=== PATIENT | female | born 1940 | race Caucasian/White ===

== ENCOUNTER 2019-10-18 12:41 | Emergency (ER) | payer MEDICARE, OTHER ==
[~2019-10-18] VITALS: Ht 177.8 cm; Wt 111.1 kg
--- OUTSIDE RECORDS SUMMARY | ~2019-10-18 | XMS | Encounter Summary ---
Demographics + + + | Address | [address] [place] [address] | | | [place] [address] | + + + | Home Phone | | + + + | Preferred Language | Unknown | + + + | Marital Status | | + + + | Adventism Affiliation | 1076 | + + + | Race | Unknown | + + + | Ethnic Group | Unknown | + + + Author + + + | Author | [facility] | | | and [place] | + + + | Organization | [facility] | | | and [place] | + + + | Address | Unknown | + + + | Phone | Unavailable | + + + Support + + + + + | Name | Relationship | Address | Phone | + + + + + | Juan Carlos Ko | ECON | [address] | | | | | [place], [place] | | | | | [address] | | + + + + + | Arie Ko | ECON | Unknown | | + + + + + Care Team Providers + +------+ + | Care Emergency Management System Director Name | Role | Phone | + +------+ + | Bobo Garcia DO | PCP | | + +------+ + Encounter Details +--------+---------+ + + + | Date | Type | Department | Care Team | Description | +--------+---------+ + + + | 03/16/ | Surgery | [facility] | Spencer Chase MD | EGD / COLONOSCOPY | | 2016 | | MED [facility] | [address], [place] | | | | | [address] | [address] [place], [place] | | | | | [place], [place] | [address] | | | | | [address] | | | | | | [phone] | | | +--------+---------+ + + + Social History + +-------+ +--------+------+ | Tobacco Use | Types | Packs/Day | Years | Date | | | | | Used | | + +-------+ +--------+------+ | Never Smoker | | | | | + +-------+ +--------+------+ + +---+---+---+ | Smokeless Tobacco: | | | | | Never Used | | | | + +---+---+---+ + + +---------+ + | Alcohol Use | Drinks/Week | oz/Week | Comments | + + +---------+ + | Yes | 2 Glasses of wine | 2.0 | 0-2 week | + + +---------+ + + + + | Sex Assigned at | Date Recorded | | | | + + + | Not on file | | + + + + + + + | Job Start Date | Occupation | Industry | + + + + | Not on file | Not on file | Not on file | + + + + + + + + | Travel History | Travel Start | Travel End | + + + + + + | No recent travel history available. | + + documented as of this encounter Last Filed Vital Signs + + + + + | Vital Sign | Reading | Time Taken | Comments | + + + + + | Blood Pressure | 97/68 | 03/16/2016 11:45 AM | | | | | PDT | | + + + + + | Pulse | 57 | 03/16/2016 11:45 AM | | | | | PDT | | + + + + + | Temperature | 36.5 C (97.7 F) | 03/16/2016 8:00 AM | | | | | PDT | | + + + + + | Respiratory Rate | 16 | 03/16/2016 11:45 AM | | | | | PDT | | + + + + + | Oxygen Saturation | 99% | 03/16/2016 11:45 AM | | | | | PDT | | + + + + + | Inhaled Oxygen | - | - | | | Concentration | | | | + + + + + | Weight | 109.8 kg (242 lb) | 03/16/2016 8:00 AM | | | | | PDT | | + + + + + | Height | 177.8 cm (5' 10") | 03/16/2016 8:00 AM | | | | | PDT | | + + + + + | Body Mass Index | 34.72 | 03/16/2016 8:00 AM | | | | | PDT | | + + + + + documented in this encounter Medications at Time of Discharge + + + +---------+--------+ + | Medication | Sig | Dispensed | Refills | Start | End Date | | | | | | Date | | + + + +---------+--------+ + | Levothyroxine | Take 100 mcg by | | 0 | | | | Sodium 100 MCG CAPS | mouth every morning | | | | | | | (before breakfast). | | | | | + + + +---------+--------+ + | lisinopril | Take 20 mg by mouth | | 0 | | | | (PRINIVIL, ZESTRIL) | Daily. | | | | | | 20 mg tablet | | | | | | + + + +---------+--------+ + | Acetaminophen | Take 500 mg by mouth | | 0 | | | | (TYLENOL EX ST | every 6 hours as | | | | 6 | | ARTHRITIS PAIN PO) | needed. | | | | | + + + +---------+--------+ + | | Take by mouth. | | 0 | | | | Boswellia-Glucosamin | | | | | 6 | | e-Vit D (GLUCOSAMINE | | | | | | | COMPLEX PO) | | | | | | + + + +---------+--------+ + | Multiple | Take 1 tablet by | | 0 | | | | Vitamins-Minerals | mouth Daily. | | | | 7 | | (MULTIVITAMIN PO) | | | | | | + + + +---------+--------+ + | Psyllium 500 MG | Take 2 capsules by | | 0 | | | | CAPS | mouth 2 times daily. | | | | 7 | + + + +---------+--------+ + documented as of this encounter Plan of Treatment Not on filedocumented as of this encounter Procedures + +--------+ + + + | Procedure Name | Priori | Date/Time | Associated Diagnosis | Comments | | | ty | | | | + +--------+ + + + | RAGHAV, STOOL | Routin | 03/19/2016 | | Results for this | | RESULT | e | 11:38 AM | | procedure are in the | | | | PDT | | results section. | + +--------+ + + + | CAMPYLOBACTER | Routin | 03/16/2016 | | Results for this | | AG,QUAL | e | 11:22 AM | | procedure are in the | | | | PDT | | results section. | + +--------+ + + + | SHIGATOXIN 1 AND 2 | Routin | 03/16/2016 | | Results for this | | | e | 11:21 AM | | procedure are in the | | | | PDT | | results section. | + +--------+ + + + | OCCULT BLOOD, STOOL, | Routin | 03/16/2016 | | Results for this | | SPECIMEN 1 | e | 10:19 AM | | procedure are in the | | | | PDT | | results section. | + +--------+ + + + | LACTOFERRIN, FECAL, | Routin | 03/16/2016 | | Results for this | | QUAL | e | 10:19 AM | | procedure are in the | | | | PDT | | results section. | + +--------+ + + + | OVA AND PARASITE | Routin | 03/16/2016 | | Results for this | | EXAMINATION | e | 10:19 AM | | procedure are in the | | | | PDT | | results section. | + +--------+ + + + | CRYPTOSPORIDIUM AG | Routin | 03/16/2016 | | Results for this | | | e | 10:19 AM | | procedure are in the | | | | PDT | | results section. | + +--------+ + + + | GIARDIA AG, EIA, | Routin | 03/16/2016 | | Results for this | | STOOL | e | 10:19 AM | | procedure are in the | | | | PDT | | results section. | + +--------+ + + + | CLOSTRIDIUM | Routin | 03/16/2016 | | Results for this | | DIFFICILE A AND B | e | 10:19 AM | | procedure are in the | | EIA | | PDT | | results section. | + +--------+ + + + | CULTURE, STOOL | Routin | 03/16/2016 | | Results for this | | | e | 10:19 AM | | procedure are in the | | | | PDT | | results section. | + +--------+ + + + | HELICOBACTER PYLORI | Routin | 03/16/2016 | | Results for this | | BIOPSY | e | 10:05 AM | | procedure are in the | | | | PDT | | results section. | + +--------+ + + + | EGD / COLONOSCOPY | | 03/16/2016 | Diarrhea Weight | | | | | 9:54 AM | loss Fecal | | | | | PDT | incontinence | | + +--------+ + + + | EGD | Routin | 03/16/2016 | | Results for this | | | e | 9:49 AM | | procedure are in the | | | | PDT | | results section. | + +--------+ + + + | COLONOSCOPY | Routin | 03/16/2016 | | Results for this | | | e | 9:48 AM | | procedure are in the | | | | PDT | | results section. | + +--------+ + + + | POC GLUCOSE | Routin | 03/16/2016 | | Results for this | | | e | 9:34 AM | | procedure are in the | | | | PDT | | results section. | + +--------+ + + + | SURGICAL PATHOLOGY | Routin | 03/16/2016 | | Results for this | | EXAM | e | 12:00 AM | | procedure are in the | | | | PDT | | results section. | + +--------+ + + + documented in this encounter Results Culture, Stool Result (03/19/2016 11:38 AM PDT) + + + + + + | Component | Value | Ref Range | Performed | Pathologist | | | | | At | Signature | + + + + + + | Culture | No Salmonella, Shigella, | | [facility] | | | | Aeromonas, Plesiomonas, | | [facility] | | | | E. coli O157 or | | MEDICAL | | | | Yersinia isolated. | | CENTER - | | | | | | LABORATORY | | + + + + + + | Culture | 2+ Gram Positive | | [facility] | | | | FloraComment: Consistent | | [facility] | | | | with usual enteric | | MEDICAL | | | | jordon.No gram negative | | CENTER - | | | | enteric jordon isolated | | LABORATORY | | + + + + + + + + | Specimen | + + | Stool - Stool | | specimen (specimen) | + + + + + + + | Performing | Address | City/State/Zipcode | Phone Number | | Organization | | | | + + + + + | [facility] | [address] | [place] | [phone] | | [facility] | | [address] | | | - LABORATORY | | | | + + + + + Campylobacter Lucita Thomas (03/16/2016 11:22 AM PDT) + + + + + + | Component | Value | Ref Range | Performed | Pathologist | | | | | At | Signature | + + + + + + | Campylobact | Negative | Negative | [facility] | | | er Lucita THOMAS | | | [facility] | | | | | | MEDICAL | | | | | | CENTER - | | | | | | LABORATORY | | + + + + + + + + | Specimen | + + | Stool - Stool | | specimen (specimen) | + + + + + + + | Performing | Address | City/State/Zipcode | Phone Number | | Organization | | | | + + + + + | [facility] | [address] | [place], [place] | [phone] | | [facility] | | [address] | | | - LABORATORY | | | | + + + + + Shigatoxin 1 and 2 (03/16/2016 11:21 AM PDT) + + + + + + | Component | Value | Ref Range | Performed | Pathologist | | | | | At | Signature | + + + + + + | Shigatoxin | Negative | Negative | [facility] | | | 1 | | | [facility] | | | | | | MEDICAL | | | | | | CENTER - | | | | | | LABORATORY | | + + + + + + | Shigatoxin | Negative | Negative | [facility] | | | 2 | | | [facility] | | | | | | MEDICAL | | | | | | CENTER - | | | | | | LABORATORY | | + + + + + + + + | Specimen | + + | Stool - Stool | | specimen (specimen) | + + + + + + + | Performing | Address | City/State/Zipcode | Phone Number | | Organization | | | | + + + + + | [facility] | [address] | [place] | [phone] | | [facility] | | [address] | | | - LABORATORY | | | | + + + + + Ova and Parasite Examination (03/16/2016 10:19 AM PDT) + + + + + + | Component | Value | Ref Range | Performed | Pathologist | | | | | At | Signature | + + + + + + | O/P IDENT | See CommentsComment: | | [facility] | | | | Accession No. | | [facility] | | | | | | | | | | [id number] | | | | | | Source | | | | | | StoolResult | | | | | | | | | | | | No Ova or | | | | | | Parasites seen | | | | | | | | | | | | This test | | | | | | will not detect | | | | | | Cyclospora, | | | | | | | | | | | | | | | | | | Cryptosporidium or | | | | | | Cystoisospora | | | | | | | | | | | | | | | | | | (Isospora). For these | | | | | | organisms | | | | | | | | | | | | refer to | | | | | | Coccidia Stain (test | | | | | | code | | | | | | | | | | | | CRYSM). | | | | + + + + + + | O/P REPORT | Report Status | | [facility]FER[facility] | | | STAT | Final | | [facility] | | | | 03/17/2016Comment: | | | | | | Testing Performed: | | | | | | [facility] | | | | | | [facility], [address] | | | | | [address] [place] [address] | | | | + + + + + + + + | Specimen | + + | Stool specimen | | (specimen) - Stool | + + + + + + + | Performing | Address | City/State/Zipcode | Phone Number | | Organization | | | | + + + + + | [facility] | [address] | [place] [address] | [phone] | + + + + + Occult Blood, Stool, Specimen 1 (03/16/2016 10:19 AM PDT) + + + + + + | Component | Value | Ref Range | Performed | Pathologist | | | | | At | Signature | + + + + + + | STOOL | Negative | | [facility] | | | OCCULT | | | [facility] | | | BLOOD X1 | | | MEDICAL | | | | | | CENTER - | | | | | | LABORATORY | | + + + + + + + + | Specimen | + + | Stool - Stool | | specimen (specimen) | + + + + + + + | Performing | Address | City/State/Zipcode | Phone Number | | Organization | | | | + + + + + | [facility] | [address] | [place] | [phone] | | [facility] | | [address] | | | - LABORATORY | | | | + + + + + Lactoferrin, Fecal, Qual (03/16/2016 10:19 AM PDT) + + + + + + | Component | Value | Ref Range | Performed | Pathologist | | | | | At | Signature | + + + + + + | Lactoferrin | Negative | Negative | [facility] | | | , Qual | | | [facility] | | | | | | MEDICAL | | | | | | CENTER - | | | | | | LABORATORY | | + + + + + + + + | Specimen | + + | Stool - Stool | | specimen (specimen) | + + + + + + + | Performing | Address | City/State/Zipcode | Phone Number | | Organization | | | | + + + + + | [facility] | [address] | [place] | [phone] | | [facility] | | [address] | | | - LABORATORY | | | | + + + + + Clostridium difficile A and B EIA (03/16/2016 10:19 AM PDT) + + + + + + | Component | Value | Ref Range | Performed | Pathologist | | | | | At | Signature | + + + + + + | Clostridium | Negative | Negative | [facility] | | | Diff | | | [facility] | | | | | | MEDICAL | | | | | | CENTER - | | | | | | LABORATORY | | + + + + + + | Clostridium | NegativeComment: | | [facility] | | | Difficile | Negative for toxigenic | | [facility] | | | [facility] Antigen | Clostridium difficileNo | | MEDICAL | | | | data exists on the | | CENTER - | | | | effects of colonic | | LABORATORY | | | | washes, barium enemas, | | | | | | laxatives, or bowel | | | | | | preparations on the | | | | | | performance of this | | | | | | test. All of these | | | | | | procedures can result in | | | | | | extensive dilution or | | | | | | the presence of | | | | | | additives that may | | | | | | affect test performance. | | | | + + + + + + + + | Specimen | + + | Stool - Stool | | specimen (specimen) | + + + + + + + | Performing | Address | City/State/Zipcode | Phone Number | | Organization | | | | + + + + + | [facility] | [address] | [place] | [phone] | | [facility] | | [address] | | | - LABORATORY | | | | + + + + + Cryptosporidium Ag (03/16/2016 10:19 AM PDT) + + + + + + | Component | Value | Ref Range | Performed | Pathologist | | | | | At | Signature | + + + + + + | Cryptospori | Negative | Negative | [facility] | | | dium | | | [facility] | | | Antigen | | | MEDICAL | | | | | | CENTER - | | | | | | LABORATORY | | + + + + + + + + | Specimen | + + | Stool - Stool | | specimen (specimen) | + + + + + + + | Performing | Address | City/State/Zipcode | Phone Number | | Organization | | | | + + + + + | [facility] | [address] | [place] | [phone] | | [facility] | | [address] | | | - LABORATORY | | | | + + + + + Giardia Ag, EIA, Stool (03/16/2016 10:19 AM PDT) + + + + + + | Component | Value | Ref Range | Performed | Pathologist | | | | | At | Signature | + + + + + + | Giardia | Negative | Negative | [facility] | | | Antigen, | | | [facility] | | | Stool | | | MEDICAL | | | | | | CENTER - | | | | | | LABORATORY | | + + + + + + + + | Specimen | + + | Stool - Stool | | specimen (specimen) | + + + + + + + | Performing | Address | City/State/Zipcode | Phone Number | | Organization | | | | + + + + + | [facility] | [address] | [place] | [phone] | | [facility] | | [address] | | | - LABORATORY | | | | + + + + + Helicobactor pylori Biopsy (03/16/2016 10:05 AM PDT) + + + + + + | Component | Value | Ref Range | Performed | Pathologist | | | | | At | Signature | + + + + + + | Helicobacte | Negative | Negative | [facility] | | | r pylori Ag | | | [facility] | | | | | | MEDICAL | | | | | | CENTER - | | | | | | LABORATORY | | + + + + + + + + | Specimen | + + | Tissue - Entire | | pyloric antrum (body | | structure) | + + + + + + + | Performing | Address | City/State/Zipcode | Phone Number | | Organization | | | | + + + + + | [facility] | [address] | [place] | [phone] | | [facility] | | [address] | | | - LABORATORY | | | | + + + + + EGD (03/16/2016 9:49 AM PDT) + + | Specimen | + + | | + + + + -+ | Narrative | Performed At | + + -+ | | [facility] | | GastroenterologyPatient Name: Carlota KoProcedure Date: 03/16/2016 | [place] | | 9:49 AMMRN: [id number] #: [id number] of : | | | 1Admit Type: AmbulatoryAge: 75Room: [facility] 01Gender: FemaleNote | | | Status: FinalizedAttending MD: Spencer Chase, MDProcedure: | | | Upper GI endoscopyIndications: Suspected esophageal | | | reflux, For therapy of esophageal reflux, | | | DiarrheaProviders: Spencer Chase MD, Elham Prather | | | [place], [place] Perez, | | | TechnicianReferring MD: Bobo Zendejas DO (Referring | | | MD)Medicines: Midazolam 5 mg IV, Meperidine 100 mg IV, | | | Cetacaine spray, Oxygen 4 liters/min | | | nasocannulaComplications: No immediate complications. Estimated | | | blood loss: Minimal.Procedure: Pre-Anesthesia Assessment: | | | - Prior to the procedure, a History and Physical was performed, and | | | patient medications, allergies and sensitivities were reviewed. | | | The patient's tolerance of previous anesthesia was reviewed. | | | - Prior to the procedure, a History and Physical was performed, | | | and patient medications and allergies were reviewed. The | | | patient is competent. The risks and benefits of the procedure | | | and the sedation options and risks were discussed with the | | | patient. All questions were answered and informed consent was | | | obtained. Patient identification and proposed procedure were | | | verified by the physician, the nurse and the electronic calibration technician in the | | | endoscopy suite. Mental Status Examination: alert and oriented. | | | Airway Examination: normal oropharyngeal airway and neck | | | mobility and Mallampati Class III (part of the uvula and soft palate | | | visualized). Prophylactic Antibiotics: The patient does not | | | require prophylactic antibiotics. Prior Anticoagulants: The | | | patient has taken no previous anticoagulant or antiplatelet | | | agents. ASA Grade Assessment: II - A patient with mild systemic | | | disease. After reviewing the risks and benefits, the patient | | | was deemed in satisfactory condition to undergo the procedure. | | | The anesthesia plan was to use moderate sedation / analgesia | | | (conscious sedation). Immediately prior to administration of | | | medications, the patient was re-assessed for adequacy to receive | | | sedatives. The heart rate, respiratory rate, oxygen saturations, | | | blood pressure, adequacy of pulmonary ventilation, and response | | | to care were monitored throughout the procedure. The physical | | | status of the patient was re-assessed after the procedure. | | | - After reviewing the risks and benefits, the patient was deemed in | | | satisfactory condition to undergo the procedure. - | | | Immediately prior to administration of medications, the patient was | | | re-assessed for adequacy to receive sedatives. - The heart | | | rate, respiratory rate, oxygen saturations, blood pressure, | | | adequacy of pulmonary ventilation, and response to care were monitored | | | throughout the procedure. - The physical status of the | | | patient was re-assessed after the procedure. After obtaining | | | informed consent, the endoscope was passed under direct vision. | | | Throughout the procedure, the patient's blood pressure, pulse, | | | and oxygen saturations were monitored continuously. The endoscope was | | | introduced through the mouth, and advanced to the third part | | | of duodenum. The upper GI endoscopy was accomplished without | | | difficulty. The patient tolerated the procedure well.Findings: | | | The cricopharyngeus, upper third of the esophagus, middle third | | | of the esophagus, lower third of the esophagus, lower | | | esophageal sphincter and gastroesophageal junction were normal. | | | The Z-line was regular and was found 40 cm from the incisors. | | | Two localized, small non-bleeding erosions were found in the | | | gastric antrum. There were no stigmata of recent bleeding. | | | Biopsies were taken with a cold forceps for Helicobacter pylori | | | testing using CLOtest. Verification of patient identification | | | for the specimen was done. Estimated blood loss was minimal. | | | The duodenal bulb, first part of the duodenum, 2nd part of the | | | duodenum, area of the papilla and 3rd part of the duodenum were | | | normal. Biopsies were taken with a cold forceps for evaluation | | | of celiac disease. Verification of patient identification for | | | the specimen was done. Estimated blood loss was minimal. | | | The retroflexed view confirmed previous findings,Impression: - | | | Normal cricopharyngeus, upper third of esophagus, middle third of | | | esophagus, lower third of esophagus, lower esophageal sphincter and | | | gastroesophageal junction. - Z-line regular, 40 cm from | | | the incisors. - Non-bleeding erosive gastropathy. Biopsied. | | | - Normal duodenal bulb, first part of the duodenum, 2nd part of the | | | duodenum, area of the papilla and 3rd part of the duodenum. | | | Biopsied. - The retroflexed view confirmed previous | | | findings,Recommendation: - Written discharge instructions were | | | provided to the patient. - Discharge patient to home | | | (ambulatory). - Return to previous diet today. - Perform a | | | colonoscopy today. - Follow an antireflux regimen indefinitely. | | | - Continue present medications. - Use Zantac (ranitidine) | | | 150 mg PO BID for 4 weeks. - Await pathology results. - | | | Return to primary care physician as previously scheduled. - | | | Telephone GI clinic for pathology results in 1 week. - Telephone | | | GI clinic if symptomatic.Spencer Chase MD03/16/2016 10:32 AMThis | | | report has been signed electronically.Number of Addenda: 0Note | | | Initiated On: 03/16/2016 9:49 AMScope Withdrawal Time: 0 hours 0 | | | minutes 0 seconds Total Procedure Duration: 0 hours 4 minutes 44 | | | seconds Scope In: 10:04:43 AMScope Out: 10:09:27 AM [place] | | | [facility], [facility] [place] [address] | | | [phone] | | | - Follow an antireflux regimen indefinitely. | | | - Continue present medications. | | | - Use Zantac (ranitidine) 150 mg PO BID for 4 weeks. | | | - Await pathology results. | | | - Return to primary care physician as previously scheduled. | | | - Telephone GI clinic for pathology results in 1 week. | | | - Telephone GI clinic if symptomatic. | | |Spencer Chase MD | | |03/16/2016 10:32 AM | | |This report has been signed electronically. | | |Number of Addenda: 0 | | |Note Initiated On: 03/16/2016 9:49 AM | | |Scope Withdrawal Time: 0 hours 0 minutes 0 seconds | | |Total Procedure Duration: 0 hours 4 minutes 44 seconds | | |Scope In: 10:04:43 AM | | |Scope Out: 10:09:27 AM | | | [facility], [address] , [place], [place] | | | [address] | | + + -+ + +---------+ + + | Performing | Address | City/State/Zipcode | Phone Number | | Organization | | | | + +---------+ + + | [facility] [place] | | | | + +---------+ + + COLONOSCOPY (03/16/2016 9:48 AM PDT) + + | Specimen | + + | | + + + + -+ | Narrative | Performed At | + + -+ | | [facility] | | GastroenterologyPatient Name: Carlota Hughescedure Date: 03/16/2016 | [place] | | 9:48 AMMRN: [id number] #: [id number] of : | | | 1Admit Type: AmbulatoryAge: 75Room: [facility] 01Gender: FemaleNote | | | Status: FinalizedAttending MD: Spencer Chase, [facility]rocedure: | | | ColonoscopyIndications: Clinically significant diarrhea of | | | unexplained origin, Fecal | | | incontinenceProviders: Spencer Chase MD, Elham L. | | | [place], Joya Perez, | | | TechnicianReferring MD: Bobo Zendejas DO (Referring | | | MD)Medicines: Midazolam 5 mg IV, Meperidine 100 mg IV, | | | Oxygen 4 liters/min | | | nasocannulaComplications: No immediate complications. Estimated | | | blood loss: Minimal.Procedure: Pre-Anesthesia Assessment: | | | - Prior to the procedure, a History and Physical was performed, and | | | patient medications, allergies and sensitivities were reviewed. | | | The patient's tolerance of previous anesthesia was reviewed. | | | - Prior to the procedure, a History and Physical was performed, | | | and patient medications and allergies were reviewed. The | | | patient is competent. The risks and benefits of the procedure | | | and the sedation options and risks were discussed with the | | | patient. All questions were answered and informed consent was | | | obtained. Patient identification and proposed procedure were | | | verified by the physician, the nurse and the electronic calibration technician in the | | | endoscopy suite. Mental Status Examination: alert and oriented. | | | Airway Examination: normal oropharyngeal airway and neck | | | mobility and Mallampati Class III (part of the uvula and soft palate | | | visualized). Prophylactic Antibiotics: The patient does not | | | require prophylactic antibiotics. Prior Anticoagulants: The | | | patient has taken no previous anticoagulant or antiplatelet | | | agents. ASA Grade Assessment: II - A patient with mild systemic | | | disease. After reviewing the risks and benefits, the patient | | | was deemed in satisfactory condition to undergo the procedure. | | | The anesthesia plan was to use moderate sedation / analgesia | | | (conscious sedation). Immediately prior to administration of | | | medications, the patient was re-assessed for adequacy to receive | | | sedatives. The heart rate, respiratory rate, oxygen saturations, | | | blood pressure, adequacy of pulmonary ventilation, and response | | | to care were monitored throughout the procedure. The physical | | | status of the patient was re-assessed after the procedure. | | | - After reviewing the risks and benefits, the patient was deemed in | | | satisfactory condition to undergo the procedure. - | | | Immediately prior to administration of medications, the patient was | | | re-assessed for adequacy to receive sedatives. - The heart | | | rate, respiratory rate, oxygen saturations, blood pressure, | | | adequacy of pulmonary ventilation, and response to care were monitored | | | throughout the procedure. - The physical status of the | | | patient was re-assessed after the procedure. After I obtained | | | informed consent, the scope was passed under direct vision. | | | Throughout the procedure, the patient's blood pressure, pulse, | | | and oxygen saturations were monitored continuously. The endoscope was | | | introduced through the anus and advanced to the cecum, | | | identified by the appendiceal orifice, ileocecal valve and | | | palpation. The colonoscopy was performed without difficulty. | | | The patient tolerated the procedure well. The quality of the | | | bowel preparation was good.Findings: The descending colon and | | | transverse colon were moderately redundant. The sigmoid colon | | | was mildly tortuous. Biopsies were taken with a cold forceps | | | from the ascending colon, descending colon and sigmoid colon for | | | evaluation of microscopic colitis. Verification of patient | | | identification for the specimen was done. Estimated blood loss was | | | minimal. The exam was otherwise without abnormality. | | | The retroflexed view of the distal rectum and anal verge was normal | | | and showed no anal or rectal abnormalities. Perianal | | | examination was normal. The digital rectal exam was abnormal. | | | Findings include decreased sphincter tone. Pertinent negatives | | | include no palpable rectal lesions.Impression: - Redundant | | | colon. - Tortuous colon. Biopsied. - The examination was | | | otherwise normal. - The distal rectum and anal verge are normal | | | on retroflexion view. - Decreased sphincter tone found on | | | digital rectal exam.Recommendation: - Written discharge | | | instructions were provided to the patient. - Discharge patient | | | to home (ambulatory). - Return to previous diet today. - | | | Continue present medications. - Await pathology results. - | | | Return to primary care physician as previously scheduled. - | | | Telephone GI clinic for pathology results in 1 week. - Telephone | | | GI clinic if symptomatic.Spencer Chase MD03/16/2016 10:36 AMThis | | | report has been signed electronically.Number of Addenda: 0Note | | | Initiated On: 03/16/2016 9:48 AMScope Withdrawal Time: 0 hours 8 | | | minutes 32 seconds Total Procedure Duration: 0 hours 14 minutes 33 | | | seconds Scope In: 10:10:33 AMScope Out: 10:25:06 AM [place] | | | [facility], [facility] [place] [address] | | | [phone] | | | - Discharge patient to home (ambulatory). | | | - Return to previous diet today. | | | - Continue present medications. | | | - Await pathology results. | | | - Return to primary care physician as previously scheduled. | | | - Telephone GI clinic for pathology results in 1 week. | | | - Telephone GI clinic if symptomatic. | | |Spencer Chase MD | | |03/16/2016 10:36 AM | | |This report has been signed electronically. | | |Number of Addenda: 0 | | |Note Initiated On: 03/16/2016 9:48 AM | | |Scope Withdrawal Time: 0 hours 8 minutes 32 seconds | | |Total Procedure Duration: 0 hours 14 minutes 33 seconds | | |Scope In: 10:10:33 AM | | |Scope Out: 10:25:06 AM | | | [facility], [address] [place], [place] | | | [address] | | + + -+ + +---------+ + + | Performing | Address | City/State/Zipcode | Phone Number | | Organization | | | | + +---------+ + + | [facility] | | | | + +---------+ + + POC Glucose (03/16/2016 9:34 AM PDT) + +-------+ + + + | Component | Value | Ref Range | Performed | Pathologist | | | | | At | Signature | + +-------+ + + + | Glucose, | 106 | 70 - 150 mg/dL | [facility] | | | POC | | | [facility] | | | | [facility] | | | | | | [facility] - | | | | | | LABORATORY | | + +-------+ + + + + + | Specimen | + + | Blood | + + + + + + + | Performing | Address | City/State/Zipcode | Phone Number | | Organization | | | | + + + + + | [facility] | [address] | [place] | [phone] | | [facility] | | [address] | | | - LABORATORY | | | | + + + + + Surgical Pathology Exam (03/16/2016 12:00 AM PDT) + + | Specimen | + + | | + + + + + | Narrative | Performed At | + + + | SPECIMEN(S): A DUODENAL BIOPSY SPECIMEN(S): B RIGHT COLON BIOPSY | [facility] | | SPECIMEN(S): C LEFT COLON BIOPSY SPECIMEN SOURCE: A. DUODENAL | [facility] | | BIOPSY B. RIGHT COLON BIOPSY C. LEFT COLON BIOPSY CLINICAL | | | HISTORY: R19.7 (diarrhea, unspecified), R63.4 (abnormal weight loss), | | | R15.9 (Focal incontinence) MICROSCOPIC DESCRIPTION: Histologic | | | sections of all submitted blocks are examined by light microscopy. | | | These findings, together with the gross examination, support the | | | pathologic diagnosis. FINAL PATHOLOGIC DIAGNOSIS: A. Duodenum, | | | biopsy: - Duodenal mucosa with prominent Mark's glands and | | | surface foveolar metaplasia suggestive of peptic duodenitis. B. | | | Colon, right, biopsy: - Increased intraepithelial lymphocytes | | | suggestive of lymphocytic colitis. C. Colon, left biopsy: - | | | Increased intraepithelial lymphocytes 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 CWG:[facility]:C2NR GROSS DESCRIPTION: The specimen is | | | received in three parts. A. The specimen is labeled "Stefani, | | | Carlota Huerta" and designated "duodenal bx" on the requisition. Received | | | in formalin are seven brian colored tissue fragments, 0.18-0.5 cm, all | | | into (A1). B. The specimen is labeled "Carlota Ko" and | | | designated "right colon bx" on the requisition. Received in formalin | | | are five cream brian colored tissue fragments, 0.25-0.5 cm all into | | | (B1). C. The specimen is labeled "Carlota Ko" and | | | designated "left colon bx" on the requisition. Received in formalin | | | are six cream brian colored tissue fragments, 0.1-0.3 cm all into (C1). | | | yt:Kasia:[facility] PERFORMING LABORATORY: Tissue processing and slide | | | preparation were performed by [facility] | | | [place] [address] (Assembly Line Upholsterer: Joesph Syed M.D. | | | CLIA#: [id number]). Professional interpretation was performed by | | | [facility], [address] | | | [place] [address] (Assembly Line Upholsterer: Von Joshi | | | Ángel Rodriguez; CLIA#: [id number]). Diagnostician: Mikala | | | Grady BEAR Pathologist Electronically Signed 03/17/2016 | | + + + + +---------+ + + | Performing | Address | City/State/Zipcode | Phone Number | | Organization | | | | + +---------+ + + | [facility] | | | | | [place] | | | | + +---------+ + + documented in this encounter Visit Diagnoses + + | Diagnosis | + + | Diarrhea | + + | Weight loss Loss of weight | + + | Fecal incontinence Full incontinence of feces | + + documented in this encounter Admitting Diagnoses + + | Diagnosis | + + | Diarrhea | + + | Weight loss Loss of weight | + + | Fecal incontinence Full incontinence of feces | + + documented in this encounter Administered Medications + +---------+ +------+-------+------+ | Medication Order | MAR | Action | Dose | Rate | Site | | | Action | Date | | | | + +---------+ +------+-------+------+ | ampicillin 2 g in sodium | New Bag | 03/16/20 | 2 g | 200 | | | chloride 0.9% 100 mL IVPB 2 g, | | 16 9:05 | | mL/hr | | | Intravenous, Administer over 30 | | AM PDT | | | | | Minutes, Prior to Incision, | | | | | | | Starting 03/16/16 at 0839, For | | | | | | | 1 dose, TO BE GIVEN PRIOR TO | | | | | | | PROCEDURE Activate system and mix | | | | | | | before use., Pre-op, | | | | | | | Indications: Prosthetic | | | | | | | Arthroplasty of the Hip, | | | | | | | bilateral | | | | | | + +---------+ +------+-------+------+ +---+---+ | | | +---+---+ + +-------+ +---------+---+---+ | pdqnqjha-inovxvvlpz-usyrbkihbi | Given | 03/16/20 | 1 spray | | | | (CETACAINE) spray PRN, Starting | | 16 10:00 | | | | | 03/16/16 at 1000 | | AM PDT | | | | + +-------+ +---------+---+---+ +---+---+ | | | +---+---+ + +---------+ +-------+-------+---+ | gentamicin 80 mg in sodium | New Bag | 03/16/20 | 80 mg | 104 | | | chloride 0.9% 50 mL IVPB 80 mg, | | 16 9:36 | | mL/hr | | | Intravenous, Administer over 30 | | AM PDT | | | | | Minutes, Prior to Incision, | | | | | | | Starting Mon03/16/16 at 0839, For | | | | | | | 1 dose, TO BE GIVEN PRIOR TO | | | | | | | PROCEDURE, Pre-op, Indications: | | | | | | | Prosthetic Arthroplasty of the | | | | | | | Hip, bilateral | | | | | | + +---------+ +-------+-------+---+ +---+---+ | | | +---+---+ + +---------+ +---+-------+---+ | lactated ringers (LR) infusion | New Bag | 03/16/20 | | 100 | | | at 100 mL/hr, Intravenous, | | 16 9:00 | | mL/hr | | | CONTINUOUS, Starting Mon03/16/16 | | AM PDT | | | | | at 0900, Pre-op | | | | | | + +---------+ +---+-------+---+ +---+---+ | | | +---+---+ + +-------+ +-------+---+---+ | meperidine (DEMEROL) 100 mg/mL | Given | 03/16/20 | 50 mg | | | | injection PRN, Starting Wed | | 16 10:02 | | | | | 03/16/16 at 1000 | | AM PDT | | | | + +-------+ +-------+---+---+ +-------+ +-------+---+---+ | Given | 03/16/20 | 50 mg | | | | | 16 10:00 | | | | | | AM PDT | | | | +-------+ +-------+---+---+ +---+---+ | | | +---+---+ + +-------+ +------+---+---+ | midazolam (VERSED) 5 mg/mL | Given | 03/16/20 | 1 mg | | | | injection PRN, Starting Wed | | 16 10:13 | | | | | 03/16/16 at 1003 | | AM PDT | | | | + +-------+ +------+---+---+ +-------+ +------+---+---+ | Given | 03/16/20 | 1 mg | | | | | 16 10:11 | | | | | | AM PDT | | | | +-------+ +------+---+---+ | Given | 03/16/20 | 2 mg | | | | | 16 10:09 | | | | | | AM PDT | | | | +-------+ +------+---+---+ +---+---+ | | | +---+---+ documented in this encounter
--- OUTSIDE RECORDS SUMMARY | ~2019-10-18 | XMS | Encounter Summary ---
Demographics + + + | Address | [address] | | | [place] [address] | + + + | Home Phone | | + + + | Preferred Language | Unknown | + + + | Marital Status | | + + + | Christian Affiliation | PRE | + + + | Race | White | + + + | Ethnic Group | Not or | + + + Author + + + | Organization | Unknown | + + + | Address | Unknown | + + + | Phone | Unavailable | + + + Support + + + + + | Name | Relationship | Address | Phone | + + + + + | Juan Carlos Ko | ECON | [address] | | | | | [place] | | | | | [address] | | + + + + + Care Team Providers + +------+ + | Care Hotel Operation Manager Name | Role | Phone | + +------+ + | Bobo Garcia DO | PCP | | + +------+ + Encounter Details +--------+ + + + + | Date | Type | Department | Care Team | Description | +--------+ + + + + | 10/08/ | Discharge | | Summary, Discharge | D/C Summary ODDS | | 2005 | Summary-Tra | | | | | | nscribed | | | | +--------+ + + + + Social History + +-------+ +--------+------+ | Tobacco Use | Types | Packs/Day | Years | Date | | | | | Used | | + +-------+ +--------+------+ | Never Smoker | | | | | + +-------+ +--------+------+ + + +---------+ + | Alcohol Use | Drinks/Week | oz/Week | Comments | + + +---------+ + | Yes | | 30.0 | glass of wine or | | | | | beer a day | + + +---------+ + + + [...] + + documented as of this encounter Discharge Summaries Interface, Refrigerating Technician In - 10/17/2006 2:34 AM [facility] [id number] VITO [place]ERV[place]ES [id number] Admission Date: 10/05/2006 Discharge Date: 10/08/2006 Staff Physician: Amirah Bae M.D. Principal Final Diagnosis: 1. Uterine prolapse. 2. Mixed urinary incontinence. Additional Diagnoses: 1. Diabetes mellitus. 2. Hypothyroidism. 3. Hypertension. Principal Procedure: 1. Abdominal supracervical hysterectomy. 2. Bilateral salpingo-oophorectomy. 3. Sacral colpopexy. 4. Tension-free vaginal tape. 5. Cystoscopy. 6. General anesthesia. 7. Epidural for postoperative pain control. 8. Prophylactic intravenous antibiotics. Reason for Admission: Ms. Ko is a 66-year-old woman with a history of uterine prolapse as well as mixed urinary incontinence. She has been seen and evaluated in the Urogynecology Clinic by Dr. Amirah Bae and after discussion, decided to pursue a definitive surgical management. She was admitted on October 05, 2006, for the above procedure. Please see the dictated operative note for full details. Postoperatively, the patient did very well. She had good pain control with her epidural PCEA and was transitioned on postoperative day #2, to oxycodone with good results. She had good return of bowel function, was tolerating a regular diet with passing of flatus at the time of discharge. She was afebrile throughout her hospitalization and had stable vital signs. She began ambulating on postoperative day #1 and this improved throughout her course. After discontinuation of her epidural, she had her Anand catheter discontinued on postoperative day #2, and voiding trials were undertaken. These were not passed initially and Anand catheter was replaced overnight and removed first thing on postoperative day #3. She had good return of bladder function and passed her voiding trials with a void of greater than 500 and post void residual of 75. The patient felt that she was adequately emptying her bladder as well. Her postoperative CBC showed white blood cell count of 10.3, hematocrit stable at 24.9 down from 36.9 preoperatively. Platelets 168, hemoglobin 8.5. Several hematocrits were checked postoperatively and again this stabilized at 25 with no evidence of active bleeding and the patient had no symptoms of anemia particularly with ambulation. CBGs were checked and were generally well controlled in the 120s to 140s. She was restarted on her metformin on postoperative day #2. By postoperative day #3, the patient was doing well with the incision. No evidence of infection or wound breakdown. She was meeting discharge criteria and was discharged home. Condition on Discharge: Good. Discharge Disposition: Discharged to home. Discharge Medication(s): 1. Iron sulfate 325 mg p.o. b.i.d. 2. Oxycodone 5 mg take 1 to 2 tablets p.o. q.4-6h. p.r.n. pain, dispensed number 40, no refills. 3. Colace 100 mg p.o. b.i.d. p.r.n. constipation. 4. Metformin 500 mg p.o. nightly. 5. Synthroid 100 mcg p.o. nightly. 6. Enalapril 5 mg p.o. nightly. Diet: Diabetic diet. Activity: The patient was instructed on pelvic and abdominal rest for at least 6 to 8 weeks. She was advised not to drive while taking narcotic medications. Warning signs and symptoms were discussed in great detail and she will call if she has any active concerns. Followup : The patient will follow up with Dr. Amirah Bae on Monday, October 11, 2006, at 9 a.m. for a postoperative check. Leatha Max M.D. Amirah Bae M.D. Patient Resource Coordinator, Urogynecology Reconstructive Pelvic Surgery / [id number] / [id number] / [id number] / Electronically signed by Amirah Bae 10-16-2006 07:43:47 AM documented i n this encounter Plan of Treatment Not on filedocumented as of this encounter Visit Diagnoses Not on filedocumented in this encounter"
--- OUTSIDE RECORDS SUMMARY | ~2019-10-18 | XMS | Encounter Summary ---
Demographics + + + | Address | [address] [place] [address] | | | [place] [address] | + + + | Home Phone | | + + + | Preferred Language | Unknown | + + + | Marital Status | | + + + | Yazidism Affiliation | 1076 | + + + | Race | Unknown | + + + | Ethnic Group | Unknown | + + + Author + + + | Author | [facility] | | | and [place] | + + + | Organization | [facility] | | | and [place] | + + + | Address | Unknown | + + + | Phone | Unavailable | + + + Support + + + + + | Name | Relationship | Address | Phone | + + + + + | Juan Carlos Ko | ECON | [address] | | | | | [place], [place] | | | | | [address] | | + + + + + | Arie Ko | ECON | Unknown | | + + + + + Care Team Providers + +------+ + | Care Public Records Researcher Name | Role | Phone | + +------+ + | Bobo Garcia DO | PCP | | + +------+ + Reason for Visit + + + | Reason | Comments | + + + | Follow-up | | + + + Encounter Details +--------+ + + + + | Date | Type | Department | Care Team | Description | +--------+ + + + + | 06/22/ | Telephone | [facility] | Janina Haney, | Follow-up | | 2014 | | [facility] | PharmD [address] | | | | | [address] | [address] | | | | | [place] [address] | [place] [address] | | | | | [phone] | [phone] | | | | | | | | +--------+ + + [...] + + documented as of this encounter Plan of Treatment Not on filedocumented as of this encounter Visit Diagnoses Not on filedocumented in this encounter"
--- OUTSIDE RECORDS SUMMARY | ~2019-10-18 | XMS | Encounter Summary ---
Demographics + + + | Address | [address] [place] [address] | | | [place] [address] | + + + | Home Phone | | + + + | Preferred Language | Unknown | + + + | Marital Status | | + + + | Hinduism Affiliation | 1076 | + + + | Race | Unknown | + + + | Ethnic Group | Unknown | + + + Author + + + | Author | [facility] | | | and [place] | + + + | Organization | [facility] | | | and [place] | + + + | Address | Unknown | + + + | Phone | Unavailable | + + + Support + + + + + | Name | Relationship | Address | Phone | + + + + + | Juan Carlos Ko | ECON | [address] | | | | | [place], [place] | | | | | [address] | | + + + + + | Arie Ko | ECON | Unknown | | + + + + + Care Team Providers + +------+ + | Care Tufter Operator Name | Role | Phone | + +------+ + | Live Sims MD | PCP | | + +------+ + Encounter Details +--------+ + + + + | Date | Type | Department | Care Team | Description | +--------+ + + + + | 01/12/ | Hospital | [facility] | Lencho Hays, | Hip joint | | 2015 | Encounter | [facility] | MD [address] | replacement by other | | | | [address] | [place] | means | | | | [place] | [address] | | | | | [address] | | | | | | [phone] | | | +--------+ + + + [...] + + documented as of this encounter Medications at Time of Discharge [...] | + + + +---------+--------+ + | bisacodyl | Take 5 mg by mouth | | 0 | | | | (DULCOLAX) 5 mg EC | Daily as needed. | | | | 5 | | tablet | | | | | | + + + +---------+--------+ + | carvedilol (COREG) | Take 3.125 mg by | | 0 | | | | 3.125 mg tablet | mouth nightly. | | | | 6 | + + + +---------+--------+ + | enalapril | Take 10 mg by mouth | | 0 | | | | (VASOTEC) 10 mg | Daily. | | | | 6 | | tablet | | | | | | + + + +---------+--------+ + | | Take by mouth. | | 0 | | | | Glucosamine-Chondroi | | | | | 5 | | t-Vit C-Mn | | | | | | | (GLUCOSAMINE 1500 | | | | | | | COMPLEX PO) | | | | | | + + + +---------+--------+ + | | Take 1 tablet by | | 0 | | | | HYDROcodone-acetamin | mouth every 4 hours | | | | 5 | | ophen (NORCO) 10-325 | as needed. | | | | | | mg per tablet | | | | | | + + + +---------+--------+ + | loperamide | Take by mouth 4 | | 0 | | | | (IMODIUM) 2 mg/10 mL | times daily as | | | | 5 | | solution | needed for Diarrhea. | | | | | + + + +---------+--------+ + | metFORMIN | Take 500 mg by mouth | | 0 | | | | (GLUCOPHAGE) 500 mg | Daily. | | | | 5 | | tablet | | | | | | + + + +---------+--------+ + | Multiple | Take 1 tablet by | | 0 | | | | Vitamins-Minerals | mouth Daily. | | | | 7 | | (MULTIVITAMIN PO) | | | | | | + + + +---------+--------+ + | niacin | Take 500 mg by mouth | | 0 | | | | (SLO-NIACIN) 500 mg | nightly. | | | | 5 | | CR tablet | | | | | | + + + +---------+--------+ + documented as of this encounter Plan of Treatment Not on filedocumented as of this encounter Procedures + +--------+ + + + | Procedure Name | Priori | Date/Time | Associated Diagnosis | Comments | | | ty | | | | + +--------+ + + + | XR PELVIS 1 OR 2 VW | Routin | 01/12/2015 | Hip joint | Results for this | | | e | 11:10 AM | replacement by other | procedure are in the | | | | PST | means | results section. | + +--------+ + + + documented in this encounter Results XR Pelvis 1 or 2 Vw (01/12/2015 11:10 AM PST) + + | Specimen | + + | | + + + + + | Narrative | Performed At | + + + | XR PELVIS 1 OR 2 VW 01/12/2015 11:10 AM HISTORY: left total hip | [facility] | | arthroplasty dos 12/05/14. COMPARISON: 12/05/2014. FINDINGS: | [facility] | | There is stable hardware for left hip arthroplasty that is intact. 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 Bone | - IMAGING | | mineralization is normal. Surgical clips are in the pelvis. | | | IMPRESSION - Stable left hip arthroplasty. Stable advanced | | | degenerative changes of right hip. Dictated and Signed by: Mk | | | MD Maxwell Electronically signed: 01/12/2015 2:39 PM | | + + + + + | Procedure Note | + + | Darion Palomo Results In - 01/12/2015 2:42 PM PST XR PELVIS 1 OR 2 VW 01/12/2015 11:10 AM | | | | HISTORY: left total hip arthroplasty dos 12/05/14. | | | | COMPARISON: 12/05/2014. | | | | FINDINGS: | | There is stable hardware for left hip arthroplasty that is intact. Stable | | advanced degenerative disease are noted of the right hip. Bone mineralization is | | normal. Surgical clips are in the pelvis. | | | | IMPRESSION - | | Stable left hip arthroplasty. 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 | | | | Dictated and Signed by: Mk Arreola MD | | Electronically signed: 01/12/2015 2:39 PM | + + + + + + + | Performing | Address | City/State/Zipcode | Phone Number | | Organization | | | | + + + + + | [facility] | [address] | [place] | [phone] | | [facility] | | [address] | | | - IMAGING | | | | + + + + + documented in this encounter Visit Diagnoses + + | Diagnosis | + + | Hip joint replacement by other means | + + documented in this encounter"
--- OUTSIDE RECORDS SUMMARY | ~2019-10-18 | XMS | Encounter Summary ---
Demographics + + + | Address | [address] [place] [address] | | | [place] [address] | + + + | Home Phone | | + + + | Preferred Language | Unknown | + + + | Marital Status | | + + + | Zoroastrianism Affiliation | 1076 | + + + | Race | Unknown | + + + | Ethnic Group | Unknown | + + + Author + + + | Author | [facility] | | | and [place] | + + + | Organization | [facility] | | | and [place] | + + + | Address | Unknown | + + + | Phone | Unavailable | + + + Support + + + + + | Name | Relationship | Address | Phone | + + + + + | Juan Carlos Ko | ECON | [address] | | | | | [place], [place] | | | | | [address] | | + + + + + | Arie Ko | ECON | Unknown | | + + + + + Care Team Providers + +------+ + | Care Pharmacist Helper Name | Role | Phone | + +------+ + | Live Sims MD | PCP | | + +------+ + Reason for Visit + + + | Reason | Comments | + + + | Pre-op Exam | left hip total arthroplasty dos 12/05/14 | + + + Encounter Details +--------+---------+ + + + | Date | Type | Department | Care Team | Description | +--------+---------+ + + + | 11/24/ | Office | [facility] | Lencho Hays, | Primary | | 2014 | Visit | ORTHOPEDIC SURGERY | [address] [place] [address] | osteoarthritis of | | | | [address] [place] [address] | [place] DAILY | left hip (Primary | | | | [place] | [id number] | Dx) | | | | [address] | | | | | | [phone] | | | +--------+---------+ + + + [...] + + + | Blood Pressure | 136/70 | 11/24/2014 10:23 AM | | | | | PST | | + + + + + | Pulse | 64 | 11/24/2014 10:23 AM | | | | | PST | | + + + + + | Temperature | 36.4 C (97.5 F) | 11/24/2014 10:23 AM | | | | | PST | | + + + + + | Respiratory Rate | 14 | 11/24/2014 10:23 AM | | | | | PST | | + + + + + | Oxygen Saturation | - | - | | + + + + + | Inhaled Oxygen | - | - | | | Concentration | | | | + + + + + | Weight | 110.7 kg (244 lb) | 11/24/2014 10:23 AM | | | | | PST | | + + + + + | Height | 177.8 cm (5' 10") | 11/24/2014 10:23 AM | | | | | PST | | + + + + + | Body Mass Index | 35.01 | 11/24/2014 10:23 AM | | | | | PST | | + + + + + documented in this encounter Progress Notes Lencho Hays MD - 11/24/2014 1:24 PM PSTPatient here with her for preop left T [place] direct anterior approach We again went over the specific risks of surgery, both medical and surgical Reasonable expectations for the recovery process both in the hospital and afterward All questions answered today She has been seen by Dr. Murray and Dr. Reeves and is pending preop clearance by her PCP Dr. Sims History and physical to follow 1: 26 PM PSTdocumented in this encounter Plan of Treatment Not on filedocumented as of this encounter Visit Diagnoses + + | Diagnosis | + + | Primary osteoarthritis of left hip - Primary Primary localized osteoarthrosis, pelvic | | region and thigh | + + documented in this encounter
--- OUTSIDE RECORDS SUMMARY | ~2019-10-18 | XMS | Encounter Summary ---
Demographics + + + | Address | [address] | | | [place] [address] | + + + | Home Phone | | + + + | Preferred Language | Unknown | + + + | Marital Status | | + + + | Shinto Affiliation | PRE | + + + | Race | White | + + + | Ethnic Group | Not or | + + + Author + + + | Author | [facility] | + + + | Organization | [facility] | + + + | Address | Unknown | + + + | Phone | Unavailable | + + + Support + + + + + | Name | Relationship | Address | Phone | + + + + + | Juan Carlos Ko | ECON | [id number] | | | | | [place] | | | | | [address] | | + + + + + Care Team Providers + +------+ + | Care Veterinary Microbiologist Name | Role | Phone | + +------+ + | Jose Bobo | PCP | | + +------+ + Reason for Visit +---------+ + | Reason | Comments | +---------+ + | Post Op | | +---------+ + Encounter Details +--------+---------+ + + + | Date | Type | Department | Care Team | Description | +--------+---------+ + + + | 10/11/ | [facility] | Malu Bae | Postop Check | | 2005 | Visit | [facility] | MD Amir[address] | (Primary Dx) | | | | [address] | [address] | | | | | [address] | [place], [place] | | | | | [facility] | [address] | | | | | [place], [place] | [phone] | | | | | [address] | | | | | | [phone] | | | +--------+---------+ + + + [...] + + + | Blood Pressure | 151/76 | 10/11/2006 9:04 AM | | | | | PST | | + + + + + | Pulse | 60 | 10/11/2006 9:04 AM | | | | | PST | | + + + + + | Temperature | - | - | | + + + + + | Respiratory Rate | - | - | | + + + + + | Oxygen Saturation | - | - | | + + + + + | Inhaled Oxygen | - | - | | | Concentration | | | | + + + + + | Weight | 114.8 kg (253 lb 1.6 | 10/11/2006 9:04 AM | | | | oz) | PST | | + + + + + | Height | - | - | | + + + + + | Body Mass Index | 35.3 | 10/04/2006 10:43 AM | | | | | PST | | + + + + + documented in this encounter Progress Notes Malu Bae - 10/11/2006 9:30 AM PSTpt is here today for one week follow-up from [facility] prior to returning to [place] she is doing very well - even went shopping yesterday using ibuprofen only for pain meds no bowel or bladder complaints other than some on-going gas discomfort; using DSS BID but a muro that she can wean PRN no vag d/c or blding no symptoms from blood loss at surgery BP 151/76 | Pulse 60 | Wt 253 lbs 1.6 oz (114.8kg) | LMP Postmenopausal-No HRT abd wound healing well with steristrips in place, minimal bruising vag wound healing well A/P: will drive home today and call with any questions or concerns but does plan to return for 6 week post op check stick with post-op restrictions documented in this encounter Plan of Treatment Not on filedocumented as of this encounter Visit Diagnoses + + | Diagnosis | + + | Postop check - Primary Follow-up examination, following unspecified surgery | + + documented in this encounter"
--- OUTSIDE RECORDS SUMMARY | ~2019-10-18 | XMS | Encounter Summary ---
Demographics + + + | Address | [address] [place] [address] | | | [place] [address] | + + + | Home Phone | | + + + | Preferred Language | Unknown | + + + | Marital Status | | + + + | Caodaism Affiliation | 1076 | + + + | Race | Unknown | + + + | Ethnic Group | Unknown | + + + Author + + + | Author | [facility] | | | and [place] | + + + | Organization | [facility] | | | and [place] | + + + | Address | Unknown | + + + | Phone | Unavailable | + + + Support + + + + + | Name | Relationship | Address | Phone | + + + + + | Juan Carlos Ko | ECON | [address] [place] [address] [address] | | | | | [place], [place] | | | | | [address] | | + + + + + | Arie Ko | ECON | Unknown | | + + + + + Care Team Providers + +------+ + | Care Ditching Machine Engineer Name | Role | Phone | + +------+ + | Bobo Garcia DO | PCP | | + +------+ + Reason for Visit + + + | Reason | Comments | + + + | Medication Follow-up | budesonide | + + + Encounter Details +--------+ + + + + | Date | Type | Department | Care Team | Description | +--------+ + + + + | 09/20/ | Telephone | [facility] | Spencer Chase MD | Medication Follow-up | | 2017 | | GASTROENTEROLOGY | [address] | (budesonide) | | | | [address] [place] | [address] [place] | | | | | [address] [place] | [address] | | | | | [address] | | | | | | [phone] | | | +--------+ + + + [...] + + documented as of this encounter Functional Status + + + + | Functional Status | Response | Date of Assessment | + + + + | Are you deaf or do you have serious | No | 04/24/2016 | | difficulty hearing? | | | + + + + | Are you blind or do you have serious | No | 04/24/2016 | | difficulty seeing, even when wearing | | | | glasses? | | | + + + + | Do you have serious difficulty walking or | No | 04/24/2016 | | climbing stairs? (5 years old or older) | | | + + + + | Do you have difficulty dressing or bathing? | No | 04/24/2016 | | (5 years old or older) | | | + + + + | Because of a physical, mental, or emotional | No | 04/24/2016 | | condition, do you have difficulty doing | | | | errands alone such as visiting a doctor's | | | | office or shopping? [15 years old or | | | | older)] | | | + + + + + + + + | Cognitive Status | Response | Date of Assessment | + + + + | Because of a physical, mental, or emotional | No | 04/24/2016 | | condition, do you have serious difficulty | | | | concentrating, remembering, or making | | | | decisions? (5 years old or older) | | | + + + + documented as of this encounter Plan of Treatment Not on filedocumented as of this encounter Visit Diagnoses Not on filedocumented in this encounter"
--- OUTSIDE RECORDS SUMMARY | ~2019-10-18 | XMS | Encounter Summary ---
Demographics + + + | Address | [address] [place] [address] | | | [place] [address] | + + + | Home Phone | | + + + | Preferred Language | Unknown | + + + | Marital Status | | + + + | Jewish Affiliation | 1076 | + + + | Race | Unknown | + + + | Ethnic Group | Unknown | + + + Author + + + | Author | [facility] | | | and [place] | + + + | Organization | [facility] | | | and [place] | + + + | Address | Unknown | + + + | Phone | Unavailable | + + + Support + + + + + | Name | Relationship | Address | Phone | + + + + + | Juan Carlos Ko | ECON | [address] | | | | | [place], [place] | | | | | [address] | | + + + + + | Arie Ko | ECON | Unknown | | + + + + + Care Team Providers + +------+ + | Care Prevention Rn Name | Role | Phone | + +------+ + | Live Sims MD | PCP | | + +------+ + Encounter Details +--------+ + + + + | Date | Type | Department | Care Team | Description | +--------+ + + + + | 09/25/ | Hospital | [facility] | Lencho Hays, | Osteoarthritis of | | 2014 | Encounter | [facility] | MD [address] | hip | | | | [address] | [place] | | | | | [place] | [address] | | | | | [address] | | | | | | [phone] | | | +--------+ + + + [...] + + +---------+ + | Yes | 1 Glasses of wine | 1.0 | | + + +---------+ + + + [...] at Time of Discharge + + + +---------+ + + | Medication | Sig | Dispensed | Refills | Start | End Date | | | | | | Date | | + + + +---------+ + + | Levothyroxine | Take 100 mcg by | | 0 | | | | Sodium 100 MCG CAPS | mouth every morning | | | | | | | (before breakfast). | | | | | + + + +---------+ + + | carvedilol (COREG) | Take 3.125 mg by | | 0 | | | | 3.125 mg tablet | mouth nightly. | | | | 6 | + + + +---------+ + + | enalapril | Take 10 mg by mouth | | 0 | | | | (VASOTEC) 10 mg | Daily. | | | | 6 | | tablet | | | | | | + + + +---------+ + + | | Take by mouth. | | 0 | | | | Glucosamine-Chondroi | | | | | 5 | | t-Vit C-Mn | | | | | | | (GLUCOSAMINE 1500 | | | | | | | COMPLEX PO) | | | | | | + + + +---------+ + + | ibuprofen (ADVIL, | Take 400 mg by mouth | | 0 | | | | MOTRIN) 200 mg | every 6 hours as | | | | 4 | | tablet | needed. | | | | | + + + +---------+ + + | metFORMIN | Take 500 mg by mouth | | 0 | | | | (GLUCOPHAGE) 500 mg | Daily. | | | | 5 | | tablet | | | | | | + + + +---------+ + + | mupirocin | | | 0 | 09/22/20 | | | (BACTROBAN) 2% | | | | 14 | 5 | | ointment | | | | | | + + + +---------+ + + | mupirocin | Apply topically 3 | | 0 | | | | (BACTROBAN) 2% | times daily. | | | | 5 | | ointment | | | | | | + + + +---------+ + + | niacin | Take 500 mg by mouth | | 0 | | | | (SLO-NIACIN) 500 mg | nightly. | | | | 5 | | CR tablet | | | | | | + + + +---------+ + + | omeprazole | Take 20 mg by mouth | | 0 | | | | (PRILOSEC) 20 mg | every morning | | | | 4 | | capsule | (before breakfast). | | | | | + + + +---------+ + + | | | | 0 | 09/22/20 | | | sulfamethoxazole-tri | | | | 14 | 5 | | methoprim (BACTRIM | | | | | | | DS) 800-160 mg per | | | | | | | tablet | | | | | | + + + +---------+ + + | | Take 1 tablet by | | 0 | | | | sulfamethoxazole-tri | mouth 2 times daily. | | | | 4 | | methoprim (BACTRIM | | | | | | | DS) 800-160 mg per | | | | | | | tablet | | | | | | + + + +---------+ + + documented as of this encounter Plan of Treatment Not on filedocumented as of this encounter Procedures + +--------+ + + + | Procedure Name | Priori | Date/Time | Associated Diagnosis | Comments | | | ty | | | | + +--------+ + + + | XR HIP LEFT 1 VW | Routin | 09/25/2014 | Osteoarthritis of | Results for this | | | e | 8:43 AM | hip | procedure are in the | | | | PST | | results section. | + +--------+ + + + documented in this encounter Results XR Hip Left 1 Vw (09/25/2014 8:43 AM PST) + + | Specimen | + + | | + + + + + | Narrative | Performed At | + + + | EXAM: XR HIP LEFT 1 VW dated 09/25/2014 8:35 AM HISTORY:left hip | MISCELANIOUS | | osteoarthritis COMPARISON: May 22, 2014. FINDINGS/IMPRESSION - | LAB | | Frontal view of the left hip with a spherical hand marker. Severe | | | degenerative changes in the left hip. No interval acute osseous | | | abnormality. The soft tissues are unremarkable. Dictated and | | | Signed by: Spencer Drake MD Electronically signed: 09/25/2014 | | | 10:00 AM | | + + + + + | Procedure Note | + + | Dewey, Rad Results In - 09/25/2014 10:03 AM PST EXAM: XR HIP LEFT 1 VW dated 09/25/2014 | | 8:35 AMHISTORY:left hip osteoarthritisCOMPARISON: May 22, 2014.FINDINGS/IMPRESSION - | | Frontal view of the left hip with a spherical hand marker. Severe degenerative changes | | in the left hip. No interval acute osseousabnormality. The soft tissues are | | unremarkable.Dictated and Signed by: Spencer Drake MD Electronically signed: | | 09/25/2014 10:00 AM | |FINDINGS/IMPRESSION - Frontal view of the left hip with a spherical hand marker. | |Severe degenerative changes in the left hip. No interval acute osseous | |abnormality. The soft tissues are unremarkable. | | | | | |Dictated and Signed by: Spencer Drake MD | | Electronically signed: 09/25/2014 10:00 AM | + + + +---------+ + + | Performing | Address | City/State/Zipcode | Phone Number | | Organization | | | | + +---------+ + + | [facility] | | | [phone] | + +---------+ + + | [facility] LAB | | | [phone] | + +---------+ + + documented in this encounter Visit Diagnoses + + | Diagnosis | + + | Osteoarthritis of hip Osteoarthrosis, unspecified whether generalized or localized, | | pelvic region and thigh | + + documented in this encounter"
--- OUTSIDE RECORDS SUMMARY | ~2019-10-18 | XMS | Encounter Summary ---
Demographics + + + | Address | [address] [place] [address] | | | [place] [address] | + + + | Home Phone | | + + + | Preferred Language | Unknown | + + + | Marital Status | | + + + | Jew Affiliation | 1076 | + + + | Race | Unknown | + + + | Ethnic Group | Unknown | + + + Author + + + | Author | [facility] | | | and [place] | + + + | Organization | [facility] | | | and [place] | + + + | Address | Unknown | + + + | Phone | Unavailable | + + + Support + + + + + | Name | Relationship | Address | Phone | + + + + + | Juan Carlos Ko | ECON | [address] | | | | | [place], [place] | | | | | [address] | | + + + + + | Arie Ko | ECON | Unknown | | + + + + + Care Team Providers + +------+ + | Care Care Professionals Name | Role | Phone | + +------+ + | Bobo Garcia DO | PCP | | + +------+ + Encounter Details +--------+ + + + + | Date | Type | Department | Care Team | Description | +--------+ + + + + | 10/14/ | Orders Only | [facility] | Mandeep Rose MD | | | 2013 | | NEPRHOLOGY [facility] | [address] | | | | | [address] | [address] [place], [place] | | | | | [address] [place], [place] | [address] | | | | | [address] | | | | | | [phone] | | | +--------+ + + + [...] | + +--------+ + + + | EXTERNAL LAB: CBC | Routin | 10/14/2014 | | Results for this | | | e | 12:00 AM | | procedure are in the | | | | PST | | results section. | + +--------+ + + + | URINALYSIS WITH | Routin | 10/14/2014 | | Results for this | | MICROSCOPIC WITH | e | 12:00 AM | | procedure are in the | | CULTURE IF INDICATED | | PST | | results section. | + +--------+ + + + | PROTEIN/CREATININE | Routin | 10/14/2014 | | Results for this | | RATIO, URINE | e | 12:00 AM | | procedure are in the | | | | PST | | results section. | + +--------+ + + + | PROTEIN, URINE, | Routin | 10/14/2014 | | Results for this | | RANDOM | e | 12:00 AM | | procedure are in the | | | | PST | | results section. | + +--------+ + + + | CREATININE, URINE, | Routin | 10/14/2014 | | Results for this | | RANDOM | e | 12:00 AM | | procedure are in the | | | | PST | | results section. | + +--------+ + + + | CULTURE, URINE | Routin | 10/14/2014 | | Results for this | | | e | 12:00 AM | | procedure are in the | | | | PST | | results section. | + +--------+ + + + | URIC ACID | Routin | 10/14/2014 | | Results for this | | | e | 12:00 AM | | procedure are in the | | | | PST | | results section. | + +--------+ + + + | MAGNESIUM | Routin | 10/14/2014 | | Results for this | | | e | 12:00 AM | | procedure are in the | | | | PST | | results section. | + +--------+ + + + | BASIC METABOLIC | Routin | 10/14/2014 | | Results for this | | PANEL | e | 12:00 AM | | procedure are in the | | | | PST | | results section. | + +--------+ + + + documented in this encounter Results Urinalysis with Microscopic with Culture if Indicated (10/14/2014 12:00 AM PST) + + + + + + | Component | Value | Ref Range | Performed | Pathologist | | | | | At | Signature | + + + + + + | Color | Yellow | | EXTERNAL | | | | | | LAB | | + + + + + + | Clarity | Clear | | EXTERNAL | | | | | | LAB | | + + + + + + | Spec Grav, | 1.025 | 1.005 - 1.030 | EXTERNAL | | | Fluid | | | LAB | | + + + + + + | Leukocyte | 1+Comment: 25 | | EXTERNAL | | | Esterase, | | | LAB | | | Urine | | | | | + + + + + + | Nitrite, | Negative | | EXTERNAL | | | Urine | | | LAB | | + + + + + + | Urobilinoge | Normal | | EXTERNAL | | | n, Urine | | | LAB | | + + + + + + | Total | Negative | | EXTERNAL | | | Protein | | | LAB | | + + + + + + | pH, Urine | 5 | 5 - 9 | EXTERNAL | | | | | | LAB | | + + + + + + | Blood, | Negative | | EXTERNAL | | | Urine | | | LAB | | + + + + + + | Ketones | Negative | | EXTERNAL | | | | | | LAB | | + + + + + + | Bilirubin, | Negative | | EXTERNAL | | | Urine | | | LAB | | + + + + + + | Glucose, | Negative | | EXTERNAL | | | Urine | | | LAB | | + + + + + + | WBC, UA | | | EXTERNAL | | | | | | LAB | | + + + + + + | RBC, UA | | | EXTERNAL | | | | | | LAB | | + + + + + + | Epithelial | | | EXTERNAL | | | Cells | | | LAB | | + + + + + + | Bacteria, | | | EXTERNAL | | | UA | | | LAB | | + + + + + + | HYALINE | | | EXTERNAL | | | CASTS UA | | | LAB | | + + + + + + + + | Specimen | + + | | + + + +---------+ + + | Performing | Address | City/State/Zipcode | Phone Number | | Organization | | | | + +---------+ + + | EXTERNAL LAB | | | | + +---------+ + + Protein/Creatinine Ratio, Urine (10/14/2014 12:00 AM PST) + +-------+ + + + | Component | Value | Ref Range | Performed | Pathologist | | | | | At | Signature | + +-------+ + + + | Protein/Cre | 81.3 | 0 - 150 | EXTERNAL | | | at Ratio | | | LAB | | + +-------+ + + + + + | Specimen | + + | Urine specimen | | (specimen) | + + + +---------+ + + | Performing | Address | City/State/Zipcode | Phone Number | | Organization | | | | + +---------+ + + | EXTERNAL LAB | | | | + +---------+ + + Protein, Urine, Random (10/14/2014 12:00 AM PST) + +-------+ + + + | Component | Value | Ref Range | Performed | Pathologist | | | | | At | Signature | + +-------+ + + + | Protein, | 17 | 0.0 - 50.0 | EXTERNAL | | | Urine | | | LAB | | + +-------+ + + + + + | Specimen | + + | Urine specimen | | (specimen) | + + + +---------+ + + | Performing | Address | City/State/Zipcode | Phone Number | | Organization | | | | + +---------+ + + | EXTERNAL LAB | | | | + +---------+ + + Creatinine, Urine, Random (10/14/2014 12:00 AM PST) + +-------+ + + + | Component | Value | Ref Range | Performed | Pathologist | | | | | At | Signature | + +-------+ + + + | Creatinine, | 209 | | EXTERNAL | | | 24H Ur | | | LAB | | + +-------+ + + + + + | Specimen | + + | Urine specimen | | (specimen) | + + + +---------+ + + | Performing | Address | City/State/Zipcode | Phone Number | | Organization | | | | + +---------+ + + | EXTERNAL LAB | | | | + +---------+ + + External Lab: CBC (10/14/2014 12:00 AM PST) + + + + + + | Component | Value | Ref Range | Performed | Pathologist | | | | | At | Signature | + + + + + + | WBC | 7.1 | 4.5 - 11.0 10 | EXTERNAL | | | | | | LAB | | + + + + + + | RED CELL | 3.97 | 3.8 - 5.1 10 | EXTERNAL | | | COUNT | | | LAB | | + + + + + + | Hgb | 11.9 (A) | 12.0 - 16.0 | EXTERNAL | | | | | g/dL | LAB | | + + + + + + | Hematocrit, | 35.7 | 35 - 45 % | EXTERNAL | | | POC | | | LAB | | + + + + + + | MCV | 89.8 | 81 - 99 fL | EXTERNAL | | | | | | LAB | | + + + + + + | MCH | 33 | 30 - 36 pg | EXTERNAL | | | | | | LAB | | + + + + + + | MCHC | 30 | 27 - 33 g/dL | EXTERNAL | | | | | | LAB | | + + + + + + | Platelet | 269 | 140 - 440 K/ L | EXTERNAL | | | Count | | | LAB | | | Plasma | | | | | + + + + + + | RDW-CV | 14.0 | 10.5 - 15.0 % | EXTERNAL | | | | | | LAB | | + + + + + + | MPV | | fL | EXTERNAL | | | | | | LAB | | + + + + + + | Differentia | Auto | | EXTERNAL | | | l Type | | | LAB | | + + + + + + | % Segmented | 65.4 | 39 - 80 % | EXTERNAL | | | | | | LAB | | | Neutrophils | | | | | + + + + + + | % | 24.0 | 24 - 44 % | EXTERNAL | | | Lymphocytes | | | LAB | | + + + + + + | % Monocytes | 7.9 | 0 - 12 % | EXTERNAL | | | | | | LAB | | + + + + + + | % | 2.1 | 0 - 6 % | EXTERNAL | | | Eosinophils | | | LAB | | + + + + + + | % Basophils | 0.6 | 0 - 2 % | EXTERNAL | | | | | | LAB | | + + + + + + | Absolute | | / L | EXTERNAL | | | Segmented | | | LAB | | | Neutrophils | | | | | + + + + + + | Absolute | | / L | EXTERNAL | | | Lymphocytes | | | LAB | | + + + + + + | Absolute | | / L | EXTERNAL | | | Monocytes | | | LAB | | + + + + + + | Absolute | | / L | EXTERNAL | | | Eosinophils | | | LAB | | + + + + + + | Absolute | | / L | EXTERNAL | | | Basophils | | | LAB | | + + + + + + + + | Specimen | + + | Blood specimen | | (specimen) | + + + +---------+ + + | Performing | Address | City/State/Zipcode | Phone Number | | Organization | | | | + +---------+ + + | EXTERNAL LAB | | | | + +---------+ + + Uric Acid (10/14/2014 12:00 AM PST) + +-------+ + + + | Component | Value | Ref Range | Performed | Pathologist | | | | | At | Signature | + +-------+ + + + | Uric Acid | 5.1 | 2.3 - 6.6 | EXTERNAL | | | | | | LAB | | + +-------+ + + + + + | Specimen | + + | Blood specimen | | (specimen) | + + + +---------+ + + | Performing | Address | City/State/Zipcode | Phone Number | | Organization | | | | + +---------+ + + | EXTERNAL LAB | | | | + +---------+ + + Magnesium (10/14/2014 12:00 AM PST) + +-------+ + + + | Component | Value | Ref Range | Performed | Pathologist | | | | | At | Signature | + +-------+ + + + | Magnesium | 2.0 | 1.7 - 2.5 mg/dL | EXTERNAL | | | | | | LAB | | + +-------+ + + + + + | Specimen | + + | Blood specimen | | (specimen) | + + + +---------+ + + | Performing | Address | City/State/Zipcode | Phone Number | | Organization | | | | + +---------+ + + | EXTERNAL LAB | | | | + +---------+ + + Basic Metabolic Panel (10/14/2014 12:00 AM PST) + +-------+ + + + | Component | Value | Ref Range | Performed | Pathologist | | | | | At | Signature | + +-------+ + + + | Glucose, | 87 | 70 - 100 mg/dL | EXTERNAL | | | Fasting | | | LAB | | + +-------+ + + + | BUN | 20 | 6 - 23 mg/dL | EXTERNAL | | | | | | LAB | | + +-------+ + + + | Creatinine | 1.09 | 0.70 - 1.18 | EXTERNAL | | | | | mg/dL | LAB | | + +-------+ + + + | BUN/Creatin | 18.3 | 6.0 - 28.6 | EXTERNAL | | | ine Ratio | | | LAB | | + +-------+ + + + | Calcium | 9.5 | 8.4 - 10.2 | EXTERNAL | | | | | mg/dL | LAB | | + +-------+ + + + | Na | 136 | 132 - 143 | EXTERNAL | | | | | mmol/L | LAB | | + +-------+ + + + | K | 4.1 | 3.6 - 5.1 | EXTERNAL | | | | | mmol/L | LAB | | + +-------+ + + + | Cl | 101 | 95 - 112 mmol/L | EXTERNAL | | | | | | LAB | | + +-------+ + + + | CO2 | 24 | 19 - 31 mmol/L | EXTERNAL | | | | | | LAB | | + +-------+ + + + | Anion Gap | 15.1 | 7 - 21 mmol/L | EXTERNAL | | | | | | LAB | | + +-------+ + + + | Estimated | 49 | mg/dL | EXTERNAL | | | GFR | | | LAB | | + +-------+ + + + + + | Specimen | + + | Blood specimen | | (specimen) | + + + +---------+ + + | Performing | Address | City/State/Zipcode | Phone Number | | Organization | | | | + +---------+ + + | EXTERNAL LAB | | | | + +---------+ + + Culture, Urine (10/14/2014 12:00 AM PST) + + | Specimen | + + | Urine specimen | | (specimen) | + + + + + | Narrative | Performed At | + + + | Specimen Description Urine CULTURE | EXTERNAL LAB | | Probable Contaminants, suggest | | | recollection. REPORT STATUS Final | | | | | + + + + +---------+ + + | Performing | Address | City/State/Zipcode | Phone Number | | Organization | | | | + +---------+ + + | EXTERNAL LAB | | | | + +---------+ + + documented in this encounter Visit Diagnoses Not on filedocumented in this encounter"
--- OUTSIDE RECORDS SUMMARY | ~2019-10-18 | XMS | Encounter Summary ---
Demographics + + + | Address | [address] [place] [address] | | | [place] [address] | + + + | Home Phone | | + + + | Preferred Language | Unknown | + + + | Marital Status | | + + + | Anabaptist Affiliation | 1076 | + + + | Race | Unknown | + + + | Ethnic Group | Unknown | + + + Author + + + | Author | [facility] | | | and [place] | + + + | Organization | [facility] | | | and [place] | + + + | Address | Unknown | + + + | Phone | Unavailable | + + + Support + + + + + | Name | Relationship | Address | Phone | + + + + + | Juan Carlos Ko | ECON | [address] [place] [address] [address] | | | | | [place], [place] | | | | | [address] | | + + + + + | Arie Ko | ECON | Unknown | | + + + + + Care Team Providers + +------+ + | Care Mathematician Name | Role | Phone | + +------+ + | Bobo Garcia DO | PCP | | + +------+ + Reason for Visit Auth/Cert +--------+--------+ + + + + | Status | Reason | Specialty | Diagnoses / | Referred By | Referred To | | | | | Procedures | Contact | Contact | +--------+--------+ + + + + | | | | Diagnoses | | | | | | | | | | | | | | Osteoarthros | | | | | | | is, | | | | | | | unspecified | | | | | | | whether | | | | | | | generalized | | | | | | | or | | | | | | | localized, | | | | | | | pelvic | | | | | | | region and | | | | | | | thigh | | | | | | | Osteoarthros | | | | | | | is, | | | | | | | unspecified | | | | | | | whether | | | | | | | generalized | | | | | | | or | | | | | | | localized, | | | | | | | pelvic | | | | | | | region and | | | | | | | thigh | | | | | | | Procedures | | | | | | | SC TOTAL HIP | | | | | | | | | | | | | | ARTHROPLASTY | | | | | | | | | | | | | | ARTHROPLASTY | | | | | | | TOTAL HIP | | | | | | | ANTERIOR | | | | | | | APPROACH | | | +--------+--------+ + + + + Encounter Details +--------+ + + + + | Date | Type | Department | Care Team | Description | +--------+ + + + + | 06/19/ | Hospital | [facility] | Lencho Hays, | | | 2015 - | Encounter | MED CTR SUR[facility] | [address] [facility] | | | | | [address] | [place] | | | 06/21/ | | [place] [address] | [id number] | | | 2014 | | [phone] | | | +--------+ + + + [...] + + + | Blood Pressure | 106/50 | 06/21/2015 8:06 AM | | | | | PDT | | + + + + + | Pulse | 68 | 06/21/2015 8:06 AM | | | | | PDT | | + + + + + | Temperature | 37.1 C (98.8 F) | 06/21/2015 8:06 AM | | | | | PDT | | + + + + + | Respiratory Rate | 18 | 06/21/2015 8:06 AM | | | | | PDT | | + + + + + | Oxygen Saturation | 95% | 06/21/2015 8:06 AM | | | | | PDT | | + + + + + | Inhaled Oxygen | - | - | | | Concentration | | | | + + + + + | Weight | 114.3 kg (252 lb) | 06/19/2015 6:14 AM | | | | | PDT | | + + + + + | Height | 177.8 cm (5' 10") | 06/19/2015 6:14 AM | | | | | PDT | | + + + + + | Body Mass Index | 36.16 | 06/19/2015 6:14 AM | | | | | PDT | | + + + + + documented in this encounter Discharge Summaries Lencho Hays MD - 06/21/2015 10:26 AM PDTFormatting of this note might be different fro m the original. DISCHARGE SUMMARY Pt. Name/Age/: Carlota Ko 75 y.o. 1940 Date of Admission: 06/19/2015 Date of Discharge: 06/21/2015 Admitting Physician: Lencho Hays MD PCP: Bobo Garcia (General) Discharging Physician: Lencho Hays MD Primary Discharge Dx: S/p right total hip arthroplasty Secondary Discharge Dx: Patient Active Problem List Diagnosis Hypothyroid Hypertension Type II diabetes mellitus Neuropathy Osteoarthritis - Left Hip Alcohol consumption one day per week S/P hysterectomy Hospital Course, including Complications: patient was mobilized on the first postop day and did very well On postop day 2 her dressings are changed to aquacel and she is clean and dry. She is ambul ating well with PT and is safe for discharge to home She is on Xarelto for dvt prophylaxis Pertinent Diagnostic Info/Data: Medications Reconciled upon Discharge are: Discharge Medications New Medications Details oxyCODONE 5 mg tablet Take 1 tablet by mouth every 4 hours as needed for Pain. aka: ROXICODONE rivaroxaban 10 mg tablet Take 1 tablet by mouth Daily. aka: XARELTO Changed Medications Details HYDROcodone-acetaminophen 10-325 mg per tablet Take 0.5-1 tablets by mouth nightly as needed. What changed: Another medication with the same name was added. Make sure you understand ho w and when to take each. aka: NORCO HYDROcodone-acetaminophen 10-325 mg per tablet Take 1-2 tablets by mouth every 4 hours as needed for Pain. What changed: You were already taking a medication with the same name, and this prescripti on was added. Make sure you understand how and when to take each. aka: NORCO Unchanged Medications Details bisacodyl 5 mg EC tablet Take 5 mg by mouth Daily as needed. aka: DULCOLAX carvedilol 3.125 mg tablet Take 3.125 mg by mouth 2 times daily (with breakfast & dinner). aka: COREG enalapril 10 mg tablet Take 10 mg by mouth Daily. aka: VASOTEC Levothyroxine Sodium 100 MCG Caps Take by mouth. loperamide 2 mg/10 mL solution Take by mouth 4 times daily as needed for Diarrhea. aka: IMODIUM MULTIVITAMIN PO Take 1 tablet by mouth Daily. Discontinued Medications TYLENOL EX ST ARTHRITIS PAIN 500 mg tablet Generic drug: acetaminophen Condition on Discharge: Stable Disposition: Patient was discharged to home Follow-Up Plans: 10-14 days with co Code Status/Advance Directive (Pertinent discussions/declarations): Full Code Electronically signed by: Lencho Hays, 06/21/2015 10:27 [facility] documented in this en counter Discharge Instructions Instructions Lencho Hays MD - 06/21/2015Ok to shower with waterproof dressing in place If a corner lifts up then put pressure on it for 5 minutes and it should stick down again Call if it leaks in the shower documented in this encounter Medications at Time [...] + + + +---------+ + + | bisacodyl | Take 5 mg [...] + +---------+ + + | | Take 1-2 tablets by | 100 | 0 | 06/21/20 | | | HYDROcodone-acetamin | mouth every 4 hours | tablet | | 15 | 5 | | ophen (NORCO) 10-325 | as needed for Pain. | | | | | | mg per tablet | | | | | | + + + +---------+ + + | | Take 0.5-1 tablets | 50 | 0 | 04/22/20 | | | HYDROcodone-acetamin | by mouth nightly as | tablet | | 15 | 5 | | ophen (NORCO) 10-325 | needed. | | | | | | mg per tablet | | | | | | + + + +---------+ + + | loperamide | Take by mouth 4 | | 0 | | | | (IMODIUM) 2 mg/10 mL | times daily as | | | | 5 | | solution | needed for Diarrhea. | | | | | + + + +---------+ + + | Multiple | Take 1 tablet by | | 0 | | | | Vitamins-Minerals | mouth Daily. | | | | 7 | | (MULTIVITAMIN PO) | | | | | | + + + +---------+ + + | oxyCODONE | Take 1 tablet by | 60 | 0 | 06/21/20 | | | (ROXICODONE) 5 mg | mouth every 4 hours | tablet | | 15 | 5 | | tablet | as needed for Pain. | | | | | + + + +---------+ + + | rivaroxaban | Take 1 tablet by | 20 | 0 | 06/21/20 | | | (XARELTO) 10 mg | mouth Daily. | tablet | | 15 | 5 | | tablet | | | | | | + + + +---------+ + + documented as of this encounter Progress Notes Lencho Hays MD - 06/21/2015 10:28 AM PDTPatient doing well and [facility] summary A Front wheel walker is prescribed for the next 6 weeks A face to face encounter with me was done and the need is certified - s/p right total hip a rthroplasty postop day 2 Lencho Hays MD Lencho Tripp MD - 06/20/2015 9:07 AM PDTFormatting of this note might be different from the o riginal. Patient with no pain She is concerned about her chronic diarrhea and wants metamucil instead of colace Filed Vitals: 06/20/15 0802 BP: 137/57 Pulse: 66 Temp: 37.5 C (99.5 F) Resp: 16 I/O last 3 completed shifts: In: 4514 [P.O.:1740; I.V.:2724; IV Piggyback:50] Out: 2950 [Urine:2450; Blood:500] I/O this shift: In: 240 [P.O.:240] Out: - On exam she is awake, alert, no distress Hip dressings intact and dry Calves nontender Flex/ext feet well Recent Results (from the past 24 hour(s)) Basic Metabolic Panel Result Value Ref Range NA 134 (L) 136-149 mmol/L K 4.2 3.5-5.1 mmol/L CL 101 98-109 mmol/L CO2 29 24-31 mmol/L ANION GAP 4 3-16 mmol/L GLUCOSE 135 (H) 70-109 mg/dL BUN 12 7-18 mg/dL Creatinine, Serum/Plasma 0.83 0.60-1.30 mg/dL eGFR if not >60 >=60 mL/min/1.73m2 CALCIUM 8.3 8.3-10.5 mg/dL BUN/CREA 14.5 Hemoglobin and Hematocrit Result Value Ref Range Hgb 10.4 (L) 11.5-16.0 g/dL Hct 31.2 (L) 34.0-47.0 % POD 1 s/p right Kenny Mobilize with PT Kat Pascual RN - 06/19/2015 6:43 AM PDTSmall area posterior lateral right thigh abrasion . documented in this encounter Plan of Treatment Not on filedocumented as of this encounter Procedures + +--------+ + + + | Procedure Name | Priori | Date/Time | Associated Diagnosis | Comments | | | ty | | | | + +--------+ + + + | HEMOGLOBIN AND | Routin | 06/21/2015 | | Results for this | | HEMATOCRIT | e | 6:48 AM | | procedure are in the | | | | PDT | | results section. | + +--------+ + + + | BASIC METABOLIC | Routin | 06/21/2015 | | Results for this | | PANEL | e | 6:48 AM | | procedure are in the | | | | PDT | | results section. | + +--------+ + + + | HEMOGLOBIN AND | Routin | 06/20/2015 | | Results for this | | HEMATOCRIT | e | 6:38 AM | | procedure are in the | | | | PDT | | results section. | + +--------+ + + + | BASIC METABOLIC | Routin | 06/20/2015 | | Results for this | | PANEL | e | 6:38 AM | | procedure are in the | | | | PDT | | results section. | + +--------+ + + + | FL MARIS STATS NO | Routin | 06/19/2015 | | Results for this | | CHARGE | e | 10:23 AM | | procedure are in the | | | | PDT | | results section. | + +--------+ + + + | XR PELVIS 1 OR 2 VW | STAT | 06/19/2015 | | Results for this | | | | 9:47 AM | | procedure are in the | | | | PDT | | results section. | + +--------+ + + + | ARTHROPLASTY HIP | | 06/19/2015 | Osteoarthrosis, | | | ANTERIOR APPROACH | | 7:30 AM | unspecified whether | | | | | PDT | generalized or | | | | | | localized, pelvic | | | | | | region and thigh | | + +--------+ + + + +---+--------+ | | | | | Specia | | | l | | | Needs | | | | | | Medact | | | a | +---+--------+ documented in this encounter Results Hemoglobin and Hematocrit (06/21/2015 6:48 AM PDT) + + + + + + | Component | Value | Ref Range | Performed | Pathologist | | | | | At | Signature | + + + + + + | Hemoglobin | 10.1 (L) | 11.5 - 16.0 | [facility] | | | | | g/dL | [facility] | | | | | | [facility] | | | | | | [facility] - | | | | | | LABORATORY | | + + + + + + | Hematocrit | 30.2 (L) | 34.0 - 47.0 % | [facility] | | | | | | [facility] | | [...] | [address] | [place] | [phone] | | [facility] | | [address] | | | - LABORATORY | | | | + + + + + Basic Metabolic Panel (06/21/2015 6:48 AM PDT) + + + + + + | Component | Value | Ref Range | Performed | Pathologist | | | | | At | Signature | + + + + + + | Na | 132 (L) | 136 - 149 | [facility] | | | | | mmol/L | [facility] | | | | | | [facility] | | | | | | CENTER - | | | | | | LABORATORY | | + + + + + + | K | 3.7 | 3.5 - 5.1 | [facility] | | | | | mmol/L | [facility] | | | | | | MED[facility] | | | | | | CENTER - | | | | | | LABORATORY | | + + + + + + | Cl | 97 (L) | 98 - 109 mmol/L | [facility] | | | | | | [facility] | | | | | | MEDICAL | | | | | | CENTER - | | | | | | LABORATORY | | + + + + + + | CO2 | 29 | 24 - 31 mmol/L | [facility] | | | | | | [facility] | | | | | | [facility] | | | | | | CENTER - | | | | | | LABORATORY | | + + + + + + | Anion Gap | 6 | 3 - 16 mmol/L | [facility] | | | | | | [facility] | | | | | | [facility] | | | | | | [facility] - | | | | | | LABORATORY | | + + + + + + | Glucose | 112 (H) | 70 - 109 mg/dL | [facility] | | | | | | [facility] | | | | | | [facility] | | | | | | [facility] - | | | | | | LABORATORY | | + + + + + + | BUN | 10 | 7 - 18 mg/dL | [facility] | | | | | | [facility] | | | | | | [facility] | | | | | | [facility] - | | | | | | LABORATORY | | + + + + + + | Creatinine | 0.88 | 0.60 - 1.30 | [facility] | | | | | mg/dL | [facility] | | | | | | [facility] | | | | | | [facility] - | | | | | | LABORATORY | | + + + + + + | eGFR if not | >60Comment: GLOMERULAR | >=60 | [facility] | | | | FILTRATION | mL/min/1.73m2 | [facility] | | | [place] | RATE,ESTIMATED | | MEDICAL | | | | mL/min/1.15o9Ryvj than | | CENTER - | | | | 60 Chronic kidney | | LABORATORY | | | | disease,if found over a | | | | | | 3-month period.Less than | | | | | | 15 Kidney failureFor | | | | | | | | | | | | Americans,multiply the | | | | | | calculated GFR by 1.21. | | | | | | | | | | + + + + + + | Calcium | 8.5 | 8.3 - 10.5 | [facility] | | | | | mg/dL | [facility] | | | | | | [facility] | | | | | | CENTER - | | | | | | LABORATORY | | + + + + + + | BUN/Creatin | 11.4 | | [facility] | | | ine Ratio | | | [facility] | | [...] + + | [facility] | [address] | [place] | [phone] | | [facility] | | [address] | | | - LABORATORY | | | | + + + + + Hemoglobin and Hematocrit (06/20/2015 6:38 AM PDT) + + + + + + | Component | Value | Ref Range | Performed | Pathologist | | | | | At | Signature | + + + + + + | Hemoglobin | 10.4 (L) | 11.5 - 16.0 | [facility] | | | | | g/dL | [facility] | | | | | | MEDICAL | | | | | | CENTER - | | | | | | LABORATORY | | + + + + + + | Hematocrit | 31.2 (L) | 34.0 - 47.0 % | [facility] | | | | | | [facility] | | [...] | [address] | [place] | [phone] | | [facility] | | [address] | | | - LABORATORY | | | | + + + + + Basic Metabolic Panel (06/20/2015 6:38 AM PDT) + + + + + + | Component | Value | Ref Range | Performed | Pathologist | | | | | At | Signature | + + + + + + | Na | 134 (L) | 136 - 149 | [facility] | | | | | mmol/L | [facility] | | | | | | MEDICAL | | | | | | CENTER - | | | | | | LABORATORY | | + + + + + + | K | 4.2 | 3.5 - 5.1 | [facility] | | | | | mmol/L | [facility] | | | | | | MEDICAL | | | | | | CENTER - | | | | | | LABORATORY | | + + + + + + | Cl | 101 | 98 - 109 mmol/L | [facility] | | | | | | [facility] | | | | | | MEDICAL | | | | | | CENTER - | | | | | | LABORATORY | | + + + + + + | CO2 | 29 | 24 - 31 mmol/L | [facility] | | | | | | [facility] | | | | | | MED[facility] | | | | | | CENTER - | | | | | | LABORATORY | | + + + + + + | Anion Gap | 4 | 3 - 16 mmol/L | [facility] | | | | | | [facility] | | | | | | [facility] | | | | | | CENTER - | | | | | | LABORATORY | | + + + + + + | Glucose | 135 (H) | 70 - 109 mg/dL | [facility] | | | | | | [facility] | | | | | | [facility] | | | | | | CENTER - | | | | | | LABORATORY | | + + + + + + | BUN | 12 | 7 - 18 mg/dL | [facility] | | | | | | [facility] | | | | | | [facility] | | | | | | CENTER - | | | | | | LABORATORY | | + + + + + + | Creatinine | 0.83 | 0.60 - 1.30 | [facility] | | | | | mg/dL | [facility] | | | | | | MEDICAL | | | | | | CENTER - | | | | | | LABORATORY | | + + + + + + | eGFR if not | >60Comment: GLOMERULAR | >=60 | [facility] | | | | FILTRATION | mL/min/1.73m2 | [facility] | | | [place] | RATE,ESTIMATED | | MEDICAL | | | | mL/min/1.66j4Kfja than | | CENTER - | | | | 60 Chronic kidney | | LABORATORY | | | | disease,if found over a | | | | | | 3-month period.Less than | | | | | | 15 Kidney failureFor | | | | | | | | | | | | Americans,multiply the | | | | | | calculated GFR by 1.21. | | | | | | | | | | + + + + + + | Calcium | 8.3 | 8.3 - 10.5 | [facility] | | | | | mg/dL | [facility] | | | | | | MEDICAL | | | | | | CENTER - | | | | | | LABORATORY | | + + + + + + | BUN/Creatin | 14.5 | | [facility] | | | ine Ratio | | | [facility] | | | | | | [...] + + | [facility] | [address] | [place] | [phone] | | [facility] | | [address] | | | - LABORATORY | | | | + + + + + ABRIL Siegel Neida No Charge (06/19/2015 10:23 AM PDT) + + | Specimen | + + | | + + + + + | Narrative | Performed At | + + + | No Radiologist interpretation, please see Chart Review. | [facility] | + + + + +---------+ + + | Performing | Address | City/State/Zipcode | Phone Number | | Organization | | | | + +---------+ + + | [facility] | | | | + +---------+ + + XR Pelvis 1 or 2 Vw (06/19/2015 9:47 AM PDT) + + | Specimen | + + | | + + + + + | Narrative | Performed At | + + + | XR PELVIS 1 OR 2 VW 06/19/2015 9:46 AM HISTORY: right total hip. | [facility] | | COMPARISON: Multiple priors. FINDINGS: There has been | | | interval placement of hardware for right hip arthroplasty that is | | | intact. Postoperative changes are observed in the proximal soft | | | tissues, including subcutaneous gas and himanshu. There is stable | | | hardware for left hip arthroplasty. Mild sclerosis is observed of the | | | symphysis pubis. Bone mineralization is mildly decreased. Clips are | | | in the left pelvis. IMPRESSION - Interval right hip arthroplasty. | | | Dictated and Signed by: Mk Arreola MD Electronically | | | signed: 06/19/2015 11:39 AM | | + + + + + | Procedure Note | + + | Dewey, Rad Results In - 06/19/2015 11:42 AM PDT XR PELVIS 1 OR 2 VW 06/19/2015 9:46 AM | | | | HISTORY: right total hip. | | | | COMPARISON: Multiple priors. | | | | FINDINGS: | | There has been interval placement of hardware for right hip arthroplasty that is | | intact. Postoperative changes are observed in the proximal soft tissues, | | including subcutaneous gas and himanshu. There is stable hardware for left hip | | arthroplasty. Mild sclerosis is observed of the symphysis pubis. Bone | | mineralization is mildly decreased. Clips are in the left pelvis. | | | | IMPRESSION - | | Interval right hip arthroplasty. | | | | Dictated and Signed by: Mk Arreola MD | | Electronically signed: 06/19/2015 11:39 AM | + + + +---------+ + + | Performing | Address | City/State/Zipcode | Phone Number | | Organization | | | | + +---------+ + + | [facility] | | | | + +---------+ + + documented in this encounter Visit Diagnoses Not on filedocumented in this encounter Administered Medications + +--------+ + +------+------+ | Medication Order | MAR | Action | Dose | Rate | Site | | | Action | Date | | | | + +--------+ + +------+------+ | carvedilol (COREG) tablet 3.125 | Given | 06/21/20 | 3.125 mg | | | | mg 3.125 mg, Oral, 2 TIMES | | 15 8:25 | | | | | DAILY WITH BREAKFAST & DINNER, | | AM PDT | | | | | First dose on Mon06/19/15 at | | | | | | | 1800, Whenever criss is will be | | | | | | | her first dose postop, | | | | | | + +--------+ + +------+------+ +-------+ + +---+---+ | Given | 06/20/20 | 3.125 mg | | | | | 15 4:29 | | | | | | PM PDT | | | | +-------+ + +---+---+ | Given | 06/20/20 | 3.125 mg | | | | | 15 9:02 | | | | | | AM PDT | | | | +-------+ + +---+---+ +---+---+ | | | +---+---+ + +---------+ +-----+-------+---+ | ceFAZolin (ANCEF, KEFZOL) 1 g | New Bag | 06/20/20 | 1 g | 100 | | | in sodium chloride 0.9% 50 mL | | 15 12:17 | | mL/hr | | | IVPB 1 g, Intravenous, | | AM PDT | | | | | Administer over 30 Minutes, EVERY | | | | | | | 6 HOURS (4 times per day), First | | | | | | | dose on Mon06/19/15 at 1200, For | | | | | | | 3 doses, Start 6 hours after | | | | | | | previous dose. Last dose to be | | | | | | | given within 24 hours of surgery | | | | | | | end time. Activate system and mix | | | | | | | before use., Post-op/Phase II | | | | | | + +---------+ +-----+-------+---+ +---------+ +-----+-------+---+ | New Bag | 06/19/20 | 1 g | 100 | | | | 15 6:51 | | mL/hr | | | | PM PDT | | | | +---------+ +-----+-------+---+ | New Bag | 06/19/20 | 1 g | 100 | | | | 15 12:47 | | mL/hr | | | | PM PDT | | | | +---------+ +-----+-------+---+ +---+---+ | | | +---+---+ + +-------+ + +---+---+ | HYDROcodone-acetaminophen | Given | 06/21/20 | 1 tablet | | | | (NORCO) 10-325 mg per tablet 1-2 | | 15 10:54 | | | | | tablet 1-2 tablet, Oral, EVERY 4 | | AM PDT | | | | | HOURS PRN, Pain, Starting Fri | | | | | | | 06/19/15 at 1034, If ineffective | | | | | | | or not tolerated use Oxycodone if | | | | | | | ordered., Post-op/Phase II | | | | | | + +-------+ + +---+---+ +-------+ + +---+---+ | Given | 06/21/20 | 1 tablet | | | | | 15 8:28 | | | | | | AM PDT | | | | +-------+ + +---+---+ | Given | 06/21/20 | 1 tablet | | | | | 15 6:19 | | | | | | AM PDT | | | | +-------+ + +---+---+ +---+---+ | | | +---+---+ + +---------+ +---+---+---+ | lactated ringers (LR) infusion | New Bag | 06/19/20 | | | | | at 10-100 mL/hr, Intravenous, | | 15 8:53 | | | | | CONTINUOUS, Starting 06/19/15 | | AM PDT | | | | | at 0630, TKO., Pre-op | | | | | | + +---------+ +---+---+---+ +---------+ +--------+-------+---+ | New Bag | 06/19/20 | 1,000 | 100 | | | | 15 7:02 | mLs | mL/hr | | | | AM PDT | | | | +---------+ +--------+-------+---+ +---+---+ | | | +---+---+ + +---------+ +---+-------+---+ | lactated ringers (LR) infusion | New Bag | 06/19/20 | | 100 | | | at 100 mL/hr, Intravenous, FIXED | | 15 9:49 | | mL/hr | | | VOLUME (see admin instruction), | | PM PDT | | | | | Starting Mon06/19/15 at 1100, | | | | | | | Saline lock IV when taking PO | | | | | | | well after 2 liters, | | | | | | | Post-op/Phase II | | | | | | + +---------+ +---+-------+---+ +---------+ +---+-------+---+ | New Bag | 06/19/20 | | 100 | | | | 15 10:43 | | mL/hr | | | | AM PDT | | | | +---------+ +---+-------+---+ +---+---+ | | | +---+---+ + +-------+ +---------+---+---+ | levothyroxine (SYNTHROID, | Given | 06/21/20 | 100 mcg | | | | LEVOTHROID) tablet 100 mcg 100 | | 15 6:19 | | | | | mcg, Oral, DAILY BEFORE | | AM PDT | | | | | BREAKFAST, First dose on Sat | | | | | | | 06/20/15 at 0730 | | | | | | + +-------+ +---------+---+---+ +-------+ +---------+---+---+ | Given | 06/20/20 | 100 mcg | | | | | 15 7:16 | | | | | | AM PDT | | | | +-------+ +---------+---+---+ +---+---+ | | | +---+---+ + +-------+ +-------+---+---+ | lisinopril (PRINIVIL, ZESTRIL) | Given | 06/20/20 | 10 mg | | | | tablet 10 mg 10 mg, Oral, DAILY, | | 15 5:13 | | | | | First dose (after last | | PM PDT | | | | | modification) on 06/20/15 at | | | | | | | 1800 | | | | | | + +-------+ +-------+---+---+ +---+---+ | | | +---+---+ + +-------+ +-------+---+---+ | metoclopramide (REGLAN) 5 mg/mL | Given | 06/19/20 | 10 mg | | | | injection 10 mg 10 mg, | | 15 9:47 | | | | | Intravenous, EVERY 4 HOURS PRN, | | AM PDT | | | | | Nausea, Vomiting, Starting Fri | | | | | | | 06/19/15 at 0818, For 24 hours, | | | | | | | Use if ondansetron and | | | | | | | prochlorperazine ineffective | | | | | | | after 30 minutes or not ordered, | | | | | | + +-------+ +-------+---+---+ +---+---+ | | | +---+---+ + +-------+ + +---+---+ | multivitamin (POLY VITAMIN) | Given | 06/21/20 | 1 tablet | | | | chewable tablet 1 tablet 1 | | 15 8:25 | | | | | tablet, Oral, DAILY, First dose | | AM PDT | | | | | on 06/20/15 at 0900 | | | | | | + +-------+ + +---+---+ +-------+ + +---+---+ | Given | 06/20/20 | 1 tablet | | | | | 15 9:01 | | | | | | AM PDT | | | | +-------+ + +---+---+ +---+---+ | | | +---+---+ + +-------+ +------+---+---+ | ondansetron (ZOFRAN) injection | Given | 06/19/20 | 4 mg | | | | 4 mg 4 mg, Intravenous, EVERY 6 | | 15 8:11 | | | | | HOURS PRN, Nausea, Vomiting, | | PM PDT | | | | | Starting Mon06/19/15 at 1034, | | | | | | | First line agent Use PO option | | | | | | | unless NPO status or unable to | | | | | | | tolerate, Post-op/Phase II | | | | | | + +-------+ +------+---+---+ +---+---+ | | | +---+---+ + +-------+ +------+---+---+ | ondansetron (ZOFRAN) injection | Given | 06/19/20 | 4 mg | | | | 4 mg 4 mg, Intravenous, ONCE | | 15 9:47 | | | | | PRN, Nausea, Starting Mon06/19/15 | | AM PDT | | | | | at 0915, For 1 dose, | | | | | | | Recovery/Phase I | | | | | | + +-------+ +------+---+---+ +---+---+ | | | +---+---+ + +-------+ + +---+---+ | psyllium (METAMUCIL) 58.6 % 1 | Given | 06/21/20 | 1 packet | | | | packet 1 packet, Oral, 3 TIMES | | 15 8:24 | | | | | DAILY, First dose on 06/20/15 | | AM PDT | | | | | at 0930, Must be diluted, | | | | | | + +-------+ + +---+---+ +-------+ + +---+---+ | Given | 06/20/20 | 1 packet | | | | | 15 8:01 | | | | | | PM PDT | | | | +-------+ + +---+---+ | Given | 06/20/20 | 1 packet | | | | | 15 4:08 | | | | | | PM PDT | | | | +-------+ + +---+---+ +---+---+ | | | +---+---+ + +-------+ +-------+---+---+ | rivaroxaban (XARELTO) tablet 10 | Given | 06/21/20 | 10 mg | | | | mg 10 mg, Oral, DAILY, First | | 15 8:25 | | | | | dose on 06/20/15 at 0700, | | AM PDT | | | | | Post-op/Phase II | | | | | | + +-------+ +-------+---+---+ +-------+ +-------+---+---+ | Given | 06/20/20 | 10 mg | | | | | 15 7:16 | | | | | | AM PDT | | | | +-------+ +-------+---+---+ +---+---+ | | | +---+---+ documented in this encounter
--- OUTSIDE RECORDS SUMMARY | ~2019-10-18 | XMS | Encounter Summary ---
Demographics + + + | Address | [address] [place] [address] | | | [place] [address] | + + + | Home Phone | | + + + | Preferred Language | Unknown | + + + | Marital Status | | + + + | Moravian Affiliation | 1076 | + + + | Race | Unknown | + + + | Ethnic Group | Unknown | + + + Author + + + | Author | [facility] | | | and [place] | + + + | Organization | [facility] | | | and [place] | + + + | Address | Unknown | + + + | Phone | Unavailable | + + + Support + + + + + | Name | Relationship | Address | Phone | + + + + + | Juan Carlos Ko | ECON | [address] [place] [address] [address] | | | | | [place], [place] | | | | | [address] | | + + + + + | Arie Ko | ECON | Unknown | | + + + + + Care Team Providers + +------+ + | Care Cold Roll Catcher Name | Role | Phone | + +------+ + | Bobo Garcia DO | PCP | | + +------+ + Reason for Visit + + + | Reason | Comments | + + + | Medication Follow-up | [facility] | + + + Encounter Details +--------+ + + + + | Date | Type | Department | Care Team | Description | +--------+ + + + + | 10/05/ | Telephone | [facility] | Spencer Chase MD | Medication Follow-up | | 2017 | | GASTROENTEROLOGY | [address] | ([facility]) | | | | [address] | [address] [place] | | | | | [address] [place] | [address] | | | | | [address] | | | | | | [phone] | | | +--------+ + + + [...]
--- OUTSIDE RECORDS SUMMARY | ~2019-10-18 | XMS | Encounter Summary ---
Demographics + + + | Address | [address] [place] [address] | | | [place] [address] | + + + | Home Phone | | + + + | Preferred Language | Unknown | + + + | Marital Status | | + + + | Spiritism Affiliation | 1076 | + + + | Race | Unknown | + + + | Ethnic Group | Unknown | + + + Author + + + | Author | [facility] | | | and [place] | + + + | Organization | [facility] | | | and [place] | + + + | Address | Unknown | + + + | Phone | Unavailable | + + + Support + + + + + | Name | Relationship | Address | Phone | + + + + + | Juan Carlos Ko | ECON | [address] | | | | | [place], [place] | | | | | [address] | | + + + + + | Arie Ko | ECON | Unknown | | + + + + + Care Team Providers + +------+ + | Care Warehouse Assistant Name | Role | Phone | + +------+ + | Live Sims MD | PCP | | + +------+ + Encounter Details +--------+ + + + + | Date | Type | Department | Care Team | Description | +--------+ + + + + | 07/09/ | Hospital | [facility] | SaúlPriyankk Linden, | Hip pain, left; | | 2013 | Encounter | MED CTR XRAY [address] | [address] | Osteoarthritis of | | | | [place] | [place], [place] | left hip | | | | [place] [address] | [address] | | | | | [phone] | | | +--------+ + + + [...] Comments | + + +---------+ + | Not Asked | | | | + + +---------+ + + [...] this encounter Last Filed Vital Signs + +---------+ + + | Vital Sign | Reading | Time Taken | Comments | + +---------+ + + | Blood Pressure | 142/79 | 07/09/2014 8:00 AM | | | | | PDT | | + +---------+ + + | Pulse | 52 | 07/09/2014 8:00 AM | | | | | PDT | | + +---------+ + + | Temperature | - | - | | + +---------+ + + | Respiratory Rate | - | - | | + +---------+ + + | Oxygen Saturation | - | - | | + +---------+ + + | Inhaled Oxygen | - | - | | | Concentration | | | | + +---------+ + + | Weight | - | - | | + +---------+ + + | Height | - | - | | + +---------+ + + | Body Mass Index | - | - | | + +---------+ + + documented in this encounter Medications [...] | + + + +---------+--------+ + | ibuprofen (ADVIL, | Take 400 [...] | + + + +---------+--------+ + | omeprazole | Take 20 mg [...] + +--------+ + + + | FL ASPIRATION | Routin | 07/09/2014 | Hip pain, left | Results for this | | INJECTION MAJOR | e | 8:32 AM | Osteoarthritis of | procedure are in the | | JOINT LEFT | | PDT | left hip | results section. | + +--------+ + + + documented in this encounter Results FL Major Joint Injection Left (07/09/2014 8:32 AM PDT) + + | Specimen | + + | | + + + + + | Narrative | Performed At | + + + | No Radiologist interpretation, please see Chart Review. | [facility] | | | [facility] | | | [facility] | | | - IMAGING | + + + + + | Procedure Note | + + | 07/09/2014 8:36 AM PDT No Radiologist interpretation, please see Chart Review. | + + + + + + + | Performing | Address | City/State/Zipcode | Phone Number | | Organization | | | | + + + + + | [facility] | [address] | [place] | [phone] | | [facility] | | [address] | | | - IMAGING | | | | + + + + + documented in this encounter Visit Diagnoses + + | Diagnosis | + + | Hip pain, left Pain in joint, pelvic region and thigh | + + | Osteoarthritis of left hip Osteoarthrosis, unspecified whether generalized or | | localized, pelvic region and thigh | + + documented in this encounter Administered Medications + +--------+ +-------+------+------+ | Medication Order | MAR | Action | Dose | Rate | Site | | | Action | Date | | | | + +--------+ +-------+------+------+ | iohexol (OMNIPAQUE 300) 300 | Given | 07/09/20 | 3 mLs | | | | mg/mL injection 3 mL 3 mL, | | 14 8:35 | | | | | Intra-articular, ONCE PRN, Other, | | AM PDT | | | | | Starting 07/09/14 at 0825, | | | | | | | For 1 dose, Radiology | | | | | | + +--------+ +-------+------+------+ +---+---+ | | | +---+---+ + +-------+ +-------+---+---+ | triamcinolone acetonide | Given | 07/09/20 | 40 mg | | | | (KENALOG-40) 40 mg/mL injection | | 14 8:45 | | | | | 40 mg 40 mg, Intra-articular, | | AM PDT | | | | | ONCE, 07/09/14 at 0845, For 1 | | | | | | | dose, Shake well. Not for IV | | | | | | | use., | | | | | | + +-------+ +-------+---+---+ +---+---+ | | | +---+---+ documented in this encounter"
--- OUTSIDE RECORDS SUMMARY | ~2019-10-18 | XMS | Encounter Summary ---
Demographics + + + | Address | [address] [place] [address] | | | [place] [address] | + + + | Home Phone | | + + + | Preferred Language | Unknown | + + + | Marital Status | | + + + | Synagogue Affiliation | 1076 | + + + | Race | Unknown | + + + | Ethnic Group | Unknown | + + + Author + + + | Author | [facility] | | | and [place] | + + + | Organization | [facility] | | | and [place] | + + + | Address | Unknown | + + + | Phone | Unavailable | + + + Support + + + + + | Name | Relationship | Address | Phone | + + + + + | Juan Carlos Ko | ECON | [address] | | | | | [place], [place] | | | | | [address] | | + + + + + | Arie Ko | ECON | Unknown | | + + + + + Care Team Providers + +------+ + | Care Careers Adviser Name | Role | Phone | + +------+ + | Bobo Garcia DO | PCP | | + +------+ + Encounter Details +--------+ + + + + | Date | Type | Department | Care Team | Description | +--------+ + + + + | 08/11/ | Orders Only | [facility] | Lencho Hays, | S/P total hip | | 2015 | | ORTHOPEDIC SURGERY | [address] [facility] | arthroplasty | | | | [address] [facility] | [place], [place] | (Primary Dx) | | | | [place], [place] | [address] | | | | | [address] | | | | | | [phone] | | | +--------+ + + + [...] Not on filedocumented as of this encounter Results XR Pelvis 1 or 2 Vw (08/13/2015 10:50 AM PDT) + + | Specimen | + + | | + + + + + | Narrative | Performed At | + + + | SINGLE AP PELVIS 08/13/2015 10:50 AM CLINICAL HISTORY: S/P RIGHT | ANITAE | | TOTAL HIP ARTHROPLASTY DOS 06/19/15 COMPARISON: PELVIC RADIOGRAPH | [facility] | | JUNE 19 AND MULTIPLE PREVIOUS RADIOGRAPHS FINDINGS: Bilateral hip | [facility] | | arthroplasty hardware remains in similar, satisfactory position. No | - IMAGING | | fracture, subluxation or prosthetic loosening is evident. The | | | imaged sacroiliac joints are maintained, along with the pubic | | | symphysis. Surgical clips again project over the left pelvic cavity. | | | Soft tissue structures are otherwise unremarkable. IMPRESSION | | | - 1. STABLE, SATISFACTORY APPEARANCE OF BILATERAL HIP ARTHROPLASTY | | | HARDWARE. Dictated and Signed by: Chente Fonseca MD | | | Electronically signed: 08/13/2015 11:06 AM | | + + + + + | Procedure Note | + + | Dewey, Rad Results In - 08/13/2015 11:09 AM PDT SINGLE AP PELVIS 08/13/2015 10:50 AM | | | | CLINICAL HISTORY: S/P RIGHT TOTAL HIP ARTHROPLASTY DOS 06/19/15 | | | | COMPARISON: PELVIC RADIOGRAPH JUNE 19 AND MULTIPLE PREVIOUS RADIOGRAPHS | | | | FINDINGS: Bilateral hip arthroplasty hardware remains in similar, satisfactory | | position. No fracture, subluxation or prosthetic loosening is evident. The | | imaged sacroiliac joints are maintained, along with the pubic symphysis. | | Surgical clips again project over the left pelvic cavity. Soft tissue | | structures are otherwise unremarkable. | | | | IMPRESSION - | | 1. STABLE, SATISFACTORY APPEARANCE OF BILATERAL HIP ARTHROPLASTY HARDWARE. | | | | Dictated and Signed by: Chente Fonseca MD | | Electronically signed: 08/13/2015 11:06 AM | + + + + + + + | Performing | Address | City/State/Zipcode | Phone Number | | Organization | | | | + + + + + | [facility] | [address] | [place] | [phone] | | [facility] | | [address] | | | - IMAGING | | | | + + + + + documented in this encounter Visit Diagnoses + + | Diagnosis | + + | S/P total hip arthroplasty - Primary Hip joint replacement by other means | + + documented in this encounter"
--- OUTSIDE RECORDS SUMMARY | ~2019-10-18 | XMS | Encounter Summary ---
Demographics + + + | Address | [address] [place] [address] | | | [place] [address] | + + + | Home Phone | | + + + | Preferred Language | Unknown | + + + | Marital Status | | + + + | Rastafari Affiliation | 1076 | + + + | Race | Unknown | + + + | Ethnic Group | Unknown | + + + Author + + + | Author | [facility] | | | and [place] | + + + | Organization | [facility] | | | and [place] | + + + | Address | Unknown | + + + | Phone | Unavailable | + + + Support + + + + + | Name | Relationship | Address | Phone | + + + + + | Juan Carlos Ko | ECON | [address] [place] [address] [address] | | | | | [place], [place] | | | | | [address] | | + + + + + | Arie Ko | ECON | Unknown | | + + + + + Care Team Providers + +------+ + | Care Pecan Mallow Dipper Name | Role | Phone | + +------+ + | Bobo Garcia DO | PCP | | + +------+ + Reason for Visit + + + | Reason | Comments | + + + | Results, Pathology | egd,colon | + + + Encounter Details +--------+ + + + + | Date | Type | Department | Care Team | Description | +--------+ + + + + | 03/22/ | Telephone | [facility] | Spencer Chase MD | Results, Pathology | | 2016 | | GASTROENTEROLOGY | [address] | (egd,colon) | | | | [address] | [address] [place], [place] | | | | | [address] [place], [place] | [id number] | | | | | [address] | | | | | | [phone] | | | +--------+ + + + [...]
--- OUTSIDE RECORDS SUMMARY | ~2019-10-18 | XMS | Encounter Summary ---
Demographics + + + | Address | [address] [place] [address] | | | [place] [address] | + + + | Home Phone | | + + + | Preferred Language | Unknown | + + + | Marital Status | | + + + | Mormon Affiliation | 1076 | + + + | Race | Unknown | + + + | Ethnic Group | Unknown | + + + Author + + + | Author | [facility] | | | and [place] | + + + | Organization | [facility] | | | and [place] | + + + | Address | Unknown | + + + | Phone | Unavailable | + + + Support + + + + + | Name | Relationship | Address | Phone | + + + + + | Juan Carlos Ko | ECON | [address] | | | | | [place], [place] | | | | | [address] | | + + + + + | Arie Ko | ECON | Unknown | | + + + + + Care Team Providers + +------+ + | Care Window Covering Sales Consultant Name | Role | Phone | + +------+ + | Bobo Garcia DO | PCP | | + +------+ + Encounter Details +--------+ + + + + | Date | Type | Department | Care Team | Description | +--------+ + + + + | 06/21/ | Hospital | [facility] | Cristiana Villarreal, | | | 2015 | Encounter | MED CTR THERAPY OT | OT [address] | | | | | ACUTE [address] | [place], [place] | | | | | [place], [place] | [address] | | | | | [address] | | | | | | [phone] | | | +--------+ + + + [...] tablet by | | 0 | | 12/06/201 | | Vitamins-Minerals | mouth Daily. | [...]
--- OUTSIDE RECORDS SUMMARY | ~2019-10-18 | XMS | Encounter Summary ---
Demographics + + + | Address | [address] | | | [place] [address] | + + + | Home Phone | | + + + | Preferred Language | Unknown | + + + | Marital Status | | + + + | Baptist Affiliation | PRE | + + + | Race | White | + + + | Ethnic Group | Not or | + + + Author + + + | Author | [facility] | + + + | Organization | [facility] | + + + | Address | Unknown | + + + | Phone | Unavailable | + + + Support + + + + + | Name | Relationship | Address | Phone | + + + + + | Juan Carlos Ko | ECON | [address] | | | | | [place] | | | | | [address] | | + + + + + Care Team Providers + +------+ + | Care Egg Processor Name | Role | Phone | + +------+ + | Bobo Garcia DO | PCP | | + +------+ + Reason for Visit +---------+ + | Reason | Comments | +---------+ + | Therapy | | +---------+ + Encounter Details +--------+ + + + + | Date | Type | Department | Care Team | Description | +--------+ + + + + | 10/30/ | [facility]phone [facility] | Therapy | | 2005 | | [facility] | MD Amirah [address] | | | | | [address] | [address] | | | | | [address] | [place], [place] | | | | | [facility] | [address] | | | | | [place], [place] | [phone] | | | | | [address] | | | | | | [phone] | | | +--------+ + + + [...]
--- OUTSIDE RECORDS SUMMARY | ~2019-10-18 | XMS | Encounter Summary ---
Demographics + + + | Address | [address] | | | [place] [address] | + + + | Home Phone | | + + + | Preferred Language | Unknown | + + + | Marital Status | | + + + | Faith Affiliation | PRE | + + + | Race | White | + + + | Ethnic Group | Not or | + + + Author + + + | Author | [facility] | + + + | Organization | [facility] | + + + | Address | Unknown | + + + | Phone | Unavailable | + + + Support + + + + + | Name | Relationship | Address | Phone | + + + + + | Juan Carlos Ko | ECON | [address] | | | | | [place] | | | | | [address] | | + + + + + Care Team Providers + +------+ + | Care Security Developer Name | Role | Phone | + +------+ + | Bobo Garcia DO | PCP | | + +------+ + Encounter Details +--------+ + + + + | Date | Type | Department | Care Team | Description | +--------+ + + + + | 10/04/ | Ancillary | Registration [address] | [address] | | | 2005 | Registratio | [address] | MD Amirah [address] | | | | n | Reggie Mailcode: [id number] | [address] | | | | | [place], [place] | [place], [place] | | | | | [address] | [address] | | | | | [phone] | [phone] | | | | | | | [...] | + +--------+ + + + | COMPLETE METABOLIC | Routin | 10/04/2006 | | Results for this | | SET | e | 1:10 PM | | procedure are in the | | (NA,K,CL,CO2,BUN,CRE | | PST | | results section. | | AT,GLUC,CA,AST,ALT,B | | | | | | KARY TOTAL,ALK | | | | | | PHOS,ALB,PROT TOTAL) | | | | | + +--------+ + + + | CBC ONLY | Routin | 10/04/2006 | | Results for this | | | e | 1:10 PM | | procedure are in the | | | | PST | | results section. | + +--------+ + + + | TYPE AND SCREEN | Routin | 10/04/2006 | | Results for this | | | e | 1:10 PM | | procedure are in the | | | | PST | | results section. | + +--------+ + + + | TSH | Routin | 10/04/2006 | | Results for this | | | e | 1:10 PM | | procedure are in the | | | | PST | | results section. | + +--------+ + + + documented in this encounter Results TSH-THYROID STIM HORMONE (10/04/2006 1:10 PM PST) + + + + + + | Component | Value | Ref Range | Performed | Pathologist | | | | | At | Signature | + + + + + + | TSH | 2.90Comment: Test | 0.28 - 5.00 | | | | | performed by [facility] | [facility] | | | | | [facility] | | | | | | Laboratories. | | | | + + + + + + + + | Specimen | + + | | + + + + + + + | Performing | Address | City/State/Zipcode | Phone Number | | Organization | | | | + + + + + | [facility] | [address] | [place] [address] | | | LABORATORY | | | | + + + + + TYPE AND SCREEN (10/04/2006 1:10 PM PST) + +-------+ + + + | Component | Value | Ref Range | Performed | Pathologist | | | | | At | Signature | + +-------+ + + + | ABO GROUP | A | | [facility] | | | | | | DEPARTMENT | | | | | | OF | | | | | | PATHOLOGY | | + +-------+ + + + | RH TYPE | POS | | [facility] | | | | | | DEPARTMENT | | | | | | OF | | | | | | PATHOLOGY | | + +-------+ + + + | ANTIBODY | NEG | | [facility] | | | SCREEN | | | DEPARTMENT | | | | | | OF | | | | | | PATHOLOGY | | + +-------+ + + + + + | Specimen | + + | | + + + + + | Narrative | Performed At | + + + | Instrument Testing Instrument Testing | [facility] | | | DEPARTMENT OF | | | PATHOLOGY | + + + + + + + + | Performing | Address | City/State/Zipcode | Phone Number | | Organization | | | | + + + + + | [facility] DEPARTMENT OF | [facility] [address] | [place] [address] | | | PATHOLOGY | [address] | | | + + + + + | [facility] DE[facility]MENT [facility] | [address] | [place] [address] | | | PATHOLOGY | [address] | | | + + + + + COMP METABOLIC SET (10/04/2006 1:10 PM PST) + +---------+ + + + | Component | Value | Ref Range | Performed | Pathologist | | | | | At | Signature | + +---------+ + + + | GLUCOSE, | 111 (H) | 65 - 110 mg/dL | [facility] | | | PLASMA | | | DEPARTMENT | | | (LAB) | | | OF | | | | | | PATHOLOGY | | + +---------+ + + + | BUN, PLASMA | 17 | 6 - 20 mg/dL | [facility] | | | (LAB) | | | DEPARTMENT | | | | | | OF | | | | | | PATHOLOGY | | + +---------+ + + + | CREATININE | 1.1 | 0.6 - 1.1 mg/dL | [facility] | | | PLASMA | | | DEPARTMENT | | | (LAB) | | | OF | | | | | | PATHOLOGY | | + +---------+ + + + | TOTAL | 6.5 | 6.1 - 7.9 g/dL | [facility] | | | PROTEIN, | | | DEPARTMENT | | | PLASMA | | | OF | | | (LAB) | | | PATHOLOGY | | + +---------+ + + + | ALBUMIN, | 3.9 | 3.5 - 4.7 g/dL | [facility] | | | PLASMA | | | DEPARTMENT | | | (LAB) | | | OF | | | | | | PATHOLOGY | | + +---------+ + + + | CALCIUM, | 9.2 | 8.5 - 10.5 | [facility] | | | PLASMA | | mg/dL | DEPARTMENT | | | (LAB) | | | OF | | | | | | PATHOLOGY | | + +---------+ + + + | BILIRUBIN | 1.0 | 0.3 - 1.2 mg/dL | [facility] | | | TOTAL | | | DEPARTMENT | | | | | | OF | | | | | | PATHOLOGY | | + +---------+ + + + | ALK PHOS | 58 | 53 - 141 U/L | [facility] | | | | | | DEPARTMENT | | | | | | OF | | | | | | PATHOLOGY | | + +---------+ + + + | AST(SGOT) | 18 | 15 - 41 U/L | [facility] | | | | | | DEPARTMENT | | | | | | OF | | | | | | PATHOLOGY | | + +---------+ + + + | SODIUM, | 135 (L) | 136 - 145 | [facility] | | | PLASMA | | mmol/L | DEPARTMENT | | | (LAB) | | | OF | | | | | | PATHOLOGY | | + +---------+ + + + | POTASSIUM, | 3.6 | 3.5 - 5.1 | [facility] | | | PLASMA | | mmol/L | DEPARTMENT | | | (LAB) | | | OF | | | | | | PATHOLOGY | | + +---------+ + + + | CHLORIDE, | 101 | 98 - 107 mmol/L | [facility] | | | PLASMA | | | DEPARTMENT | | | (LAB) | | | OF | | | | | | PATHOLOGY | | + +---------+ + + + | TOTAL CO2, | 25 | 23 - 29 mmol/L | [facility] | | | PLASMA | | | DEPARTMENT | | | (LAB) | | | OF | | | | | | PATHOLOGY | | + +---------+ + + + | ALT (SGPT) | 18 | 13 - 48 U/L | [facility] | | | | | | DEPARTMENT | | | | | | OF | | | | | | PATHOLOGY | | + +---------+ + + + + + | Specimen | + + | | + + + + + | Narrative | Performed At | + + + | [id number] Estimated GFR = 53 mL/min/1.73 sq m if non- | [facility] | | [id number] Estimated GFR > 60 mL/min/1.73 sq m if GFR | DEPARTMENT OF | | is estimated using the MDRD equation recommended by the National | PATHOLOGY | | Kidney Disease Education Program. Estimated GFR Interpretive | | | Information: <60 mL/min/1.73 sq m Chronic Kidney Disease <15 | | | mL/mon/1.73 sq m Kidney Failure Estimated GFR greater than | | | 60mL/min/1.73 is of limited clinical Value. The MDRD equation is | | | not valid in the following situations: - Patients under 18 years of | | | age - Severe malnutrition or obesity - Vegetarian diet - Rapidly | | | changing kidney function | | + + + + + + + + | Performing | Address | City/State/Zipcode | Phone Number | | Organization | | | | + + + + + | [facility] DEPARTMENT OF | [address] [facility] | [place] [address] | | | PATHOLOGY | [address] | | | + + + + + | [facility] DEPARTMENT OF | [address] [facility] | [place] [address] | | | PATHOLOGY | [address] | | | + + + + + CBC ONLY WITH PLATELET (10/04/2006 1:10 PM PST) + +-------+ + + + | Component | Value | Ref Range | Performed | Pathologist | | | | | At | Signature | + +-------+ + + + | WHITE CELL | 6.2 | 4.4 - 11.0 K/cu | [facility] | | | COUNT | | mm | DEPARTMENT | | | | | | OF | | | | | | PATHOLOGY | | + +-------+ + + + | RED CELL | 4.27 | 4.00 - 5.20 | [facility] | | | COUNT | | M/cu mm | DEPARTMENT | | | | | | OF | | | | | | PATHOLOGY | | + +-------+ + + + | HEMOGLOBIN | 12.7 | 12.0 - 16.0 | [facility] | | | | | g/dL | DEPARTMENT | | | | | | OF | | | | | | PATHOLOGY | | + +-------+ + + + | HEMATOCRIT | 36.9 | 36.0 - 46.0 % | [facility] | | | | | | DEPARTMENT | | | | | | OF | | | | | | PATHOLOGY | | + +-------+ + + + | MCV | 86.4 | 80.0 - 96.0 fL | [facility] | | | | | | DEPARTMENT | | | | | | OF | | | | | | PATHOLOGY | | + +-------+ + + + | MCHC | 34.3 | 33.4 - 35.5 | [facility] | | | | | g/dL | DEPARTMENT | | | | | | OF | | | | | | PATHOLOGY | | + +-------+ + + + | RDW | 13.9 | 11.5 - 15.0 % | [facility] | | | | | | DEPARTMENT | | | | | | OF | | | | | | PATHOLOGY | | + +-------+ + + + | PLATELET | 185 | 150 - 400 K/cu | [facility] | | | COUNT | | mm | DEPARTMENT | | | | | | OF | | | | | | PATHOLOGY | | + +-------+ + + + + + | Specimen | + + | | + + + + + + + | Performing | Address | City/State/Zipcode | Phone Number | | Organization | | | | + + + + + | [facility] | [address] [facility] | [place] [address] | | | PATHOLOGY | [address] | | | + + + + + | [facility] | [address] [facility] [address] [facility] | [place] [address] | | | PATHOLOGY | [address] | | | + + + + + documented in this encounter Visit Diagnoses Not on filedocumented in this encounter"
--- OUTSIDE RECORDS SUMMARY | ~2019-10-18 | XMS | Encounter Summary ---
Demographics + + + | Address | [address] [place] [address] | | | [place] [address] | + + + | Home Phone | | + + + | Preferred Language | Unknown | + + + | Marital Status | | + + + | Jainism Affiliation | 1076 | + + + | Race | Unknown | + + + | Ethnic Group | Unknown | + + + Author + + + | Author | [facility] | | | and [place] | + + + | Organization | [facility] | | | and [place] | + + + | Address | Unknown | + + + | Phone | Unavailable | + + + Support + + + + + | Name | Relationship | Address | Phone | + + + + + | Juan Carlos Ko | ECON | [address] | | | | | [place], [place] | | | | | [address] | | + + + + + | Arie Ko | ECON | Unknown | | + + + + + Care Team Providers + +------+ + | Care Gymnastic Teacher Name | Role | Phone | + +------+ + | Live Sims MD | PCP | | + +------+ + Encounter Details +--------+ + + + + | Date | Type | Department | Care Team | Description | +--------+ + + + + | 09/25/ | Hospital | [facility] | Lencho Hays, | Osteoarthritis of | | 2014 | Encounter | MED CTR | [address] | hip; Diabetes (HCC); | | | | [facility]STICS | [place] | Pre-op exam | | | | [address] [place] | [id number] | | | | | [place] [address] | | | | | | [phone] | | | +--------+ + + + [...] as of this encounter Plan of Treatment + +------+--------+ + + | Name | Type | Priori | Associated Diagnoses | Order Schedule | | | | ty | | | + +------+--------+ + + | ECG 12 lead | ECG | Routin | | One Time for 1 | | | | e | | Occurrences starting | | | | | | 09/25/2014 until | | | | | | 09/25/2014 | + +------+--------+ + + documented as of this encounter Procedures + +--------+ + + + | Procedure Name | Priori | Date/Time | Associated Diagnosis | Comments | | | ty | | | | + +--------+ + + + | ECG 12 LEAD | Routin | 12/12/2014 | Osteoarthritis of | Results for this | | | e | 8:13 AM | hip Diabetes (HCC) | procedure are in the | | | | PST | Pre-op exam | results section. | + +--------+ + + + documented in this encounter Results ECG 12 lead (12/12/2014 8:13 AM PST) + + + | Narrative | Performed At | + + + | Joesph Cardona MD 12/12/2014 8:13 Adult ECG Report | | | Name: Carlota Ko Age: 74 y.o. Gender: female 09/25/14 | | | at 11:09 Narrative Interpretation: Sinus bradycardia. PACs. | | | Normal axis. Normal intervals. Prominent/peaked T waves: | | | Consider hyperkalemia. | | + + + + + | Procedure Note | + + | Joesph Cardona MD - 12/12/2014 8:12 AM PST Adult ECG Report Name: Carlota Huerta | | Stefani Age: 74 y.o. Gender: wmpanm18/6/14 at 11:09 Narrative Interpretation: Sinus | | bradycardia. PACs. Normal axis. Normal intervals. Prominent/peaked T waves: Consider | | hyperkalemia. | | Gender: female | | | |09/25/14 at 11:09 | | Narrative Interpretation: Sinus bradycardia. PACs. Normal axis. Normal intervals. Prom inent/peaked T waves: Consider hyperkalemia. | + + documented in this encounter Visit Diagnoses + + | Diagnosis | + + | Osteoarthritis of hip Osteoarthrosis, unspecified whether generalized or localized, | | pelvic region and thigh | + + | Diabetes (HCC) | + + | Pre-op exam Preoperative examination, unspecified | + + documented in this encounter"
--- OUTSIDE RECORDS SUMMARY | ~2019-10-18 | XMS | Encounter Summary ---
Demographics + + + | Address | [address] [place] [address] | | | [place] [address] | + + + | Home Phone | | + + + | Preferred Language | Unknown | + + + | Marital Status | | + + + | Lutheran Affiliation | 1076 | + + + | Race | Unknown | + + + | Ethnic Group | Unknown | + + + Author + + + | Author | [facility] | | | and [place] | + + + | Organization | [facility] | | | and [place] | + + + | Address | Unknown | + + + | Phone | Unavailable | + + + Support + + + + + | Name | Relationship | Address | Phone | + + + + + | Juan Carlos Ko | ECON | [address] [place] [address] [address] | | | | | [place], [place] | | | | | [address] | | + + + + + | Arie Ko | ECON | Unknown | | + + + + + Care Team Providers + +------+ + | Care Bench Assembly Inspector Name | Role | Phone | + +------+ + | Bobo Garcia DO | PCP | | + +------+ + Reason for Referral Evaluate & Treat (Routine) +--------+ + + + + + | Status | Reason | Specialty | Diagnoses / | Referred By | Referred To | | | | | Procedures | Contact | Contact | +--------+ + + + + + | Closed | Specialty | Physical | Diagnoses | Sa[facility], | | | | Services | Therapy | Primary | Lencho Cheatham MD | | | | Required | | osteoarthrit | [address] | | | | | | is of right | [place] | | | | | | knee Status | [place] | | | | | | post total | [id number] | | | | | | right knee | Phone: | | | | | | replacement | [phone] | | | | | | | Fax: | | | | | | | [phone] | | +--------+ + + + + + Reason for Visit +---------+ + | Reason | Comments | +---------+ + | Post Op | right total knee arthroplasty dos 04/22/16 | +---------+ + Encounter Details +--------+---------+ + + + | Date | Type | Department | Care Team | Description | +--------+---------+ + + + | 05/05/ | Office | [facility] | Lencho Hays, | Primary | | 2016 | Visit | ORTHOPEDIC SURGERY | [address] [place] [address] | osteoarthritis of | | | | [address] [place] [address] | [place] | right knee (Primary | | | | [place], [place] | [address] | Dx); Status post | | | | [address] | | total right knee | | | | [phone] | | replacement | +--------+---------+ + + + Social History [...] + + + | Blood Pressure | - | - | | + + + + + | Pulse | - | - | | + + + + + | Temperature | 36.7 C (98 F) | 05/05/2016 10:53 AM | | | | | PDT [...] + + + + | Weight | 113.4 kg (250 lb) | 05/05/2016 10:53 AM | | | | | PDT | | + + + + + | Height | 177.8 cm (5' 10") | 05/05/2016 10:53 AM | | | | | PDT | | + + + + + | Body Mass Index | 35.87 | 05/05/2016 10:53 AM | | | | | PDT | | + + + + + documented in this encounter Functional Status + + + [...] encounter Progress Notes Lencho Hays MD - 05/05/2016 11:34 AM PDTPatient returns follow-up right total knee art hroplasty She is doing incredibly well On exam her wound is healed She comes into full extension She is flexing beyond 90 I removed her hmianshu and applied Steri-Strips She is taking very little pain medicine and is getting around very easily She will convalesce at her place in [place] I'm not make her come back early for that trip We can see her in June they will call us if they have any problems I gave her a prescription for therapy close to [place] documented in this encounter Plan of Treatment + + +--------+ + + | Name | Type | Priori | Associated Diagnoses | Order Schedule | | | | ty | | | + + +--------+ + + | * [facility] | Outpatient | Routin | Primary | Ordered: 05/05/2016 | | Therapy - [facility]B | Referral | e | osteoarthritis of | | | Referral | | | right knee Status | | | | | | post total right | | | | | | knee replacement | | + + +--------+ + + documented as of this encounter Visit Diagnoses + + | Diagnosis | + + | Primary osteoarthritis of right knee - Primary Primary localized osteoarthrosis, | | lower leg | + + | Status post total right knee replacement | + + documented in this encounter
--- OUTSIDE RECORDS SUMMARY | ~2019-10-18 | XMS | Encounter Summary ---
Demographics + + + | Address | [address] [place] [address] | | | [place] [address] | + + + | Home Phone | | + + + | Preferred Language | Unknown | + + + | Marital Status | | + + + | Adventist Affiliation | 1076 | + + + | Race | Unknown | + + + | Ethnic Group | Unknown | + + + Author + + + | Author | [facility] | | | and [place] | + + + | Organization | [facility] | | | and [place] | + + + | Address | Unknown | + + + | Phone | Unavailable | + + + Support + + + + + | Name | Relationship | Address | Phone | + + + + + | Juan Carlos Ko | ECON | [address] | | | | | [place], [place] | | | | | [address] | | + + + + + | Arie Ko | ECON | Unknown | | + + + + + Care Team Providers + +------+ + | Care Project Reservoir Engineer Name | Role | Phone | + +------+ + | Live Sims MD | PCP | | + +------+ + Reason for Visit Auth/Cert +--------+--------+ + + + + | Status | Reason | Specialty | Diagnoses / | Referred By | Referred To | | | | | Procedures | Contact | Contact | +--------+--------+ + + + + | Closed | | | Diagnoses | | [facility] | | | | | | | [facility] [address] | | | | | Osteoarthros | | [address] | | | | | is, | | [place], | | | | | unspecified | | [place] [address] | | | | | whether | | Phone: | | | | | generalized | | [phone] | | | | | or | | Fax: | | | | | localized, | | [phone] | | | | | pelvic | [...] | | | | | | | [place] TOTAL HIP | | | | | [...] | +--------+ + + + + | 12/05/ | Hospital | [facility] | Jordan Lucio | Osteoarthrosis, | | 2015 | Encounter | MED CTR XRAY [address] | [address] [place] [address] | unspecified whether | | | | [address] [place] | [place] | generalized or | | | | [place] [address] | [address] | localized, pelvic | | | | [phone] | | region and thigh | +--------+ + + + + Social [...] + + + +---------+ + + | enoxaparin | Inject 0.4 mLs under | 20 | 0 | 12/07/19 | | | (LOVENOX) 40 mg/0.4 | the skin every 24 | Syringe | | 15 | 5 | | mL injection | hours for 20 days. | | | | | + + [...] [place] MARIS STATS NO | Routin | 12/05/2014 | Osteoarthrosis, | Results for this | | CHARGE | e | 12:44 PM | unspecified whether | procedure are in the | | | | PST | generalized or | results section. | | | | | localized, pelvic | | | | | | region and thigh | | + +--------+ + + + documented in this encounter Results MD C-Arm Stats No Charge (12/05/2014 12:44 PM PST) + + | Specimen | + + | | + + + + + | Narrative | Performed At | + + + | No Radiologist interpretation, please see Chart Review. | [facility] | | | [facility] | | | [facility] | | | - IMAGING | + + + + + | Procedure Note | + + | 12/05/2014 12:44 PM PST No Radiologist interpretation, please see Chart Review. | + + + + + + + | Performing | Address | City/State/Zipcode | Phone Number | | Organization | | | | + + + + + | [facility] | [address] | [place] | [phone] | | [facility] | | [address] | | | - IMAGING | | | | + + + + + documented in this encounter Visit Diagnoses + + | Diagnosis | + + | Osteoarthrosis, unspecified whether generalized or localized, pelvic region and thigh | + + documented in this encounter"
--- OUTSIDE RECORDS SUMMARY | ~2019-10-18 | XMS | Encounter Summary ---
Demographics + + + | Address | [address] [place] [address] | | | [place] [address] | + + + | Home Phone | | + + + | Preferred Language | Unknown | + + + | Marital Status | | + + + | Caodaism Affiliation | 1076 | + + + | Race | Unknown | + + + | Ethnic Group | Unknown | + + + Author + + + | Author | [facility] | | | and [place] | + + + | Organization | [facility] | | | and [place] | + + + | Address | Unknown | + + + | Phone | Unavailable | + + + Support + + + + + | Name | Relationship | Address | Phone | + + + + + | Juan Carlos Ko | ECON | [address] | | | | | [place], [place] | | | | | [address] | | + + + + + | Arie Ko | ECON | Unknown | | + + + + + Care Team Providers + +------+ + | Care Doctorate Of Chiropractic Name | Role | Phone | + +------+ + | Bobo Garcia DO | PCP | | + +------+ + Reason for Visit + + + | Reason | Comments | + + + | Diarrhea | | + + + Encounter Details +--------+ + + + + | Date | Type | Department | Care Team | Description | +--------+ + + + + | 11/03/ | Telephone | [facility] | Spencer Chase MD | Diarrhea | | 2017 | | GASTROENTEROLOGY | [address], [place] | | | | | [address] [place] | [address] [place], [place] | | | | | [address] [place] | [address] | | | | | [address] | | | | | | [phone] | | | +--------+ + + + [...] + + +---------+ + | Yes | 3 Glasses of wine | 2.0 | 0-2 week | | | 4 Standard drinks | | | | | or equivalent | | | + + +---------+ + [...]
--- OUTSIDE RECORDS SUMMARY | ~2019-10-18 | XMS | Encounter Summary ---
Demographics + + + | Address | [address] [place] [address] | | | [place] [address] | + + + | Home Phone | | + + + | Preferred Language | Unknown | + + + | Marital Status | | + + + | Orthodoxy Affiliation | 1076 | + + + | Race | Unknown | + + + | Ethnic Group | Unknown | + + + Author + + + | Author | [facility] | | | and [place] | + + + | Organization | [facility] | | | and [place] | + + + | Address | Unknown | + + + | Phone | Unavailable | + + + Support + + + + + | Name | Relationship | Address | Phone | + + + + + | Juan Carlos Ko | ECON | [address] | | | | | [place], [place] | | | | | [address] | | + + + + + | Arie oK | ECON | Unknown | | + + + + + Care Team Providers + +------+ + | Care Electrician Underground Name | Role | Phone | + +------+ + | Bobo Garcia DO | PCP | | + +------+ + Encounter Details +--------+ + + + + | Date | Type | Department | Care Team | Description | +--------+ + + + + | 01/20/ | Orders Only | [facility] | Conversion | | | 2014 | | NEPRHOLOGY [place] | Transaction, | | | | | [address] | Provider Unknown | | | | | [address] [place], [place] | [phone] | | | | | [address] | | | | | | [phone] | | | +--------+ + + + [...] + | URINALYSIS WITH | Routin | 01/20/2015 | | Results for this | | MICROSCOPIC WITH | e | 12:00 AM | | procedure are in the | | CULTURE IF INDICATED | | PST | | results section. | + +--------+ + + + | BASIC METABOLIC | Routin | 01/20/2015 | | Results for this | | PANEL | e | 12:00 AM | | procedure are in the | | | | PST | | results section. | + +--------+ + + + documented in this encounter Results Urinalysis with Microscopic with Culture if Indicated (01/20/2015 12:00 AM PST) + + + + + + | Component | Value | Ref Range | Performed | Pathologist | | | | | At | Signature | + + + + + + | Color | Yellow | | EXTERNAL | | | | | | LAB | | + + + + + + | Clarity | Cloudy | | EXTERNAL | | | | | | LAB | | + + + + + + | Spec Grav, | 1.014 | | EXTERNAL | | | Fluid | | | LAB | | + + + + + + | Leukocyte | Trace | | EXTERNAL | | | Esterase, | | | LAB | | | Urine | | | | | + + + + + + | Nitrite, | Trace | | EXTERNAL | | | Urine | | | LAB | | + + + + + + | Urobilinoge | Normal | | EXTERNAL | | | n, Urine | | | LAB | | + + + + + + | Total | negaitve | | EXTERNAL | | | Protein | | | LAB | | + + + + + + | pH, Urine | 7 | | EXTERNAL | | | | | | LAB | | + + + + + + | Blood, | Negative | | EXTERNAL | | | Urine | | | LAB | | + + + + + + | Ketones | negative | | EXTERNAL | | | | [...] + + + | WBC, UA | 50 | | EXTERNAL | | | | | | LAB | | + + + + + + | RBC, UA | 10 | | EXTERNAL | | | | | | LAB | | + + + + + + | Epithelial | Negaitve | | EXTERNAL | | | Cells | | | LAB | | + + + + + + | Bacteria, | 1-5 | | EXTERNAL | | | UA [...] + +---------+ + + Basic Metabolic Panel (01/20/2015 12:00 AM PST) + +---------+ + + + | Component | Value | Ref Range | Performed | Pathologist | | | | | At | Signature | + +---------+ + + + | Glucose, | 102 (A) | 70 - 100 mg/dL | EXTERNAL | | | Fasting | | | LAB | | + +---------+ + + + | BUN | 15 | 6 - 23 mg/dL | EXTERNAL | | | | | | LAB | | + +---------+ + + + | Creatinine | 0.97 | 0.70 - 1.18 | EXTERNAL | | | | | mg/dL | LAB | | + +---------+ + + + | BUN/Creatin | 15.5 | 6.0 - 28.6 | EXTERNAL | | | ine Ratio | | | LAB | | + +---------+ + + + | Calcium | 9.5 | 8.4 - 10.2 | EXTERNAL | | | | | mg/dL | LAB | | + +---------+ + + + | Na | 132 | 132 - 143 | EXTERNAL | | | | | mmol/L | LAB | | + +---------+ + + + | K | 4.3 | 3.6 - 5.1 | EXTERNAL | | | | | mmol/L | LAB | | + +---------+ + + + | Cl | 102 | 95 - 112 mmol/L | EXTERNAL | | | | | | LAB | | + +---------+ + + + | CO2 | 26 | 19 - 31 mmol/L | EXTERNAL | | | | | | LAB | | + +---------+ + + + | Anion Gap | 14.3 | 7 - 21 mmol/L | EXTERNAL | | | | | | LAB | | + +---------+ + + + | Estimated | 56 | mg/dL | EXTERNAL | | | GFR | | | LAB | | + +---------+ + + + [...]
--- OUTSIDE RECORDS SUMMARY | ~2019-10-18 | XMS | Encounter Summary ---
Demographics + + + | Address | [address] [place] [address] | | | [place] [address] | + + + | Home Phone | | + + + | Preferred Language | Unknown | + + + | Marital Status | | + + + | Jehovah'S Witness Affiliation | 1076 | + + + [...] Juan Carlos Ko | ECON | [address] | | | | | [place], [place] | | | | | [address] | | + + + + + | Arie Ko | ECON | Unknown | | + + + + + Care Team Providers + +------+ + | Care Diamond Sizer Name | Role | Phone | + +------+ + | Live Sims MD | PCP | | + +------+ + Encounter Details +--------+ + + + + | Date | Type | Department | Care Team | Description | +--------+ + + + + | 11/03/ | Abstract | [facility] | Lexa Reeves, | | | 2013 | | PULMONARY [address] | MD [address] | | | | | [place], | [place], [place] | | | | | [place] [address] | [address] | | | | | [phone] | | | +--------+ + + + [...]
--- OUTSIDE RECORDS SUMMARY | ~2019-10-18 | XMS | Encounter Summary ---
Demographics + + + | Address | [address] [place] [address] | | | [place] [address] | + + + | Home Phone | | + + + | Preferred Language | Unknown | + + + | Marital Status | | + + + | Synagogue Affiliation | 1076 | + + + | Race | Unknown | + + + | Ethnic Group | Unknown | + + + Author + + + | Author | [facility] | | | and [place] | + + + | Organization | [facility] | | | and [place] | + + + | Address | Unknown | + + + | Phone | Unavailable | + + + Support + + + + + | Name | Relationship | Address | Phone | + + + + + | Juan Carlos Ko | ECON | [address] [place] [address] [address] | | | | | [place], [place] | | | | | [address] | | + + + + + | Arie Ko | ECON | Unknown | | + + + + + Care Team Providers + +------+ + | Care Transmission Assembler Name | Role | Phone | + [...] + + | Closed | Specialty | Gastroenterol | Diagnoses | Harri, | Harri, | | | Services | ogy | Diarrhea | Spencer Cheatham MD | Spencer Cheatham MD | | | Required | | Loss of | [address], | | | | | weight | [place], [place] | [address] | | | | | Incontinence | [address] [place] | [place], | | | | | , feces | [place], [place] | [place] [address] | | | | | Procedures | [id number] | Phone: | | | | | ID | Phone: | | | | | | COLONOSCOPY | | Fax: | | | | | FLX DX | Fax: | | | | | | W/COLLJ SPEC | | | | | | | WHEN PFRMD | | | | | | | ID | | | | | | | COLONOSCOPY | | | | | | | W/BIOPSY | | | | | | | SINGLE/MULTI | | | | | | | PLE ID | | | | | | | COLSC FLX | | | | | | | W/RMVL OF | | | | | | | TUMOR POLYP | | | | | | | LESION SNARE | | | | | | | TQ ID | | | | | | | ESOPHAGOGAST | | | | | | | RODUODENOSCO | | | | | | | PY TRANSORAL | | | | | | | DIAGNOSTIC | | | | | | | ID | | | | | | | ESOPHAGOGAST | | | | | | | RODUODENOSCO | | | | | | | PY US SCOPE | | | | | | | W/ADJ STRXRS | | | +--------+ + + + + + Reason for Visit + + + | Reason | Comments | + + + | Diarrhea | | + + + Evaluate & Treat (Routine) +--------+--------+ + + + + | Status | Reason | Specialty | Diagnoses / | Referred By | Referred To | | | | | Procedures | Contact | Contact | +--------+--------+ + + + + | Closed | | Gastroenterol | Diagnoses | Jose, | [facility] | | | | ogy | Diarrhea, | DO Bobo | Gastroenterol | | | | | unspecified | [address] | ogy [address] | | | | | Procedures | Shahid Bourgeois | [address] [place] | | | | | Office | [address] | [address] | | | | | visit | [place], | [place] | | | | | | [place] | [address] | | | | | | [address] | Phone: | | | | | | Phone: | [phone] | | | | | | [phone] | Fax: | | | | | | Fax: | [phone] | | | | | | [phone] | | +--------+--------+ + + + + Encounter Details +--------+---------+ + + + | Date | Type | Department | Care Team | Description | +--------+---------+ + + + | 02/24/ | Office | [facility] | Spencer Chase MD | Diarrhea (Primary | | 2016 | Visit | GASTROENTEROLOGY | [address], [place] | Dx); Loss of weight; | | | | [address] [place] | [address] [place], [place] | Incontinence, feces | | | | [address] [place], [place] | [address] | | | | | [address] | | | | | | [phone] | | | +--------+---------+ + + + [...] + + + | Blood Pressure | 132/74 | 02/25/2016 2:54 PM | | | | | PDT | | + + + + + | Pulse | 68 | 02/25/2016 2:54 PM | | | | | PDT | | + + + + + | Temperature | - | - | | + + + + + | Respiratory Rate | 16 | 02/25/2016 2:54 PM | | | | | PDT | | + + + + + | Oxygen Saturation | 95% | 02/25/2016 2:54 PM | | | | | PDT | | + + + + + | Inhaled Oxygen | - | - | | | Concentration | | | | + + + + + | Weight | 111.1 kg (245 lb) | 02/25/2016 2:54 PM | | | | | PDT | | + + + + + | Height | 177.8 cm (5' 10") | 02/25/2016 2:54 PM | | | | | PDT | | + + + + + | Body Mass Index | 35.15 | 02/25/2016 2:54 PM | | | | | PDT | | + + + + + documented in this encounter Progress Notes Spencer Chase MD - 02/28/2016 8:03 AM PDT Subjective: Patient ID: Carlota Ko is a 75 y.o. female. HPI Comments: Patient is seen for evaluation of diarrhea, constipation change in bowel nasreen steve. Outside records are reviewed The patient has had a change in bowel pattern and she states it's variable. It may be cons tipated which she defines as tight hard stools which are hard to evacuate she will not miss a day with respect to evacuation timing. She'll then have diarrhea which she describes as l oose stools with incontinence. Diarrhea is not associated with any nocturnal evacuation. T he patient has had hip surgery done twice in the past year. She was given antibiotics I ass ume pre-and perioperatively. She has noticed no change in her bowel pattern associated with the same. Patient once she starts having repetitive stools in the morning will have progre ssively looser stools with "a clean out". It occurs 3-4 times in the morning. She denies a ny nocturnal symptoms but has had incontinence. She's been told 6 years ago that she had a weak anal sphincter muscle and indeed also has urinary incontinence. Dietary indiscretions that make her symptoms worse include dairy products particularly ice cream and soda. Rapid transit with particularly corn been present after the evening meal and the next morning. Sh kennedy denies pelvic trauma but did have a large birthweight infant at 9 lbs. 12 oz. The patient is status post hysterectomy Patient denies abdominal pain occasionally has borborygmi and c ramping preceding her repetitive evacuations. Patient denies chills or fever. Mother had d iarrhea suspected IBS prior colonoscopy 8 years ago was remarkable for colonic polyps. The patient travels to [place] but drinks only bottled water. She has city water in [place] de nies any fellow acquaintances being ill. The cholecystectomy. She is found Metamucil 8 cap sules twice a day with a small amount of water affective treatment and making the stool some what firmer and easier to control. The patient also complains of gastroesophageal reflux type symptoms. She describes some re trosternal burning and some throat burning. She'll take Rolaids 2-4 day may be once or twic e a week. Her weight is increased up to 20 pounds and she attributes her increased symptoms associated with the same. She denies dysphasia or [place]ont aphasia super esophageal manifesta tions of reflux takes no acid reductive medications Diarrhea Associated symptoms include arthralgias. 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 without mention of complication, not stat ed as uncontrolled Essential hypertension, benign Generalized osteoarthrosis, involving multiple sites Undiagnosed cardiac murmurs Pure hypercholesterolemia Impacted cerumen Osteoarthritis of both hips Skin cancer SCC left leg Hypothyroid Impaired fasting glucose Diarrhea Gilbert's syndrome Peripheral neuropathy Varicose veins Chronic kidney disease Anemia Lymphocytic colitis HX OF Past Surgical History Procedure Laterality Date Knee arthroscopy 2000 Right, [place] Hysterectomy 2007 [place], non-cancerous Bladder lift 2007 [facility] Tonsillectomy and adenoidectomy 1946 Colonoscopy 2009 Breast biopsy left - benign Total hip arthroplasty 12/05/2014 Left Total Hip Arthroplasty, Anterior Approach; Laterality: Left; Surgeon: Lencho Hernandez rd, MD; Location: [facility] MAIN OR Total hip arthroplasty Right 06/19/2015 Procedure: Right Total Hip Arthroplasty, Anterior Approach; Surgeon: Lencho Hays MD; Location: [facility] MAIN OR Family History Problem Relation Age of Onset Hypertension Diabetes Prostate cancer Eczema Mother Heart disease Mother Cancer Mother pancreatic Tuberculosis Maternal Grandmother Hypertension Father Diabetes Father * Sister healthy * Sister healthy History Social History Marital Status: Spouse Name: N/A Number of Children: N/A Years of Education: N/A Social History Main Topics Smoking status: Never Smoker Smokeless tobacco: Never Used Alcohol Use: 1.2 oz/week 2 Glasses of wine per week Comment: 0-2 week Drug Use: No Sexual Activity: Not on file Other Topics Concern None Social History Narrative Review of Systems Constitutional: Positive for unexpected weight change. HENT: Positive for tinnitus. Eyes: Positive for pain. Cardiovascular: Positive for leg swelling. Gastrointestinal: Positive for diarrhea. Genitourinary: Positive for enuresis. Musculoskeletal: Positive for back pain and arthralgias. Neurological: Positive for numbness. All other systems reviewed and are negative. Objective: Physical Exam Constitutional: She is oriented to person, place, and time. She appears well-developed and well-nourished. No distress. HENT: Head: Normocephalic and atraumatic. Right Ear: External ear normal. Left Ear: External ear normal. Nose: Nose normal. Mouth/Throat: Oropharynx is clear and moist. Eyes: Conjunctivae and EOM are normal. Pupils are equal, round, and reactive to light. Righ t eye exhibits no discharge. Left eye exhibits no discharge. No scleral icterus. Neck: Normal range of motion. Neck supple. No JVD present. No tracheal deviation present. Cardiovascular: Normal rate, regular rhythm, normal heart sounds and intact distal pulses. Exam reveals no gallop and no friction rub. No murmur heard. Pulmonary/Chest: Effort normal and breath sounds normal. No stridor. No respiratory distres s. She has no wheezes. She has no rales. She exhibits no tenderness. Abdominal: Soft. Bowel sounds are normal. She exhibits no distension and no mass. There is no tenderness. There is no rebound and no guarding. Musculoskeletal: Normal range of motion. She exhibits no edema or tenderness. Lymphadenopathy: She has no cervical adenopathy. Neurological: She is alert and oriented to person, place, and time. No cranial nerve defici t. She exhibits normal muscle tone. Coordination normal. Skin: Skin is warm and dry. No rash noted. She is not diaphoretic. No erythema. No pallor. Psychiatric: She has a normal mood and affect. Her behavior is normal. Judgment and thought content normal. Nursing note and vitals reviewed. Assessment: Alternating constipation diarrhea suspect IBS or dietary indiscretions precipitating the sa me Fecal incontinence secondary to decreased perineal muscle tone anal sphincter tone given as sociation with urinary incontinence, fecal incontinence being partially treated with fiber s upplementation History of colonic polyps removed 8 years ago no follow-up since that time Bilateral hip replacement within the last year appropriate candidate for antibiotic prophyl axis Minor symptoms of gastroesophageal reflux Other medical problems being addressed by primary care physician Plan: Colonoscopy with biopsy and possible stool culture. I suspect that the above will be negat dilia but the patient should also have a colonoscopy for colonic polyp surveillance Colonoscopy studies are negative patient is a candidate for evaluation for pelvic floor lax ity at a tertiary Center and possible elective surgery with respect to the same Portions of this report were transcribed using voice recognition software. Every effort wa s made to ensure accuracy; however, inadvertent computerized telecom manager errors may be pre sent. documented in this enc ounter Plan of Treatment + + +--------+ + + | Name | Type | Priori | Associated Diagnoses | Order Schedule | | | | ty | | | + + +--------+ + + | Procedure | Outpatient | Routin | Diarrhea Loss of | Expected: 03/16/2016 | | [id number] | Referral | e | weight | (Approximate), | | | | | Incontinence, feces | Expires: 02/24/2017 | + + +--------+ + + documented as of this encounter Visit Diagnoses + + | Diagnosis | + + | Diarrhea - Primary | + + | Loss of weight | + + | Incontinence, feces Full incontinence of feces | + + documented in this encounter
--- OUTSIDE RECORDS SUMMARY | ~2019-10-18 | XMS | Encounter Summary ---
Demographics + + + | Address | [address] [place] [address] | | | [place] [address] | + + + | Home Phone | | + + + | Preferred Language | Unknown | + + + | Marital Status | | + + + | Sikhism Affiliation | 1076 | + + + | Race | Unknown | + + + | Ethnic Group | Unknown | + + + Author + + + | Author | [facility] | | | and [place] | + + + | Organization | [facility] | | | and [place] | + + + | Address | Unknown | + + + | Phone | Unavailable | + + + Support + + + + + | Name | Relationship | Address | Phone | + + + + + | Juan Carlos Ko | ECON | [address] | | | | | [place], [place] | | | | | [address] | | + + + + + | Arie Ko | ECON | Unknown | | + + + + + Care Team Providers + +------+ + | Care Aboriginal Home School Liaison Officer Name | Role | Phone | + +------+ + | Bobo Garcia DO | PCP | | + +------+ + Reason for Visit + + + | Reason | Comments | + + + | Knee Pain | epnp: right knee pain onset x years | + + + Encounter Details +--------+---------+ + + + | Date | Type | Department | Care Team | Description | +--------+---------+ + + + | 04/22/ | Office | [facility] | Lencho Hays, | Right knee pain | | 2015 | Visit | ORTHOPEDIC SURGERY | MD Méndez [facility] | (Primary Dx); | | | | [address] [place] [address] | [place] | Primary | | | | [place] | [address] | osteoarthritis of | | | | [address] | | both knees | | | | [phone] | | | +--------+---------+ + + + [...] + + + + | Weight | 109.3 kg (241 lb) | 04/22/2015 4:05 PM | | | | | PDT | | + + + + + | Height | 177.8 cm (5' 10") | 04/22/2015 4:05 PM | | | | | PDT | | + + + + + | Body Mass Index | 34.58 | 04/22/2015 4:05 PM | | | | | PDT | | + + + + + documented in this encounter Progress Notes Lencho Hays MD - 04/22/2015 4:25 PM PDTPatient well known to me with DJD of her hips She has done well since left HORACE and the right one is scheduled to be replaced at the end may She is here today for evaluation of bilateral knee pain right much worse than the left She doesn't have any history of trauma to the knees but they both have been taking turns fl aring up The pain is fairly diffusely located and aggravated by prolonged walking and improved with rest She notices her right knee is getting more valgus On exam today her right knee has valgus alignment the left less so Crepitus to ROM No effusion Tender laterally the most No varus or valgus stress instability Skin without rashes or skin lesions xrays reviewed by me today and show bone on bone right knee with valgus The left knee is almost bone on bone lateral compartment Impression - advanced DJD both knees The natural history and treatment options discussed at length today The role of TKA discussed at length The recovery period and reasonable expectations and goals outlined today Over 15 min face time spent the majority counseling I then injected her right knee with kenalog 40mg and 3cc marcaine She will let us know how she is doing over time documented in this encounter Plan of Treatment Not on filedocumented as of this encounter Results XR Knee Right 3 Vw (04/22/2015 4:02 PM PDT) + + | Specimen | + + | | + + + + + | Narrative | Performed At | + + + | RIGHT KNEE: 04/22/2015 4:02 PM CLINICAL HISTORY: RIGHT KNEE PAIN | [facility] | | COMPARISON: None FINDINGS: Bilateral PA standing views with | [facility] | | lateral and sunrise views of the right knee. No fracture or | [facility] | | focally destructive change. Severe lateral compartment joint space | - IMAGING | | narrowing on the right. Some chondral bone is sclerotic and | | | irregular. Joint marginal osteophytes. Mild valgus deformity widens | | | the medial joint space. Moderate narrowing of the patellofemoral | | | joint, again with joint marginal osteophytes. Only mild joint space | | | narrowing on the left. Amorphous soft tissue calcification in the | | | lateral distal thigh, just proximal to the lateral femoral condyle. | | | No effusion or other soft tissue abnormalities. IMPRESSION - | | | Moderately severe osteoarthritic changes of the right knee, | | | predominating in the lateral compartment. Dictated and Signed by: | | | Oleg Hill MD Electronically signed: 04/22/2015 5:41 PM | | + + + + + | Procedure Note | + + | Dewey, Rad Results In - 04/22/2015 5:44 PM PDT RIGHT KNEE: 04/22/2015 4:02 PM | | | | CLINICAL HISTORY: RIGHT KNEE PAIN | | | | COMPARISON: None | | | | FINDINGS: Bilateral PA standing views with lateral and sunrise views of the | | right knee. | | | | No fracture or focally destructive change. | | Severe lateral compartment joint space narrowing on the right. Some chondral | | bone is sclerotic and irregular. Joint marginal osteophytes. | | Mild valgus deformity widens the medial joint space. Moderate narrowing of the | | patellofemoral joint, again with joint marginal osteophytes. | | Only mild joint space narrowing on the left. | | | | Amorphous soft tissue calcification in the lateral distal thigh, just proximal | | to the lateral femoral condyle. No effusion or other soft tissue abnormalities. | | | | IMPRESSION - Moderately severe osteoarthritic changes of the right knee, | | predominating in the lateral compartment. | | | | Dictated and Signed by: Oleg Hill MD | | Electronically signed: 04/22/2015 5:41 PM | + + + + + + + | Performing | Address | City[facility]State[facility] | Phone Number | | Organization | | | | + + + + + | [address] | [address] | [place] | [phone] | | [facility] | | [address] | | | - IMAGING | | | | + + + + + documented in this encounter Visit Diagnoses + + | Diagnosis | + + | Right knee pain - Primary Pain in joint, lower leg | + + | Primary osteoarthritis of both knees Primary localized osteoarthrosis, lower leg | + + documented in this encounter
--- OUTSIDE RECORDS SUMMARY | ~2019-10-18 | XMS | Encounter Summary ---
Demographics + + + | Address | [address] [place] [address] | | | [place] [address] | + + + | Home Phone | | + + + | Preferred Language | Unknown | + + + | Marital Status | | + + + | Sabianism Affiliation | 1076 | + + + | Race | Unknown | + + + | Ethnic Group | Unknown | + + + Author + + + | Author | [facility] | | | and [place] | + + + | Organization | [facility] | | | and [place] | + + + | Address | Unknown | + + + | Phone | Unavailable | + + + Support + + + + + | Name | Relationship | Address | Phone | + + + + + | Juan Carlos Ko | ECON | [address] [place] [address] [address] | | | | | [place], [place] | | | | | [address] | | + + + + + | Arie Ko | ECON | Unknown | | + + + + + Care Team Providers + +------+ + | Care Engine Assembler Name | Role | Phone | + +------+ + | Bobo Garcia DO | PCP | | + +------+ + Reason for Visit + + + | Reason | Comments | + + + | Hospital Follow-up | | + + + Encounter Details +--------+ + + + + | Date | Type | Department | Care Team | Description | +--------+ + + + + | 04/25/ | Telephone | [facility] | SandraFrancisco Rodriguez | [facility] Follow-up | | 2016 | | [facility] | E, PharmD | | | | | [address] | | | | | | [place] [phone] | | | | | | [phone] | | | +--------+ + + + [...]
--- OUTSIDE RECORDS SUMMARY | ~2019-10-18 | XMS | Encounter Summary ---
Demographics + + + | Address | [address] [place] [address] | | | [place] [address] | + + + | Home Phone | | + + + | Preferred Language | Unknown | + + + | Marital Status | | + + + | [employer] Affiliation | 1076 | + + + [...] Juan Carlos Ko | ECON | [address] | | | | | [place], [place] | | | | | [address] | | + + + + + | Arie Ko | ECON | Unknown | | + + + + + Care Team Providers + +------+ + | Care Box Stapler Name | Role | Phone | + +------+ + | Live Sims MD | PCP | | + +------+ + Reason for Visit +---------+ + | Reason | Comments | +---------+ + | Post Op | left total hip arthroplasty dos 12/05/14 | +---------+ + Encounter Details +--------+---------+ + + + | Date | Type | Department | Care Team | Description | +--------+---------+ + + + | 01/12/ | Office | [facility] | Lencho Hays, | Hip joint | | 2014 | Visit | ORTHOPEDIC SURGERY | MD [address] [place] [address] | replacement by other | | | | [address] [place] [address] | [place] | means (Primary Dx); | | | | [place] | [address] | Postop check | | | | [address] | | | | | | [phone] | | | +--------+---------+ + + + [...] Temperature | 37.1 C (98.8 F) | 01/12/2015 11:22 AM | | | | | PST [...] + + + + | Weight | 107 kg (236 lb) | 01/12/2015 11:22 AM | | | | | PST | | + + + + + | Height | 177.8 cm (5' 10") | 01/12/2015 11:22 AM | | | | | PST | | + + + + + | Body Mass Index | 33.86 | 01/12/2015 11:22 AM | | | | | PST | | + + + + + documented in this encounter Progress Notes Lencho Hays MD - 01/12/2015 11:42 AM PSTPatient returns follow up left HORACE She is doing well with her left hip The right hip is giving her more troubles She has a trip [place] and she wishes to schedule a right hip injection under flu heath just prior to that trip On exam her leg lengths are good painfree arc of motion left hip xrays show good alignment and position of left hip components No subsidence xrays of right hip show bone on bone DJD Impression - s/p left HORACE Doing well - we discussed timing of right total hip arthroplasty My advice is not to miller into it but I would offer her right HORACE when she feels that she i s recovered enough from the left side and miserable enough with the right side to warrant go ing through it all again Will schedule injection documented in this encounter Plan of Treatment [...] dos 12/05/14. COMPARISON: 12/05/2014. FINDINGS: | [facility] | | There is stable hardware for [...] + | Dewey, Rad Results In - 01/12/2015 2:42 PM PST [...] | + + + + + | [address] | [address] | [place] | [phone] | | [facility] | | [address] | | | - IMAGING | | | | + + + + + documented in this encounter Visit Diagnoses + + | Diagnosis | + + | Hip joint replacement by other means - Primary | + + | Postop check Follow-up examination, following unspecified surgery | + + documented in this encounter
--- OUTSIDE RECORDS SUMMARY | ~2019-10-18 | XMS | Encounter Summary ---
Demographics + + + | Address | [address] [place] [address] | | | [place] [address] | + + + | Home Phone | | + + + | Preferred Language | Unknown | + + + | Marital Status | | + + + | Gnosticism Affiliation | 1076 | + + + | Race | Unknown | + + + | Ethnic Group | Unknown | + + + Author + + + | Author | [facility] | | | and [place] | + + + | Organization | [facility] | | | and [place] | + + + | Address | Unknown | + + + | Phone | Unavailable | + + + Support + + + + + | Name | Relationship | Address | Phone | + + + + + | Juan Carlos Ko | ECON | [address] [place] [address] [address]T | | | | | [place], [place] | | | | | [address] | | + + + + + | Arie Ko | ECON | Unknown | | + + + + + Care Team Providers + +------+ + | Care Safety Administrator Name | Role | Phone | + [...] + + | Closed | Specialty | Home Health | Diagnoses | [place], | | | | Services | Services | Primary | Lencho Cheatham MD | | | | Required | | osteoarthrit | [address] | | | | | | is of right | [place] | | | | | | knee | [place] | | | | | | | [address] | | | | | | | Phone: | | | | | | | [phone] | | | | | | | Fax: | | | | | | | [phone] | | +--------+ + + + + + (Routine) +--------+--------+ + + + + | Status | Reason | Specialty | Diagnoses / | Referred By | Referred To | | | | | Procedures | Contact | Contact | +--------+--------+ + + + + | Closed | | | Diagnoses | [place], | | | | | | Primary | Lencho Cheatham MD | | | | | | osteoarthrit | [address] | | | | | | is of right | [place] | | | | | | knee | [place] | | | | | | Procedures | [address] | | | | | | DME: Walker | Phone: | | | | | | | [phone] | | | | | | | Fax: | | | | | | | [phone] | | +--------+--------+ + + + + Reason for Visit Auth/Cert +--------+--------+ + + + + | Status | Reason | Specialty | Diagnoses / | Referred By | Referred To | | | | | Procedures | Contact | Contact | +--------+--------+ + + + + | | | | Diagnoses | | | | | | | Primary | | | | | | | osteoarthrit | | | | | | | is of right | | | | | | | knee | | | | | | | Primary | | | | | | | osteoarthrit | | | | | | | is of right | | | | | | | knee | | | | | | | [M17.11] | | | | | | | Procedures | | | | | | | [place] TOTAL | | | | | | | KNEE | | | | | | | ARTHROPLASTY | | | | | | | | | | | | | | ARTHROPLASTY | | | | | | | KNEE | | | +--------+--------+ + + + + Encounter Details +--------+ + + + + | Date | Type | Department | Care Team | Description | +--------+ + + + + | 04/22/ | Hospital | [facility] | Lencho Hays, | Primary | | 2016 - | Encounter | [facility] | [address] | osteoarthritis of | | | | [address] | [place] | right knee (Primary | | 04/24/ | | [place] [address] | [address] | Dx) | | 2016 | | [phone] | | | +--------+ + + + [...] + + + | Blood Pressure | 114/58 | 04/24/2016 7:03 AM | | | | | PDT | | + + + + + | Pulse | 63 | 04/24/2016 7:03 AM | | | | | PDT | | + + + + + | Temperature | 36.6 C (97.9 F) | 04/24/2016 7:03 AM | | | | | PDT | | + + + + + | Respiratory Rate | 16 | 04/24/2016 7:03 AM | | | | | PDT | | + + + + + | Oxygen Saturation | 97% | 04/24/2016 7:03 AM | | | | | PDT | | + + + + + | Inhaled Oxygen | - | - | | | Concentration | | | | + + + + + | Weight | 110.2 kg (243 lb) | 04/22/2016 8:00 AM | | | | | PDT | | + + + + + | Height | 177.8 cm (5' 10") | 04/22/2016 8:00 AM | | | | | PDT | | + + + + + | Body Mass Index | 34.87 | 04/22/2016 8:00 AM | | | | | [...] documented as of this encounter Discharge Summaries Lencho Hays MD - 04/24/2016 9:00 AM PDTFormatting of this note might be different fro m the original. DISCHARGE SUMMARY Pt. Name/Age/: Carlota Ko 75 y.o. 1940 Date of Admission: 04/22/2016 Date of Discharge: 04/24/2016 Admitting Physician: Lencho Hays MD PCP: Bobo Garcia Discharging Physician: Lencho Hays MD Primary Discharge Dx: Primary osteoarthritis of right knee S/p right total knee arthroplasty Secondary Discharge Dx: Patient Active Problem List Diagnosis Hypothyroid Hypertension Diabetes mellitus, type II - ORAL Control Neuropathy Osteoarthritis - Left Hip Alcohol consumption one day per week S/P hysterectomy Diarrhea Weight loss Fecal incontinence Primary osteoarthritis of right knee Class II, BMI 35-39.9 Adverse effect of anesthesia PONV (postoperative nausea and vomiting) Gilbert's syndrome Hospital Course, including Complications: patient was mobilized on the first postop day She did very well and on the 2nd day is tolerating pain with po meds alone She slept well through the nite She is achieving her goals for ambulation She is felt to be safe for discharge to home Her wound is clean and dry and dressings changed to aquacel She is on xarelto for dvt prophylaxis Pertinent Diagnostic Info/Data: Medications Reconciled upon Discharge are: Discharge Medications New Medications Details docusate sodium 100 MG capsule Take 200 mg by mouth 2 times daily. aka: COLACE HYDROcodone-acetaminophen 10-325 mg per tablet Take 1-2 tablets by mouth every 4 hours as needed for Pain. aka: NORCO oxyCODONE 5 mg tablet Take 1 tablet by mouth every 3 hours as needed for Pain. aka: ROXICODONE rivaroxaban 10 mg tablet Take 1 tablet by mouth Daily. aka: XARELTO Unchanged Medications Details EX-Osuwxwcuhgzfb-Zjgsgvsfwhisr 10-5-325 MG Caps Take by mouth every 6 hours as needed. DULoxetine [address] capsule aka: CYMBALTA Levothyroxine Sodium 100 MCG Caps Take 100 mcg by mouth every morning (before breakfast). lisinopril 20 mg tablet Take 20 mg by mouth Daily. aka: PRINIVIL, ZESTRIL MULTIVITAMIN PO Take 1 tablet by mouth Daily. Psyllium 500 MG Caps Take 2 capsules by mouth 2 times daily. ranitidine 150 mg tablet Take 150 mg by mouth 2 times daily. aka: ZANTAC Discontinued Medications GLUCOSAMINE HCL-MSM PO TYLENOL EX ST ARTHRITIS PAIN PO Condition on Discharge: Stable Disposition: Patient was discharged to home Follow-Up Plans: 7-10 days Code Status/Advance Directive (Pertinent discussions/declarations): Full Code Electronically signed by: Lencho Hays, 04/24/2016 9:00 [facility] documented in this en counter Discharge Instructions Instructions Lencho Hays MD - 04/24/2016Ok to shower with waterproof bandage in place Can remove the bandage in 7 days and shower uncovered then as well without any bandage Keep working on range of motion stretches and call with any questions documented in this encounter Medications at Time of Discharge + + + +---------+ + + | Medication | Sig | Dispensed | Refills | Start | End Date | | | | | | Date | | + + + +---------+ + + | DULoxetine | | | 0 | 04/19/20 | | | (CYMBALTA) [address] | | | | 16 | | | capsule | | | | | | + + + +---------+ + + | Levothyroxine | Take 100 mcg by | | 0 | | | | Sodium 100 MCG CAPS | mouth every morning | | | | | | | (before breakfast). | | | | | + + + +---------+ + + | lisinopril | Take 20 mg by mouth | | 0 | | | | (PRINIVIL, ZESTRIL) | Daily. | | | | | | 20 mg tablet | | | | | | + + + +---------+ + + | | Take by mouth every | | 0 | | | | VZ-Wssluszftoqce-Vxb | 6 hours as needed. | | | | 7 | | taminophen 10-5-325 | | | | | | | MG CAPS | | | | | | + + + +---------+ + + | docusate sodium | Take 200 mg by mouth | 60 | 0 | 04/24/20 | | | (COLACE) 100 MG | 2 times daily. | capsule | | 16 | 7 | | capsule | | | | | | + + + +---------+ + + | | Take 1-2 tablets by | 100 | 0 | 04/24/20 | | | HYDROcodone-acetamin | mouth every 4 hours | tablet | | 16 | 7 | | ophen (NORCO) 10-325 | as [...] tablet by | 60 | 0 | 04/24/20 | | | (ROXICODONE) 5 mg | mouth every 3 hours | tablet | | 16 | 6 | | tablet | as needed for Pain. | | | | | + + + +---------+ + + | Psyllium 500 MG | Take 2 capsules by | | 0 | | | | CAPS | mouth 2 times daily. | | | | 7 | + + + +---------+ + + | ranitidine | Take 150 mg by mouth | | 0 | | | | (ZANTAC) 150 mg | 2 times daily. | | | | 6 | | tablet | | | | | | + + + +---------+ + + | rivaroxaban | Take 1 tablet by | 14 | 0 | 04/24/20 | | | (XARELTO) 10 mg | mouth Daily. | tablet | | 16 | 7 | | tablet | | | | | | + + + +---------+ + + documented as of this encounter Progress Notes Lencho Hays MD - 04/23/2016 8:11 AM PDTFormatting of this note might be different fro m the original. Patient with block worn off Teary eyed this am - didn't sleep much Filed Vitals: 04/23/16 0800 BP: 109/55 Pulse: 56 Temp: 36.8 C (98.2 F) Resp: 20 I/O last 3 completed shifts: In: 3023 [P.O.:320; I.V.:2603; IV Piggyback:100] Out: 1480 [Urine:1450; Blood:30] I/O this shift: In: - Out: 150 [Urine:150] On exam the dressings intact and dry Flex/ext feet well Recent Results (from the past 24 hour(s)) Potassium Result Value Ref Range K 4.4 3.5-5.1 mmol/L POC Glucose Result Value Ref Range POC Glucose 114 70-150 mg/dL Basic Metabolic Panel Result Value Ref Range NA 136 136-149 mmol/L K 4.3 3.5-5.1 mmol/L CL 104 98-109 mmol/L CO2 24 24-31 mmol/L ANION GAP 8 3-16 mmol/L GLUCOSE 193 (H) 70-109 mg/dL BUN 18 7-18 mg/dL Creatinine, Serum/Plasma 1.15 0.60-1.30 mg/dL eGFR if not 46 (L) >=60 mL/min/1.73m2 CALCIUM 8.4 8.3-10.5 mg/dL BUN/CREA 15.7 Hemoglobin and Hematocrit Result Value Ref Range Hgb 11.0 (L) 11.5-16.0 g/dL Hct 33.6 (L) 34.0-47.0 % POD 1 s/p right total knee arthroplasty Mobilize with PT Katie Alejandro RN - 04/23/2016 4:56 AM PDTPatient requested BS check this AM because her "leg felt weak" when ambulating. Patient reminded that her leg would be weaker r/t surgery and b lock but BS was checked and was 114. Patient resting comfortably at this time. Patient does well with 1 person assist and FWW to [facility]. Electronically signed by: KATIE LING RN 016 4:57 documented in this encounter Plan of Treatment + +------+--------+ + + | Name | Type | Priori | Associated Diagnoses | Order Schedule | | | | ty | | | + +------+--------+ + + | DME: Walker | DME | Routin | Primary | Ordered: 04/24/2016 | | | | e | osteoarthritis of | | | | | | right knee | | + +------+--------+ + + + + +--------+ + + | Name | Type | Priori | Associated Diagnoses | Order Schedule | | | | ty | | | + + +--------+ + + | Home Health, | Outpatient | Routin | Primary | Ordered: 04/24/2016 | | External - AMB | Referral | e | osteoarthritis of | | | Referral | | | right knee | | + + +--------+ + + documented as of this encounter Procedures + +--------+ + + + | Procedure Name | Priori | Date/Time | Associated Diagnosis | Comments | | | ty | | | | + +--------+ + + + | HEMOGLOBIN AND | Routin | 04/24/2016 | | Results for this | | HEMATOCRIT | e | 6:11 AM | | procedure are in the | | | | PDT | | results section. | + +--------+ + + + | BASIC METABOLIC | Routin | 04/24/2016 | | Results for this | | PANEL | e | 6:11 AM | | procedure are in the | | | | PDT | | results section. | + +--------+ + + + | HEMOGLOBIN AND | Routin | 04/23/2016 | | Results for this | | HEMATOCRIT | e | 6:01 AM | | procedure are in the | | | | PDT | | results section. | + +--------+ + + + | BASIC METABOLIC | Routin | 04/23/2016 | | Results for this | | PANEL | e | 6:01 AM | | procedure are in the | | | | PDT | | results section. | + +--------+ + + + | POC GLUCOSE | Routin | 04/23/2016 | | Results for this | | | e | 4:48 AM | | procedure are in the | | | | PDT | | results section. | + +--------+ + + + | ARTHROPLASTY KNEE | | 04/22/2016 | Primary | | | | | 9:48 AM | osteoarthritis of | | | | | PDT | right knee | | + +--------+ + + + +---+--------+ | | | | | Specia | | | l | | | Needs | | | Scott | | | Paulo | | | - | | | Jocelyn | +---+--------+ + +--------+ +---+ + | POTASSIUM | Routin | 04/22/2016 | | Results for this | | | e | 8:55 AM | | procedure are in the | | | | PDT | | results section. | + +--------+ +---+ + documented in this encounter Results Hemoglobin and Hematocrit (04/24/2016 6:11 AM PDT) + + + + + + | Component | Value | Ref Range | Performed | Pathologist | | | | | At | Signature | + + + + + + | Hemoglobin | 10.5 (L) | 11.5 - 16.0 | [facility] | | | | | g/dL | [facility] | | | | | | [facility] | | | | | | [facility] - | | | | | | LABORATORY | | + + + + + + | Hematocrit | 31.4 (L) | 34.0 - 47.0 % | [...] + + | [facility] | [address] | [place] | [phone] | | [facility] | | [address] | | | - LABORATORY | | | | + + + + + Basic Metabolic Panel (04/24/2016 6:11 AM PDT) + + + + + + | Component | Value | Ref Range | Performed | Pathologist | | | | | At | Signature | + + + + + + | Na | 135 (L) | 136 - 149 | [facility] | | | | | mmol/L | [facility] | | | | | | MEDICAL | | | | | | CENTER - | | | | | | LABORATORY | | + + + + + + | K | 4.1 | 3.5 - 5.1 | [facility] | | | | | mmol/L | [facility] | | | | | | MEDICAL | | | | | | CENTER - | | | | | | LABORATORY | | + + + + + + | Cl | 102 | 98 - 109 mmol/L | [facility] | | | | | | [facility] | | | | | | MEDICAL | | | | | | CENTER - | | | | | | LABORATORY | | + + + + + + | CO2 | 28 | 24 - 31 mmol/L | [facility] | | | | | | [facility] | | | | | | [facility] | | | | | | CENTER - | | | | | | LABORATORY | | + + + + + + | Anion Gap | 5 | 3 - 16 mmol/L | [facility] | | | | | | [facility] | | | | | | [facility] | | | | | | [facility] - | | | | | | LABORATORY | | + + + + + + | Glucose | 124 (H) | 70 - 109 mg/dL | [facility] | | | | | | [facility] | | | [facility] | [facility] | | | | | | [facility] - | | | | | | LABORATORY | | + + + + + + | BUN | 21 (H) | 7 - 18 mg/dL | [facility] | | | | | | [facility] | | | | | | [facility] | | | | | | CENTER - | | | | | | LABORATORY | | + + + + + + | Creatinine | 1.22 | 0.60 - 1.30 | [facility] | | | | | mg/dL | [facility] | | | | | | [facility] | | | | | | C[facility] - | | | | | | LABORATORY | | + + + + + + | eGFR if not | 43 (L)Comment: | >=60 | [facility] | | | | GLOMERULAR FILTRATION | mL/min/1.73m2 | [facility] | | | [place] | RATE,ESTIMATED | | MEDICAL | | | | mL/min/1.22c8Zssb than | | CENTER - | | [...] + + + + | BUN/Creatin | 17.2 | | [facility] | | | ine [...] | + + + + + | [facility] | [address] | [place] | [phone] | | [facility] | | [address] | | | - LABORATORY | | | | + + + + + Hemoglobin and Hematocrit (04/23/2016 6:01 AM PDT) + + + + + + | Component | Value | Ref Range | Performed | Pathologist | | | | | At | Signature | + + + + + + | Hemoglobin | 11.0 (L) | 11.5 - 16.0 | [facility] | | | | | g/dL | [facility] | | | | | | [facility] | | | | | | CENTER - | | | | | | LABORATORY | | + + + + + + | Hematocrit | 33.6 (L) | 34.0 - 47.0 % | [...] [address] | [place] | [phone] | | [facility] | | [address] | | | - LABORATORY | | | | + + + + + Basic Metabolic Panel (04/23/2016 6:01 AM PDT) + + + + + + | Component | Value | Ref Range | Performed | Pathologist | | | | | At | Signature | + + + + + + | Na | 136 | 136 - 149 | [facility] | | | | | mmol/L | [facility] | | | | | | MEDICAL | | | | | | CENTER - | | | | | | LABORATORY | | + + + + + + | K | 4.3 | 3.5 - 5.1 | [facility] | | | | | mmol/L | [facility] | | | | | | MEDICAL | | | | | | CENTER - | | | | | | LABORATORY | | + + + + + + | Cl | 104 | 98 - 109 mmol/L | [facility] | | | | | | [facility] | | | | | | MEDICAL | | | | | | CENTER - | | | | | | LABORATORY | | + + + + + + | CO2 | 24 | 24 - 31 mmol/L | [facility] | | | | | | [facility] | | | | | | MEDICAL | | | | | | CENTER - | | | | | | LABORATORY | | + + + + + + | Anion Gap | 8 | 3 - 16 mmol/L | [facility] | | | | | | [facility] | | | | | | [facility]ICAL | | | | | | CENTER - | | | | | | LABORATORY | | + + + + + + | Glucose | 193 (H) | 70 - 109 mg/dL | [facility] | | | | | | [facility] | | | | | | [facility] | | | | | | CENTER - | | | | | | LABORATORY | | + + + + + + | BUN | 18 | 7 - 18 mg/dL | [facility] | | | | | | [facility] | | | | | | MED[facility] | | | | | | CENTER - | | | | | | LABORATORY | | + + + + + + | Creatinine | 1.15 | 0.60 - 1.30 | [facility] | | | | | mg/dL | [facility] | | | | | | MEDICAL | | | | | | CENTER - | | | | | | LABORATORY | | + + + + + + | eGFR if not | 46 (L)Comment: | >=60 | [facility] | | | | GLOMERULAR FILTRATION | mL/min/1.73m2 | [facility] | | | [place] | RATE,ESTIMATED | | MEDICAL | | | | mL/min/1.82o7Pbzi than | | CENTER - | | [...] + + + + | Calcium | 8.4 | 8.3 - 10.5 | [facility] | | | | | mg/dL | [facility] | | | | | | MEDICAL | | | | | | CENTER - | | | | | | LABORATORY | | + + + + + + | BUN/Creatin | 15.7 | | [facility] | | | ine [...] | + + + + + | [facility] | [address] | [place] | [phone] | | [facility] | | [address] | | | - LABORATORY | | | | + + + + + POC Glucose (04/23/2016 4:48 AM PDT) + +-------+ + + + | Component | Value | Ref Range | Performed | Pathologist | | | | | At | Signature | + +-------+ + + + | Glucose, | 114 | 70 - 150 mg/dL | [facility] | | | POC | | | [facility] | | [...] | + + + + + | [facility] | [address] | [place] | [phone] | | [facility] | | [address] | | | - LABORATORY | | | | + + + + + Potassium (04/22/2016 8:55 AM PDT) + +-------+ + + + | Component | Value | Ref Range | Performed | Pathologist | | | | | At | Signature | + +-------+ + + + | K | 4.4 | 3.5 - 5.1 | [facility] | [...] + | [facility] | [address] | [place], [place] | [phone] | | [facility] | | [address] | | | - LABORATORY | | | | + + + + + documented in this encounter Visit Diagnoses + + | Diagnosis | + + | Primary osteoarthritis of right knee - Primary Primary localized osteoarthrosis, | | lower leg | + + documented in this encounter Admitting Diagnoses + + | Diagnosis | + + | Primary osteoarthritis of right knee Primary localized osteoarthrosis, lower leg | + + documented in this encounter Administered Medications + +---------+ +------+-------+------+ | Medication Order | MAR | Action | Dose | Rate | Site | | | Action | Date | | | | + +---------+ +------+-------+------+ | ceFAZolin (ANCEF, KEFZOL) 1 g | New Bag | 04/23/20 | 1 g | 100 | | | in sodium chloride 0.9% 50 mL | | 16 3:00 | | mL/hr | | | IVPB 1 g, Intravenous, | | AM PDT | | | | | Administer over 30 Minutes, EVERY | | | | | | | 6 HOURS INTERVAL, First dose on | | | | | | | Mon04/22/16 at 1600, For 3 doses, | | | | | | | Start 6 hours after previous | | | | | | | dose. Last dose to be given | | | | | | | within 24 hours of surgery end | | | | | | | time. Activate system and mix | | | | | | | before use., Post-op/Phase II, | | | | | | | Indications: Surgical Prophylaxis | | | | | | + +---------+ +------+-------+------+ +---------+ +-----+-------+---+ | New Bag | 04/22/20 | 1 g | 100 | | | | 16 9:26 | | mL/hr | | | | PM PDT | | | | +---------+ +-----+-------+---+ | New Bag | 04/22/20 | 1 g | 100 | | | | 16 4:08 | | mL/hr | | | | PM PDT | | | | +---------+ +-----+-------+---+ +---+---+ | | | +---+---+ + +-------+ +--------+---+---+ | docusate sodium (COLACE) | Given | 04/24/20 | 200 mg | | | | capsule 200 mg 200 mg, Oral, 2 | | 16 9:30 | | | | | TIMES DAILY, First dose on Mon | | AM PDT | | | | | 04/22/16 at 2100, First line agent | | | | | | | for constipation, Post-op/Phase | | | | | | | II | | | | | | + +-------+ +--------+---+---+ +-------+ +--------+---+---+ | Given | 04/23/20 | 100 mg | | | | | 16 9:43 | | | | | | PM PDT | | | | +-------+ +--------+---+---+ +---+---+ | | | +---+---+ + +-------+ +-------+---+---+ | DULoxetine (CYMBALTA) | Given | 04/24/20 | 20 mg | | | | capsule 20 mg 20 mg, Oral, | | 16 9:30 | | | | | DAILY, First dose on Mon04/23/16 | | AM PDT | | | | | at 0900, Do not open capsule., | | | | | | | Post-op/Phase II | | | | | | + +-------+ +-------+---+---+ +-------+ +-------+---+---+ | Given | 04/23/20 | 20 mg | | | | | 16 8:12 | | | | | | AM PDT | | | | +-------+ +-------+---+---+ +---+---+ | | | +---+---+ + +-------+ +-------+---+---+ | famotidine (PEPCID) tablet 20 | Given | 04/24/20 | 20 mg | | | | mg 20 mg, Oral, 2 TIMES DAILY, | | 16 9:30 | | | | | First dose on Mon04/22/16 at 2100, | | AM PDT | | | | | Post-op/Phase II | | | | | | + +-------+ +-------+---+---+ +-------+ +-------+---+---+ | Given | 04/23/20 | 20 mg | | | | | 16 9:44 | | | | | | PM PDT | | | | +-------+ +-------+---+---+ | Given | 04/23/20 | 20 mg | | | | | 16 8:12 | | | | | | AM PDT | | | | +-------+ +-------+---+---+ +---+---+ | | | +---+---+ + +-------+ +---------+---+---+ | HYDROcodone-acetaminophen | Given | 04/24/20 | 2 | | | | (NORCO) 10-325 mg per tablet 1-2 | | 16 11:40 | tablets | | | | tablet 1-2 tablet, Oral, EVERY 4 | | AM PDT | | | | | HOURS PRN, Pain, Starting Fri | | | | | | | 04/22/16 at 1240, If ineffective or | | | | | | | not tolerated use Oxycodone if | | | | | | | ordered., Post-op/Phase II | | | | | | + +-------+ +---------+---+---+ +-------+ +---------+---+---+ | Given | 04/24/20 | 2 | | | | | 16 3:47 | tablets | | | | | AM PDT | | | | +-------+ +---------+---+---+ | Given | 04/23/20 | 2 | | | | | 16 9:44 | tablets | | | | | PM PDT | | | | +-------+ +---------+---+---+ +---+---+ | | | +---+---+ + +---------+ +---+---+---+ | lactated ringers (LR) infusion | New Bag | 04/22/20 | | | | | at 10-100 mL/hr, Intravenous, | | 16 10:34 | | | | | CONTINUOUS, Starting 04/22/16 | | AM PDT | | | | | at 0915, TKO., Pre-op | | | | | | + +---------+ +---+---+---+ +---------+ +---+-------+ + | New Bag | 04/22/20 | | 100 | Left Arm | | | 16 9:26 | | mL/hr | | | | AM PDT | | | | +---------+ +---+-------+ + +---+---+ | | | +---+---+ + +---------+ +---+-------+---+ | lactated ringers (LR) infusion | New Bag | 04/23/20 | | 100 | | | at 100 mL/hr, Intravenous, FIXED | | 16 2:58 | | mL/hr | | | VOLUME (see admin instruction), | | AM PDT | | | | | Starting 04/22/16 at 1300, | | | | | | | Saline lock IV when taking po and | | | | | | | after 2 liters in, Post-op/Phase | | | | | | | II | | | | | | + +---------+ +---+-------+---+ +---------+ +---+-------+---+ | New Bag | 04/22/20 | | 100 | | | | 16 4:09 | | mL/hr | | | | PM PDT | | | | +---------+ +---+-------+---+ +---+---+ | | | +---+---+ + +-------+ +---------+---+---+ | levothyroxine (SYNTHROID, | Given | 04/24/20 | 100 mcg | | | | LEVOTHROID) tablet 100 mcg 100 | | 16 7:28 | | | | | mcg, Oral, DAILY BEFORE | | AM PDT | | | | | BREAKFAST, First dose on Fri | | | | | | | 04/22/16 at 1245, Post-op/Phase II | | | | | | + +-------+ +---------+---+---+ +-------+ +---------+---+---+ | Given | 04/23/20 | 100 mcg | | | | | 16 8:12 | | | | | | AM PDT | | | | +-------+ +---------+---+---+ +---+---+ | | | +---+---+ + +-------+ +-------+---+---+ | lisinopril (PRINIVIL, ZESTRIL) | Given | 04/24/20 | 20 mg | | | | tablet 20 mg 20 mg, Oral, DAILY, | | 16 9:30 | | | | | First dose on 04/23/16 at | | AM PDT | | | | | 0900, Post-op/Phase II | | | | | | + +-------+ +-------+---+---+ +-------+ +-------+---+---+ | Given | 04/23/20 | 20 mg | | | | | 16 8:12 | | | | | | AM PDT | | | | +-------+ +-------+---+---+ +---+---+ | | | +---+---+ + +-------+ +------+---+---+ | ondansetron (ZOFRAN) injection | Given | 04/22/20 | 4 mg | | | | 4 mg 4 mg, Intravenous, ONCE | | 16 11:55 | | | | | PRN, Nausea, Starting 04/22/16 | | AM PDT | | | | | at 1114, For 1 dose, | | | | | | | Recovery/Phase I | | | | | | + +-------+ +------+---+---+ +---+---+ | | | +---+---+ + +-------+ +------+---+---+ | polyethylene glycol (MIRALAX) | Given | 04/24/20 | 17 g | | | | powder 17 g 17 g, Oral, DAILY | | 16 11:40 | | | | | PRN, Constipation, Starting Fri | | AM PDT | | | | | 04/22/16 at 1240, If docusate and | | | | | | | senna ineffective or not ordered, | | | | | | | Post-op/Phase II | | | | | | + +-------+ +------+---+---+ +---+---+ | | | +---+---+ + +-------+ +-------+---+---+ | rivaroxaban (XARELTO) tablet 10 | Given | 04/24/20 | 10 mg | | | | mg 10 mg, Oral, DAILY, First | | 16 9:30 | | | | | dose on 04/23/16 at 0700, | | AM PDT | | | | | Post-op/Phase II | | | | | | + +-------+ +-------+---+---+ +-------+ +-------+---+---+ | Given | 04/23/20 | 10 mg | | | | | 16 6:10 | | | | | | AM PDT | | | | +-------+ +-------+---+---+ +---+---+ | | | +---+---+ + +---------+ +---------+---+ + | scopolamine (TRANSDERM-SCOP) 1 | Patch | 04/22/20 | 1 patch | | [facility] | | mg/3 days 1 patch 1 patch, | Applied | 16 9:45 | | | nd Left | | Transdermal, ONCE PRN, For | | AM PDT | | | | | history of PONV. Need not apply | | | | | | | if h/o PONV is remote and has | | | | | | | likely been resolved with modern | | | | | | | anesthetics or ondansetron., | | | | | | | Starting 04/22/16 at 0854, For | | | | | | | 1 dose, Apply to mastoid process, | | | | | | | Pre-op | | | | | | + +---------+ +---------+---+ + +---+---+ | | | +---+---+ + +-------+ +--------+---+---+ | senna (SENOKOT) tablet 8.6 mg | Given | 04/24/20 | 8.6 mg | | | | 8.6 mg, Oral, 2 TIMES DAILY PRN, | | 16 11:40 | | | | | Constipation, Starting Mon04/22/16 | | AM PDT | | | | | at 1240, If docusate ineffective | | | | | | | or not ordered, Post-op/Phase II | | | | | | + +-------+ +--------+---+---+ +---+---+ | | | +---+---+ documented in this encounter
--- OUTSIDE RECORDS SUMMARY | ~2019-10-18 | XMS | Encounter Summary ---
Demographics + + + | Address | [address] [place] [address] | | | [place] [address] | + + + | Home Phone | | + + + | Preferred Language | Unknown | + + + | Marital Status | | + + + | Adventist Affiliation | 1076 | + + + | Race | Unknown | + + + | Ethnic Group | Unknown | + + + Author + + + | Author | [facility] | | | and [place] | + + + | Organization | [facility] | | | and [place] | + + + | Address | Unknown | + + + | Phone | Unavailable | + + + Support + + + + + | Name | Relationship | Address | Phone | + + + + + | Juan Carlos Ko | ECON | [address] | | | | | [place], [place] | | | | | [address] | | + + + + + | Arie Ko | ECON | Unknown | | + + + + + Care Team Providers + +------+ + | Care Wrapping Machine Helper Name | Role | Phone | + +------+ + | Bobo Garcia DO | PCP | | + +------+ + Reason for Visit + + + | Reason | Comments | + + + | Medication Question | | + + + Encounter Details +--------+ + + + + | Date | Type | Department | Care Team | Description | +--------+ + + + + | 04/21/ | Telephone | [facility] | Lencho Hays, | Medication Question | | 2016 | | MED CTR [facility] XRAY | [address] [place] [address] | | | | | [address] [place] | [place] | | | | | [place] | [address] | | | | | [address] | | | | | | [phone] | | | +--------+ + + + [...]
--- OUTSIDE RECORDS SUMMARY | ~2019-10-18 | XMS | Encounter Summary ---
Demographics + + + | Address | [address] [place] [address] | | | [place] [address] | + + + | Home Phone | | + + + | Preferred Language | Unknown | + + + | Marital Status | | + + + | Pentecostalism Affiliation | 1076 | + + + | Race | Unknown | + + + | Ethnic Group | Unknown | + + + Author + + + | Author | [facility] | | | and [place] | + + + | Organization | [facility] | | | and [place] | + + + | Address | Unknown | + + + | Phone | Unavailable | + + + Support + + + + + | Name | Relationship | Address | Phone | + + + + + | Juan Carlos Ko | ECON | [address] | | | | | [place], [place] | | | | | [address] | | + + + + + | Arie Ko | ECON | Unknown | | + + + + + Care Team Providers + +------+ + | Care Flask Carrier Name | Role | Phone | + [...] | +--------+ + + + + | 09/04/ | Telephone | [facility] | Spencer Chase MD | Diarrhea | | 2016 | | GASTROENTEROLOGY | [address], [place] | | | | | [address] [place] | [address] [place], [place] | | | | | [address] [place] | [address] | | | | | [address] | | | | | | [phone] | | | +--------+ + + + [...]
--- OUTSIDE RECORDS SUMMARY | ~2019-10-18 | XMS | Encounter Summary ---
Demographics + + + | Address | [address] [place] [address] | | | [place] [address] | + + + | Home Phone | | + + + | Preferred Language | Unknown | + + + | Marital Status | | + + + | Evangelical Affiliation | 1076 | + + + | Race | Unknown | + + + | Ethnic Group | Unknown | + + + Author + + + | Author | [facility] | | | and [place] | + + + | Organization | [facility] | | | and [place] | + + + | Address | Unknown | + + + | Phone | Unavailable | + + + Support + + + + + | Name | Relationship | Address | Phone | + + + + + | Juan Carlos Ko | ECON | [address] [place] [address] APT | | | | | [place], [place] | | | | | [address] | | + + + + + | Arie Ko | ECON | Unknown | | + + + + + Care Team Providers + +------+ + | Care Sort Manager Name | Role | Phone | + +------+ + | Live Sims MD | PCP | | + +------+ + Reason for Referral Diagnostic/Screening (Routine) +--------+--------+ + + + + | Status | Reason | Specialty | Diagnoses / | Referred By | Referred To | | | | | Procedures | Contact | Contact | +--------+--------+ + + + + | Closed | | Radiology | Diagnoses | Levi | | | | | | Undiagnosed | Live | | | | | | cardiac | MD Uli | | | | | | murmurs | [address] | | | | | | Procedures | [place] | | | | | | ECHO | [place] | | | | | | Complete | [address] | | | | | | | Phone: | | | | | | | [phone] | | | | | | | Fax: | | | | | | | [phone] | | +--------+--------+ + + + + Reason for Visit Diagnostic/Screening (Routine) +--------+--------+ + + + + | Status | Reason | Specialty | Diagnoses / | Referred By | Referred To | | | | | Procedures | Contact | Contact | +--------+--------+ + + + + | Closed | | Radiology | Diagnoses | Sims, | | | | | | Undiagnosed | Live | | | | | | cardiac | MD Uli | | | | | | murmurs | [address] | | | | | | Procedures | [place] | | | | | | ECHO | [place], [place] | | | | | | Complete | [address] | | | | | | | Phone: | | | | | | | [phone] | | | | | | | Fax: | | | | | | | [phone] | | +--------+--------+ + + + + Encounter Details +--------+ + + + + | Date | Type | Department | Care Team | Description | +--------+ + + + + | 10/24/ | Hospital | [facility] | Live Sims | Undiagnosed cardiac | | 2014 | Encounter | MED CTR ECHO [address] | MD Uli [address] | murmurs | | | | [place] | [address] [place] | | | | | [place] [address] | [place] [address] | | | | | [phone] | [phone] | | | | | | | | | | | | Chavez Vasquez | | | | | | Arnold Gilletteologist | | +--------+ + + + + [...] | + +--------+ + + + | ECHO COMPLETE | Routin | 10/24/2014 | Undiagnosed | Results for this | | | e | 2:39 PM | cardiac murmurs | procedure are in the | | | | PST | | results section. | + +--------+ + + + | LVEF VALUE | Routin | 10/24/2014 | | Results for this | | | e | | | procedure are in the | | | | | | results section. | + +--------+ + + + documented in this encounter Results ECHO Complete (10/24/2014 2:39 PM PST) + + | Specimen | + + | | + + + + + | Narrative | Performed At | + + + | [facility] ECHOCARDIOGRAM REPORT | | | STUDY DATE: 10/24/2014 PATIENT NAME: Carlota Ko : | | | 1940 PCP: Live Sims MD | | | CLINICAL HISTORY/DIAGNOSIS: MURMUR A transthoracic | | | echocardiogram with M-mode, pulsed-wave and color Doppler was | | | performed with standard views obtained. The technical quality of | | | this examination is adequate. The heart rhythm during the echo is | | | normal. The M-mode, two-dimensional, color flow and spectral | | | Doppler data were reviewed and support the following interpretation: | | | Interpretation: Left Atrium: Mildly enlarged. Left ventricle: | | | Left ventricular size is normal with normal wall thickness and | | | motion, and normal left ventricular systolic function. The | | | estimated ejection fraction is 65%. Grade 1 left ventricular | | | diastolic dysfunction. Aortic root: Aortic root is normal. Right | | | Atrium: Mildly enlarged. Right ventricle: Right ventricular size | | | is normal with normal wall thickness and normal right ventricular | | | systolic function. Pericardium: Pericardium is normal. Pulmonary | | | artery: Pulmonary artery is normal. Aortic valve: Mildly sclerotic | | | without significant stenosis or insufficiency. Mitral valve: Mildly | | | thickened with mild regurgitation. Pulmonic valve: Pulmonic valve | | | is normal. Tricuspid valve: Normal with mild insufficiency and peak | | | velocity of 3.2 m/s consistent with RV SP 46-51 mm mercury. Vena | | | cava: The inferior vena cava is normal. There is greater than 50% | | | inspiratory collapse of the IVC. IMPRESSIONS: 1. Normal LV | | | size and systolic function with LVEF 65%. 2. Mild mitral and | | | tricuspid insufficiency. 3. RV SP 46-51 mm mercury. 4. Mild | | | biatrial enlargement. Measurements: Height: 70 Weight: | | | 245 Aortic root: 27 mm Aortic cusp sep: 16 mm LA: 45 mm | | | IVS-diastole: 9 mm IVS-systole: 14 mm LVPW diastole: 9 mm | | | LVPW systole: 16 mm LV diameter-diastole: 53 mm LV | | | diameter-systole: 38 mm Fractional shortenin % PFV aortic | | | valve: m/s MPG mitral valve: mmHg PFV TR jet: 3.21 m/s | | | RA/RV PP mmHg LA volume: 76 mL LA index: 33 mL/m2 Mitral | | | Inflow DT: 216 ms IVRT: 77 ms Valsalva: Not needed PWDTI S | | | wave: 11.2 cm/s PWDTI E wave: 11.9 cm/s PWDTI A wave: 17.1 | | | cm/s E/A Ratio: 0.696 E/E Ratio: 8.99 Signed by: | | | S. Alexander Murray MD PhD FACC 10/24/2014 14:46 | | | Accountant Certified Public: Von Campbell, ELLY, RVT, RDMS | | + + + + + | Procedure Note | + + | Carlos Murray MD - 10/26/2014 2:16 PM [facility] | | CENTERECHOCARDIOGRAM REPORTSTUDY DATE: 10/24/2014PATIENT NAME: Carlota Zee: | | 1940MRN: [id number]: Live Sims [facility]NOSIS: | | MURMURA transthoracic echocardiogram with M-mode, pulsed-wave and color Doppler was | | performed with standard views obtained. The technical quality of this examination is | | adequate. The heart rhythm during the echo is normal. The M-mode, two-dimensional, | | color flow and spectral Doppler data were reviewed and support the following | | interpretation:Interpretation:Left Atrium: Mildly enlarged.Left ventricle: Left | | ventricular size is normal with normal wall thickness and motion, and normal left | | ventricular systolic function. The estimated ejection fraction is 65%. Grade 1 left | | ventricular diastolic dysfunction.Aortic root: Aortic root is normal.Right Atrium: | | Mildly enlarged.Right ventricle: Right ventricular size is normal with normal wall | | thickness and normal right ventricular systolic function.Pericardium: Pericardium is | | normal.Pulmonary artery: Pulmonary artery is normal.Aortic valve: Mildly sclerotic | | without significant stenosis or insufficiency.Mitral valve: Mildly thickened with mild | | regurgitation.Pulmonic valve: Pulmonic valve is normal.Tricuspid valve: Normal with | | mild insufficiency and peak velocity of 3.2 m/s consistent with RV SP 46-51 mm | | mercury.Vena cava: The inferior vena cava is normal. There is greater than 50% | | inspiratory collapse of the IVC.IMPRESSIONS:1. Normal LV size and systolic function | | with LVEF 65%.2. Mild mitral and tricuspid insufficiency.3. RV SP 46-51 mm mercury.4. | | Mild biatrial enlargement.Measurements:Height: 70Weight: 245Aortic root: 27 mmAortic | | cusp sep: 16 mmLA: 45 mmIVS-diastole: 9 mmIVS-systole: 14 mmLVPW diastole: 9 mmLVPW | | systole: 16 mmLV diameter-diastole: 53 mmLV diameter-systole: 38 mmFractional | | shortenin %PFV aortic valve: m/sMPG mitral valve: mmHgPFV TR jet: 3.21 | | m/Holly/RV PP mmHgLA volume: 76 mLLA index: 33 mL/[id number] Inflow DT: 216 msIVRT: | | 77 msValsalva: Not neededPWDTI S wave: 11.2 cm/sPWDTI E wave: 11.9 cm/sPWDTI A | | wave: 17.1 cm/sE/A Ratio: 0.696E/E Ratio: 8.99Signed by: Lisandra Murray MD PhD | | [facility] 10/24/2014 14:46 Accountant Certified Public: Von Campbell, RDLEIGH ANN, RVT, RDMS | |Pulmonic valve: Pulmonic valve is normal. | |Tricuspid valve: Normal with mild insufficiency and peak velocity of 3.2 m/s consistent wit h RV SP 46-51 mm mercury. | |Vena cava: The inferior vena cava is normal. There is greater than 50% inspiratory collap se of the IVC. | | | | | |IMPRESSIONS: | |1. Normal LV size and systolic function with LVEF 65%. | |2. Mild mitral and tricuspid insufficiency. | |3. RV SP 46-51 mm mercury. | |4. Mild biatrial enlargement. | | | | | | | | | |Measurements: | |Height: 70 | |Weight: 245 | |Aortic root: 27 mm | |Aortic cusp sep: 16 mm | |LA: 45 mm | |IVS-diastole: 9 mm | |IVS-systole: 14 mm | |LVPW diastole: 9 mm | |LVPW systole: 16 mm | |LV diameter-diastole: 53 mm | |LV diameter-systole: 38 mm | |Fractional shortenin % | |PFV aortic valve: m/s | |MPG mitral valve: mmHg | |PFV TR jet: 3.21 m/s | |RA/RV PP mmHg | |LA volume: 76 mL | |LA index: 33 mL/m2 | |Mitral Inflow DT: 216 ms | |IVRT: 77 ms | |Valsalva: Not needed | |PWDTI S wave: 11.2 cm/s | |PWDTI E wave: 11.9 cm/s | |PWDTI A wave: 17.1 cm/s | |E/A Ratio: 0.696 | |E/E Ratio: 8.99 | | | | | | | | | |Signed by: Lisandra Murray MD PhD FACC | | 10/24/2014 14:46 | | | | | |Accountant Certified Public: Von Campbell, RDCS, RVT, RDMS | + + LVEF VALUE (10/24/2014) + +-------+ + + + | Component | Value | Ref Range | Performed | Pathologist | | | | | At | Signature | + +-------+ + + + | LVEF-TTE | 65 | | | | | TRANSTHORAC | | | | | | IC ECHO | | | | | + +-------+ + + + documented in this encounter Visit Diagnoses + + | Diagnosis | + + | Undiagnosed cardiac murmurs | + + documented in this encounter"
--- OUTSIDE RECORDS SUMMARY | ~2019-10-18 | XMS | Encounter Summary ---
Demographics + + + | Address | [address] [place] [address] | | | [place] [address] | + + + | Home Phone | | + + + | Preferred Language | Unknown | + + + | Marital Status | | + + + | Yarsani Affiliation | 1076 | + + + | Race | Unknown | + + + | Ethnic Group | Unknown | + + + Author + + + | Author | [facility] | | | and [place] | + + + | Organization | [facility] | | | and [place] | + + + | Address | Unknown | + + + | Phone | Unavailable | + + + Support + + + + + | Name | Relationship | Address | Phone | + + + + + | Juan Carlos Ko | ECON | [address] | | | | | [place], [place] | | | | | [address] | | + + + + + | Arie Ko | ECON | Unknown | | + + + + + Care Team Providers + +------+ + | Care Fitness Worker Name | Role | Phone | + +------+ + | Live Sims MD | PCP | | + +------+ + Encounter Details +--------+ + + + + | Date | Type | Department | Care Team | Description | +--------+ + + + + | 12/07/ | Hospital | [facility] | Di Kemp, | | | 2015 | Encounter | MED CTR ACUTE | PT [address] | | | | | PHYSICAL THERAPY | [place], [place] | | | | | [address] [place] | [address] | | | | | [place] [address] | | | | | | [phone] | Carlyle Marcus Aide | | +--------+ + + + + [...]
--- OUTSIDE RECORDS SUMMARY | ~2019-10-18 | XMS | Encounter Summary ---
Demographics + + + | Address | [address] [place] [address] | | | [place] [address] | + + + | Home Phone | | + + + | Preferred Language | Unknown | + + + | Marital Status | | + + + | Zoroastrianism Affiliation | 1076 | + + + | Race | Unknown | + + + | Ethnic Group | Unknown | + + + Author + + + | Author | [facility] | | | and [place] | + + + | Organization | [facility] | | | and [place] | + + + | Address | Unknown | + + + | Phone | Unavailable | + + + Support + + + + + | Name | Relationship | Address | Phone | + + + + + | Juan Carlos Ko | ECON | [address] | | | | | [place], [place] | | | | | [address] | | + + + + + | Arie Ko | ECON | Unknown | | + + + + + Care Team Providers + +------+ + | Care Asphalt Tamper Name | Role | Phone | + +------+ + | Bobo Garcia DO | PCP | | + +------+ + Encounter Details +--------+ + + + + | Date | Type | Department | Care Team | Description | +--------+ + + + + | 07/05/ | Orders Only | [facility] | Lencho Hays, | Status post total | | 2016 | | ORTHOPEDIC SURGERY | MD Méndez [facility] | right knee | | | | [address] [facility] | [place], [place] | replacement (Primary | | | | [place], [place] | [address] | Dx) | | | | [address] | | | | | | [phone] | | | +--------+ + + + [...] of this encounter Results XR Knee Right 1 - 2 Vw (07/07/2016 10:27 AM PDT) + + | Specimen | + + | | + + + + + | Narrative | Performed At | + + + | XR KNEE RIGHT 1 - 2 VW 07/07/2016 10:27 AM HISTORY: S/P RIGHT | [facility] | | TOTAL KNEE ARTHROPLASTY DOS 04/22/2016. COMPARISON: 04/22/2015. | [facility] | | FINDINGS: There is hardware for right knee arthroplasty that is | [facility] | | intact with no evidence for loosening. Bone mineralization is normal. | - IMAGING | | There is no significant joint effusion. IMPRESSION - Intact | | | right knee arthroplasty. Dictated and Signed by: Mk Arreola MD | | | Electronically signed: 07/07/2016 11:02 AM | | + + + + + | Procedure Note | + + | Dewey, Rad Results In - 07/07/2016 11:05 AM PDT XR KNEE RIGHT 1 - 2 VW 07/07/2016 10:27 | | AMHISTORY: S/P RIGHT TOTAL KNEE ARTHROPLASTY DOS 04/22/2016.COMPARISON: | | 04/22/2015.FINDINGS:There is hardware for right knee arthroplasty that is intact with no | | evidencefor loosening. Bone mineralization is normal. There is no significant | | jointeffusion.IMPRESSION -Intact right knee arthroplasty. Dictated and Signed by: Mk | | MD Maxwell Electronically signed: 07/07/2016 11:02 AM | |FINDINGS: | |There is hardware for right knee arthroplasty that is intact with no evidence | |for loosening. Bone mineralization is normal. There is no significant joint | |effusion. | | | |IMPRESSION - | |Intact right knee arthroplasty. | | | |Dictated and Signed by: Mk Arreola MD | | Electronically signed: 07/07/2016 11:02 AM | + + + + + + + | Performing | Address | City/State/Zipcode | Phone Number | | Organization | | | | + + + + + | [facility] | [address] | [place] | [phone] | | [facility] | | [address] | | | - IMAGING | | | | + + + + + documented in this encounter Visit Diagnoses + + | Diagnosis | + + | Status post total right knee replacement - Primary | + + documented in this encounter"
--- OUTSIDE RECORDS SUMMARY | ~2019-10-18 | XMS | Encounter Summary ---
Demographics + + + | Address | [address] [place] [address] | | | [place] [address] | + + + | Home Phone | | + + + | Preferred Language | Unknown | + + + | Marital Status | | + + + | Alevism Affiliation | 1076 | + + + | Race | Unknown | + + + | Ethnic Group | Unknown | + + + Author + + + | Author | [facility] | | | and [place] | + + + | Organization | [facility] | | | and [place] | + + + | Address | Unknown | + + + | Phone | Unavailable | + + + Support + + + + + | Name | Relationship | Address | Phone | + + + + + | Juan Carlos Ko | ECON | [address] | | | | | [place], [place] | | | | | [address] | | + + + + + | Arie Ko | ECON | Unknown | | + + + + + Care Team Providers + +------+ + | Care Automobile Drivers Name | Role | Phone | + +------+ + | Bobo Garcia DO | PCP | | + +------+ + Encounter Details +--------+ + + + + | Date | Type | Department | Care Team | Description | +--------+ + + + + | 05/21/ | Hospital | [facility] | Lencho Hays, | Primary | | 2015 | Encounter | MED [facility] XRAY | [address] [facility] | osteoarthritis of | | | | [address] [place] | [place] | right hip | | | | [place], [place] | [address] | | | | | [address] | | | | | | [phone] | | | +--------+ + + + [...] + + + +---------+ + + | acetaminophen | Take 500 mg by mouth | | 0 | | | | (TYLENOL EX ST | every 6 hours as | | | | 5 | | ARTHRITIS PAIN) 500 | needed for Pain. | | | | | | mg tablet | | | | | [...] 1 OR 2 VW | Routin | 05/21/2015 | Primary | Results for this | | | e | 3:29 PM | osteoarthritis of | procedure are in the | | | | PDT | right hip | results section. | + +--------+ + + + documented in this encounter Results XR Pelvis 1 or 2 Vw (05/21/2015 3:29 PM PDT) + + | Specimen | + + | | + + + + + | Narrative | Performed At | + + + | XR PELVIS 1 OR 2 VW 05/21/2015 3:29 PM HISTORY: [facility] RIGHT TOTAL [facility] | | HIP ARTHROPLASTY DOS 06/19/15. COMPARISON: 01/12/2015, 12/05/2014. | [facility] | | FINDINGS: Advanced degenerative changes are visualized of the [facility] | | hip with osteophytosis, subchondral sclerosis, subchondral cyst | - IMAGING | | formation, and joint space loss with [id number] contact. Since the | | | prior studies, there has been interval development of slight | | | irregularity involving the right femoral head that is concerning for | | | avascular necrosis. There is hardware for left hip arthroplasty. Mild | | | sclerosis is present of the symphysis pubis. Bone mineralization is | | | normal. Clips are in the left pelvis. IMPRESSION - Advanced | | | degenerative changes of right hip with interval development of slight | | | irregularity involving the right femoral head that is concerning for | | | avascular necrosis. Intact left hip arthroplasty. Dictated | | | and Signed by: Mk Arreola MD Electronically signed: 05/21/2015 | | | 4:21 PM | | + + + + + | Procedure Note | + + | Dewey, Rad Results In - 05/21/2015 4:24 PM PDT XR PELVIS 1 OR 2 VW 05/21/2015 3:29 PM | | | | HISTORY: PREOP RIGHT TOTAL HIP ARTHROPLASTY DOS 06/19/15. | | | | COMPARISON: 01/12/2015, 12/05/2014. | | | | FINDINGS: | | Advanced degenerative changes are visualized of the right hip with | | osteophytosis, subchondral sclerosis, subchondral cyst formation, and joint | | space loss with [id number] contact. Since the prior studies, there has been | | interval development of slight irregularity involving the right femoral head | | that is concerning for avascular necrosis. There is hardware for left hip | | arthroplasty. Mild sclerosis is present of the symphysis pubis. Bone | | mineralization is normal. Clips are in the left pelvis. | | | | IMPRESSION - | | Advanced degenerative changes of right hip with interval development of slight | | irregularity involving the right femoral head that is concerning for avascular | | necrosis. | | | | Intact left hip arthroplasty. | | | | Dictated and Signed by: Mk Arreola MD | | Electronically signed: 05/21/2015 4:21 PM | + + + + + + + | Performing | Address | City/State/Zipcode | Phone Number | | Organization | | | | + + + + + | [facility] | [address] | [place] | [phone] | | [facility] | | [address] | | | - IMAGING | | | | + + + + + documented in this encounter Visit Diagnoses + + | Diagnosis | + + | Primary osteoarthritis of right hip Primary localized osteoarthrosis, pelvic region | | and thigh | + + documented in this encounter"
--- OUTSIDE RECORDS SUMMARY | ~2019-10-18 | XMS | Encounter Summary ---
Demographics + + + | Address | [address] [place] [address] | | | [place] [address] | + + + | Home Phone | | + + + | Preferred Language | Unknown | + + + | Marital Status | | + + + | Restorationism Affiliation | [id number] | + + + | Race | Unknown | + + + | Ethnic Group | Unknown | + + + Author + + + | Author | [facility] | | | and [place] | + + + | Organization | [facility] | | | and [place] | + + + | Address | Unknown | + + + | Phone | Unavailable | + + + Support + + + + + | Name | Relationship | Address | Phone | + + + + + | Juan Carlos Ko | ECON | [address] | | | | | [place], [place] | | | | | [address] | | + + + + + | Arie Ko | ECON | Unknown | | + + + + + Care Team Providers + +------+ + | Care Service Plumber Name | Role | Phone | + [...] | | | Osteoarthros | | [address] | | | | | is, | | [place], | | | | | unspecified | | [place] [address] | | | | | whether | | Phone: | | | | | generalized | | [phone] | | | | | or | | Fax: | | | | | localized, | | [phone] | | | | | pelvic | [...] | | | | | | | [place] [facility] | | | | | [...] + + | 12/05/ | Hospital | [facility] | Lencho Hays, | | | 2015 - | Encounter | MED [facility] | [address] [place] [address] | | | | | [address] [place] | [place] | | | 12/07/ | | [place] [id number] | [id number] | | | 2014 | | [phone] | | | +--------+ + + + [...] + + + | Blood Pressure | 129/54 | 12/07/2014 7:14 AM | | | | | PST | | + + + + + | Pulse | 74 | 12/07/2014 7:14 AM | | | | | PST | | + + + + + | Temperature | 36.7 C (98.1 F) | 12/07/2014 7:14 AM | | | | | PST | | + + + + + | Respiratory Rate | 16 | 12/07/2014 7:14 AM | | | | | PST | | + + + + + | Oxygen Saturation | 96% | 12/07/2014 7:14 AM | | | | | PST | | + + + + + | Inhaled Oxygen | - | - | | | Concentration | | | | + + + + + | Weight | 107.5 kg (236 lb | 12/05/2014 1:55 PM | | | | 15.9 oz) | PST | | + + + + + | Height | 177.8 cm (5' 10") | 12/05/2014 1:55 PM | | | | | PST | | + + + + + | Body Mass Index | 34.01 | 12/05/2014 1:55 PM | | | | | PST | | + + + + + documented in this encounter Discharge Summaries Lencho Hays MD - 12/07/2014 7:31 AM PSTFormatting of this note might be different fro m the original. DISCHARGE SUMMARY Pt. Name/Age/: Carlota Ko 74 y.o. 1940 Date of Admission: 12/05/2014 Date of Discharge: 12/07/2014 Admitting Physician: Lencho Hays MD PCP: [facility] Discharging Physician: Lencho Hays MD Primary Discharge Dx: S/p left Total hip arthroplasty 12/05 Secondary Discharge Dx: Patient Active Problem List Diagnosis Hypothyroid Hypertension Type II diabetes mellitus Neuropathy Osteoarthritis - Left Hip Alcohol consumption one day per week S/P hysterectomy urinary retention Hospital Course, including Complications: patient did very well postop. She did have post v oid residual of 900cc and so a joel was placed. She did well with pain control and on the 2 nd day was taking norco alone. She achieved her goals in PT and was safe for discharge to [facility]. She is on lovenox for dvt prophylaxis. Pertinent Diagnostic Info/Data: Medications Reconciled upon Discharge are: Discharge Medications As of 12/07/2014 7:31 New Medications Details enoxaparin 40 mg/0.4 mL injection Inject 0.4 mLs under the skin every 24 hours for 20 days. aka: LOVENOX Unchanged Medications Details bisacodyl 5 mg EC tablet Take 5 mg by mouth Daily as needed. aka: DULCOLAX carvedilol 3.125 mg tablet Take 3.125 mg by mouth 2 times daily (with breakfast & dinner). aka: COREG enalapril 10 mg tablet Take 10 mg by mouth Daily. aka: VASOTEC GLUCOSAMINE 1500 COMPLEX PO Take by mouth. HYDROcodone-acetaminophen 10-325 mg per tablet Take 1 tablet by mouth every 4 hours as needed. aka: NORCO Levothyroxine Sodium 100 MCG Caps Take by mouth. metFORMIN 500 mg tablet Take 500 mg by mouth Daily. aka: GLUCOPHAGE MULTIVITAMIN PO Take 1 tablet by mouth Daily. niacin 500 mg CR tablet Take 500 mg by mouth nightly. aka: SLO-NIACIN Condition on Discharge: Stable Disposition: Patient was discharged to home Follow-Up Plans: 10-14 days with sd Code Status/Advance Directive (Pertinent discussions/declarations): Full Code Electronically signed by: Lencho Hays, 12/07/2014 7:31 [facility] documented in this e ncounter Discharge Instructions Instructions Lencho Hays MD - 12/07/2014Ok to shower with waterproof dressing in place Call if any questions documented in this encounter Medications [...] documented as of this encounter Progress Notes Jennifer Medrano RN - 12/07/2014 12:58 PM PSTPt discharged in stable condition.Electro nically signed by Jennifer Medrano RN at 12/07/2014 12:59 PM Lencho Adams MD - 7:25 AM PST Patient doing well Pain controlled with norco alone Filed Vitals: 12/07/14 0714 BP: 129/54 Pulse: 74 Temp: 36.7 C (98.1 F) Resp: 16 I/O last 3 completed shifts: In: 4160 [P.O.:2200; I.V.:1855; IV Piggyback:105] Out: 4075 [Urine:4075] On exam dressings intact and dry Calves nontender Flex/ext feet well Recent Results (from the past 24 hour(s)) POC GLUCOSE Component Value Range POC Glucose 182 (*) 70-150 mg/dL POC GLUCOSE Component Value Range POC Glucose 142 70-150 mg/dL POC GLUCOSE Component Value Range POC Glucose 167 (*) 70-150 mg/dL BASIC METABOLIC PANEL Component Value Range NA 133 (*) 136-149 mmol/L K 3.5 3.5-5.1 mmol/L CL 100 98-109 mmol/L CO2 27 24-31 mmol/L ANION GAP 6 3-16 mmol/L GLUCOSE 122 (*) 70-109 mg/dL BUN 7 7-18 mg/dL Creatinine, Serum/Plasma 0.72 0.60-1.30 mg/dL eGFR if not >60 >=60 mL/min/1.73m2 CALCIUM 8.6 8.3-10.5 mg/dL BUN/CREA 9.7 HEMOGLOBIN AND HEMATOCRIT Component Value Range Hgb 9.0 (*) 11.5-16.0 g/dL Hct 27.4 (*) 34.0-47.0 % POC GLUCOSE Component Value Range POC Glucose 113 70-150 mg/dL POD 2 s/p left HORACE Doing well in PT If passes goals today will discharge home with home health Lencho Adams MD - 12/06/2014 10:10 AM PSTFormattin g of this note might be different from the original. Patient had the joel placed last nite due to inability to void Good pain relief Filed Vitals: 12/06/14 0728 BP: 148/55 Pulse: 82 Temp: 37.3 C (99.1 F) Resp: 16 I/O last 3 completed shifts: In: 4941 [P.O.:2007; I.V.:2778; IV Piggyback:155] Out: 2700 [Urine:2049; Blood:650] On exam dressings intact and dry Calves nontender Flex/ext feet well Recent Results (from the past 24 hour(s)) POC GLUCOSE Component Value Range POC Glucose 111 70-150 mg/dL POC GLUCOSE Component Value Range POC Glucose 113 70-150 mg/dL BASIC METABOLIC PANEL Component Value Range NA 131 (*) 136-149 mmol/L K 3.6 3.5-5.1 mmol/L CL 99 98-109 mmol/L CO2 28 24-31 mmol/L ANION GAP 4 3-16 mmol/L GLUCOSE 155 (*) 70-109 mg/dL BUN 9 7-18 mg/dL Creatinine, Serum/Plasma 0.80 0.60-1.30 mg/dL eGFR if not >60 >=60 mL/min/1.73m2 CALCIUM 8.5 8.3-10.5 mg/dL BUN/CREA 11.3 HEMOGLOBIN AND HEMATOCRIT Component Value Range Hgb 10.3 (*) 11.5-16.0 g/dL Hct 31.0 (*) 34.0-47.0 % POC GLUCOSE Component Value Range POC Glucose 150 70-150 mg/dL POD 1 s/p HORACE Mobilize with PT owl er, Mago Cheatham RN - 12/06/2014 8:35 AM PSTDuring the night pt had difficulty with time of day factor. Unable to remember that she needed to remain in bed until seen by physical therapy. Bed alarm in place and activated 8: 36 AM PSTdocumented in this encounter Plan of Treatment Not on filedocumented as of this encounter Procedures + +--------+ + + + | Procedure Name | Priori | Date/Time | Associated Diagnosis | Comments | | | ty | | | | + +--------+ + + + | POC GLUCOSE | Routin | 12/07/2014 | | Results for this | | | e | 11:53 AM | | procedure are in the | | | | PST | | results section. | + +--------+ + + + | POC GLUCOSE | Routin | 12/07/2014 | | Results for this | | | e | 6:59 AM | | procedure are in the | | | | PST | | results section. | + +--------+ + + + | HEMOGLOBIN AND | Routin | 12/07/2014 | | Results for this | | HEMATOCRIT | e | 5:45 AM | | procedure are in the | | | | PST | | results section. | + +--------+ + + + | BASIC METABOLIC | Routin | 12/07/2014 | | Results for this | | PANEL | e | 5:45 AM | | procedure are in the | | | | PST | | results section. | + +--------+ + + + | POC GLUCOSE | Routin | 12/06/2014 | | Results for this | | | e | 9:15 PM | | procedure are in the | | | | PST | | results section. | + +--------+ + + + | POC GLUCOSE | Routin | 12/06/2014 | | Results for this | | | e | 5:44 PM | | procedure are in the | | | | PST | | results section. | + +--------+ + + + | POC GLUCOSE | Routin | 12/06/2014 | | Results for this | | | e | 11:39 AM | | procedure are in the | | | | PST | | results section. | + +--------+ + + + | POC GLUCOSE | Routin | 12/06/2014 | | Results for this | | | e | 7:04 AM | | procedure are in the | | | | PST | | results section. | + +--------+ + + + | HEMOGLOBIN AND | Routin | 12/06/2014 | | Results for this | | HEMATOCRIT | e | 6:49 AM | | procedure are in the | | | | PST | | results section. | + +--------+ + + + | BASIC METABOLIC | Routin | 12/06/2014 | | Results for this | | PANEL | e | 6:49 AM | | procedure are in the | | | | PST | | results section. | + +--------+ + + + | POC GLUCOSE | Routin | 12/05/2014 | | Results for this | | | e | 8:37 PM | | procedure are in the | | | | PST | | results section. | + +--------+ + + + | POC GLUCOSE | Routin | 12/05/2014 | | Results for this | | | e | 5:23 PM | | procedure are in the | | | | PST | | results section. | + +--------+ + + + | XR PELVIS 1 OR 2 VW | STAT | 12/05/2014 | | Results for this | | | | 1:04 PM | | procedure are in the | | | | PST | | results section. | + +--------+ + + + | ARTHROPLASTY HIP | | 12/05/2014 | Osteoarthrosis, | | | ANTERIOR APPROACH | | 9:55 AM | unspecified whether | | | | | PST | generalized or | | | | | | localized, pelvic | | | | | | region and thigh | | + +--------+ + + + +---+--------+ | | | | | Specia | | | l | | | Needs | | | | | | Medact | | | aPT is | | | | | | Diabet | | | ic | +---+--------+ + +--------+ +---+ + | POC GLUCOSE | Routin | 12/05/2014 | | Results for this | | | e | 9:02 AM | | procedure are in the | | | | PST | | results section. | + +--------+ +---+ + documented in this encounter Results POC Glucose (12/07/2014 11:53 AM PST) + +-------+ + + + | Component | Value | Ref Range | Performed | Pathologist | | | | | At | Signature | + +-------+ + + + | Glucose, | 147 | 70 - 150 mg/dL | [facility] | | | POC | | | [facility] | | [...] + | [facility] | [address] | [place] | [phone] | | [facility] | | [address] | | | - LABORATORY | | | | + + + + + | [facility] | [address] | [place] | | | [facility] | | [address] | | | - LABORATORY | | | | + + + + + POC Glucose (12/07/2014 6:59 AM PST) + +-------+ + + + | Component | Value | Ref Range | Performed | Pathologist | | | | | At | Signature | + +-------+ + + + | Glucose, | 113 | 70 - 150 mg/dL | [facility] | | | P[facility] | | | [facility] | | | | | | MEDICAL [...] + | [facility] | [address] | [place] | [phone] | | [facility] | | [address] | | | - LABORATORY | | | | + + + + + | [facility] | [address] | [place] | | | [facility] | | [address] | | | - LABORATORY | | | | + + + + + Hemoglobin and Hematocrit (12/07/2014 5:45 AM PST) + + + + + + | Component | Value | Ref Range | Performed | Pathologist | | | | | At | Signature | + + + + + + | Hemoglobin | 9.0 (L) | 11.5 - 16.0 | [facility] | | | | | g/dL | [facility] | | | | | | [facility] | | | | | | CENTER - | | | | | | LABORATORY | | + + + + + + | Hematocrit | 27.4 (L) | 34.0 - 47.0 % | [...] + | [facility] | [address] | [place] | [phone] | | [facility] | | [address] | | | - LABORATORY | | | | + + + + + | [facility] | [address] | [place] | | | [facility] | | [address] | | | - LABORATORY | | | | + + + + + Basic Metabolic Panel (12/07/2014 5:45 AM PST) + + + + + + | Component | Value | Ref Range | Performed | Pathologist | | | | | At | Signature | + + + + + + | Na | 133 (L) | 136 - 149 | [facility] | | | | | mmol/L | [facility] | | | | | | MEDICAL | | | | | | CENTER - | | | | | | LABORATORY | | + + + + + + | K | 3.5 | 3.5 - 5.1 | [facility] | | | | | mmol/L | [facility] | | | | | | MEDICAL | | | | | | CENTER - | | | | | | LABORATORY | | + + + + + + | Cl | 100 | 98 - 109 mmol/L | [facility] | | | | | | [facility] | | | | | | MEDICAL | | | | | | CENTER - | | | | | | LABORATORY | | + + + + + + | CO2 | 27 | 24 - 31 mmol/L | [facility] | | | | | | [facility] | | | | | | MEDICAL | | | | | | CENTER - | | | | | | LABORATORY | | + + + + + + | Anion Gap | 6 | 3 - 16 mmol/L | [facility] | | | | | | [facility] | | | | | | MEDICAL | | | | | | CENTER - | | | | | | LABORATORY | | + + + + + + | Glucose | 122 (H) | 70 - 109 mg/dL | [facility] | | | | | | [facility] | | | | | | MEDICAL | | | | | | CENTER - | | | | | | LABORATORY | | + + + + + + | BUN | 7 | 7 - 18 mg/dL | [facility] | | | | | | [facility] | | | | | | MEDICAL | | | | | | CENTER - | | | | | | LABORATORY | | + + + + + + | Creatinine | 0.72 | 0.60 - 1.30 | [facility] | | | | | mg/dL | [facility] | | | | | | MEDICAL | | | | | | CENTER - | | | | | | LABORATORY | | + + + + + + | eGFR if not | >60Comment: GLOMERULAR | >=60 | [facility] | | | | FILTRATION | mL/min/1.73m2 | [facility] | | | [place] | RATE,ESTIMATED | | MEDICAL | | | | mL/min/1.64x0Innu than | | CENTER - | | [...] + + + + | Calcium | 8.6 | 8.3 - 10.5 | [facility] | | | | | mg/dL | [facility] | | | | | | [facility]ICAL | | | | | | CENTER - | | | | | | LABORATORY | | + + + + + + | BUN/Creatin | 9.7 | | [facility] | | | ine Ratio | | | [facility] | | [...] + | [facility] | [address] | [place], [place] | [phone] | | [facility] | | [address] | | | - LABORATORY | | | | + + + + + | [facility] | [address] | [place] | | | [facility] | | [address] | | | - LABORATORY | | | | + + + + + POC Glucose (12/06/2014 9:15 PM PST) + +---------+ + + + | Component | Value | Ref Range | Performed | Pathologist | | | | | At | Signature | + +---------+ + + + | Glucose, | 167 (H) | 70 - 150 mg/dL | [facility] | | | POC | | | [facility] | | | | | | MEDICAL | | | | | | CENTER - | | | | | | LABORATORY | | + +---------+ + + + + + | Specimen | + + | Blood | + + + + + + + | Performing | Address | City/State/Zipcode | Phone Number | | Organization | | | | + + + + + | [facility] | [address] | [place] | [phone] | | [facility] | | [address] | | | - LABORATORY | | | | + + + + + | [facility] | [address] | [place] | | | [facility] | | [address] | | | - LABORATORY | | | | + + + + + POC Glucose (12/06/2014 5:44 PM PST) + +-------+ + + + | Component | Value | Ref Range | Performed | Pathologist | | | | | At | Signature | + +-------+ + + + | Glucose, | 142 | 70 - 150 mg/dL | [facility] | | | POC | | | [facility] | | | | | | MEDICAL [...] + | [facility] | [address] | [place] | [phone] | | [facility] | | [address] | | | - LABORATORY | | | | + + + + + | [facility] | [address] | [place] | | | [facility] | | [address] | | | - LABORATORY | | | | + + + + + POC Glucose (12/06/2014 11:39 AM PST) + +---------+ + + + | Component | Value | Ref Range | Performed | Pathologist | | | | | At | Signature | + +---------+ + + + | Glucose, | 182 (H) | 70 - 150 mg/dL | [facility] | | | POC | | | [facility] | | | | | | [facility]ICAL | | | | | | CENTER - | | | | | | LABORATORY | | + +---------+ + + + + + | Specimen | + + | Blood | + + + + + + + | Performing | Address | City/State/Zipcode | Phone Number | | Organization | | | | + + + + + | [facility] | [address] | [place] | [phone] | | [facility] | | [address] | | | - LABORATORY | | | | + + + + + | [facility] | [address] | [place] | | | [facility] | | [address] | | | - LABORATORY | | | | + + + + + POC Glucose (12/06/2014 7:04 AM PST) + +-------+ + + + | Component | Value | Ref Range | Performed | Pathologist | | | | | At | Signature | + +-------+ + + + | Glucose, | 150 | 70 - 150 mg/dL | [facility] | | | POC | | | [facility] | | | | | | MEDICAL [...] [address] | [place] | [phone] | | [facility] | | [address] | | | - LABORATORY | | | | + + + + + | [facility] | [address] | [place] | | | [facility] | | [address] | | | - LABORATORY | | | | + + + + + Hemoglobin and Hematocrit (12/06/2014 6:49 AM PST) + + + + + + | Component | Value | Ref Range | Performed | Pathologist | | | | | At | Signature | + + + + + + | Hemoglobin | 10.3 (L) | 11.5 - 16.0 | [facility] | | | | | g/dL | [facility] | | | | | | MEDICAL | | | | | | CENTER - | | | | | | LABORATORY | | + + + + + + | Hematocrit | 31.0 (L) | 34.0 - 47.0 % | [facility] | | | | | | [facility] | | | | | | MEDICAL [...] + | [facility] | [address] | [place] | [phone] | | [facility] | | [address] | | | - LABORATORY | | | | + + + + + | [facility] | [address] | [place] | | | [facility] | | [address] | | | - LABORATORY | | | | + + + + + Basic Metabolic Panel (12/06/2014 6:49 AM PST) + + + + + + | Component | Value | Ref Range | Performed | Pathologist | | | | | At | Signature | + + + + + + | Na | 131 (L) | 136 - 149 | [facility] | | | | | mmol/L | [facility] | | | | | | MEDICAL | | | | | | CENTER - | | | | | | LABORATORY | | + + + + + + | K | 3.6 | 3.5 - 5.1 | [facility] | | | | | mmol/L | [facility] | | | | | | MEDICAL | | | | | | CENTER - | | | | | | LABORATORY | | + + + + + + | Cl | 99 | 98 - 109 mmol/L | [facility] [...] | | | | | | [facility] | | | | | | MEDICAL | | | | | | CENTER - | | | | | | LABORATORY | | + + + + + + | Glucose | 155 (H) | 70 - 109 mg/dL | [facility] | | | | | | [facility] | | | | | | MEDICAL | | | | | | CENTER - | | | | | | LABORATORY | | + + + + + + | BUN | 9 | 7 - 18 mg/dL | [facility] | | | | | | [facility] | | | | | | MEDICAL | | | | | | CENTER - | | | | | | LABORATORY | | + + + + + + | Creatinine | 0.80 | 0.60 - 1.30 | [facility] | | | | | mg/dL | [facility] | | | | | | MEDICAL | | | | | | CENTER - | | | | | | LABORATORY | | + + + + + + | eGFR if not | >60Comment: GLOMERULAR | >=60 | [facility] | | | | FILTRATION | mL/min/1.73m2 | [facility] | | | [place] | RATE,ESTIMATED | | MEDICAL | | | | mL/min/1.33r8Rgoj than | | CENTER - | | [...] + + + + | BUN/Creatin | 11.3 | | [facility] | | | ine Ratio | | | [facility] | | [...] + | [facility] | [address] | [place] | [phone] | | [facility] | | [address] | | | - LABORATORY | | | | + + + + + | [facility] | [address] | [place] | | | [facility] | | [address] | | | - LABORATORY | | | | + + + + + POC Glucose (12/05/2014 8:37 PM PST) + +-------+ + + + | Component | Value | Ref Range | Performed | Pathologist | | | | | At | Signature | + +-------+ + + + | Glucose, | 113 | 70 - 150 mg/dL | [facility] | | | POC | | | [...] [address] | [place] | [phone] | | [facility] | | [address] | | | - LABORATORY | | | | + + + + + | [facility] | [address] | [place] | | | [facility] | | [address] | | | - LABORATORY | | | | + + + + + POC Glucose (12/05/2014 5:23 PM PST) + +-------+ + + + | Component | Value | Ref Range | Performed | Pathologist | | | | | At | Signature | + +-------+ + + + | Glucose, | 111 | 70 - 150 mg/dL | [facility] | | | POC | | | [facility] | | [...] + | [facility] | [address] | [place] | [phone] | | [facility] | | [address] | | | - LABORATORY | | | | + + + + + | [facility] | [address] | [place], [place] | | | [facility] | | [address] | | | - LABORATORY | | | | + + + + + XR Pelvis 1 or 2 Vw (12/05/2014 1:04 PM PST) + + | Specimen | + + | | + + + + + | Narrative | Performed At | + + + | XR PELVIS 1 OR 2 VW. 12/05/2014 1:04 PM HISTORY: s/p left total | [facility] | | hip arthroplasty . COMPARISON: Left hip 09/25/2014 | LAB | | FINDINGS: Placement of left total hip arthroplasty prosthesis noted, | | | in satisfactory position and alignment, without periprosthetic | | | fracture or loosening. Severe degenerative change noted at the | | | right hip, with severe joint space narrowing, sclerotic change, and | | | osteophyte formation, without evidence of fracture or dislocation. | | | Visualized portions of the pelvis are otherwise unremarkable. | | | Expected postsurgical change in the soft tissues overlying the left | | | hip. IMPRESSION - Placement of left total hip arthroplasty | | | prosthesis, in satisfactory position, without evidence of hardware | | | complication. Dictated and Signed by: Ney Bansal MD | | | Electronically signed: 12/05/2014 2:11 PM | | + + + + + | Procedure Note | + + | Dewey, Darion Results In - 12/05/2014 2:14 PM PST XR PELVIS 1 OR 2 VW. 12/05/2014 1:04 PM | | | | HISTORY: s/p left total hip arthroplasty . | | | | COMPARISON: Left hip 09/25/2014 | | | | FINDINGS: | | Placement of left total hip arthroplasty prosthesis noted, in satisfactory | | position and alignment, without periprosthetic fracture or loosening. Severe | | degenerative change noted at the right hip, with severe joint space narrowing, | | sclerotic change, and osteophyte formation, without evidence of fracture or | | dislocation. Visualized portions of the pelvis are otherwise unremarkable. | | Expected postsurgical change in the soft tissues overlying the left hip. | | | | IMPRESSION - | | Placement of left total hip arthroplasty prosthesis, in satisfactory position, | | without evidence of hardware complication. | | | | Dictated and Signed by: Ney Bansal MD | | Electronically signed: 12/05/2014 2:11 PM | + + + +---------+ + + | Performing | Address | City/State/Zipcode | Phone Number | | Organization | | | | + +---------+ + + | [facility] | | | [phone] | + +---------+ + + | [facility] | | | [phone] | + +---------+ + + POC Glucose (12/05/2014 9:02 AM PST) + +-------+ + + + | Component | Value | Ref Range | Performed | Pathologist | | | | | At | Signature | + +-------+ + + + | Glucose, | 111 | 70 - 150 mg/dL | [facility] | | | P[facility] | | | [facility] | | | | | | MEDICAL [...] + | [facility] | [address] | [place] | [phone] | | [facility] | | [address] | | | - LABORATORY | | | | + + + + + | [facility] | [address] | [place] | | | [facility] | | [address] | | | - LABORATORY | | [...] carvedilol (COREG) tablet 3.125 | Given | 12/07/19 | 3.125 mg | | | | mg 3.125 mg, Oral, 2 TIMES | | 15 8:10 | | | | | DAILY WITH BREAKFAST & DINNER, | | AM PST | | | | | First dose on Mon12/05/14 at | | | | | | | 1800, Post-op/Phase II | | | | | | + +--------+ + +------+------+ +-------+ + +---+---+ | Given | 12/06/19 | 3.125 mg | | | | | 15 6:18 | | | | | | PM PST | | | | +-------+ + +---+---+ | Given | 12/06/19 | 3.125 mg | | | | | 15 8:48 | | | | | | AM PST | | | | +-------+ + +---+---+ +---+---+ | | | +---+---+ + +---------+ +-----+-------+---+ | ceFAZolin in dextrose (ANCEF) | New Bag | 12/06/19 | 2 g | 100 | | | IVPB 2 g 2 g, Intravenous, | | 15 5:47 | | mL/hr | | | Administer over 30 Minutes, EVERY | | AM PST | | | | | 6 HOURS (4 times per day), First | | | | | | | dose on Mon12/05/14 at 1600, For | | | | | | | 3 doses, Start 6 hours after | | | | | | | previous dose. Last dose to be | | | | | | | given within 24 hours of surgery | | | | | | | end time., Post-op/Phase II | | | | | | + +---------+ +-----+-------+---+ +---------+ +-----+-------+---+ | New Bag | 12/06/19 | 2 g | 100 | | | | 15 12:57 | | mL/hr | | | | AM PST | | | | +---------+ +-----+-------+---+ | New Bag | 12/05/19 | 2 g | 100 | | | | 15 4:23 | | mL/hr | | | | PM PST | | | | +---------+ +-----+-------+---+ +---+---+ | | | +---+---+ + +-------+ +-------+---+ + | enoxaparin (LOVENOX) 40 mg/0.4 | Given | 12/06/19 | 40 mg | | Abdomen- | | mL injection 40 mg 40 mg, | | 15 6:18 | | | RLQ | | Subcutaneous, EVERY 24 HOURS | | PM PST | | | | | (Daily), First dose on Sat | | | | | | | 12/06/14 at 1800, Give every | | | | | | | evening at 1800., | | | | | | + +-------+ +-------+---+ + +---+---+ | | | +---+---+ + +-------+ +--------+---+---+ | fentaNYL injection 25-50 mcg | Given | 12/05/19 | 25 mcg | | | | 25-50 mcg, Intravenous, EVERY 5 | | 15 1:23 | | | | | MIN PRN, Pain, Starting Fri | | PM PST | | | | | 12/05/14 at 1223, Maximum total | | | | | | | dose 250 mcg. PACU IV Narcotic | | | | | | | Priority: Only use fentanyl for | | | | | | | immediate post-op pain (one dose) | | | | | | | or breakthrough pain when any | | | | | | | other IV narcotics ordered have | | | | | | | been ineffective (if ordered). | | | | | | | If both morphine and | | | | | | | hydromorphone are ordered, use | | | | | | | morphine first, and use | | | | | | | hydromporphone if morphine | | | | | | | ineffective., Recovery/Phase I | | | | | | + +-------+ +--------+---+---+ +-------+ +--------+---+---+ | Given | 12/05/19 | 25 mcg | | | | | 15 1:10 | | | | | | PM PST | | | | +-------+ +--------+---+---+ | Given | 12/05/19 | 25 mcg | | | | | 15 12:57 | | | | | | PM PST | | | | +-------+ +--------+---+---+ +---+---+ | | | +---+---+ + +-------+ + +---+---+ | HYDROcodone-acetaminophen | Given | 12/07/19 | 1 tablet | | | | (NORCO) 10-325 mg per tablet 1-2 | | 15 12:52 | | | | | tablet 1-2 tablet, Oral, EVERY 4 | | PM PST | | | | | HOURS PRN, Pain, Starting Fri | | | | | | | 12/05/14 at 1403, If ineffective | | | | | | | or not tolerated use Oxycodone if | | | | | | | ordered., Post-op/Phase II | | | | | | + +-------+ + +---+---+ +-------+ + +---+---+ | Given | 12/07/19 | 1 tablet | | | | | 15 6:19 | | | | | | AM PST | | | | +-------+ + +---+---+ | Given | 12/07/19 | 1 tablet | | | | | 15 2:11 | | | | | | AM PST | | | | +-------+ + +---+---+ +---+---+ | | | +---+---+ + +-------+ +---------+---+ + | insulin lispro (humaLOG | Given | 12/06/19 | 2 Units | | Arm-Left | | KWIKPEN) injection pen 0-12 Units | | 15 12:26 | | | Upper | | 0-12 Units, Subcutaneous, 4 | | PM PST | | | | | TIMES DAILY WITH MEALS & NIGHTLY, | | | | | | | First dose on Mon12/05/14 at | | | | | | | 1300, CORRECTION SCALE: Blood | | | | | | | Glucose (BG) < 150: | | | | | | | None BG 150-200: DAY: 2 units. | | | | | | | NIGHT: 0 units BG 201-250: | | | | | | | DAY: 4 units. NIGHT: 2 units | | | | | | | BG 251-300: DAY: 6 units. | | | | | | | NIGHT: 4 units BG 301-350: DAY: | | | | | | | 8 units. NIGHT: 6 units BG | | | | | | | 351-400: DAY: 10 units. NIGHT: 8 | | | | | | | units BG > 400 : DAY: 12 | | | | | | | units. NIGHT: 10 units | | | | | | | AND CALL PROVIDER | | | | | | | , Use DAY DOSE for doses | | | | | | | scheduled: AC, NPO, Daytime | | | | | | | [id number] Use NIGHT DOSE for | | | | | | | doses scheduled: HS, 3AM, | | | | | | | Nighttime 3810-5556, | | | | | | + +-------+ +---------+---+ + +-------+ +---------+---+ + | Given | 12/06/19 | 2 Units | | Arm-Righ | | | 15 8:48 | | | t Upper | | | AM PST | | | | +-------+ +---------+---+ + +---+---+ | | | +---+---+ + +---------+ +----+---+---+ | lactated ringers (LR) infusion | New Bag | 12/05/19 | mL | | | | at 10-100 mL/hr, Intravenous, | | 15 12:00 | | | | | CONTINUOUS, Starting 12/05/14 | | PM PST | | | | | at 0915, TKO., Pre-op | | | | | | + +---------+ +----+---+---+ +---------+ +---+-------+---+ | New Bag | 12/05/19 | | 100 | | | | 15 9:00 | | mL/hr | | | | AM PST | | | | +---------+ +---+-------+---+ +---+---+ | | | +---+---+ + +---------+ +---+-------+---+ | lactated ringers (LR) infusion | New Bag | 12/06/19 | | 100 | | | at 100 mL/hr, Intravenous, FIXED | | 15 12:56 | | mL/hr | | | VOLUME (see admin instruction), | | AM PST | | | | | Starting 12/05/14 at 1430, For | | | | | | | 20 hours, Saline lock IV when | | | | | | | taking PO well after 2 liters, | | | | | | | Post-op/Phase II | | | | | | + +---------+ +---+-------+---+ +---------+ +---+-------+---+ | New Bag | 12/05/19 | | 100 | | | | 15 2:43 | | mL/hr | | | | PM PST | | | | +---------+ +---+-------+---+ +---+---+ | | | +---+---+ + +-------+ +---------+---+---+ | levothyroxine (SYNTHROID, | Given | 12/07/19 | 100 mcg | | | | LEVOTHROID) tablet 100 mcg 100 | | 15 6:55 | | | | | mcg, Oral, DAILY BEFORE | | AM PST | | | | | BREAKFAST, First dose on Sat | | | | | | | 12/06/14 at 0730, Post-op/Phase II | | | | | | + +-------+ +---------+---+---+ +-------+ +---------+---+---+ | Given | 12/06/19 | 100 mcg | | | | | 15 7:05 | | | | | | AM PST | | | | +-------+ +---------+---+---+ +---+---+ | | | +---+---+ + +-------+ +-------+---+---+ | lisinopril (PRINIVIL, ZESTRIL) | Given | 12/07/19 | 10 mg | | | | tablet 10 mg 10 mg, Oral, DAILY, | | 15 8:10 | | | | | First dose on 12/06/14 at | | AM PST | | | | | 1030 | | | | | | + +-------+ +-------+---+---+ +-------+ +-------+---+---+ | Given | 12/06/19 | 10 mg | | | | | 15 12:25 | | | | | | PM PST | | | | +-------+ +-------+---+---+ +---+---+ | | | +---+---+ + +-------+ +-------+---+---+ | metoclopramide (REGLAN) 5 mg/mL | Given | 12/05/19 | 10 mg | | | | injection 10 mg 10 mg, | | 15 1:01 | | | | | Intravenous, ONCE PRN, Nausea, | | PM PST | | | | | Vomiting, Starting 12/05/14 at | | | | | | | 1223, For 1 dose, Recovery/Phase | | | | | | | I | | | | | | + +-------+ +-------+---+---+ +---+---+ | | | +---+---+ + +-------+ +------+---+---+ | ondansetron (ZOFRAN) injection | Given | 12/05/19 | 4 mg | | | | 4 mg 4 mg, Intravenous, ONCE | | 15 12:28 | | | | | PRN, Nausea, Starting 12/05/14 | | PM PST | | | | | at 1223, For 1 dose, | | | | | | | Recovery/Phase I | | | | | | + +-------+ +------+---+---+ +---+---+ | | | +---+---+ documented in this encounter
--- OUTSIDE RECORDS SUMMARY | ~2019-10-18 | XMS | Encounter Summary ---
Demographics + + + | Address | [address] [place] [address] | | | [place] [address] | + + + | Home Phone | | + + + | Preferred Language | Unknown | + + + | Marital Status | | + + + | Sabianist Affiliation | 1076 | + + + | Race | Unknown | + + + | Ethnic Group | Unknown | + + + Author + + + | Author | [facility] | | | and [place] | + + + | Organization | [facility] | | | and [place] | + + + | Address | Unknown | + + + | Phone | Unavailable | + + + Support + + + + + | Name | Relationship | Address | Phone | + + + + + | Juan Carlos Ko | ECON | [address] | | | | | [place], [place] | | | | | [address] | | + + + + + | Arie Ko | ECON | Unknown | | + + + + + Care Team Providers + +------+ + | Care Urology Physician Assistant Name | Role | Phone | + +------+ + | Bobo Garcia DO | PCP | | + +------+ + Encounter Details +--------+ + + + + | Date | Type | Department | Care Team | Description | +--------+ + + + + | 10/10/ | Abstract | [facility] | Spencer Chase MD | | | 2016 | | GASTROENTEROLOGY | [address], [place] | | | | | [address] [place] | [address] [place], [place] | | | | | [address] [place], [place] | [address] | | | | | [address] | | | | | | [phone] | | | +--------+ + + + [...]
--- OUTSIDE RECORDS SUMMARY | ~2019-10-18 | XMS | Encounter Summary ---
Demographics + + + | Address | [address] [place] [address] | | | [place] [address] | + + + | Home Phone | | + + + | Preferred Language | Unknown | + + + | Marital Status | | + + + | Amish Affiliation | 1076 | + + + | Race | Unknown | + + + | Ethnic Group | Unknown | + + + Author + + + | Author | [facility] | | | and [place] | + + + | Organization | [facility] | | | and [place] | + + + | Address | Unknown | + + + | Phone | Unavailable | + + + Support + + + + + | Name | Relationship | Address | Phone | + + + + + | Juan Carlos Ko | ECON | [address] [place] [address] [address] | | | | | [place], [place] | | | | | [address] | | + + + + + | Arie Ko | ECON | Unknown | | + + + + + Care Team Providers + +------+ + | Care Igniter Capper Name | Role | Phone | + [...] | | | | | | | [place] TOTAL | | | | | | [...] +--------+---------+ + + + | 04/22/ | Surgery | [facility] | Lencho Hays [place], | Right Total Knee | | 2016 | | [facility] | MD [address] | Arthroplasty | | | | [address] | [place], [place] | | | | | [place], [place] | [address] | | | | | [address] | | | | | | [phone] | | | +--------+---------+ + + + [...] mouth Daily. aka: XARELTO Unchanged Medications Details LF-Ajzsncfuqdffm-Nagtqjsgfchvl 10-5-325 MG Caps Take by mouth every [...] Electronically signed by: Lencho Hays, 04/24/2016 9:00 [facility] documented in this en counter Discharge Instructions Instructions eLncho Hays MD - 04/24/2016Ok to shower with [...] | | 0 | | | | IS-Wudbgnhsctehx-Omp | 6 hours as needed. | | [...] with 1 person assist and FWW to [facility]. Electronically signed by: KATIE LING RN 016 [...] (L) | 34.0 - 47.0 % | [facility] | | | | | | ST. [...] [address] | [place] | [phone] | | [facility] | | [address] | | | - LABORATORY | | [...] (H) | 7 - 18 mg/dL | [facility] | | | | | | [facility] | | | | | | [facility] | | | | | | C[facility] - | | | | | | LABORATORY | | + + + + + + | Creatinine | 1.22 | 0.60 - 1.30 | [facility] | | | | | mg/dL | [facility] | | | | | | MEDICAL | | | | | | CENTER - | | | | | | LABORATORY | | + + + + + + | eGFR if not | 43 (L)Comment: | >=60 | [facility] | | | | GLOMERULAR FILTRATION | mL/min/1.73m2 | [facility] | | | [facility] | RATE,ESTIMATED | | MEDICAL | | | | mL/min/1.22w9Ekca than | | CENTER - | | [...] | | | | mg/dL | [facility] | | | | | | MEDICAL | | | | | | CENTER - | | | | | | LABORATORY | | + + + + + + | BUN/Creatin | 17.2 | | [facility] | | | ine Ratio | | | [facility] | | [...] + | [facility] | [address] | [place] | [phone] | | [facility] | | [address] | | | - LABORATORY | | [...] | | | | g/dL | [facility] | | | | | | MEDICAL | | | | | | CENTER - | | | | | | LABORATORY | | + + + + + + | Hematocrit | 33.6 (L) | 34.0 - 47.0 % | [facility] | | | | | | [facility]. [...] [address] | [place] | [phone] | | [facility] | | [address] | | | - LABORATORY | | [...] 8 | 3 - 16 mmol/L | [facility] | | | | | | [facility] | | | | | | [...] 18 | 7 - 18 mg/dL | [facility] | | | | | | [facility] | | | | | | MEDICAL | | | | | | CENTER - | | | | | | LABORATORY | | + + + + + + | Creatinine | 1.15 | 0.60 - 1.30 | [facility] | | | | | mg/dL | [facility] | | | | | | MEDICAL | | | | | | CENTER - | | | | | | LABORATORY | | + + + + + + | eGFR if not | 46 (L)Comment: | >=60 | [facility] | | | | GLOMERULAR FILTRATION | mL/min/1.73m2 | [facility] | | | [facility] | RATE,ESTIMATED | | MEDICAL | | | | mL/min/1.85s1Dbah than | | CENTER - | | [...] | | | | mg/dL | [facility] | | | | | | MEDICAL | | | | | | CENTER - | | | | | | LABORATORY | | + + + + + + | BUN/Creatin | 15.7 | | [facility] | | | ine Ratio | | | [facility] | | [...] + | [facility] | [address] | [place] | [phone] | | [facility] | | [address] | | | - LABORATORY | | [...] | | POC | | | [facility] | | [...] [address] | [place] | [phone] | | [facility] | | [address] | | | - LABORATORY | | | | + + + + + Potassium (04/22/2016 8:55 AM PDT) + +-------+ + + + | Component | Value | Ref Range | Performed | Pathologist | | | | | At | Signature | + +-------+ + + + | K | 4.4 | 3.5 - 5.1 | [facility] | | | | | mmol/L | [facility] | | | | [...] [address] | [place] | [phone] | | [facility] | | [address] | | | - LABORATORY | | [...] in this encounter Administered Medications + +--------+ +--------+------+ + | Medication Order | MAR | Action | Dose | Rate | Site | | | Action | Date | | | | + +--------+ +--------+------+ + | ketamine 30 mg, morphine (PF) | Given | 04/22/20 | 52 mLs | | Surgical | | 10 mg in ropivacaine (NAROPIN) 50 | | 16 10:35 | | | Site | | mL OpTesia mixture PRN, | | AM PDT | | | | | Starting 04/22/16 at 1035, | | | | | | | Intra-op | | | | | | + +--------+ +--------+------+ + +---+---+ | | | +---+---+ + +-------+ +-----+---+ + | vancomycin injection PRN, | Given | 04/22/20 | 1 g | | Surgical | | Starting 04/22/16 at 1036, | | 16 10:36 | | | Site | | Intra-op | | AM PDT | | | | + +-------+ +-----+---+ + +---+---+ | | | +---+---+ documented in this encounter
--- OUTSIDE RECORDS SUMMARY | ~2019-10-18 | XMS | Encounter Summary ---
Demographics + + + | Address | [address] [place] [address] | | | [place] [address] | + + + | Home Phone | | + + + | Preferred Language | Unknown | + + + | Marital Status | | + + + | Hinduism Affiliation | 1076 | + + + | Race | Unknown | + + + | Ethnic Group | Unknown | + + + Author + + + | Author | [facility] | | | and [place] | + + + | Organization | [facility] | | | and [place] | + + + | Address | Unknown | + + + | Phone | Unavailable | + + + Support + + + + + | Name | Relationship | Address | Phone | + + + + + | Juan Carlos Ko | ECON | [address] | | | | | [place], [place] | | | | | [address] | | + + + + + | Arie Ko | ECON | Unknown | | + + + + + Care Team Providers + +------+ + | Care Guide Escort Name | Role | Phone | + +------+ + | Bobo Garcia DO | PCP | | + +------+ + Reason for Visit +---------+ + | Reason | Comments | +---------+ + | Post Op | Post op Right total hip arthroplasty DOS: 06/19/2015 | +---------+ + Encounter Details +--------+---------+ + + + | Date | Type | Department | Care Team | Description | +--------+---------+ + + + | 08/13/ | Office | [facility] | Lencho Hays, | Postop check | | 2014 | Visit | ORTHOPEDIC SURGERY | [address] [place] [address] | (Primary Dx) | | | | [address] [facility] | [place] | | | | | [place] | [id number] | | | | | [address] | | | | | | [phone] | | | +--------+---------+ + + + [...] + + + + | Temperature | 36.8 C (98.2 F) | 08/13/2015 11:21 AM | | | | | PDT [...] Weight | 114.3 kg (252 lb) | 08/13/2015 11:21 AM | | | | | PDT | | + + + + + | Height | 177.8 cm (5' 10") | 08/13/2015 11:21 AM | | | | | PDT | | + + + + + | Body Mass Index | 36.16 | 08/13/2015 11:21 AM | | | | | PDT | | + + + + + documented in this encounter Progress Notes Lencho Hays MD - 08/13/2015 12:00 PM PDTPatient returns follow up right HORACE 06/19 She is very happy with the result of both hips She is walking without pain and without limp She gets some intermittent soreness lateral left hip when she sleeps on it but this is anjel r On exam today she has good ROM both hips without pain Her right knee is bone on bone but even that feels better since hip surgery xrays show excellent alignment and position of her components We discussed future follow up issues and encouraged her to call us with any concernsElectro nically signed by Lencho Hays MD at 08/13/2015 12:04 PM PDTdocumented in this encounter Plan of Treatment Not on filedocumented as of this encounter Visit Diagnoses + + | Diagnosis | + + | Postop check - Primary Follow-up examination, following unspecified surgery | + + documented in this encounter
--- OUTSIDE RECORDS SUMMARY | ~2019-10-18 | XMS | Encounter Summary ---
Demographics + + + | Address | [address] [place] [address] | | | [place] [address] | + + + | Home Phone | | + + + | Preferred Language | Unknown | + + + | Marital Status | | + + + | Scientology Affiliation | 1076 | + + + | Race | Unknown | + + + | Ethnic Group | Unknown | + + + Author + + + | Author | [facility] | | | and [place] | + + + | Organization | [facility] | | | and [place] | + + + | Address | Unknown | + + + | Phone | Unavailable | + + + Support + + + + + | Name | Relationship | Address | Phone | + + + + + | Juan Carlos Ko | ECON | [address] [place] [address] [address] | | | | | [place], [place] | | | | | [address] | | + + + + + | Arie Ko | ECON | Unknown | | + + + + + Care Team Providers + +------+ + | Care Supervisor Bleach Plant Name | Role | Phone | + [...] | | | | | | | NM TOTAL | | | | | | [...] | +--------+ + + + + | 04/20/ | Hospital | [facility] | Lencho Hays, | CKD (chronic kidney | | 2016 | Encounter | [facility] | Dev [facility] | disease), stage 3 | | | | [address] | [place] | (moderate); | | | | [place] | [address] | Hyperlipidemia, | | | | [address] | | unspecified | | | | [phone] | | hyperlipidemia type; | | | | | | Hypothyroidism, | | | | | | unspecified type; | | | | | | Preop testing; | | | | | | Localized | | | | | | osteoarthrosis, | | | | | | lower leg | +--------+ + + + + Social [...] + + + +---------+ + + | Acetaminophen | Take 500 mg [...] | | 0 | | | | BG-Gyhxkxwohpbcg-Cud | 6 hours as needed. | | [...] + + + +---------+ + + | GLUCOSAMINE | Take 2 tablets by | | 0 | | | | HCL-MSM PO | mouth Daily. | | | | 6 | + [...] + + + +---------+ + + | Ranitidine HCl | Take by mouth 2 | | 0 | | | | (ZANTAC PO) | times daily. | | | | 6 | + [...] | + +--------+ + + + | PTT | Routin | 04/20/2016 | CKD (chronic | Results for this | | | e | 12:48 PM | kidney disease), | procedure are in the | | | | PDT | stage 3 (moderate) | results section. | | | | | Hyperlipidemia, | | | | | | unspecified | | | | | | hyperlipidemia type | | | | | | Hypothyroidism, | | | | | | unspecified type | | | | | | Preop testing | | | | | | Localized | | | | | | osteoarthrosis, | | | | | | lower leg | | + +--------+ + + + | PROTIME INR | Routin | 04/20/2016 | CKD (chronic | Results for this | | | e | 12:48 PM | kidney disease), | procedure are in the | | | | PDT | stage 3 (moderate) | results section. | | | | | Hyperlipidemia, | | | | | | unspecified | | | | | | hyperlipidemia type | | | | | | Hypothyroidism, | | | | | | unspecified type | | | | | | Preop testing | | | | | | Localized | | | | | | osteoarthrosis, | | | | | | lower leg | | + +--------+ + + + | PLATELET COUNT | Routin | 04/20/2016 | CKD (chronic | Results for this | | | e | 12:48 PM | kidney disease), | procedure are in the | | | | PDT | stage 3 (moderate) | results section. | | | | | Hyperlipidemia, | | | | | | unspecified | | | | | | hyperlipidemia type | | | | | | Hypothyroidism, | | | | | | unspecified type | | | | | | Preop testing | | | | | | Localized | | | | | | osteoarthrosis, | | | | | | lower leg | | + +--------+ + + + | HEMOGLOBIN | Routin | 04/20/2016 | CKD (chronic | Results for this | | | e | 12:48 PM | kidney disease), | procedure are in the | | | | PDT | stage 3 (moderate) | results section. | | | | | Hyperlipidemia, | | | | | | unspecified | | | | | | hyperlipidemia type | | | | | | Hypothyroidism, | | | | | | unspecified type | | | | | | Preop testing | | | | | | Localized | | | | | | osteoarthrosis, | | | | | | lower leg | | + +--------+ + + + | BASIC METABOLIC | Routin | 04/20/2016 | CKD (chronic | Results for this | | PANEL | e | 12:48 PM | kidney disease), | procedure are in the | | | | PDT | stage 3 (moderate) | results section. | | | | | Hyperlipidemia, | | | | | | unspecified | | | | | | hyperlipidemia type | | | | | | Hypothyroidism, | | | | | | unspecified type | | | | | | Preop testing | | | | | | Localized | | | | | | osteoarthrosis, | | | | | | lower leg | | + +--------+ + + + documented in this encounter Results Urinalysis with Microscopic with Culture if Indicated (04/22/2016 7:12 AM PDT) + + + + + + | Component | Value | Ref Range | Performed | Pathologist | | | | | At | Signature | + + + + + + | Color | Yellow | Light Yellow, | [facility] | | | | | Yellow, Straw | [facility] | | | | | | [facility] | | | | | | [facility] - | | | | | | LABORATORY | | + + + + + + | Clarity | Clear | Clear | [facility] | | | | | | [facility] | | | | | | [facility] | | | | | | [facility] - | | | | | | LABORATORY | | + + + + + + | pH, Urine | 5.0 | 5.0 - 8.0 | [facility] | | | | | | [facility] | | | | | | [facility] | | | | | | [facility] - | | | | | | LABORATORY | | + + + + + + | Specific | 1.011 | 1.001 - 1.030 | [facility] | | | Slater | | | [facility] | | | | | | [facility] | | | | | | C[facility] - | | | | | | LABORATORY | | + + + + + + | Protein, | Negative | Negative | [facility] | | | Urine | | | [facility] | | | | | | [facility] | | | | | | [facility] - | | | | | | LABORATORY | | + + + + + + | Blood, | Negative | Negative | [facility] | | | Urine | | | [facility] | | | | | | [facility] | | | | | | C[facility] - | | | | | | LABORATORY | | + + + + + + | Glucose, | Negative | Negative | [facility] | | | Urine | | | [facility] | | | | | | [facility] | | | | | | C[facility] - | | | | | | LABORATORY | | + + + + + + | Ketones, | Negative | Negative | [facility] | | | Urine | | | [facility] | | | | | | [facility] | | | | | | C[facility] - | | | | | | LABORATORY | | + + + + + + | Bilirubin, | Negative | Negative | [facility] | | | Urine | | | [facility] | | | | | | [facility] | | | | | | CENTER - | | | | | | LABORATORY | | + + + + + + | Nitrite, | Negative | Negative | [facility] | | | Urine | | | [facility] | | | | | | [facility] | | | | | | CENTER - | | | | | | LABORATORY | | + + + + + + | Leukocyte | Negative | Negative | [facility] | | | Esterase, | | | [facility] | | | Urine | | | MEDICAL | | | | | | CENTER - | | | | | | LABORATORY | | + + + + + + | Urobilinoge | Negative | 0.2 mg/dL, 1.0 | [facility] | | | n, Urine | | mg/dL, Negative | [facility] | | | | | | MEDICAL | | | | | | CENTER - | | | | | | LABORATORY | | + + + + + + | WBC UA | 0-2 | 0 - 2 /HPF | [facility] | | | | | | [facility] | | | | | | [facility] | | | | | | C[facility] - | | | | | | LABORATORY | | + + + + + + | RBC UA | 0-2 | 0 - 2 /HPF | [facility] | | | | | | [facility] | | | | | | MEDICAL | | | | | | CENTER - | | | | | | LABORATORY | | + + + + + + | SQUAMOUS | 5-10 (A) | 0 - 2 /LPF | [facility] | | | EPITHELIAL | | | [facility] | | | UA | | | MEDICAL | | | | | | CENTER - | | | | | | LABORATORY | | + + + + + + | BACTERIA UA | Negative | Negative /HPF | [facility] | | | | | | [facility] | | | | | | MEDICAL | | | | | | CENTER - | | | | | | LABORATORY | | + + + + + + | MUCUS UA | Present (A) | Negative /LPF | [facility] | | | | | | [facility] | | | | | | MEDICAL | | | | | | CENTER - | | | | | | LABORATORY | | + + + + + + | URINE | Urine Culture Not | | [facility] | | | COMMENT | Indicated | | [facility] | | | | | | MEDICAL | | | | | | CENTER - | | | | | | LABORATORY | | + + + + + + + + | Specimen | + + | Urine | + + + + + + + | Performing | Address | City/State/Zipcode | Phone Number | | Organization | | | | + + + + + | [facility] | [address] | [place] | [phone] | | [facility] | | [address] | | | - LABORATORY | | | | + + + + + Hemoglobin (04/20/2016 12:48 PM PDT) + +-------+ + + + | Component | Value | Ref Range | Performed | Pathologist | | | | | At | Signature | + +-------+ + + + | Hemoglobin | 13.3 | 11.5 - 16.0 | [facility] | [...] | + + + + + | [facility] | [address] | [place] | [phone] | | [facility] | | [address] | | | - LABORATORY | | | | + + + + + Platelet Count (04/20/2016 12:48 PM PDT) + +-------+ + + + | Component | Value | Ref Range | Performed | Pathologist | | | | | At | Signature | + +-------+ + + + | Platelet | 169 | 140 - 440 K/uL | [facility] | | | Count | | | [facility] | | | | | | MEDICAL | | | | | | CENTER - | | | | | | LABORATORY | | + +-------+ + + + | MPV | 9.2 | fL | [facility] | | | | | [...] + | [facility] | [address] | [place] | [phone] | | [facility] | | [address] | | | - LABORATORY | | | | + + + + + PTT (04/20/2016 12:48 PM PDT) + +-------+ + + + | Component | Value | Ref Range | Performed | Pathologist | | | | | At | Signature | + +-------+ + + + | aPTT | 31 | 22 - 36 seconds | [facility] | | | | | [...] + | [facility] | [address] | [place] | [phone] | | [facility] | | [address] | | | - LABORATORY | | | | + + + + + Protime INR (04/20/2016 12:48 PM PDT) + + + + + + | Component | Value | Ref Range | Performed | Pathologist | | | | | At | Signature | + + + + + + | Prothrombin | 12.6 | 11.3 - 13.9 | [facility] | | | Time | | seconds | [facility] | | | | | | MEDICAL | | | | | | CENTER - | | | | | | LABORATORY | | + + + + + + | INR | 0.90Comment: Usual Oral | 0.90 - 1.10 | [facility] | | | | Anticoagulation Range: | | [facility] | | | | 2.0 - 3.0High | | MEDICAL | | | | Level Oral | | CENTER - | | | | Anticoagulation Range: | | LABORATORY | | | | 2.5 - 3.5 | | | | + + + + + + + + | Specimen | + + | Blood | + + + + + + + | Performing | Address | City/State/Zipcode | Phone Number | | Organization | | | | + + + + + | [facility] | [address] | [place] | [phone] | | [facility] | | [address] | | | - LABORATORY | | | | + + + + + Basic Metabolic Panel (04/20/2016 12:48 PM PDT) + + + + + + [...] + + + | Anion Gap | 10 | 3 - 16 mmol/L | [facility] | | | | | | [facility] | | | | | | MEDICAL | | | | | | CENTER - | | | | | | LABORATORY | | + + + + + + | Glucose | 115 (H) | 70 - 109 mg/dL | [facility] | | | | | | [facility] | | | | | | MEDICAL | | | | | | CENTER - | | | | | | LABORATORY | | + + + + + + | BUN | 17 | 7 - 18 mg/dL | [facility] | | | | | | [facility] | | | | | | MEDICAL | | | | | | CENTER - | | | | | | LABORATORY | | + + + + + + | Creatinine | 1.23 | 0.60 - 1.30 | [facility] | | | | | mg/dL | [facility] | | | | | | MEDICAL | | | | | | CENTER - | | | | | | LABORATORY | | + + + + + + | eGFR if not | 43 (L)Comment: | >=60 | [facility] | | | | GLOMERULAR FILTRATION | mL/min/1.73m2 | [facility] | | | DANISH | RATE,ESTIMATED | | MEDICAL | | | | mL/min/1.51n5Gpin than | | CENTER - | | [...] + + + + | Calcium | 9.3 | 8.3 - 10.5 | [facility] | | | | | mg/dL | [facility] | | | | | | MEDICAL | | | | | | CENTER - | | | | | | LABORATORY | | + + + + + + | BUN/Creatin | 13.8 | | [facility] | | | ine [...] ST. | [address] | [place] | [phone] | | [facility] | | [address] | | | - LABORATORY | | | | + + + + + documented in this encounter Visit Diagnoses + + | Diagnosis | + + | CKD (chronic kidney disease), stage 3 (moderate) | + + | Hyperlipidemia, unspecified hyperlipidemia type | + + | Hypothyroidism, unspecified type | + + | Preop testing Preoperative examination, unspecified | + + | Localized osteoarthrosis, lower leg Localized osteoarthrosis not specified whether | | primary or secondary, lower leg | + + documented in this encounter"
--- OUTSIDE RECORDS SUMMARY | ~2019-10-18 | XMS | Encounter Summary ---
Demographics + + + | Address | [address] [place] [address] | | | [place] [address] | + + + | Home Phone | | + + + | Preferred Language | Unknown | + + + | Marital Status | | + + + | Sabianism Affiliation | 1076 | + + + | Race | Unknown | + + + | Ethnic Group | Unknown | + + + Author + + + | Author | [facility] | | | and [place] | + + + | Organization | [facility] | | | and [place] | + + + | Address | Unknown | + + + | Phone | Unavailable | + + + Support + + + + + | Name | Relationship | Address | Phone | + + + + + | Juan Carlos Ko | ECON | [address] | | | | | [place], [place] | | | | | [address] | | + + + + + | Arie Ko | ECON | Unknown | | + + + + + Care Team Providers + +------+ + | Care Industrial Garage Servicer Name | Role | Phone | + +------+ + | Live Sims MD | PCP | | + +------+ + Reason for Visit + + + | Reason | Comments | + + + | Hip Pain | New Patient Left Hip Pain X 1 year | + + + Evaluate & Treat (Routine) +--------+--------+ + + + + | Status | Reason | Specialty | Diagnoses / | Referred By | Referred To | | | | | Procedures | Contact | Contact | +--------+--------+ + + + + | Closed | | Orthopedic | Diagnoses | Levi, | Saúl | | | | Surgery | Left hip | Live | Lencho Cheatham MD | | | | | pain | MD Uli | [address] | | | | | | [address] | [place], | | | | | | [place] | [place] [address] | | | | | | [place] | Phone: | | | | | | [address] | [phone] | | | | | | Phone: | Fax: | | | | | | [phone] | [phone] | | | | | | Fax: | | | | | | | [phone] | | +--------+--------+ + + + + Encounter Details +--------+---------+ + + + | Date | Type | Department | Care Team | Description | +--------+---------+ + + + | 05/22/ | Office | [facility] | Lencho Hays, | Hip pain, left | | 2014 | Visit | ORTHOPEDIC SURGERY | [address] [place] [address] | (Primary Dx); | | | | [address] [place] [address] | [place], [place] | Osteoarthritis of | | | | [place] | [address] | both hips | | | | [address] | | | | | | [phone] | | | +--------+---------+ + + + [...] + + | Temperature | 36.6 C (97.8 F) | 05/22/2014 3:51 PM | | | | | PDT [...] Weight | 110.2 kg (243 lb) | 05/22/2014 3:51 PM | | | | | PDT | | + + + + + | Height | 177.8 cm (5' 10") | 05/22/2014 3:51 PM | | | | | PDT | | + + + + + | Body Mass Index | 34.87 | 05/22/2014 3:51 PM | | | | | PDT | | + + + + + documented in this encounter Progress Notes Lencho Hays MD - 05/22/2014 12:00 AM PDT ORTHOPEDICS [address] [place] [id number] FAX: [phone] OFFICE VISIT PATIENT IDENTIFICATION: Ms. Ko is a 74-year-old female from [place], with the chief complaint of bilateral hip pain, left greater than right. HISTORY OF PRESENT ILLNESS: The patient has had symptoms over a year of increasing difficul ties with walking due to pain. She saw a therapist who thought her problem was a leg length discrepancy and provided a shoe insert on the right. She felt like the therapy actually ma de things worse. She is trying to do her own exercises, but the hips are interfering. PREVIOUS MEDICAL HISTORY: Significant for 1. Diabetes. 2. Obesity. 3 Hypertension. 4. Low thyroid. 5. Gastroesophageal reflux disease. PREVIOUS SURGERIES 1. She had right knee scope in 2000. 2. She had a hysterectomy and bladder suspension in 2007, at [facility]. 3. Pregnancies. CURRENT MEDICATIONS: Include 1. Metformin. 2. Coreg. 3. Enalapril. 4. Ibuprofen. 5. Levothyroxine. 6. Vitamins. 7. Glucosamine. 8. Niacin. 9. Omeprazole. ALLERGIES: SHE HAS NO KNOWN DRUG ALLERGIES, BUT BOTH ALEVE AND MELOXICAM CAUSE HER TO RETAI N WATER AND ANKLE SWELLING. PRIMARY CARE PHYSICIAN: Dr. Live Sims FAMILY HISTORY: Father at age 94, and mother at age 91, of pancreatic cancer. She has 3 children, who are all healthy. PERSONAL HABITS: No routine exercise. She has 2 glasses of wine per day. No tobacco. REVIEW OF SYSTEMS EYES: Positive glasses use. EARS, NOSE, THROAT: Positive ear ringing. Otherwise negative. RESPIRATORY: No asthma, whee zing, pneumonia, chronic cough, hemoptysis. CARDIOVASCULAR: Positive hypertension. Denies c hest pain, palpitations, orthopnea. GASTROINTESTINAL: Positive reflux. GENITOURINARY: Positive leakage. No infections. No kidney stones. MUSCULOSKELETAL: As abov e. SKIN: History of skin cancer. NEUROLOGIC: Some mild tremors. No headache, seizure, strokes, TIAs. PSYCHIATRIC: No depres benigno or anxiety. ENDOCRINE: Positive diabetes, positive low thyroid. PHYSICAL EXAMINATION VITAL SIGNS: Height is 5 feet 10 inches, weight 243 pounds, BMI 34. EXTREMITIES: Both hips have groin pain reproduction with internal rotation. She has abduction just over 30 degree s. She can adduct to the midline. Leg lengths look equal at the ankles. She perceives that her right side is short, but has stopped wearing her internal shoe lift. She has 5/5 motor strength all muscle groups bilateral lower extremities, intact dorsalis pedis, posterior ti bial pulses. Intact sensation over the dorsum and plantar aspects of both feet. Her x-rays are reviewed and show sbyc-hl-aflu severe and advanced degenerative arthritis of both hips. DIAGNOSIS: [id number] SEVERE AND ADVANCED DEGENERATIVE ARTHRITIS OF BOTH HIPS. The natural history and treatment options were discussed at length. We spent over 45 minute s today discussing hip arthritis and the role of hip replacement, the specific risks of the surgery, including infection, the catastrophic sequelae of infection, the risks of blood c lots including PE, the risk of heart attack, stroke, even , the reasonable expectation s for the recovery process, were all discussed at length today and I offered to send her to total joint class, also, for more information. She was appreciative of today's visit and w ill consider her options. Lencho Hays MD JODIE / CYNDY JOB #: [id number] signed by Lencho Hays MD at 05/23/2014 11:44 AM PDTdocumen anu in this encounter Plan of Treatment Not on filedocumented as of this encounter Results XR Hip Left 2 + Vw (05/22/2014 3:35 PM PDT) + + | Specimen | + + | | + + + + + | Narrative | Performed At | + + + | EXAM: XR HIP LEFT 2 + VW dated 05/22/2014 3:27 PM HISTORY:Left Hip | [facility] | | Pain X 1 year COMPARISON: None. FINDINGS: Frontal and | LAB | | frog-leg views of the left hip. Severe degenerative changes are | | | present in the left hip with nyob-jc-gofe articulation. No collapse | | | to suggest avascular necrosis. Mineralization elsewhere is normal. | | | The soft tissues are unremarkable. IMPRESSION - Severe left | | | hip degenerative changes. Dictated and Signed by: Spencer Lopez | | | MD Noelle Electronically signed: 05/22/2014 4:41 PM | | + + + + + | Procedure Note | + + | Dewey, Rad Results In - 05/22/2014 4:44 PM PDT EXAM: XR HIP LEFT 2 + VW dated 05/22/2014 | | 3:27 PMHISTORY:Left Hip Pain X 1 yearCOMPARISON: None.FINDINGS: Frontal and frog-leg | | views of the left hip. Severe degenerativechanges are present in the left hip with | | huzn-ea-nrhj articulation. No collapseto suggest avascular necrosis. Mineralization | | elsewhere is normal. The softtissues are unremarkable.IMPRESSION -Severe left hip | | degenerative changes.Dictated and Signed by: Spencer Drake MD Electronically signed: | | 05/22/2014 4:41 PM | |changes are present in the left hip with orzy-th-cmba articulation. No collapse | |to suggest avascular necrosis. Mineralization elsewhere is normal. The soft | |tissues are unremarkable. | | | |IMPRESSION - | | | |Severe left hip degenerative changes. | | | |Dictated and Signed by: Spencer Drake MD | | Electronically signed: 05/22/2014 4:41 PM | + + + +---------+ + + | Performing | Address | City/State/Zipcode | Phone Number | | Organization | | | | + +---------+ + + | [facility] | | | [phone] | + +---------+ + + | [facility] | | | [phone] | + +---------+ + + documented in this encounter Visit Diagnoses + + | Diagnosis | + + | Hip pain, left - Primary Pain in joint, pelvic region and thigh | + + | Osteoarthritis of both hips Osteoarthrosis, unspecified whether generalized or | | localized, pelvic region and thigh | + + documented in this encounter
--- OUTSIDE RECORDS SUMMARY | ~2019-10-18 | XMS | Encounter Summary ---
Demographics + + + | Address | [address] [place] [address] | | | [place] [address] | + + + | Home Phone | | + + + | Preferred Language | Unknown | + + + | Marital Status | | + + + | Pentecostalism Affiliation | 1076 | + + + | Race | Unknown | + + + | Ethnic Group | Unknown | + + + Author + + + | Author | [facility] | | | and [place] | + + + | Organization | [facility] | | | and [place] | + + + | Address | Unknown | + + + | Phone | Unavailable | + + + Support + + + + + | Name | Relationship | Address | Phone | + + + + + | Juan Carlos Ko | ECON | [address] | | | | | [place], [place] | | | | | [address] | | + + + + + | Arie Ko | ECON | Unknown | | + + + + + Care Team Providers + +------+ + | Care Financial Aid Manager Name | Role | Phone | + +------+ + | Bobo Garcia DO | PCP | | + +------+ + Reason for Visit + + + | Reason | Comments | + + + | Follow-up | diarrhea | + + + Encounter Details +--------+---------+ + + + | Date | Type | Department | Care Team | Description | +--------+---------+ + + + | 10/25/ | Office | [facility] | Spencer Chase MD | Lymphocytic colitis | | 2017 | Visit | GASTROENTEROLOGY | [address], [place] | (Primary Dx); | | | | [address] [place] | [address] [place], [place] | Diarrhea, | | | | [address] [place], [place] | [address] | unspecified type | | | | [address] | | | | | | [phone] | | | +--------+---------+ + + + [...] + + + | Blood Pressure | 142/86 | 10/25/2017 10:08 AM | | | | | PST | | + + + + + | Pulse | 54 | 10/25/2017 10:08 AM | | | | | PST | | + + + + + | Temperature | 36.7 C (98.1 F) | 10/25/2017 10:08 AM | | | | | PST | | + + + + + | Respiratory Rate | 12 | 10/25/2017 10:08 AM | | | | | PST | | + + + + + | Oxygen Saturation | 98% | 10/25/2017 10:08 AM | | | | | PST | | + + + + + | Inhaled Oxygen | - | - | | | Concentration | | | | + + + + + | Weight | 106 kg (233 lb 11 | 10/25/2017 10:08 AM | | | | oz) | PST | | + + + + + | Height | 177.8 cm (5' 10") | 10/25/2017 10:08 AM | | | | | PST | | + + + + + | Body Mass Index | 33.53 | 10/25/2017 10:08 AM | | | | | PST [...] documented as of this encounter Progress Notes Spencer Chase MD - 10/25/2017 10:00 AM PST Subjective: Patient ID: Carlota Ko is a 77 y.o. female. The patient is seen with respect to a follow-up of diarrhea. The patient underwent upper e ndoscopy and colonoscopy for evaluation of the same in 2015. That time biopsies were positi ve for increased lymphocytes compatible with lymphocytic colitis. The patient was begun on budesonide at that time and was able to be tapered off the same after several months. She h ad recurrence of her diarrhea in August of this year. She was restarted on budesonide 9 mg a day and has been on the same for 6 weeks. She is now moving her bowels once a day with a firm stool. Previously she was moving her bowels up to 6 times a day with urgency. She mcrae s occasional breakthrough symptoms with 2 looser stools associated with perhaps change in di et i.e. Thanksgiving and yesterday. Patient has had no nocturnal symptoms. Patient is on Z antac for prior symptoms of reflux. Upper endoscopy was negative for endoscopic evidence of the same. Patient had duodenal biopsies which were negative for celiac sprue. Stool studi es were negative for significant pathogens Etiology of lymphocytic colitis was discussed with the patient. It was explained to the ayla silva that we do not know exclusively what is the cause of lymphocytic colitis other than so me antigenic challenge. She is on Zantac which has been implicated in the cause of lymphocy tic colitis. Vitals: 10/25/17 1008 BP: 142/86 Pulse: 54 Resp: 12 Temp: 36.7 C (98.1 F) PainSc: 0 - No pain Allergies Allergen Reactions Ibuprofen Other (See Comments) Acute kidney injury Past Medical History: Diagnosis Date Adverse effect of anesthesia has woken up during procedures Anemia Anxiety Arthritis Cataract Chronic kidney disease Diarrhea Disorders of bilirubin excretion Dryden Edema Essential hypertension, benign Generalized osteoarthrosis, involving multiple sites Gilbert's syndrome Hypothyroid Impacted cerumen Impaired fasting glucose Lymphocytic colitis HX OF Neuromuscular disorder (HCC) Feet Neuopathy 1999? 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 Osteoarthritis of both hips Peripheral neuropathy (HCC) PONV (postoperative nausea and vomiting) Pure hypercholesterolemia Skin cancer SCC left leg Type II or unspecified type diabetes mellitus without mention of complication, not stat ed as uncontrolled Undiagnosed cardiac murmurs Vaginitis and vulvovaginitis, unspecified Varicose veins Past Surgical History: Procedure Laterality Date Bladder Lift 2007 [facility] BREAST BIOPSY left - benign COLONOSCOPY 2008 EGD AND COLONOSCOPY N/A 03/16/2016 Procedure: EGD / COLONOSCOPY; Surgeon: Spencer Chase MD; Location: [facility] HYSTERECTOMY 2007 [facility], non-cancerous JOINT REPLACEMENT 2014 hips, 2016 rt. knee KNEE ARTHROSCOPY 2000 Right, Gris TONSILLECTOMY AND ADENOIDECTOMY 194 TOTAL HIP ARTHROPLASTY 12/05/2014 Left Total Hip Arthroplasty, Anterior Approach; Laterality: Left; Surgeon: Lencho ramey MD; Location: [facility] MAIN OR TOTAL HIP ARTHROPLASTY Right 06/19/2015 Procedure: Right Total Hip Arthroplasty, Anterior Approach; Surgeon: Lencho Hays MD; Location: [facility] MA[facility] OR TOTAL KNEE ARTHROPLASTY Right 04/22/2016 Procedure: Right Total Knee Arthroplasty; Surgeon: Lencho Hays MD; Location: [facility] ANDI N OR TUBAL LIGATION 1974 Family History Problem Relation Age of Onset Eczema Mother Heart disease Mother Valve replacement Cancer Mother Pancreatic Depression Mother Hearing loss Mother Miscarriages / stillbirths Mother Hypertension Father Diabetes Father Arthritis Father Cancer Father Prostate Heart disease Father Congestive HF High blood pressure Father * Sister healthy * Sister healthy Hypertension Other Diabetes Other Prostate cancer Other Tuberculosis Maternal Grandmother Cancer Paternal Grandfather ? Throat Cancer Paternal Aunt Stomach/Colon? Early Paternal Aunt stomach cancer Early Paternal Grandmother No - incorrect Heart disease Paternal Aunt Heart disease Paternal Aunt Social History Social History Marital status: Spouse name: N/A Number of children: N/A Years of education: N/A Social History Main Topics Smoking status: Never Smoker Smokeless tobacco: Never Used Alcohol use 1.2 oz/week 3 Glasses of wine, 4 Standard drinks or equivalent per week Comment: 0-2 week Drug use: No Sexual activity: Not Currently Partners: Male control/ protection: None Other Topics Concern None Social History Narrative None Review of Systems Not gone into detail denies cardiovascular or respiratory or neurological symptoms Objective: BP 142/86 | Pulse 54 | Temp 36.7 C (98.1 F) (Temporal) | Resp 12 | Ht 1.778 m (5' 1 0") | Wt 106 kg (233 lb 11 oz) | SpO2 98% | BMI 33.53 kg/m Physical Exam Done by observation vital signs are noted no defects in cranial or peripheral nurse respira tory or cardiovascular as noted Assessment: Recurrence of lymphocytic colitis responding to retreatment with budesonide Plan: It was explained to the patient that 20-30% of the patient's on budesonide can have a recur rence following discontinuation of the same. As such we will do a slow taper over 4-6 month s with respect to the same. She is to call and let us know how she is doing in 2 weeks and if doing well will decrease to 6 mg a day. The patient will substitute Pepcid for ranitidine for her symptoms of reflux documented in this enc ounter Plan of Treatment Not on filedocumented as of this encounter Visit Diagnoses + + | Diagnosis | + + | Lymphocytic colitis - Primary Other and unspecified noninfectious gastroenteritis and | | colitis | + + | Diarrhea, unspecified type | + + documented in this encounter
--- OUTSIDE RECORDS SUMMARY | ~2019-10-18 | XMS | Encounter Summary ---
Demographics + + + | Address | [address] [place] [address] | | | [place] [address] | + + + | Home Phone | | + + + | Preferred Language | Unknown | + + + | Marital Status | | + + + | Advent Affiliation | 1076 | + + + | Race | Unknown | + + + | Ethnic Group | Unknown | + + + Author + + + | Author | [facility] | | | and [place] | + + + | Organization | [facility] | | | and [place] | + + + | Address | Unknown | + + + | Phone | Unavailable | + + + Support + + + + + | Name | Relationship | Address | Phone | + + + + + | Juan Carlos Ko | ECON | [address] | | | | | [place], [place] | | | | | [address] | | + + + + + | Arie Ko | ECON | Unknown | | + + + + + Care Team Providers + +------+ + | Care Assembler For Puller Over Machine Name | Role | Phone | + +------+ + | Bobo Garcia DO | PCP | | + +------+ + Encounter Details +--------+ + + + + | Date | Type | Department | Care Team | Description | +--------+ + + + + | 05/19/ | Orders Only | [facility] [place] | Lencho Hays, | Primary | | 2015 | | ORTHOPEDIC SURGERY | MD Méndez [facility] | osteoarthritis of | | | | [address] [facility] | [place] | right hip (Primary | | | | [place] | [address] | Dx) | | | | [address] | | | | | | [phone] | | | +--------+ + + + [...] 3:29 PM HISTORY: PREOP RIGHT TOTAL | [facility] | | HIP ARTHROPLASTY DOS 06/19/15. COMPARISON: 01/12/2015, 12/05/2014. | [facility] | | FINDINGS: Advanced degenerative changes are visualized of the right [facility] | | hip with osteophytosis, subchondral sclerosis, subchondral cyst | - IMAGING | | formation, and joint space loss with ciff-ot-qena contact. Since the | | | prior [...] and joint | | space loss with xknw-fj-bjrf contact. Since the prior studies, there has [...] + + | Performing | Address | City/State[facility] | Phone Number | | Organization | | | | + + + + + | [facility] | [address] | [place] | [phone] | | [facility] | | [address] | | | - IMAGING | | | | + + + + + documented in this encounter Visit Diagnoses + + | Diagnosis | + + | Primary osteoarthritis of right hip - Primary Primary localized osteoarthrosis, | | pelvic region and thigh | + + documented in this encounter"
--- OUTSIDE RECORDS SUMMARY | ~2019-10-18 | XMS | Encounter Summary ---
Demographics + + + | Address | [address] [place] [address] | | | [place] [address] | + + + | Home Phone | | + + + | Preferred Language | Unknown | + + + | Marital Status | | + + + | Latter Day Affiliation | 1076 | + + + | Race | Unknown | + + + | Ethnic Group | Unknown | + + + Author + + + | Author | [facility] | | | and [place] | + + + | Organization | [facility] | | | and [place] | + + + | Address | Unknown | + + + | Phone | Unavailable | + + + Support + + + + + | Name | Relationship | Address | Phone | + + + + + | Juan Carlos Ko | ECON | [address] | | | | | [place], [place] | | | | | [address] | | + + + + + | Arie Ko | ECON | Unknown | | + + + + + Care Team Providers + +------+ + | Care Change Management Facilitator Name | Role | Phone | + [...] | +--------+ + + + + | 10/20/ | Telephone | [facility] | Spencer Chase MD | Diarrhea | | 2017 | | GASTROENTEROLOGY | [address], [place] | | | | | [address] [place] | [address] [place], [place] | | | | | [place] | [address] | | | | | [address] | | | | | | [phone] | | | +--------+ + + + [...]
--- OUTSIDE RECORDS SUMMARY | ~2019-10-18 | XMS | Encounter Summary ---
Demographics + + + | Address | [address] [place] [address] | | | [place] [address] | + + + | Home Phone | | + + + | Preferred Language | Unknown | + + + | Marital Status | | + + + | Oriental Orthodox Affiliation | 1076 | + + + | Race | Unknown | + + + | Ethnic Group | Unknown | + + + Author + + + | Author | [facility] | | | and [place] | + + + | Organization | [facility] | | | and [place] | + + + | Address | Unknown | + + + | Phone | Unavailable | + + + Support + + + + + | Name | Relationship | Address | Phone | + + + + + | Juan Carlos Ko | ECON | [address] | | | | | [place], [place] | | | | | [address] | | + + + + + | Arie Ko | ECON | Unknown | | + + + + + Care Team Providers + +------+ + | Care Reinsurance Claim Analyst Name | Role | Phone | + [...] | | | Osteoarthros | | [address] | | | | | is, | | [place], | | | | | unspecified | | [place] [address] | | | | | whether | | Phone: | | | | | generalized | | [phone] | | | | | or | | Fax: | | | | | localized, | | [phone] | | | | | pelvic | [...] | | | | | | | MD TOTAL HIP | | | | | [...] Description | +--------+---------+ + + + | 12/05/ | Surgery | [facility] | Lencho Hays, | Left Total Hip | | 2015 | | [facility] OR [facility] | [address] [place] [address] | Arthroplasty, | | | | [address] | [place] | Anterior Approach | | | | [place] | [address] | | | | | [address] | | | | | | [phone] | | | +--------+---------+ + + + [...] the original. DISCHARGE SUMMARY Pt. Name/Age/: Carlota Huerta Stefani 74 y.o. 1940 Date of Admission: 12/05/2014 [...] PT and was safe for discharge to [facility]. She is on lovenox for dvt prophylaxis. [...] to home Follow-Up Plans: 10-14 days with mt Code Status/Advance Directive (Pertinent discussions/declarations): Full Code Electronically signed by: Lencho Hays, 12/07/2014 7:31 [facility] documented in this e ncounter Discharge Instructions [...] I/O last 3 completed shifts: In: 4941 [P.O.:2008; I.V.:2778; IV Piggyback:155] Out: 2700 [Urine:0; Blood:650] On exam dressings intact and dry [...] 1 s/p HORACE Mobilize with PT owl erMaog RN - 12/06/2014 8:35 AM PSTDuring the [...] 147 | 70 - 150 mg/dL | [facility] [...] [address] | [place] | [phone] | | [facility] | | [address] | | | - LABORATORY | | | | + + + + + | [facility] | [address] | [place] | | | [facility] | | [address] | | | - LABORATORY | | [...] + | [facility] | [address] | [place], [place] | [phone] | | [facility] | | [address] | | | - LABORATORY | | | | + + + + + | [facility] | [address] | [place], [place] | | | [facility] | | [address] | | | - LABORATORY | | [...] | | | | g/dL | [facility] | | | | [...] + | [facility] | [address] | [place] | [phone] | | [facility] | | [address] | | | - LABORATORY | | | | + + + + + | [facility] | [address] | [place] | | | [facility] | | [address] | | | - LABORATORY | | [...] | | | FILTRATION | mL/min/1.73m2 | [facility] | | | [place] | RATE,ESTIMATED | | MEDICAL | | | | mL/min/1.83c2Cpvj than | | CENTER - | | [...] | | | | | mg/dL | . [facility] | | | | | | MEDICAL | | | | | | CENTER - | | | | | | LABORATORY | | + + + + + + | BUN/Creatin | 9.7 | | [facility] | | | ine Ratio | | | [facility] | | | | | | [...] | + + + + + | [facility] | [address] | [place] | [phone] | | [facility] | | [address] | | | - LABORATORY | | | | + + + + + | [facility] | [address] | [place], [place] | | | [facility] | | [address] | | | - LABORATORY | | [...] + | [facility] | [address] | [place], [place] | [phone] | | [facility] | | [address] | | | - LABORATORY | | | | + + + + + | [facility] | [address] | [place], [place] | | | [facility] | | [address] | | | - LABORATORY | | | | + + + + + POC Glucose (12/06/2014 5:44 PM PST) + +-------+ + + + | Component | Value | Ref Range | Performed | Pathologist | | | | | At | Signature | + +-------+ + + + | Glucose, | 142 | 70 - 150 mg/dL | [facility] [...] [address] | [place] | [phone] | | [facility] | | [address] | | | - LABORATORY | | | | + + + + + | [facility] | [address] | [place] | | | [facility] | | [address] | | | - LABORATORY | | [...] + | [facility] | [address] | [place], [place] | [phone] | | [facility] | | [address] | | | - LABORATORY | | | | + + + + + | [facility] | [address] | [place], [place] | | | [facility] | | [address] | | | - LABORATORY | | | | + + + + + POC Glucose (12/06/2014 7:04 AM PST) + +-------+ + + + | Component | Value | Ref Range | Performed | Pathologist | | | | | At | Signature | + +-------+ + + + | Glucose, | 150 | 70 - 150 mg/dL | [facility] [...] [address] | [place] | [phone] | | [facility] | | [address] | | | - LABORATORY | | | | + + + + + | [facility] | [address] | [place] | | | [facility] | | [address] | | | - LABORATORY | | [...] | | | | g/dL | [facility] | | | | [...] + | [facility] | [address] | [place] | [phone] | | [facility] | | [address] | | | - LABORATORY | | | | + + + + + | [facility] | [address] | [place] | | | [facility] | | [address] | | | - LABORATORY | | [...] (H) | 70 - 109 mg/dL | [facility] | | | | | | [facility] | | | | | | MEDICAL | | | | | | CENTER - | | | | | | LABORATORY | | + + + + + + | BUN | 9 | 7 - 18 mg/dL | [facility] | | | | | | [facility] | | | | | | MEDICAL | | | | | | CENTER - | | | | | | LABORATORY | | + + + + + + | Creatinine | 0.80 | 0.60 - 1.30 | [facility] | | | | | mg/dL | [facility] | | | | | | MEDICAL | | | | | | CENTER - | | | | | | LABORATORY | | + + + + + + | eGFR if not | >60Comment: GLOMERULAR | >=60 | [facility] | | | | FILTRATION | mL/min/1.73m2 | [facility] | | | [place] | RATE,ESTIMATED | | MEDICAL | | | | mL/min/1.27x6Qyje than | | CENTER - | | [...] | | ine Ratio | | | [facility] | | | | | | [...] + | [facility] | [address] | [place], [place] | [phone] | | [facility] | | [address] | | | - LABORATORY | | | | + + + + + | [facility] | [address] | [place], [place] | | | [facility] | | [address] | | | - LABORATORY | | [...] [address] | [place] | [phone] | | [facility] | | [address] | | | - LABORATORY | | | | + + + + + | [facility] | [address] | [place] | | | [facility] | | [address] | | | - LABORATORY | | [...] | | POC | | | [facility] | | [...] + | [facility] | [address] | [place] | [phone] | | [facility] | | [address] | | | - LABORATORY | | | | + + + + + | [facility] | [address] | [place] | | | [facility] | | [address] | | | - LABORATORY | | [...] + | Dewey, Rad Results In - 12/05/2014 2:14 PM PST [...] + | MISCELLANEOUS LAB | | | [phone] | + +---------+ + + | MISCELANIOUS LAB | | | [phone] | + +---------+ + + POC Glucose (12/05/2014 9:02 AM PST) + +-------+ + + + | Component | Value | Ref Range | Performed | Pathologist | | | | | At | Signature | + +-------+ + + + | Glucose, | 111 | 70 - 150 mg/dL | [facility] | | | POC | | | [facility] | | | | | | MEDICAL [...] + | [facility] | [address] | [place] | [phone] | | [facility] | | [address] | | | - LABORATORY | | | | + + + + + | [facility] | [address] | [place] | | | [facility] | | [address] | | | - LABORATORY | | | | + + + + + documented in this encounter Visit Diagnoses + + | Diagnosis | + + | Osteoarthrosis, unspecified whether generalized or localized, pelvic region and thigh | + + documented in this encounter Administered Medications + +--------+ +------+------+ + | Medication Order | MAR | Action | Dose | Rate | Site | | | Action | Date | | | | + +--------+ +------+------+ + | ketamine 30 mg, morphine (PF) | Given | 12/05/19 | | | Surgical | | 10 mg in bupivacaine | | 15 11:02 | | | Site | | 0.25%-epinephrine 1:200,000 30 mL | | AM PST | | | | | OpTesia mixture PRN, Starting | | | | | | | 12/05/14 at 1102, Intra-op | | | | | | + +--------+ +------+------+ + +---+---+ | | | +---+---+ documented in this encounter
--- OUTSIDE RECORDS SUMMARY | ~2019-10-18 | XMS | Encounter Summary ---
Demographics + + + | Address | [address] [place] [address] | | | [place] [address] | + + + | Home Phone | | + + + | Preferred Language | Unknown | + + + | Marital Status | | + + + | Catholic Affiliation | 1076 | + + + [...] Juan Carlos Ko | ECON | [address] | | | | | [place], [place] | | | | | [address] | | + + + + + | Arie Ko | ECON | Unknown | | + + + + + Care Team Providers + +------+ + | Care Steno Pool Supervisor Name | Role | Phone | + [...] Description | +--------+---------+ + + + | 07/07/ | Office | [facility] | Lencho Hays, | Postop check | | 2016 | Visit | ORTHOPEDIC SURGERY | MD Dev MARSH | (Primary Dx) | | | | [address] | [place] | | | | | [place] | [id number] | | | | | [address] | | | | | | [phone] | | | +--------+---------+ + + + [...] Temperature | 36.7 C (98 F) | 07/07/2016 10:39 AM | | | | | PDT [...] Weight | 113.4 kg (250 lb) | 07/07/2016 10:39 AM | | | | | PDT | | + + + + + | Height | 177.8 cm (5' 10") | 07/07/2016 10:39 AM | | | | | PDT | | + + + + + | Body Mass Index | 35.87 | 07/07/2016 10:39 AM | | | | | PDT [...] encounter Progress Notes Lencho Hays MD - 07/07/2016 12:37 PM PDTPatient returns postop right total knee arthro plasty She is doing very well She is very happy with the result of her surgery On exam she comes into full extension and she can flex to 120 Good stability throughout the arc of motion X-ray show excellent alignment and position of the components Transition activities dental prophylaxis and future follow-up discussed She will call with any questions or concerns documented in this encounter Plan of Treatment Not on filedocumented as of this encounter Visit Diagnoses + + | Diagnosis | + + | Postop check - Primary Follow-up examination, following unspecified surgery | + + documented in this encounter
--- OUTSIDE RECORDS SUMMARY | ~2019-10-18 | XMS | Encounter Summary ---
Demographics + + + | Address | [address] [place] [address] | | | [place] [address] | + + + | Home Phone | | + + + | Preferred Language | Unknown | + + + | Marital Status | | + + + | Anglican Affiliation | 1076 | + + + | Race | Unknown | + + + | Ethnic Group | Unknown | + + + Author + + + | Author | [facility] | | | and [place] | + + + | Organization | [facility] | | | and [place] | + + + | Address | Unknown | + + + | Phone | Unavailable | + + + Support + + + + + | Name | Relationship | Address | Phone | + + + + + | Juan Carlos Ko | ECON | [address] | | | | | [place], [place] | | | | | [address] | | + + + + + | Arie Ko | ECON | Unknown | | + + + + + Care Team Providers + +------+ + | Care Tank Filler Name | Role | Phone | + +------+ + | Bobo Garica DO | PCP | | + +------+ + Encounter Details +--------+ + + + + | Date | Type | Department | Care Team | Description | +--------+ + + + + | 06/21/ | Hospital | [facility] | Carolee Farias, | | | 2015 | Encounter | MED CTR ACUTE | PT [address] | | | | | PHYSICAL THERAPY | [place], [place] | | | | | [address] [place] | [address] | | | | | [place] [address] | | | | | | [phone] | | | +--------+ + + + [...]
--- OUTSIDE RECORDS SUMMARY | ~2019-10-18 | XMS | Encounter Summary ---
Demographics + + + | Address | [address] [place] [address] | | | [place] [address] | + + + | Home Phone | | + + + | Preferred Language | Unknown | + + + | Marital Status | | + + + | Confucianism Affiliation | [id number] | + + + | Race | Unknown | + + + | Ethnic Group | Unknown | + + + Author + + + | Author | [facility] | | | and [place] | + + + | Organization | [facility] | | | and [place] | + + + | Address | Unknown | + + + | Phone | Unavailable | + + + Support + + + + + | Name | Relationship | Address | Phone | + + + + + | Juan Carlos oK | ECON | [address] [place] [address] [address] | | | | | [place], [place] | | | | | [address] | | + + + + + | Arie Ko | ECON | Unknown | | + + + + + Care Team Providers + +------+ + | Care Garnett Machine Operator Name | Role | Phone | + +------+ + | Live Sims MD | PCP | | + +------+ + Reason for Visit + + + | Reason | Comments | + + + | Establish Care | | + + + Evaluate & Treat (Routine) +--------+--------+ + + + + | Status | Reason | Specialty | Diagnoses / | Referred By | Referred To | | | | | Procedures | Contact | Contact | +--------+--------+ + + + + | Closed | | Pulmonary | Diagnoses | Levi, | Leandro, | | | | Disease / | Other | Live | MD Lexa | | | | Pulmonology | chronic | MD Uli | [address] | | | | | pulmonary | [address] | [place], | | | | | heart | [place] | [place] [address] | | | | | diseases | [place], [place] | Phone: | | | | | Procedures | [address] | [phone] | | | | | [place] OFFICE | Phone: | Fax: | | | | | OUTPATIENT | [phone] | [phone] | | | | | NEW 60 | Fax: | | | | | | MINUTES [place] | [phone] | | | | | | OFFICE | | | | | | | CONSULTATION | | | | | | | NEW/ESTAB | | | | | | | PATIENT 60 | | | | | | | MIN [place] PT | | | | | | | W/DXA NO | | | | | | | DOCUMENT OR | | | | | | | ORDE [place] ADV | | | | | | | CARE PLAN | | | | | | | DISCUSSED, | | | | | | | PLAN OR | | | | | | | SURROGATE | | | | | | | DOCUMENTED | | | | | | | [place] FLU | | | | | | | IMMUNIZE NO | | | | | | | ADMIN [place] | | | | | | | PNEUMOCOCCAL | | | | | | | | | | | | | | IMMUNIZATION | | | | | | | ORDERED OR | | | | | | | ADMINISTERED | | | | | | | SCREENING | | | | | | | MAMMO | | | | | | | RESULTS | | | | | | | DOCUMENTED | | | | | | | AND REVIEWED | | | | | | | [place] | | | | | | | COLORECTAL | | | | | | | CA SCREEN | | | | | | | RESULTS | | | | | | | DOCUMENT/REV | | | | | | | IEW [place] CALC | | | | | | | BMI OUT NRM | | | | | | | AMADA NOF/U | | | | | | | [place] PT | | | | | | | FALLS ASSESS | | | | | | | DOC 0-1 | | | | | | | FALLS W/OUT | | | | | | | INJ PAST YR | | | | | | | [place] DOC CUR | | | | | | | MEDS BY PROV | | | | | | | [place] POS | | | | | | | PAIN ASSESS | | | | | | | NO F/U DOC | | | | | | | [place] CLIN | | | | | | | DEPRESSION | | | | | | | SCREEN NOT D | | | | | | | CURRENT | | | | | | | TOBACCO | | | | | | | NON-USER [place] | | | | | | | OFFICE | | | | | | | OUTPATIENT | | | | | | | NEW 60 | | | | | | | MINUTES [place] | | | | | | | OFFICE | | | | | | | CONSULTATION | | | | | | | NEW/ESTAB | | | | | | | PATIENT 60 | | | | | | | MIN 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- DOS | | | | | | | 11-06-14 | | | +--------+--------+ + + + + Encounter Details +--------+---------+ + + + | Date | Type | Department | Care Team | Description | +--------+---------+ + + + | 11/06/ | Office | [facility] | Lexa Reeves, | Pulmonary | | 2013 | Visit | PULMONARY [address] | MD [address] | hypertension (HCC) | | | | [place], | [place], [place] | (Primary Dx) | | | | [place] [address] | [address] | | | | | [phone] | | | +--------+---------+ + + + [...] + + + | Blood Pressure | 158/88 | 11/06/2014 9:55 AM | | | | | PST | | + + + + + | Pulse | 62 | 11/06/2014 9:55 AM | | | | | PST | | + + + + + | Temperature | 36.9 C (98.4 F) | 11/06/2014 9:55 AM | | | | | PST | | + + + + + | Respiratory Rate | - | - | | + + + + + | Oxygen Saturation | 98% | 11/06/2014 9:55 AM | | | | | PST | | + + + + + | Inhaled Oxygen | - | - | | | Concentration | | | | + + + + + | Weight | 110.9 kg (244 lb 9.6 | 11/06/2014 9:55 AM | | | | oz) | PST | | + + + + + | Height | 177.8 cm (5' 10") | 11/06/2014 9:55 AM | | | | | PST | | + + + + + | Body Mass Index | 35.1 | 11/06/2014 9:55 AM | | | | | PST | | + + + + + documented in this encounter Patient Instructions Patient Instructions Lexa Reeves MD - 11/06/2014 10:35 AM PST Sleep Apnea[Adult] Sleep Apnea (also called Obstructive Sleep Apnea ) is a condition where there are malvin g pauses between breaths during sleep. This usually occurs when the tissues and muscles in t he back of the throat relax too much during sleep. This causes the air passage in your throa t to narrow or block off completely. Breathing slows down or stops completely and you then w morena up, take a few good breaths and fall back to sleep again. There may be 10-60 such awaken ings during a night. This prevents you from getting to the deeper stages of sleep that are n eeded for the body to rest and recover its strength. During sleep, loud snoring, noisy breathing or gasping sounds are common. The sleep disturb ance causes daytime symptoms such as difficulty getting up in the morning, need for daytime naps, irritability, poor concentration and attention. CausesOf Sleep Apnea The main risk factor for this kind of sleep apnea is excessive weight gain. Fatty tissue gathers along the sides of the throat causing the air passage to be more narrow than normal . Increasing age is another factor due to softening of the air passage. Certain neck and jaw shapes are prone to a narrow air passage (such as receding chin) Enlarged tonsils and adenoids may block the air passage when lying down Severe nasal congestion Use of alcohol or sedatives relaxes the muscles in the throat. Smoking can cause inflammation and swelling in the upper air passages and make this prob mabel worse. Home Care 1. Sleep with your head and neck in a straight or neutral position. If the neck falls back or forward too far this can block breathing. 2. Limit the use of alcohol and sedatives in the evening. Follow Up with your doctor as advised. If you are overweight, talk to your doctor about a weight loss program. If you smoke, talk to your doctor about ways to help you stop. Get Prompt Medical Attention if any of the following occur: Longer pauses than usual Unable to awaken Seizure [id number] [employer]. [address] [place] [address], [place], [place] [address]. All righ ts reserved. This information is not intended as a substitute for professional medical care. Always follow your healthcare professional's instructions. documented in this encounter Progress Notes Lexa Reeves MD - 11/06/2014 10:13 AM PSTFormatting of this note might be different f rom the original. Pulmonary Consult Note 11/06/2014 [facility] Carlota Ko is a 74 y.o. female patient of Live Sims M.D. here today for evaluation of possible pulmonary hypertension. The patient was in her normal state of health until recently when she developed worsening h ip pain. The patient was evaluated by her orthopedic surgeon who in the process of ordering screening lab tests noted findings potentially consistent with kidney disease. The patient was referred to a milled rice broker who noted a heart murmur. This led to ordering an echocardi ogram. Dr. Sims ultimately concluded that the patient's kidney problems was related to a cute kidney injury likely from ibuprofen. The patient's kidney function has returned to [facility]. The patient denies significant pulmonary complaints. She is limited in her ability to exer t herself secondary to hip pain rather than shortness of breath. There is no history of whe ezing. They are able to walk 100 yards at their own pace on level ground before developing hip mima n and not shortness of breath The distance walked is predominately limited by L >R hip issue s. One year ago, they feel that they could walk 1/4- 1 mile. Triggers for their shortness o f breath include vigorous exertion . Relieving factors include rest/avoidance. They do not exercise regularly secondary to hip pain. They are not enrolled in cardiac/pulm onary rehabilitation or other physical therapy. They have not completed pulmonary rehabilita tion in the past. She does not cough chronically, and does not produce mucous. They have not had hemoptysis in the last 6 months. The patient has noted lower extremity swelling on and off for last couple years. Often act ivities associated with inactivity such as sitting in a car for a prolonged period time caus e lower extremity swelling. There is no history of significant snoring. The patient's will rarely note a brief snort from his . She does have excessive daytime fatigue he attributes this to her opi ate containing pain medication. Before she began to opiates excessive fatigue was not noted . The patient's weight has fluctuated over last 10 years. Specifically between 220 and 250 p ounds. They have not had to be hospitalized for breathing issues in the past. Carlota has not requi red intubation in the past. They have not had to go to the emergency room in the last year r elated to a breathing problem. They have had 0 exacerbations in the past year requiring stephen tment with prednisone and 0 treatments with antibiotics. Carlota has not been evaluated for nocturnal oxygen. Past Medical History: Past Medical History Diagnosis Date Vaginitis and vulvovaginitis, unspecified Edema Disorders of bilirubin excretion Warren Neuropathy secondary to diabetes Type II or unspecified type diabetes mellitus without mention of complication, not stat ed as uncontrolled (HCC) Essential hypertension, benign Generalized osteoarthrosis, involving multiple sites Undiagnosed cardiac murmurs Pure hypercholesterolemia Impacted cerumen Osteoarthritis of both hips Skin cancer SCC left leg Hypothyroid Past Surgical History: Past Surgical History Procedure Date Knee arthroscopy 2000 Right, [place] Hysterectomy 2007 [facility], non-cancerous Bladder lift 2007 [facility] Tonsillectomy Colonoscopy Breast biopsy left - benign Family History: Family History Problem Relation Age of Onset Hypertension Diabetes Prostate cancer Eczema Mother Heart disease Mother Cancer Mother pancreatic Tuberculosis Maternal Grandmother Hypertension Father Diabetes Father * Sister healthy * Sister healthy Social History: She reports that she has never smoked. She has never used smokeless tobacco. She reports th at she drinks about 1.2 ounces of alcohol per week. She reports that she does not use illici t drugs. Allergies: Allergies Allergen Reactions Ibuprofen Acute kidney injury Medications: Current outpatient prescriptions:acetaminophen (TYLENOL ARTHRITIS PAIN) 650 MG CR tablet, T morena 650 mg by mouth every 8 hours as needed., Disp: , Rfl: ; carvedilol (COREG) 3.125 mg ta blet, Take 3.125 mg by mouth 2 times daily (with breakfast & dinner)., Disp: , Rfl: ; enala pril (VASOTEC) 10 mg tablet, Take 10 mg by mouth Daily., Disp: , Rfl: ; Glucosamine-Chondro it-Vit C-Mn (GLUCOSAMINE 1500 COMPLEX PO), Take by mouth., Disp: , Rfl: HYDROcodone-acetaminophen (NORCO) 10-325 mg per tablet, Take 1 tablet by mouth every 4 hour s as needed., Disp: , Rfl: ; Levothyroxine Sodium 100 MCG CAPS, Take by mouth., Disp: , Rf l: ; metFORMIN (GLUCOPHAGE) 500 mg tablet, Take 500 mg by mouth Daily., Disp: , Rfl: ; mup irocin (BACTROBAN) 2% ointment, Apply topically 3 times daily., Disp: , Rfl: ; niacin (SLO -NIACIN) 500 mg CR tablet, Take 500 mg by mouth nightly., Disp: , Rfl: Immunizations: Immunization History Administered Date(s) Administered TRIVALENT INFLUENZA, PRESERATIVE FREE (PED/ADOL/ADULT) 09/03/2014 Review of Systems Constitutional: Denies fever, chills, sweats, fatigue/weakness, and unexpected weight jimenez ge. Sleep: Denies trouble sleeping, loud snoring, and excessive daytime sleepiness. Eyes: Denies vision change, and eye irritation. ENT: Denies earache, tinnitus, decreased hearing, nasal congestion, nosebleeds, sore throa t, and hoarseness. Resp: Denies hemoptysis or pleuritic chest pain. CV: Denies neck/chest/jaw pain with exertion, palpitations, lightheadedness, syncope, orth opnea, PND, peripheral edema, and claudication. GI: Denies trouble swallowing, heartburn, nausea, vomiting, abdominal pain, diarrhea,melen a, and hematochezia. Denies dysuria, hematuria, urinary frequency, difficulty emptying bladder, nocturia. Musculoskeletal: Denies joint pain/stiffness, joint swelling, muscle pain/cramps, muscle we akness. Derm: Denies rash, itching, dryness, and suspicious lesions. Neurologic: Denies frequent headaches, seizures, tremors, numbness or tingling in hands or feet, vertigo or difficulty walking in past 6 months. Psych Denies depression, anxiety, suicidal ideation. Endo Denies cold intolerance or heat intolerance. Heme Denies abnormal bruising, bleeding, and enlarged lymph nodes. Allergy Denies urticaria, allergic rash, hay fever Objective BP 158/88 | Pulse 62 | Temp 36.9 C (98.4 F) (Tympanic) | Ht 1.778 m (5' 10") | Wt 110.9 5 kg (244 lb 9.6 oz) | BMI 35.10 kg/m2 | SpO2 98% General Appearance: Alert, cooperative, no distress, appears stated age. Head: Normocephalic, without obvious abnormality, atraumatic. Eyes: PERRL, conjunctiva/corneas clear. Ears: Normal external appearance, TM's not examined. Nose: Nares normal, septum midline, mucosa normal, no drainage or sinus tenderness. Throat: Lips, mucosa, and tongue normal; teeth and gums normal. MP 3. Neck: Supple, symmetrical, no adenopathy.neck circumference 14.5 inches Lungs: No accessory muscle use, breath sounds are reduced to auscultation bilaterally, no wheezes, crackles or rhonchi. No dullness to percussion. Chest Wall: No tenderness or deformity. Heart: Regular rate and rhythm, S1, S2 normal, no murmur, rub or gallop Abdomen: Soft, non-tender. No hepatosplenomegaly. Extremities: Extremities normal, atraumatic, no cyanosis, clubbing. Edema trace to the mid calf on the last with no edema on the right. Pulses: Radial pulses 2+ and symmetric Skin: Warm and dry Lymph nodes: Cervical and supraclavicular nodes normal Neurologic: Gait normal Data: Chest x-ray(s)-none available for my review Echocardiogram results: A 10/26/14 normal left ventricular size and function. LVEF 65%. Ri ght ventricular systolic pressure 46-51 mild biatrial enlargement pulmonary arteries appeare d normal. Mild mitral insufficiency was appreciated. Live Sims's notes were reviewed in clinic today. Assessment Carlota Ko is a 74-year-old nonsmoker who presents at the request of Live Sims M.D. for pulmonary consultation regarding possible pulmonary hypertension. Patient recently began to note increased hip pain. Her workup showed evidence of possible kidney disease and subsequently Ms. Ko was seen by a milled rice broker. Was ultimately dis covered that the patient's renal insufficiency was transient and thought to be secondary to acute kidney injury related to ibuprofen use for her hip pain. An echocardiogram to evaluate her murmur was performed. No significant pulmonary hypertens ion was noted. The patient did have mildly elevated right ventricular pressures. No significant lower extremity edema is noted on exam. The patient also has little in the way of pulmonary symptoms. My overall suspicion of pulmonary hypertension is not high. It seems unlikely that this pa tient has underlying lung or heart disease given her lack of symptoms and physical exam. Th ere is no known connective tissue disease because alteration of the pulmonary vascular bed. No valvular heart disease or septal defects. Based on the patient's symptoms likewise seem s unlikely that she has clinically significant obstructive sleep apnea. Some redundant orop haryngeal tissue was appreciated however. Based on the patient's echo results and lack of symptoms I would not suggest further evalua tion for pulmonary hypertension at this time. Rather I would monitor the patient's symptoms , exam and suggested a repeat echocardiogram performed in 12 months time. If the patient's right-sided pressures appear to be rising I would be happy to see Carlota back in the office. Plan 1. Pulmonary clinic followup if symptoms worsen. 2. Recommend repeat transthoracic echocardiogram in 12 months time to assess for change in the patient's right-sided heart pressures. CC: Live Sims documented in this encounter Plan of Treatment Not on filedocumented as of this encounter Visit Diagnoses + + | Diagnosis | + + | Pulmonary hypertension (HCC) - Primary Other chronic pulmonary heart diseases | + + documented in this encounter
--- OUTSIDE RECORDS SUMMARY | ~2019-10-18 | XMS | Encounter Summary ---
Demographics + + + | Address | [address] | | | [place] [address] | + + + | Home Phone | | + + + | Preferred Language | Unknown | + + + | Marital Status | | + + + | Evangelical Affiliation | PRE | + + + | Race | White | + + + | Ethnic Group | Not or | + + + Author + + + | Author | [facility] | + + + | Organization | [facility] | + + + | Address | Unknown | + + + | Phone | Unavailable | + + + Support + + + + + | Name | Relationship | Address | Phone | + + + + + | Juan Carlos Ko | ECON | [id number] | | | | | [place] | | | | | [address] | | + + + + + Care Team Providers + +------+ + | Care Weapons System Instrument Mechanic Name | Role | Phone | + +------+ + PCP | Unavailable | + +------+ + Encounter Details +--------+ + + + + | Date | Type | Department | Care Team | Description | +--------+ + + + + | 05/01/ | Abstract | [facility] Malu Bae | | | 2005 | [facility] | [facility] | MD Amirah [address] | | | | | Gynecology [address] | | | | | [address] | [place], [place] | | | | | Mailcode: [id number] | [address] | | | | | [facility] | [phone] | | | | | [address] [place], [place] | | | | | | [address] | | | | | | [phone] | | | +--------+ + + + [...]
--- OUTSIDE RECORDS SUMMARY | ~2019-10-18 | XMS | Encounter Summary ---
Demographics + + + | Address | [address] | | | [place] [address] | + + + | Home Phone | | + + + | Preferred Language | Unknown | + + + | Marital Status | | + + + | Denominational Affiliation | PRE | + + + | Race | White | + + + | Ethnic Group | Not or | + + + Author + + + | Author | [facility] | + + + | Organization | [facility] | + + + | Address | Unknown | + + + | Phone | Unavailable | + + + Support + + + + + | Name | Relationship | Address | Phone | + + + + + | Juan Carlos Ko | ECON | [id number] | | | | | [place] | | | | | [address] | | + + + + + Care Team Providers + +------+ + | Care Printing Machine Mechanic Name | Role | Phone | + +------+ + | Bobo Garcia DO | PCP | | + +------+ + Encounter Details +--------+ + + + + | Date | Type | Department | Care Team | Description | +--------+ + + + + | 08/13/ | Results | Registration [id number] | Other, Faculty | | | 2007 | Only | [address] | [phone] | | | | | [address] Mailcode: [id number] | | | | | | [place], [place] | | | | | | [address] | | | | | | [phone] | | | +--------+ + + + [...] | + +--------+ + + + | DERMATOPATHOLOGY(WET | Routin | 08/13/2008 | | Results for this | | [facility]) | e | | | procedure are in the | | | | | | results section. | + +--------+ + + + documented in this encounter Results DERMATOPATHOLOGY([facility]) (08/13/2008) + + + + + + | Component | Value | Ref Range | Performed | Pathologist | | | | | At | Signature | + + + + + + | DERMATOPATH | SOURCE OF SPECIMEN:A | | | | | OLOGY(WET | FIRST TISSUE LEVEL IV | | | | | MNT) | [id number] OF | | | | | | SPECIMEN:B FIRST TISSUE | | | | | | LEVEL IV [id number] | | | | | | DESCRIPTION:A. 4mm, | | | | | | lt. lower leg medial; | | | | | | violaceous plaque | | | | | | pruritic (solitary); | | | | | | ?lichen planus.B. | | | | | | Shave, ED&C, lt. lower | | | | | | leg posterior; | | | | | | hyperkeratotic papule; | | | | | | SK, SCC,irritated | | | | | | SK.GROSS DESCRIPTION:A. | | | | | | Lt. lower leg medial, | | | | | | punch, 0.4 x 0.3 cm, | | | | | | bisected.B. Lt. lower | | | | | | leg posterior, shave, | | | | | | 0.8 x 0.6 cm, | | | | | | trisected.MICROSCOPIC | | | | | | DESCRIPTION:In the A | | | | | | specimen there is | | | | | | hyperkeratosis, | | | | | | wedge-shaped | | | | | | hypergranulosis,overlyin | | | | | | g irregular epidermal | | | | | | hyperplasia and a | | | | | | band-like infiltrate | | | | | | oflymphocytes which | | | | | | focally obscures the | | | | | | basal layer. There are | | | | | | foci ofvascular | | | | | | alteration and an | | | | | | occasional dyskeratotic | | | | | | keratinocyte. There | | | | | | arealso numerous, | | | | | | thick-walled vessels.In | | | | | | the B specimen there is | | | | | | a dome-shaped, somewhat | | | | | | crateriform | | | | | | papulecharacterized by | | | | | | hyperkeratosis and | | | | | | parakeratosis overlying | | | | | | foci ofhypergranulosis | | | | | | and relatively uniform | | | | | | epidermal hyperplasia. 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 Of | | | | | | note, | | | | | | keratoacanthoma-like | | | | | | proliferations onthe | | | | | | lower extremity have | | | | | | been associated with | | | | | | HYPERTROPHIC LICHEN | | | | | | PLANUS,although the | | | | | | relationship of these | | | | | | two entities is unclear. | | | | | | Thedifferential | | | | | | includes a crateriform | | | | | | SQUAMOUS CELL CARCINOMA. | | | | | | The neoplasmextends | | | | | | to the base of the | | | | | | specimen, and given the | | | | | | unconventional | | | | | | findings,additional | | | | | | treatment to ensure its | | | | | | complete removal is | | | | | | recommended.KPW:emr08/20/ | | | | | | 08Case also reviewed by | | | | | | Yuval Gill Jr., | | | | | | MParvezDParvezRendering | | | | | | Diagnostician: Live | | | | | | Jairo | | | | | | Felicita.PathologistElectroni | | | | | | jonny Signed 08/20/2008 | | | | + + + + + + + + | Specimen | + + | Other | + + + + + | Narrative | Performed At | + + + | Ordered tyree Martin MD | | + + + + + + + + | Performing | Address | City/State/Zipcode | Phone Number | | Organization | | | | + + + + + | [facility] | [address], [address] | [place] [address] | | | DERMATOPATHOLOGY | [address] | | | + + + + + documented in this encounter Visit Diagnoses Not on filedocumented in this encounter"
--- OUTSIDE RECORDS SUMMARY | ~2019-10-18 | XMS | Encounter Summary ---
Demographics + + + | Address | [address] | | | [place] [address] | + + + | Home Phone | | + + + | Preferred Language | Unknown | + + + | Marital Status | | + + + | Buddhism Affiliation | PRE | + + + | Race | White | + + + | Ethnic Group | Not or | + + + Author + + + | Author | [facility] | + + + | Organization | [facility] | + + + | Address | Unknown | + + + | Phone | Unavailable | + + + Support + + + + + | Name | Relationship | Address | Phone | + + + + + | Juan Carlos Ko | ECON | [id number] | | | | | [place] | | | | | [address] | | + + + + + Care Team Providers + +------+ + | Care Farm Machinery Set Up Mechanic Name | Role | Phone | + +------+ + | Jose Bobo | PCP | | + +------+ + Reason for Visit + + + | Reason | Comments | + + + | History and physical | Bae | | examination | | + + + Encounter Details +--------+ + + + + | Date | Type | Department | Care Team | Description | +--------+ + + + + | 10/02/ | [facility]phone | [facility] | Malu Bae | History and physical | | 2005 | | [facility] | MD Amirah [address] | examination | | | | [address] | (Bae) | | | | [address] | [place], [place] | | | | | [facility] | [address] | | | | | [place], [place] | [phone] | | | | | [address] | | | | | | [phone] | | | +--------+ + + + [...]
--- OUTSIDE RECORDS SUMMARY | ~2019-10-18 | XMS | Encounter Summary ---
Demographics + + + | Address | [address] [place] [address] | | | [place] [address] | + + + | Home Phone | | + + + | Preferred Language | Unknown | + + + | Marital Status | | + + + | Alevism Affiliation | 1076 | + + + | Race | Unknown | + + + | Ethnic Group | Unknown | + + + Author + + + | Author | [facility] | | | and [place] | + + + | Organization | [facility] | | | and [place] | + + + | Address | Unknown | + + + | Phone | Unavailable | + + + Support + + + + + | Name | Relationship | Address | Phone | + + + + + | Juan Carlos Ko | ECON | [address] | | | | | [place], [place] | | | | | [address] | | + + + + + | Arie Ko | ECON | Unknown | | + + + + + Care Team Providers + +------+ + | Care Incinerator Plant Supervisor Name | Role | Phone | [...] | | | Osteoarthros | | [address] | | | | | is, | | [place], | | | | | unspecified | | [place] [address] | | | | | whether | | Phone: | | | | | generalized | | [phone] | | | | | or | | Fax: | | | | | localized, | | [phone] | | | | | pelvic | [...] | | | | | | | [place] TOTAL HIP | | | | | [...] + + + + | 12/05/ | Anesthesia | [facility] | Malick Martinez | Osteoarthritis - | | 2014 | Event | [facility] | PMD [address] | Left Hip (Primary | | | | [address] | [place] | Dx); Alcohol | | | | [place] | [address] | consumption one day | | | | [address] | [phone] | per week; S/P | | | | [phone] | | hysterectomy | +--------+ + + + + Anesthesia Record + + + + + | Procedure Name | Responsible | Anesthesia Start | Anesthesia Stop Time | | | Anesthesiologist | Time | | + + + + + | Left Total Hip | | 12/05/14 1007 | 12/05/14 1224 | | Arthroplasty, | | | | | Anterior Approach | | | | | (Left Hip) | | | | + + + + + +----+---+ + + | Da | T | Event | Comment | | te | i | | | | | m | | | | | e | | | +----+---+ + + | 01 | 1 | An Checkout | Pre-use anesthesia machine/equipment checkout. | | /1 | 0 | | | | 6/ | 0 | | | | 20 | 0 | | | | 15 | | | | +----+---+ + + | | 1 | An Start | Room ready, anesthesia equipment checked, essential drugs & | | | 0 | | equipment available. Patient Identity checked, anesthesia plan | | | 0 | | explained and consent obtained. Patient transported to OR, | | | 7 | | Monitors applied. Reassessment prior to anesthesia | | | | | induction/procedure. | +----+---+ + + | | 1 | an giuseppe now | IN [place] #6 | | | 0 | | | | | 1 | | | | | 0 | | | +----+---+ + + | | 1 | Antibiotic | | | | 0 | Given | | | | 1 | | | | | 1 | | | +----+---+ + + | | 1 | Block Start | | | | 0 | | | | | 1 | | | | | 5 | | | +----+---+ + + | | 1 | AN Block | | | | 0 | End | | | | 1 | | | | | 8 | | | +----+---+ + + | | 1 | Preoxygenat | Oxygen administered, patient sedated, ventilating spontaneously. | | | 0 | ed | | | | 1 | | | | | 9 | | | +----+---+ + + | | 1 | An | | | | 0 | Induction | | | | 2 | | | | | 0 | | | +----+---+ + + | | 1 | An | Smooth IV induction, easy mask airway. LMA placed and well | | | 0 | Intubation | seated. Breathing Circuit attached to LMA. BSEB/ETCO2 | | | 2 | | (aucultation and capnography) and placement confirmed. | | | 2 | | | +----+---+ + + | | 1 | | | | | 0 | | | | | 3 | | | | | 0 | | | +----+---+ + + | | 1 | an giuseppe now | Incision | | | 0 | | | | | 4 | | | | | 3 | | | +----+---+ + + | | 1 | Quick Note | Hammering | | | 1 | | | | | 3 | | | | | 3 | | | +----+---+ + + | | 1 | an giuseppe now | PACU | | | 2 | | | | | 1 | | | | | 6 | | | +----+---+ + + | | 1 | An Stop | Patient handed off to recovery nurse. | | | 2 | | | | | 4 | | | +----+---+ + + +------+ | Meds | +------+ + + + | Name | Total | + + + | propofol | 150 mg | + + + | fentaNYL | 300 mcg | + + + | ondansetron | 4 mg | + + + | ceFAZolin in dextrose (ANCEF) | 2 g | | IVPB 2 g | | + + + | tranexamic acid (CYKLOKAPRON) | 2,200 mg | | 2,200 mg in sodium chloride 0.9% | | | 100 mL IVPB | | + + + | ropivacaine 0.5% | 15 mL | + + + | HYDROmorphone | 2 mg | + + + | lactated ringers (LR) infusion | 1,200 mL | + + + + + | Name | + + | N2O Flow Rate (L/Min) | + + | O2 Flow Rate (L/Min) | + + | Insp O2 | + + | Exp SEV | + + | Air Flow Rate (L/Min) | + + + + | No blood administrations on file. | + + +--------+ + + + | Type | Details | Placement | Removal | +--------+ + + + | [READ | 12/05/14; 899; Other (see | 12/05/14899 by | 12/07/14939 by | | ONLY] | comment) (blood glucose); short | Lori Vargas RN | Jennifer Medrano, | | | term use; 12/07/14; 939 | | RN | | Periph | | | | | eral | | | | | IV - | | | | | Single | | | | | Lumen | | | | | | | | | +--------+ + + + | Airway | Placement Date: 12/05/14; | 12/05/14 1022 by | 12/05/14 1224 by | | | Placement Time: 1022; Mask | Malick Martinez, | Hilary Sanchez RN | | | Ventilation: EZ; Attempts: 1; | MD | | | | Airway Type: laryngeal mask, | | | | | oral, cuffed; Size: 3; Tube | | | | | Reference Point: lip, secure and | | | | | patent; Trauma: none; Placement | | | | | Check: verified by capnography, | | | | | verified by auscultation; Placed | | | | | By: Anesthesiologist; Removal: | | | | | per protocol, removed by RN; | | | | | Removal Date: 12/05/14; Removal | | | | | Time: 1224 | | | +--------+ + + + | Read | 12/05/14; 1156; Left; hip; Left | 12/05/14 1156 by | 12/08/14 1500 by | | only - | hip dressing changed to aquacel | Lynsey Loya RN | Alisha Hobbs RN | | | this morning; removed in past; | | | | Incisi | 12/08/14; 1500 | | | | on | | | | +--------+ + + + documented in this encounter Social History + +-------+ +--------+------+ | Tobacco [...] | + +--------+ + + + | ANESTHESIA BLOCK | Routin | 12/05/2014 | | Results for this | | | e | 11:02 AM | | procedure are in the | | | | PST | | results section. | + +--------+ + + + documented in this encounter Results ANESTHESIA BLOCK (12/05/2014 11:02 AM PST) + + + | Narrative | Performed At | + + + | Malick Martinez MD 12/05/2014 11:02 Procedure Note | | | Femoral Procedure: Femoral Block, Left, Approach: Anterior | | | Technique: Ultrasound Guided. Single-Shot, Incremental Injection | | | Incremental Injection Volume: 5. Indication: Post-Op Pain | | | Management. Block requested by surgeon or patient. | | | Pre-procedure Events: . Patient Positioning: Supine Needle: 21 G | | | (4 in). Ease: Easy Attempts: 1 Performed | | | by: Performing Provider: John MARTINEZ. | | + + + + + | Procedure Note | + + | Malick Martinez MD - 12/05/2014 11:02 AM PST Procedure NoteFemoralProcedure: | | Femoral Block, Left, Approach: Anterior Technique: Ultrasound Guided. Single-Shot, | | Incremental Injection Incremental Injection Volume: 5. Indication: Post-Op Pain | | Management. Block requested by surgeon or patient. Pre-procedure Events: .Patient | | Positioning: SupineNeedle: 21 G (4 in). Ease: EasyAttempts: 1 Performed by: Performing | | Provider: John MARTINEZ. | |Pre-procedure Events: . | |Patient Positioning: Supine | | | |Needle: 21 G (4 in). | | | | | |Ease: Easy | |Attempts: 1 | | | | | | | | | |Performed by: | |Performing Provider: John MARTINEZ. | + + documented in this encounter Visit Diagnoses Not on filedocumented in this encounter Administered Medications + +--------+ +------+------+------+ | Medication Order | MAR | Action | Dose | Rate | Site | | | Action | Date | | | | + +--------+ +------+------+------+ | ceFAZolin in dextrose (ANCEF) | Given | 12/05/19 | 2 g | | | | IVPB 2 g 2 g, Intravenous, | | 15 10:11 | | | | | Administer over 30 Minutes, Prior | | AM PST | | | | | to Incision, Starting Fri | | | | | | | 12/05/14 at 0847, For 1 dose, | | | | | | | administer within 1 hour of | | | | | | | incision, Pre-op | | | | | | + +--------+ +------+------+------+ +---+---+ | | | +---+---+ + +-------+ +---------+---+---+ | fentaNYL injection PRN, Pain, | Given | 12/05/19 | 100 mcg | | | | Starting 12/05/14 at 1011, | | 15 10:22 | | | | | Anesthesia Intra-op | | AM PST | | | | + +-------+ +---------+---+---+ +-------+ +---------+---+---+ | Given | 12/05/19 | 100 mcg | | | | | 15 10:19 | | | | | | AM PST | | | | +-------+ +---------+---+---+ | Given | 12/05/19 | 100 mcg | | | | | 15 10:11 | | | | | | AM PST | | | | +-------+ +---------+---+---+ +---+---+ | | | +---+---+ + +-------+ +------+---+---+ | HYDROmorphone (PF) (DILAUDID) 2 | Given | 12/05/19 | 1 mg | | | | mg/mL injection Intravenous, | | 15 11:40 | | | | | PRN, Pain, Starting 12/05/14 | | AM PST | | | | | at 1022, Anesthesia Intra-op | | | | | | + +-------+ +------+---+---+ +-------+ +------+---+---+ | Given | 12/05/19 | 1 mg | | | | | 15 10:22 | | | | | | AM PST | | | | +-------+ +------+---+---+ +---+---+ | | | +---+---+ + +---------+ [...] | 4 mg | | | | PRN, Nausea, Vomiting, Starting | | 15 10:11 | | | | | 12/05/14 at 1011, Anesthesia | | AM PST | | | | | Intra-op | | | | | | + +-------+ +------+---+---+ +---+---+ | | | +---+---+ + +-------+ +--------+---+---+ | propofol (DIPRIVAN) injection | Given | 12/05/19 | 150 mg | | | | PRN, Starting Mon12/05/14 at | | 15 10:20 | | | | | 1020, Anesthesia Intra-op | | AM PST | | | | + +-------+ +--------+---+---+ +---+---+ | | | +---+---+ + +-------+ +--------+---+---+ | ropivacaine (NAROPIN) 5 mg/mL | Given | 12/05/19 | 15 mLs | | | | (0.5%) injection PERINEURAL, | | 15 10:18 | | | | | PRN, Starting Mon12/05/14 at | | AM PST | | | | | 1018, Anesthesia Intra-op | | | | | | + +-------+ +--------+---+---+ +---+---+ | | | +---+---+ + +---------+ + +---+---+ | tranexamic acid (CYKLOKAPRON) | New Bag | 12/05/19 | 2,200 mg | | | | 2,200 mg in sodium chloride 0.9% | | 15 10:30 | | | | | 100 mL IVPB 2,200 mg, | | AM PST | | | | | Intravenous, Administer over 30 | | | | | | | Minutes, ONCE, 12/05/14 at | | | | | | | 0915, For 1 dose, To be given in | | | | | | | the operating room before skin | | | | | | | incision, Pre-op | | | | | | + +---------+ + +---+---+ +---+---+ | | | +---+---+ documented in this encounter"
--- OUTSIDE RECORDS SUMMARY | ~2019-10-18 | XMS | Encounter Summary ---
Demographics + + + | Address | [address] [place] [address] | | | [place] [address] | + + + | Home Phone | | + + + | Preferred Language | Unknown | + + + | Marital Status | | + + + | Baptist Affiliation | 1076 | + + + | Race | Unknown | + + + | Ethnic Group | Unknown | + + + Author + + + | Author | [facility] | | | and [place] | + + + | Organization | [facility] | | | and [place] | + + + | Address | Unknown | + + + | Phone | Unavailable | + + + Support + + + + + | Name | Relationship | Address | Phone | + + + + + | Juan Carlos Ko | ECON | [address] | | | | | [place], [place] | | | | | [address] | | + + + + + | Arie Ko | ECON | Unknown | | + + + + + Care Team Providers + +------+ + | Care Lime Kiln And Recausticizing Operator Name | Role | Phone | + +------+ + | Bobo Garcia DO | PCP | | + +------+ + Encounter Details +--------+ + + + + | Date | Type | Department | Care Team | Description | +--------+ + + + + | 07/07/ | Hospital | [facility] | Lencho Hays, | Status post total | | 2016 | Encounter | [facility] | [address] | right knee | | | | [address] [place] | [place], [place] | replacement | | | | [place], [place] | [address] | | | | | [address] | | | | | | [phone] | | | +--------+ + + + [...] | | 0 | | | | [facility] | 6 hours as needed. | | [...] + + + +---------+ + + | Glucosamine 500 MG | Take 500 mg by mouth | | 0 | | | | CAPS | Daily. | | | | 7 | + [...] + +--------+ + + + | XR KNEE RIGHT 1 - 2 | Routin | 07/07/2016 | Status post total | Results for this | | VW | e | 10:27 AM | right knee | procedure are in the | | | | PDT | replacement | results section. | + +--------+ + + + documented in this encounter Results XR Knee Right 1 - 2 Vw (07/07/2016 10:27 AM PDT) + + | Specimen | + + | | + + + + + | Narrative | Performed At | + + + | XR KNEE RIGHT 1 - 2 VW 07/07/2016 10:27 AM HISTORY: S/P RIGHT | [facility] | | TOTAL KNEE ARTHROPLASTY DOS 04/22/2016. COMPARISON: 04/22/2015. | [facility] | | FINDINGS: There is hardware [...] + | Darion Palomo Results In - 07/07/2016 11:05 AM PDT [...] | + + + + + | [facility] | [address] | [place] | [phone] | | [facility] | | [address] | | | - IMAGING | | | | + + + + + documented in this encounter Visit Diagnoses + + | Diagnosis | + + | Status post total right knee replacement | + + documented in this encounter"
--- OUTSIDE RECORDS SUMMARY | ~2019-10-18 | XMS | Encounter Summary ---
Demographics + + + | Address | [address] | | | [place] [address] | + + + | Home Phone | | + + + | Preferred Language | Unknown | + + + | Marital Status | | + + + | Advent Affiliation | PRE | + + + | Race | White | + + + | Ethnic Group | Not or | + + + Author + + + | Author | [facility] | + + + | Organization | [facility] | + + + | Address | Unknown | + + + | Phone | Unavailable | + + + Support + + + + + | Name | Relationship | Address | Phone | + + + + + | Juan Carlos Ko | ECON | [id number] | | | | | [place] | | | | | [address] | | + + + + + Care Team Providers + +------+ + | Care Information Technology Instructor Name | Role | Phone | + +------+ + | Bobo Garcia DO | PCP | | + +------+ + Encounter Details +--------+ + + + + | Date | Type | Department | Care Team | Description | +--------+ + + + + | 10/30/ | Documentati | [facility] | Mago Vela, RN | | | 2005 | on | [facility] | [address] | | | | | [address] | [address] [place], | | | | | [address] | [place] [address] | | | | | [facility] | | | | | | [place], [place] | | | | | | [address] | | | | | | [phone] | | | +--------+ + + + [...]
--- OUTSIDE RECORDS SUMMARY | ~2019-10-18 | XMS | Encounter Summary ---
Demographics + + + | Address | [address] [place] [address] | | | [place] [address] | + + + | Home Phone | | + + + | Preferred Language | Unknown | + + + | Marital Status | | + + + | Adventism Affiliation | 1076 | + + + | Race | Unknown | + + + | Ethnic Group | Unknown | + + + Author + + + | Author | [facility] | | | and [place] | + + + | Organization | [facility] | | | and [place] | + + + | Address | Unknown | + + + | Phone | Unavailable | + + + Support + + + + + | Name | Relationship | Address | Phone | + + + + + | Juan Carlos Ko | ECON | [address] [place] [address] [address] | | | | | [place], [place] | | | | | [address] | | + + + + + | Arie Ko | ECON | Unknown | | + + + + + Care Team Providers + +------+ + | Care Credit Interviewer Name | Role | Phone | + [...] | | | | | | | [place] TOTAL | | | | | | [...] + + | 04/22/ | Hospital | [facility] | Lencho Hays, | CKD (chronic kidney | | 2016 | Encounter | [facility] | Dev [facility] | disease), stage 3 | | | | [address] [place] | [place] | (moderate); | | | | [place] | [address] | Hyperlipidemia, | | | | [address] | | unspecified | | | | [phone] | | hyperlipidemia type; | | | [...] | | 0 | | | | [facility]ev[facility]Wsi | 6 hours as needed. | | [...] + | URINALYSIS WITH | Routin | 04/22/2016 | CKD (chronic | Results for this | | MICROSCOPIC WITH | e | 7:12 AM | kidney disease), | procedure are in the | | CULTURE IF INDICATED | | PDT | stage 3 (moderate) [...] - 1.030 | [facility] | | | [place] | | | [facility] | | [...] [address] | [place] | [phone] | | [facility] | | [address] | | | - LABORATORY | | [...]
--- OUTSIDE RECORDS SUMMARY | ~2019-10-18 | XMS | Encounter Summary ---
Demographics + + + | Address | [address] [place] [address] | | | [place] [address] | + + + | Home Phone | | + + + | Preferred Language | Unknown | + + + | Marital Status | | + + + | Sikh Affiliation | 1076 | + + + | Race | Unknown | + + + | Ethnic Group | Unknown | + + + Author + + + | Author | [facility] | | | and [place] | + + + | Organization | [...] Carlos Ko | ECON | [address] | | | | | [place], [place] | | | | | [address] | | + + + + + | Arie Ko | ECON | Unknown | | + + + + + Care Team Providers + +------+ + | Care Ecological Economist Name | Role | Phone | + +------+ + | Bobo Garcia DO | PCP | | + +------+ + Reason for Visit + + + | Reason | Comments | + + + | Pre-op Exam | right total hip arthroplasty dos 06/19/15 | + + + Encounter Details +--------+---------+ + + + | Date | Type | Department | Care Team | Description | +--------+---------+ + + + | 05/21/ | Office | [facility] | Lencho Hays, | Primary | | 2014 | Visit | ORTHOPEDIC SURGERY | MD Méndez [facility] | osteoarthritis of | | | | [address] [place] [address] | [place] | right hip (Primary | | | | [place] | [address] | Dx) | | | | [address] | | | | | | [phone] | | | +--------+---------+ + + + [...] + + + | Blood Pressure | 110/60 | 05/21/2015 3:46 PM | | | | | PDT | | + + + + + | Pulse | 64 | 05/21/2015 3:46 PM | | | | | PDT | | + + + + + | Temperature | 36.7 C (98.1 F) | 05/21/2015 3:46 PM | | | | | PDT | | + + + + + | Respiratory Rate | 16 | 05/21/2015 3:46 PM | | | | | PDT | | + + + + + | Oxygen Saturation | - | - | | + + + + + | Inhaled Oxygen | - | - | | | Concentration | | | | + + + + + | Weight | 109.3 kg (241 lb) | 05/21/2015 3:46 PM | | | | | PDT | | + + + + + | Height | 177.8 cm (5' 10") | 05/21/2015 3:46 PM | | | | | PDT | | + + + + + | Body Mass Index | 34.58 | 05/21/2015 3:46 PM | | | | | PDT | | + + + + + documented in this encounter Progress Notes Lencho Hays MD - 05/21/2015 4:37 PM PDTPatient returns for preop right HORACE She is ready to go Her meds reviewed All questions answered Will back off the morphine in the pain cocktail as she woke up vomiting Otherwise had a very unremarkable recovery from her left hip surgery 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
--- OUTSIDE RECORDS SUMMARY | ~2019-10-18 | XMS | Encounter Summary ---
Demographics + + + | Address | [address] [place] [address] | | | [place] [address] | + + + | Home Phone | | + + + | Preferred Language | Unknown | + + + | Marital Status | | + + + | Yarsanism Affiliation | 1076 | + + + [...] Juan Carlos Ko | ECON | [address] | | | | | [place], [place] | | | | | [address] | | + + + + + | Arie Ko | ECON | Unknown | | + + + + + Care Team Providers + +------+ + | Care Cover Cutter Name | Role | Phone | + +------+ + | Bobo Garcia DO | PCP | | + +------+ + Encounter Details +--------+ + + + + | Date | Type | Department | Care Team | Description | +--------+ + + + + | 02/18/ | Abstract | [facility] | Spencer Chase MD | | | 2015 | | GASTROENTEROLOGY | [address], [place] | | | | | [address] [place] | [address] [place], [place] | | | | | [address] [place], [place] | [address] | | | | | [address] | | | | | | [phone] | | | +--------+ + + + [...]
--- OUTSIDE RECORDS SUMMARY | ~2019-10-18 | XMS | Encounter Summary ---
Demographics + + + | Address | [address] | | | [place] [address] | + + + | Home Phone | | + + + | Preferred Language | Unknown | + + + | Marital Status | | + + + | Latter-Day Affiliation | PRE | + + + | Race | White | + + + | Ethnic Group | Not or | + + + Author + + + | Author | [facility] | + + + | Organization | [facility] | + + + | Address | Unknown | + + + | Phone | Unavailable | + + + Support + + + + + | Name | Relationship | Address | Phone | + + + + + | Juan Carlos Ko | ECON | [address] | | | | | [place] | | | | | [address] | | + + + + + Care Team Providers + +------+ + | Care Framing Mill Operator Name | Role | Phone | + +------+ + PCP | Unavailable | + +------+ + Encounter Details +--------+ + + + + | Date | Type | Department | Care Team | Description | +--------+ + + + + | 07/18/ | Telephone | [facility] | Mago Vela RN | | | 2005 | | [facility] | [address] | | | | | [place] [address] | [address] [place], | | | | | [address] | [place] [address] | | | | | [facility] | | | | | | [place], [place] | | | | | | [address] | | | | | | [phone] | | | +--------+ + + + [...]
--- OUTSIDE RECORDS SUMMARY | ~2019-10-18 | XMS | Encounter Summary ---
Demographics + + + | Address | [address] [place] [address] | | | [place] [address] | + + + | Home Phone | | + + + | Preferred Language | Unknown | + + + | Marital Status | | + + + | Mandaen Affiliation | 1076 | + + + | Race | Unknown | + + + | Ethnic Group | Unknown | + + + Author + + + | Author | [facility] | | | and [place] | + + + | Organization | [facility] | | | and [place] | + + + | Address | Unknown | + + + | Phone | Unavailable | + + + Support + + + + + | Name | Relationship | Address | Phone | + + + + + | Juan Carlos Ko | ECON | [address] [place] [address] [address] | | | | | [place], [place] | | | | | [address] | | + + + + + | Arie Ko | ECON | Unknown | | + + + + + Care Team Providers + +------+ + | Care V Belt Builder Name | Role | Phone | + [...] | | | | | | | CT TOTAL | | | | | | [...] + + + + | 04/22/ | Anesthesia | [facility] | Raymundo Ferraro, | | | 2015 | Event | [facility] | [address] | | | | | [address] | [place] | | | | | [place] | [address] | | | | | [phone] | | | | | | [phone] | | | +--------+ + + + + Anesthesia Record + + + + + | Procedure Name | Responsible | Anesthesia Start | Anesthesia Stop Time | | | Anesthesiologist | Time | | + + + + + | Right Total Knee | Raymundo Ferraro MD | 04/22/16 0959 | 04/22/16 1131 | | Arthroplasty (Right | | | | | Knee) | | | | + + + + + +----+---+ + + | Da | T | Event | Comment | | te | i | | | | | m | | | | | e | | | +----+---+ + + | 06 | 0 | | | | /0 | 9 | | | | 3/ | 4 | | | | 20 | 7 | | | | 16 | | | | +----+---+ + + | | 0 | An Checkout | Pre-use anesthesia machine/equipment checkout. | | | 9 | | | | | 5 | | | | | 1 | | | +----+---+ + + | | 0 | Pre-Procedu | | | | 9 | ral Timeout | | | | 5 | Completed | | | | 1 | | | +----+---+ + + | | 0 | An Start | | | | 9 | Data | | | | 5 | | | | | 1 | | | +----+---+ + + | | 0 | Block Start | | | | 9 | | | | | 5 | | | | | 1 | | | +----+---+ + + | | 0 | Antibiotic | | | | 9 | Given | | | | 5 | | | | | 1 | | | +----+---+ + + | | 0 | AN Block | | | | 9 | End | | | | 5 | | | | | 9 | | | +----+---+ + + | | 0 | an stop | | | | 9 | data | | | | 5 | | | | | 9 | | | +----+---+ + + | | 0 | An Start | Reassessment prior to anesthesia induction/procedure. | | | 9 | | | | | 5 | | | | | 9 | | | +----+---+ + + | | 1 | Preoxygenat | | | | 0 | ed | | | | 0 | | | | | 5 | | | +----+---+ + + | | 1 | An | | | | 0 | Induction | | | | 0 | | | | | 6 | | | +----+---+ + + | | 1 | An | | | | 0 | Intubation | | | | 0 | | | | | 7 | | | +----+---+ + + | | 1 | AN Bite | | | | 0 | Block | | | | 0 | | | | | 9 | | | +----+---+ + + | | 1 | [place] | | | | 0 | 43-degrees | | | | 2 | | | | | 0 | | | +----+---+ + + | | 1 | An Tourn | | | | 0 | Inflated | | | | 2 | | | | | 0 | | | +----+---+ + + | | 1 | First | | | | 0 | Inc/Proc St | | | | 2 | | | | | 0 | | | +----+---+ + + | | 1 | [place] off | | | | 1 | | | | | 2 | | | | | 1 | | | +----+---+ + + | | 1 | An Tourn | 62 minutes | | | 1 | Deflated | | | | 2 | | | | | 3 | | | +----+---+ + + | | 1 | Extubated | | | | 1 | Awake | | | | 2 | | | | | 7 | | | +----+---+ + + | | 1 | an stop | | | | 1 | data | | | | 2 | | | | | 7 | | | +----+---+ + + | | 1 | An Stop | Patient handed off to recovery nurse. | | | 3 | | | | | 1 | | | +----+---+ + + +------+ | Meds | +------+ + + + | Name | Total | + + + | midazolam | 2 mg | + + + | fentaNYL injection (2 mL) | 100 mcg | + + + | lidocaine 2% (PF) | 200 mg | + + + | propofol (DIPRIVAN) injection | 170 mg | | (bolus) (20 mL) | | + + + | dexamethasone | 10 mg | + + + | ondansetron | 4 mg | + + + | ropivacaine 0.5% | 22 mL | + + + | tranexamic acid in 50 mL NS | 2 g | | (CYKLOKAPRON) IVPB (simple) 1 g | | + + + | ceFAZolin (ANCEF, KEFZOL) 2 g in | 2 g | | sodium chloride 0.9% 50 mL IVPB | | + + + | ePHEDrine | 10 mg | + + + | lactated ringers (LR) infusion | 1,400 mL | + + + + + [...] Removal | +--------+ + + + | Airway | Placement Date: 04/22/16; | 04/22/16 1007 by | 04/22/16 1127 by | | | Placement Time: 1007; Mask | Raymundo Ferraro MD | Raymundo Ferraro MD | | | Ventilation: EZ; Airway Type: | | | | | laryngeal mask, cuffed; Size: 4; | | | | | Tube Reference Point: secure and | | | | | patent; Placement Check: exhaled | | | | | CO2 detection device; Removal | | | | | Date: 04/22/16; Removal Time: | | | | | 1127 | | | +--------+ + + + | Periph | 04/22/16; 1011; [id number] | 04/22/16 1011 by | 04/24/16 1212 by | | eral | catheter system; 20 gauge, 11/23 | MATHEW SUERO | Dav Spaulding RN | | IV | in length; intradermal injection, | | | | | tolerated well, topical | | | | | anesthetic spray applied; short | | | | | term use; 04/24/16; 1212 | | | +--------+ + + + | Read | 04/22/16; 1029; Right; knee; | 04/22/16 1029 by | 04/24/16 1213 by | | only - | polarcare pad applied in pacu; | Marj Hickman RN | Dav Spaulding RN | | | healing within expectations; | | | | Incisi | 04/24/16; 1213 | | | | on | | [...] | + +--------+ + + + | ANE NERVE BLOCK | Routin | 04/22/2016 | | Results for this | | CATHETER NOTE | e | 10:48 AM | | procedure are in the | | | | PDT | | results section. | + +--------+ + + + documented in this encounter Results Anesthesia Perineural Note (04/22/2016 10:48 AM PDT) + + + | Narrative | Performed At | + + + | Raymundo Ferraro MD 04/22/2016 10:48 Perineural Procedure Note | | | 04/22/2016 9:56 Nerve block: sciatic Laterality: right Continuous | | | block with catheter: No Provider requested procedure: Saúl | | | Indication: postoperative analgesia Preprocedure check: patient | | | identified, procedure and rescue equipment checked, preevaluation | | | including airway assessment complete, risks/benefits discussed, | | | consent obtained, timeout performed, reassessment prior to procedure | | | and monitors applied Patient position: prone Preparation: | | | chlorhexidine/isopropyl alcohol Technique: ultrasound Radiology | | | image stored in patient's chart: ultrasound Needle: stimulating and | | | insulated Needle size: 21 g Needle length: 4 in Medication | | | administered through: needle Negative findings: no blood aspirated | | | and no paresthesia Total volume of local anesthetic solution | | | administered: 15 (Incremental injection in 3-4 mL increments with | | | negative aspiration each time.) Ease of procedure: 1 Attempts: | | | easy Comments: Regional block placed for postoperative pain | | | control at request of patient and surgeon. Ultrasound utilized | | | throughout entirety of procedure for the purposes of directing the | | | needle to nerve proximity and watching spread of local anesthetic. | | | Positive level and "donut" sign. Ultrasound image in chart. | | | NIBP/SpO2 monitoring. Spouse at bedside throughout. Please | | | see anesthesia record or flowsheet for vital sign documentation and | | | see anesthesia record or MAR for all medication documentation. | | | Performing provider: RAYMUNDO FERRARO Pastry Cook Apprentice: Genie Ohara, | | | AT Electronically Signed by: Raymundo Ferraro MD | | | ESig date/time: 04/22/2016 10:44 Perineural | | | Procedure Note 04/22/2016 9:59 Nerve block: femoral Laterality: | | | right Continuous block with catheter: No Provider requested | | | procedure: [place] Indication: postoperative analgesia | | | Preprocedure check: patient identified, procedure and rescue | | | equipment checked, preevaluation including airway assessment | | | complete, risks/benefits discussed, consent obtained, timeout | | | performed, reassessment prior to procedure and monitors applied | | | Patient position: supine Preparation: chlorhexidine/isopropyl alcohol | | | Technique: ultrasound Radiology image stored in patient's chart: | | | ultrasound Needle: stimulating and insulated Needle size: 21 g | | | Needle length: 4 in Medication administered through: needle Negative | | | findings: no blood aspirated and no paresthesia Total volume of | | | local anesthetic solution administered: 12 (Incremental injection in | | | 3-4 mL increments with negative aspiration each time.) Ease of | | | procedure: 1 Attempts: easy Comments: Regional block placed for | | | postoperative pain control at request of patient and surgeon. | | | Ultrasound utilized throughout entirety of procedure for the | | | purposes of directing the needle to nerve proximity and watching | | | spread of local anesthetic. Positive level and "donut" sign. | | | Ultrasound image in chart. NIBP/SpO2 monitoring. Spouse at | | | bedside throughout. Please see anesthesia record or flowsheet | | | for vital sign documentation and see anesthesia record or MAR for | | | all medication documentation. Performing provider: OMARI | | | RAYMUNDO Lopez Pastry Cook Apprentice: OBED Cortes Electronically | | | Signed by: Raymundo Ferraro MD ESig | | | date/time: 04/22/2016 10:48 | | + + + Anesthesia Perineural Note (04/22/2016 10:48 AM PDT) + + + | Narrative | Performed At | + + + | Raymundo Ferraro MD 04/22/2016 10:48 Perineural Procedure Note | | | 04/22/2016 9:56 Nerve block: sciatic Laterality: right Continuous | | | block with catheter: No Provider requested procedure: Saúl | | | Indication: postoperative analgesia Preprocedure check: patient | | | identified, procedure and rescue equipment checked, preevaluation | | | including airway assessment complete, risks/benefits discussed, | | | consent obtained, timeout performed, reassessment prior to procedure | | | and monitors applied Patient position: prone Preparation: | | | chlorhexidine/isopropyl alcohol Technique: ultrasound Radiology | | | image stored in patient's chart: ultrasound Needle: stimulating and | | | insulated Needle size: 21 g Needle length: 4 in Medication | | | administered through: needle Negative findings: no blood aspirated | | | and no paresthesia Total volume of local anesthetic solution | | | administered: 15 (Incremental injection in 3-4 mL increments with | | | negative aspiration each time.) Ease of procedure: 1 Attempts: | | | easy Comments: Regional block placed for postoperative pain | | | control at request of patient and surgeon. Ultrasound utilized | | | throughout entirety of procedure for the purposes of directing the | | | needle to nerve proximity and watching spread of local anesthetic. | | | Positive level and "donut" sign. Ultrasound image in chart. | | | NIBP/SpO2 monitoring. Spouse at bedside throughout. Please | | | see anesthesia record or flowsheet for vital sign documentation and | | | see anesthesia record or MAR for all medication documentation. | | | Performing provider: RAYMUNDO FERRARO Pastry Cook Apprentice: Genie Ohara, | | | AT Electronically Signed by: Raymundo Ferraro MD | | | ESig date/time: 04/22/2016 10:44 Perineural | | | Procedure Note 04/22/2016 9:59 Nerve block: femoral Laterality: | | | right Continuous block with catheter: No Provider requested | | | procedure: Saúl Indication: postoperative analgesia | | | Preprocedure check: patient identified, procedure and rescue | | | equipment checked, preevaluation including airway assessment | | | complete, risks/benefits discussed, consent obtained, timeout | | | performed, reassessment prior to procedure and monitors applied | | | Patient position: supine Preparation: chlorhexidine/isopropyl alcohol | | | Technique: ultrasound Radiology image stored in patient's chart: | | | ultrasound Needle: stimulating and insulated Needle size: 21 g | | | Needle length: 4 in Medication administered through: needle Negative | | | findings: no blood aspirated and no paresthesia Total volume of | | | local anesthetic solution administered: 12 (Incremental injection in | | | 3-4 mL increments with negative aspiration each time.) Ease of | | | procedure: 1 Attempts: easy Comments: Regional block placed for | | | postoperative pain control at request of patient and surgeon. | | | Ultrasound utilized throughout entirety of procedure for the | | | purposes of directing the needle to nerve proximity and watching | | | spread of local anesthetic. Positive level and "donut" sign. | | | Ultrasound image in chart. NIBP/SpO2 monitoring. Spouse at | | | bedside throughout. Please see anesthesia record or flowsheet | | | for vital sign documentation and see anesthesia record or MAR for | | | all medication documentation. Performing provider: OMARI | | | RAYMUNDO Lopez Pastry Cook Apprentice: OBED Cortes Electronically | | | Signed by: Raymundo Ferraro MD ESig | | | date/time: 04/22/2016 10:48 | | + + + documented in this encounter Visit Diagnoses Not on filedocumented in this encounter Administered Medications + +---------+ +------+------+------+ | Medication Order | MAR | Action | Dose | Rate | Site | | | Action | Date | | | | + +---------+ +------+------+------+ | ceFAZolin (ANCEF, KEFZOL) 2 g | New Bag | 04/22/20 | 2 g | | | | in sodium chloride 0.9% 50 mL | | 16 9:51 | | | | | IVPB 2 g, Intravenous, | | AM PDT | | | | | Administer over 30 Minutes, Prior | | | | | | | to Incision, Starting Mon04/22/16 | | | | | | | at 0854, For 1 dose, administer | | | | | | | within 1 hour of incision, | | | | | | | Pre-op, Indications: Surgical | | | | | | | Prophylaxis | | | | | | + +---------+ +------+------+------+ +---+---+ | | | +---+---+ + +-------+ +-------+---+---+ | dexamethasone (DECADRON) 10 | Given | 04/22/20 | 10 mg | | | | mg/mL injection Intravenous, | | 16 10:11 | | | | | PRN, Starting Mon04/22/16 at 1011, | | AM PDT | | | | | Anesthesia Intra-op | | | | | | + +-------+ +-------+---+---+ +---+---+ | | | +---+---+ + +-------+ +-------+---+---+ | ePHEDrine 50 mg/mL injection | Given | 04/22/20 | 10 mg | | | | PRN, Starting Mon04/22/16 at 1033, | | 16 10:33 | | | | | Anesthesia Intra-op | | AM PDT | | | | + +-------+ +-------+---+---+ +---+---+ | | | +---+---+ + +-------+ +--------+---+---+ | fentaNYL (PF) injection PRN, | Given | 04/22/20 | 25 mcg | | | | Pain, Starting 04/22/16 at | | 16 10:20 | | | | | 1011, Anesthesia Intra-op | | AM PDT | | | | + +-------+ +--------+---+---+ +-------+ +--------+---+---+ | Given | 04/22/20 | 25 mcg | | | | | 16 10:11 | | | | | | AM PDT | | | | +-------+ +--------+---+---+ | Given | 04/22/20 | 25 mcg | | | | | 16 10:09 | | | | | | AM PDT | | | | +-------+ +--------+---+---+ +---+---+ | | | +---+---+ + +---------+ +---+---+---+ | lactated ringers (LR) infusion | New Bag | 04/22/20 | | | | | at 10-100 mL/hr, Intravenous, | | 16 10:34 | | | | | CONTINUOUS, Starting Mon04/22/16 | | AM PDT | [...] | | +---+---+ + +-------+ +--------+---+---+ | lidocaine (PF) 2% injection | Given | 04/22/20 | 100 mg | | | | PRN, Starting Mon04/22/16 at 0954, | | 16 10:06 | | | | | Anesthesia Intra-op | | AM PDT | | | | + +-------+ +--------+---+---+ +-------+ +--------+---+---+ | Given | 04/22/20 | 100 mg | | | | | 16 9:54 | | | | | | AM PDT | | | | +-------+ +--------+---+---+ +---+---+ | | | +---+---+ + +-------+ +------+---+---+ | midazolam (VERSED) 1 mg/mL | Given | 04/22/20 | 2 mg | | | | injection Intravenous, PRN, | | 16 9:51 | | | | | Anxiety, Starting 04/22/16 at | | AM PDT | | | | | 0951, Anesthesia Intra-op | | | | | | + +-------+ +------+---+---+ +---+---+ | | | +---+---+ + +-------+ +------+---+---+ | ondansetron (ZOFRAN) injection | Given | 04/22/20 | 4 mg | | | | PRN, Nausea, Vomiting, Starting | | 16 10:11 | | | | | 04/22/16 at 1011, Anesthesia | | AM PDT | | | | | Intra-op | | | | | | + +-------+ +------+---+---+ +---+---+ | | | +---+---+ + +-------+ +-------+---+---+ | propofol (DIPRIVAN) injection | Given | 04/22/20 | 20 mg | | | | PRN, Starting Mon04/22/16 at 1021, | | 16 10:21 | | | | | Anesthesia Intra-op | | AM PDT | | | | + +-------+ +-------+---+---+ +-------+ +--------+---+---+ | Given | 04/22/20 | 150 mg | | | | | 16 10:06 | | | | | | AM PDT | | | | +-------+ +--------+---+---+ +---+---+ | | | +---+---+ + +-------+ +--------+---+---+ | ropivacaine (NAROPIN) 5 mg/mL | Given | 04/22/20 | 12 mLs | | | | (0.5%) injection PERINEURAL, | | 16 9:59 | | | | | PRN, Starting Mon04/22/16 at 0954, | | AM PDT | | | | | Anesthesia Intra-op | | | | | | + +-------+ +--------+---+---+ +-------+ +--------+---+---+ | Given | 04/22/20 | 10 mLs | | | | | 16 9:54 | | | | | | AM PDT | | | | +-------+ +--------+---+---+ +---+---+ | | | +---+---+ + +-------+ +-----+---+---+ | tranexamic acid in 50 mL NS | Given | 04/22/20 | 1 g | | | | (CYKLOKAPRON) IVPB (simple) 1 g | | 16 11:16 | | | | | 1 g, Intravenous, Administer over | | AM PDT | | | | | 15 Minutes, ONCE, Mon04/22/16 at | | | | | | | 1030, For 1 dose, Maximum | | | | | | | infusion rate = 100 mg/min. To be | | | | | | | given in the operating room | | | | | | | prior to skin incision., | | | | | | + +-------+ +-----+---+---+ +-------+ +-----+---+---+ | Given | 04/22/20 | 1 g | | | | | 16 10:19 | | | | | | AM PDT | | | | +-------+ +-----+---+---+ +---+---+ | | | +---+---+ documented in this encounter
--- OUTSIDE RECORDS SUMMARY | ~2019-10-18 | XMS | Clinical Summary ---
Demographics + + + | Address | [address] | | | [place] [address] | + + + | Home Phone | | + + + | Preferred Language | Unknown | + + + | Marital Status | | + + + | Episcopalian Affiliation | PRE | + + + | Race | White | + + + | Ethnic Group | Not or | + + + Author + + + | Author | [facility] | + + + | Organization | [facility] | + + + | Address | Unknown | + + + | Phone | Unavailable | + + + Support + + + + + | Name | Relationship | Address | Phone | + + + + + | Juan Carlos Ko | ECON | [address] | | | | | [place] | | | | | [address] | | + + + + + Care Team Providers + +------+ + | Care Equipment Manager Name | Role | Phone | + +------+ + PCP | Unavailable | + +------+ + Source Comments [facility] is fully live on both [facility] and [facility] Allergies No Known Allergies Medications + + + +---------+------+------+-------+ | Medication | Sig | Dispensed | Refills | Star | End | Statu | | | | | | t | Date | s | | | | | | Date | | | + + + +---------+------+------+-------+ | ENALAPRIL MALEATE | take 1 tablet (5mg) | | 0 | | | Activ | | 5 MG TAB | by oral route once | | | | | e | | | daily | | | | | | + + + +---------+------+------+-------+ | LEVOTHYROXINE 100 | take 1 tablet | | 0 | | | Activ | | MCG TAB | (100mcg) by oral | | | | | e | | | route once daily | | | | | | + + + +---------+------+------+-------+ | METFORMIN 500 MG | 1 pill at bedtime | | 0 | | | Activ | | TAB | | | | | | e | + + + +---------+------+------+-------+ Active Problems Not on file Family History + + +------+ + | Medical History | Relation | Name | Comments | + + +------+ + | Cancer | Father | | | + + +------+ + | Diabetes | Father | | | + + +------+ + | Heart Disease | Mother | | | + + +------+ + | Cancer | Paternal | | | | | Grandfath | | | | | er | | | + + +------+ + + +------+--------+ + | Relation | Name | Status | Comments | + +------+--------+ + | Father | | | | + +------+--------+ + | Mother | | | | + +------+--------+ + | Paternal Grandfather | | | | + +------+--------+ + Social History + +-------+ +--------+------+ | [...] recent travel history available. | + + Last Filed Vital Signs + + + + + | Vital Sign | Reading | Time Taken | Comments | + + + + + | Blood Pressure | 149/75 | 01/10/2007 2:36 PM | | | | | PST | | + + + + + | Pulse | 67 | 01/10/2007 2:36 PM | | | | | PST [...] + + + + | Weight | 111.6 kg (246 lb) | 01/10/2007 2:36 PM | | | | | PST | | + + + + + | Height | 180.3 cm (5' 11") | 10/04/2006 10:43 AM | | | | | PST | | + + + + + | Body Mass Index | 34.31 | 10/04/2006 10:43 AM | | | | | PST | | + + + + + Plan of Treatment + + + + + | Health Maintenance | Due Date | Last Done | Comments | + + + + + | Pneumococcal | | | | | vaccination (1 of 2 | 6 | | | | - PCV13) | | | | + + + + + | Influenza (Flu) | | | | | vaccination (#1) | 9 | | | + + + + + Results Not on filefrom Last 3 Months Insurance + +--------+ +--------+ + +--------+ | Payer | Benefi | Subscriber | Effect | Phone | Address | Type | | | t Plan | ID | dilia | | | | | | / | | Dates | | | | | | Group | | | | | | + +--------+ +--------+ + +--------+ | MEDICARE | MEDICA | xxxxxxxxxx | 04/20/20 | [phone] | [address] | [address] | | | RE A & | | 06-Pre | [phone] | | | [address] | | sent | | [place] | | | | | | | | [phone] | | + +--------+ +--------+ + +--------+ | COVENTRY FIRST | COVENT | [phone] | Effect | | | HMO | | HEALTH | RY | | dilia | | | | | | FIRST | | for | | | | | | HEALTH | | all | | | | | | | | dates | | | | + +--------+ +--------+ + +--------+ + +--------+ +--------+ + + | Guarantor Name | Accoun | Relation to | Date | Phone | Billing Address | | | t Type | Patient | of | | | | | | | | | | + +--------+ +--------+ + + | Carlota Ko | Person | Self [birth year] | [address] | | | al/Fam | | [phone] | [phone] | [place] [address] | | | mindy | | | 4 (Home) | | + +--------+ +--------+ + +
--- OUTSIDE RECORDS SUMMARY | ~2019-10-18 | XMS | Encounter Summary ---
Demographics + + + | Address | [address] [place] [address] | | | [place] [address] | + + + | Home Phone | | + + + | Preferred Language | Unknown | + + + | Marital Status | | + + + | Protestant Affiliation | 1076 | + + + | Race | Unknown | + + + | Ethnic Group | Unknown | + + + Author + + + | Author | [facility] | | | and [place] | + + + | Organization | [facility] | | | and [place] | + + + | Address | Unknown | + + + | Phone | Unavailable | + + + Support + + + + + | Name | Relationship | Address | Phone | + + + + + | Juan Carlos Ko | ECON | [address] | | | | | [place], [place] | | | | | [address] | | + + + + + | Arie Ko | ECON | Unknown | | + + + + + Care Team Providers + +------+ + | Care Chief Arson Division Name | Role | Phone | + +------+ + | Bobo Garcia DO | PCP | | + +------+ + Encounter Details +--------+ + + + + | Date | Type | Department | Care Team | Description | +--------+ + + + + | 01/15/ | Orders Only | [facility] | Conversion | | | 2014 | | NEPRHOLOGY [place] | Transaction, | | | | | [address] | Provider Unknown | | | | | [address] [place], [place] | [phone] | | | | | [address] | | | | | | [phone] | | | +--------+ + + + [...] + | URINALYSIS WITH | Routin | 01/15/2015 | | Results for this | | MICROSCOPIC WITH | e | 12:00 AM | | procedure are in the | | CULTURE IF INDICATED | | PST | | results section. | + +--------+ + + + | PARATHYROID HORMONE, | Routin | 01/15/2015 | | Results for this | | INTACT AND CALCIUM | e | 12:00 AM | | procedure are in the | | | | PST | | results section. | + +--------+ + + + | PROTEIN/CREATININE | Routin | 01/15/2015 | | Results for this | | RATIO, URINE | e | 12:00 AM | | procedure are in the | | | | PST | | results section. | + +--------+ + + + | PROTEIN, URINE, | Routin | 01/15/2015 | | Results for this | | RANDOM | e | 12:00 AM | | procedure are in the | | | | PST | | results section. | + +--------+ + + + | CREATININE, URINE, | Routin | 01/15/2015 | | Results for this | | RANDOM | e | 12:00 AM | | procedure are in the | | | | PST | | results section. | + +--------+ + + + documented in this encounter Results Urinalysis with Microscopic with Culture if Indicated (01/15/2015 12:00 AM PST) + + + + [...] + + + | Spec Grav, | 1.013 | | EXTERNAL | | | Fluid [...] + + + + | Total | negative | | EXTERNAL | | | Protein | | | LAB | | + + + + + + | pH, Urine | 5 | | EXTERNAL | | | | [...] + + + | RBC, UA | 0 | | EXTERNAL | | | | | | LAB | | + + + + + + | Epithelial | negative | | EXTERNAL | | | Cells [...] | | | + +---------+ + + Parathyroid Hormone, Intact and Calcium (01/15/2015 12:00 AM PST) + +-------+ + + + | Component | Value | Ref Range | Performed | Pathologist | | | | | At | Signature | + +-------+ + + + | PTH Intact | 42.73 | 15 - 65 | EXTERNAL | | | | | | LAB | | + +-------+ + + + | Calcium | 9.1 | 8.4 - 10.2 | EXTERNAL | [...] + +---------+ + + Protein/Creatinine Ratio, Urine (01/15/2015 12:00 AM PST) + + + + + + | Component | Value | Ref Range | Performed | Pathologist | | | | | At | Signature | + + + + + + | Protein/Cre | 172.7 (A) | 0 - 150 | EXTERNAL | [...] + +---------+ + + Protein, Urine, Random (01/15/2015 12:00 AM PST) + +-------+ + + + | Component | Value | Ref Range | Performed | Pathologist | | | | | At | Signature | + +-------+ + + + | Protein, | 19 | 0.0 - 50.0 | EXTERNAL | [...] + +---------+ + + Creatinine, Urine, Random (01/15/2015 12:00 AM PST) + +-------+ + + + | Component | Value | Ref Range | Performed | Pathologist | | | | | At | Signature | + +-------+ + + + | Creatinine, | 110 | | EXTERNAL | | | 24H [...]
--- OUTSIDE RECORDS SUMMARY | ~2019-10-18 | XMS | Encounter Summary ---
Demographics + + + | Address | [address] [place] [address] | | | [place] [address] | + + + | Home Phone | | + + + | Preferred Language | Unknown | + + + | Marital Status | | + + + | Church Affiliation | 1076 | + + + [...] Juan Carlos Ko | ECON | [address] | | | | | [place], [place] | | | | | [address] | | + + + + + | Arie Ko | ECON | Unknown | | + + + + + Care Team Providers + +------+ + | Care Security Business Analyst Name | Role | Phone | + +------+ + | Bobo Garcia DO | PCP | | + +------+ + Encounter Details +--------+ + + + + | Date | Type | Department | Care Team | Description | +--------+ + + + + | 06/22/ | Orders Only | [facility] | Lencho Hays, | | | 2014 | | ORTHOPEDIC SURGERY | [address] [facility] | | | | | [address] [facility] | [place], [place] | | | | | [place], [place] | [address] | | | | | [address] | | | | | | [phone] | | | +--------+ + + + [...] documented as of this encounter Progress Notes Suzi Gaming LPN - 06/22/2015 11:35 AM KERRYNormyecenia called the office this morning with c/o nausea and vomiting and states she is unable to hold her medications down, Carlota is S/P HORACE dos 06/19/15. Per Dr Hays, Called in [facility] to [facility] pharmacy in [place] spoke to Kasia lovell in the pharmacy. Called Carlota back to let her know script was called in and will ready for pickling grader soon. Rickie mented in this encounter Plan of Treatment Not on filedocumented as of this encounter Visit Diagnoses Not on filedocumented in this encounter"
--- OUTSIDE RECORDS SUMMARY | ~2019-10-18 | XMS | Encounter Summary ---
Demographics + + + | Address | [address] [place] [address] | | | [place] [address] | + + + | Home Phone | | + + + | Preferred Language | Unknown | + + + | Marital Status | | + + + | Gnosticism Affiliation | 1076 | + + + | Race | Unknown | + + + | Ethnic Group | Unknown | + + + Author + + + | Author | [facility] | | | and [place] | + + + | Organization | [facility] | | | and [place] | + + + | Address | Unknown | + + + | Phone | Unavailable | + + + Support + + + + + | Name | Relationship | Address | Phone | + + + + + | Juan Carlos Ko | ECON | [address] | | | | | [place], [place] | | | | | [address] | | + + + + + | Arie Ko | ECON | Unknown | | + + + + + Care Team Providers + +------+ + | Care Dry Chain Puller Name | Role | Phone | + +------+ + | Live Sims MD | PCP | | + +------+ + Reason for Visit + + + | Reason | Comments | + + + | Appointment | Hip injection Under Fluoro. | + + + Encounter Details +--------+ + + + + | Date | Type | Department | Care Team | Description | +--------+ + + + + | 06/10/ | Telephone | [facility] | Lencho Hays, | Appointment (Hip | | 2013 | | ORTHOPEDIC SURGERY | MD [facility] | injection Under | | | | [address] [place] [address] | [place], [place] | Fluoro.) | | | | [place], [place] | [address] | | | | | [address] | | | | | | [phone] | | | +--------+ + + + [...] on filedocumented as of this encounter Results FL Major Joint Injection Left (07/09/2014 8:32 AM PDT) + + | Specimen | + + | | + + + + + | Narrative | Performed At | + + + | No Radiologist interpretation, please see Chart Review. | [facility] | | | [facility] | | | [facility] | | | - IMAGING | [...] + + | [address] | [address] | [place] | [phone] | | [facility] | | [address] | | | - IMAGING | | [...]
--- OUTSIDE RECORDS SUMMARY | ~2019-10-18 | XMS | Encounter Summary ---
Demographics + + + | Address | [address] [place] [address] | | | [place] [address] | + + + | Home Phone | | + + + | Preferred Language | Unknown | + + + | Marital Status | | + + + | Voodoo Affiliation | 1076 | + + + | Race | Unknown | + + + | Ethnic Group | Unknown | + + + Author + + + | Author | [facility] | | | and [place] | + + + | Organization | [facility] | | | and [place] | + + + | Address | Unknown | + + + | Phone | Unavailable | + + + Support + + + + + | Name | Relationship | Address | Phone | + + + + + | Juan Carlos Ko | ECON | [address] [place] [address] APT | | | | | [place], [place] | | | | | [address] | | + + + + + | Arie Ko | ECON | Unknown | | + + + + + Care Team Providers + +------+ + | Care Oil Paint Shader Name | Role | Phone | + [...] Description | +--------+---------+ + + + | 06/19/ | Surgery | [facility] | Lencho Hays, | Right Total Hip | | 2015 | | MED CTR OR INTRA OP | MD [facility]dez [facility] | Arthroplasty, | | | | [address] | [place], [place] | Anterior Approach | | | | [place], [place] | [address] | | | | | [address] | | | | | | [phone] | | | +--------+---------+ + + + [...] to home Follow-Up Plans: 10-14 days with me Code Status/Advance Directive (Pertinent discussions/declarations): Full Code Electronically signed by: Lencho Hays, 06/21/2015 10:[address] [facility] documented in this en counter Discharge [...] PDTPatient doing well and [facility] See discharge summary A Front wheel walker is prescribed for the next 6 weeks A face to face encounter with me was done and the need is certified - s/p right total hip a rthroplasty postop day 2 Lencho Hasy MD Lencho Tripp MD - 06/20/2015 9:07 [...] 1 s/p right Kenny Mobilize with PT at [facility] RN - 06/19/2015 6:43 AM [place] [...] + + + + + | [facility] | [address] | [place] | [phone] | | [facility] | | [address] | | | - LABORATORY | | [...] | | | | mmol/L | [facility] | | | | | | MEDICAL [...] | | | | | | [facility] | | [...] | | | | | mg/dL | [facility] | | | | | | MEDICAL | | | | | | CENTER - | | | | | | LABORATORY | | + + + + + + | eGFR if not | >60Comment: GLOMERULAR | >=60 | [facility] | | | | FILTRATION | mL/min/1.73m2 | [facility] | | | [place] | RATE,ESTIMATED | | MEDICAL | | | | mL/min/1.21o5Frpd than | | CENTER - | | [...] | | | | | mg/dL | [facility] | | | | | [...] + | [facility] | [address] | [place] | [phone] | | [facility] | | [address] | | | - LABORATORY | | [...] [address] | [place] | [phone] | | [facility] | | [address] | | | - LABORATORY | | [...] | | | | | | [facility] | | [...] | | | | | | [facility] | | [...] | | | FILTRATION | mL/min/1.73m2 | [facility] | | | [place] | RATE,ESTIMATED | | MEDICAL | | | | mL/min/1.35o1Hscw than | | CENTER - | | [...] | | | | | mg/dL | [facility] | | | | | [...] ST. | [address] | [place], [place] | [phone] | | [facility] | | [address] | | | - LABORATORY | | | | + + + + + ABRIL Siegel Neida Russ (06/19/2015 10:23 AM PDT) + + | [...] | | + +--------+ +--------+------+ + | bupivacaine (liposomal) | Given | 06/19/20 | 20 mLs | | Surgical | | (EXPAREL) 1.3% injection PRN, | | 15 9:30 | | | Site | | Starting 06/19/15 at 0930, | | AM PDT | | | | | Intra-op | | | | | | + +--------+ +--------+------+ + +---+---+ | | | +---+---+ + +-------+ +--------+---+ + | EPINEPHrine 1 mg/mL injection | Given | 06/19/20 | 0.3 mg | | Surgical | | PRN, Starting Mon06/19/15 at | | 15 8:34 | | | Site | | 0834, Intra-op | | AM PDT | | | | + +-------+ +--------+---+ + +---+---+ | | | +---+---+ + +-------+ +------+---+---+ | midazolam (VERSED) 1 mg/mL | Given | 06/19/20 | 2 mg | | | | injection 1 mg 1 mg, | | 15 7:40 | | | | | Intravenous, PRN, Anxiety, May | | AM PDT | | | | | repeat Q 5 minutes prn, Starting | | | | | | | Mon06/19/15 at 0614, For 2 doses, | | | | | | | May repeat once in 5min. Hold | | | | | | | anxiolytic until after anesthesia | | | | | | | and surgical consent is | | | | | | | obtained, Pre-op | | | | | | + +-------+ +------+---+---+ +---+---+ | | | +---+---+ + +-------+ +--------+---+ + | ropivacaine (NAROPIN) 2 mg/mL | Given | 06/19/20 | 59 mLs | | Surgical | | (0.2%) injection PRN, Starting | | 15 9:00 | | | Site | | 06/19/15 at 0900, Intra-op | | AM PDT | | | | + +-------+ +--------+---+ + +---+---+ | | | +---+---+ + +-------+ +-----+---+ + | vancomycin injection PRN, | Given | 06/19/20 | 1 g | | Surgical | | Starting 06/19/15 at 0900, | | 15 9:00 | | | Site | | Intra-op | | AM PDT | | | | + +-------+ +-----+---+ + +---+---+ | | | +---+---+ documented in this encounter
--- OUTSIDE RECORDS SUMMARY | ~2019-10-18 | XMS | Encounter Summary ---
Demographics + + + | Address | [address] [place] [address] | | | [place] [address] | + + + | Home Phone | | + + + | Preferred Language | Unknown | + + + | Marital Status | | + + + | Quaker Affiliation | 1076 | + + + [...] Juan Carlos Ko | ECON | [address] | | | | | [place], [place] | | | | | [address] | | + + + + + | Arie Ko | ECON | Unknown | | + + + + + Care Team Providers + +------+ + | Care Wharfinger Chief Name | Role | Phone | + +------+ + | Bobo Garcia DO | PCP | | + +------+ + Reason for Visit + + + | Reason | Comments | + + + | Pre-op Exam | right total knee arthroplasty dos 04/22/16 | + + + Encounter Details +--------+---------+ + + + | Date | Type | Department | Care Team | Description | +--------+---------+ + + + | 04/20/ | Office | [facility] | Lencho Hays, | CKD (chronic kidney | | 2016 | Visit | ORTHOPEDIC SURGERY | MD [facility]dez [facility] | disease), stage 3 | | | | [address] [place] [address] | [place] | (moderate) (Primary | | | | [place] | [address] | Dx); Hyperlipidemia, | | | | [address] | | unspecified | | | | [phone] | | hyperlipidemia type; | | | | | | Hypothyroidism, | | | | | | unspecified type; | | | | | | Preop testing; | | | | | | Localized | | | | | | osteoarthrosis, | | | | | | lower leg | +--------+---------+ + + + Social History [...] + + + | Blood Pressure | 144/65 | 04/20/2016 11:29 AM | | | | | PDT | | + + + + + | Pulse | 54 | 04/20/2016 11:29 AM | | | | | PDT | | + + + + + | Temperature | 36.9 C (98.4 F) | 04/20/2016 11:29 AM | | | | | PDT | | + + + + + | Respiratory Rate | - | - | | + + + + + | Oxygen Saturation | 97% | 04/20/2016 11:29 AM | | | | | PDT | | + + + + + | Inhaled Oxygen | - | - | | | Concentration | | | | + + + + + | Weight | 111.6 kg (246 lb) | 04/20/2016 11:29 AM | | | | | PDT | | + + + + + | Height | 177.8 cm (5' 10") | 04/20/2016 11:29 AM | | | | | PDT | | + + + + + | Body Mass Index | 35.3 | 04/20/2016 11:29 AM | | | | | PDT | | + + + + + documented in this encounter Progress Notes Lencho Hays MD - 04/20/2016 12:49 PM PDTPatient returns for preop right total knee art hroplasty We again went over what to expect with the surgery The difference in the postoperative recovery from her hips compared to the knees I showed her specific stretching exercises to work on it after surgery We went over her medications Labs pending History and physical to follow 12: 51 PM PDTdocumented in this encounter Plan of Treatment Not on filedocumented as of this encounter Procedures + +--------+ + + + | Procedure Name | Priori | Date/Time | Associated Diagnosis | Comments | | | ty | | | | + +--------+ + + + | CULTURE, MRSA | Routin | 04/20/2016 | CKD (chronic | Results for this | | | e | 12:16 PM | kidney disease), | procedure are [...] | ECG 12 LEAD | Routin | 04/20/2016 | CKD (chronic | Results for this | | | e | 12:13 PM | kidney disease), | procedure are [...] + + documented in this encounter Results Hemoglobin (04/20/2016 12:48 PM PDT) + +-------+ [...] [address] | [place] | [phone] | | [facility] | | [address] | | | - LABORATORY | | [...] [address] | [place] | [phone] | | [facility] | | [address] | | | - LABORATORY | | [...] [address] | [place] | [phone] | | [facility] | | [address] | | | - LABORATORY | | | | + + + + + Bo INR (04/20/2016 12:48 PM PDT) + + + + + + | Component | Value | Ref Range | Performed | Pathologist | | | | | At | Signature | + + + + + + | Prothrombin | 12.6 | 11.3 - 13.9 | [facility] | | | Time | | seconds | [facility] | | | | | | MEDICAL | | | | | | CENTER - | | | | | | LABORATORY | | + + + + + + | INR | 0.90Comment: Usual Oral | 0.90 - 1.10 | [facility] | | | | Anticoagulation Range: | | [facility] | | | | 2.0 - 3.0High [...] [address] | [place] | [phone] | | [facility] | | [address] | | | - LABORATORY | | [...] not | 43 (L)Comment: | >=60 | [facility] | | | | GLOMERULAR FILTRATION | mL/min/1.73m2 | [facility] | | | [place] | RATE,ESTIMATED | | MEDICAL | | | | mL/min/1.49i8Yrnh than | | CENTER - | | [...] + | [facility] | [address] | [place] | [phone] | | [facility] | | [address] | | | - LABORATORY | | | | + + + + + XR Chest PA and Lateral (04/20/2016 12:34 PM PDT) + + | Specimen | + + | | + + + + + | Narrative | Performed At | + + + | PA AND LATERAL CHEST 04/20/2016 12:34 PM CLINICAL HISTORY: PREOP | [facility] | | TESTING COMPARISON: None available FINDINGS: There is mild | [facility] | | tortuosity of the thoracic aorta. The cardiomediastinal [facility] | | and pulmonary vasculature are otherwise unremarkable. The lungs | - IMAGING | | appear somewhat hyperinflated. Mild hazy opacity at the anterior | | | left base favors epicardial fat. The lungs are clear elsewhere, | | | without pneumothorax or pleural effusion. There is generalized | | | osteopenia and multilevel spondylosis. S shaped thoracolumbar | | | curvature is noted. IMPRESSION - 1. POTENTIAL PULMONARY | | | HYPERINFLATION AND OBSTRUCTIVE LUNG DISEASE. 2. OSTEOPENIA, | | | SCOLIOSIS AND SPONDYLOSIS. Dictated and Signed by: Chente Fonseca | | | Electronically signed: 04/20/2016 3:22 PM | | + + + + + | Procedure Note | + + | Dewey, Rad Results In - 04/20/2016 3:25 PM PDT PA AND LATERAL CHEST 04/20/2016 12:34 PM | | | | CLINICAL HISTORY: PREOP TESTING | | | | COMPARISON: None available | | | | FINDINGS: There is mild tortuosity of the thoracic aorta. The cardiomediastinal | | silhouette and pulmonary vasculature are otherwise unremarkable. The lungs | | appear somewhat hyperinflated. Mild hazy opacity at the anterior left base | | favors epicardial fat. The lungs are clear elsewhere, without pneumothorax or | | pleural effusion. There is generalized osteopenia and multilevel spondylosis. | | S shaped thoracolumbar curvature is noted. | | | | IMPRESSION - | | | | 1. POTENTIAL PULMONARY HYPERINFLATION AND OBSTRUCTIVE LUNG DISEASE. | | | | 2. OSTEOPENIA, SCOLIOSIS AND SPONDYLOSIS. | | | | Dictated and Signed by: Chente Fonseca MD | | Electronically signed: 04/20/2016 3:22 PM | + + + + + + + | Performing | Address | City/State/Zipcode | Phone Number | | Organization | | | | + + + + + | [facility] | [address] | [place] | [phone] | | [facility] | | [address] | | | - IMAGING | | | | + + + + + Culture, MRSA (04/20/2016 12:16 PM PDT) + + + + + + | Component | Value | Ref Range | Performed | Pathologist | | | | | At | Signature | + + + + + + | Culture | Negative for MRSA by | | [facility] | | | | chromogenic agar method | | [facility] | | | | | | MEDICAL | | | | | | CENTER - | | | | | | LABORATORY | | + + + + + + + + | Specimen | + + | Respiratory - Both | | anterior nares (body | | structure) | + + + + + + + | Performing | Address | City/State/Zipcode | Phone Number | | Organization | | | | + + + + + | [facility] | [address] | [place] | [phone] | | [facility] | | [address] | | | - LABORATORY | | | | + + + + + ECG 12 lead (04/20/2016 12:13 PM PDT) + + + + + + | Component | Value | Ref Range | Performed | Pathologist | | | | | At | Signature | + + + + + + | VENTRICULAR | 51 | BPM | [facility] | | | RATE EKG | | | | | + + + + + + | ATRIAL RATE | 51 | BPM | [facility] | | + + + + + + | P-R | 178 | ms | [facility] | | | INTERVAL | | | | | + + + + + + | QRS | 84 | ms | [facility] | | | DURATION | | | | | + + + + + + | Q-T | 428 | ms | [facility] | | | INTERVAL | | | | | + + + + + + | Q-T | 394 | ms | [facility] | | | INTERVAL | | | | | | (CORRECTED) | | | | | + + + + + + | P WAVE AXIS | 50 | degrees | [facility] | | + + + + + + | QRS AXIS | -2 | degrees | [facility] | | + + + + + + | T AXIS | 28 | degrees | [facility] | | + + + + + + | INTERPRETAT | Sinus bradycardia with | | [facility] | | | ION TEXT | sinus arrhythmiaCannot | | | | | | rule out Anterior | | | | | | infarct , age | | | | | | undeterminedAbnormal | | | | | | ECGNo previous ECGs | | | | | | availableConfirmed by | | | | | | SELINA METZGER MD ([id number]) | | | | | | on 04/21/2016 8:43:39 AM | | | | + + + + + + + + | Specimen | + + | | + + + + + | Narrative | Performed At | + + + | | | + + + + +---------+ + + | Performing | Address | City/State/Zipcode | Phone Number | | Organization | | | | + +---------+ + + | [facility] | | | | + +---------+ + + documented in this encounter Visit Diagnoses + + | Diagnosis | + + | CKD (chronic kidney disease), stage 3 (moderate) - Primary | + + | Hyperlipidemia, unspecified hyperlipidemia type | + + | Hypothyroidism, unspecified type | + + | Preop testing Preoperative examination, unspecified | + + | Localized osteoarthrosis, lower leg Localized osteoarthrosis not specified whether | | primary or secondary, lower leg | + + documented in this encounter
--- OUTSIDE RECORDS SUMMARY | ~2019-10-18 | XMS | Encounter Summary ---
Demographics + + + | Address | [address] [place] [address] | | | [place] [address] | + + + | Home Phone [...] Juan [place] Ko | ECON | [address] | | | | | [place], [place] | | | | | [address] | | + + + + + | A[place] Ko | ECON | Unknown | | + + + + + Care Team Providers + +------+ + | Care Girl Friday Name | Role | Phone | + +------+ + | Bobo Garcia DO | PCP | | + +------+ + Encounter Details +--------+ + + + + | Date | Type | Department | Care Team | Description | +--------+ + + + + | 08/13/ | Hospital | [facility] | Lencho Hays, | S/P total hip | | 2015 | Encounter | [facility] | [address] | arthroplasty | | | | [address] [place] | [place], [place] | | | | | [place] | [address] | | | | | [address] | | | | | | [phone] | | | +--------+ + + + [...] 1 OR 2 VW | Routin | 08/13/2015 | S/P total hip | Results for this | | | e | 10:50 AM | arthroplasty | procedure are in the | | [...] 10:50 AM CLINICAL HISTORY: S/P RIGHT | [facility] | | TOTAL HIP ARTHROPLASTY DOS 06/19/15 COMPARISON: PELVIC RADIOGRAPH | [facility] | | JUNE 19 AND MULTIPLE PREVIOUS RADIOGRAPHS FINDINGS: Bilateral hip | MEDICAL CENTER | | arthroplasty hardware remains in [...] [address] | [place] | [phone] | | [facility] | | [address] | | | - IMAGING | | | | + + + + + documented in this encounter Visit Diagnoses + + | Diagnosis | + + | S/P total hip arthroplasty Hip joint replacement by other means | + + documented in this encounter"
--- OUTSIDE RECORDS SUMMARY | ~2019-10-18 | XMS | Encounter Summary ---
Demographics + + + | Address | [address] [place] [address] | | | [place] [address] | + + + | Home Phone [...] Juan Carlos Ko | ECON | [address] | | | | | [place], [place] | | | | | [address] | | + + + + + | Arie Ko | ECON | Unknown | | + + + + + Care Team Providers + +------+ + | Care Cut Off Machine Unloader Name | Role | Phone | + +------+ + | Bobo Garcia DO | PCP | | + +------+ + Encounter Details +--------+ + + + + | Date | Type | Department | Care Team | Description | +--------+ + + + + | 03/16/ | Hospital | [facility] | Spencer Chase MD | Diarrhea (Primary | | 2016 | Encounter | [facility] | [address], [place] | Dx); Weight loss; | | | | [address] | [address] [place], [place] | Fecal incontinence | | | | [place], [place] | [address] | | | | | [address] | | | | | | [phone] | | | +--------+ + + + [...] by mouth. | | 0 | | 06/03/201 | | Boswellia-Glucosamin | | | | [...] + | CULTURE, STOOL | Routin | 03/19/2016 | | [...] + | [facility] | [address] | [place] | [phone] | | [facility] | | [address] | | | - LABORATORY | | | | + + + + + Campylobacter AgQual (03/16/2016 11:22 AM PDT) + + + + + + | Component | Value | Ref Range | Performed | Pathologist | | | | | At | Signature | + + + + + + | Campylobact | Negative | Negative | [facility] | | | er AG, Qual | | | [facility] | | [...] [address] | [place] | [phone] | | [facility] | | [address] | | | - LABORATORY | | [...] [address] | [place] | [phone] | | [facility] | | [address] | | | - LABORATORY | | [...] | | | | | | | [id number] | | | | | | Source [...] Performed: | | | | | | [facility] | | | | | | [facility], [address] | | | | | | [address] [place] [address] | | | | + + + [...] | [address] | [place] [address] | [phone] | + + + + + Occult [...] ST. | [address] | [place] | [phone] | | [facility] | | [address] | | | - LABORATORY | | [...] | | , Qual | | | [facility] | | [...] [address] | [place] | [phone] | | [facility] | | [address] | | | - LABORATORY | | [...] | | | Diff | | | [facility] | | | | | | MEDICAL | | | | | | CENTER - | | | | | | LABORATORY | | + + + + + + | Clostridium | NegativeComment: | | [facility] | | | Difficile | Negative for toxigenic | | [facility] | | | GDH Antigen | Clostridium [...] [address] | [place] | [phone] | | [facility] | | [address] | | | - LABORATORY | | [...] [address] | [place] | [phone] | | [facility] | | [address] | | | - LABORATORY | | [...] | | | Antigen, | | | [facility] | | | Stool | | [...] ST. | [address] | [place] | [phone] | | [facility] | | [address] | | | - LABORATORY | | [...] [address] | [place] | [phone] | | [facility] | | [address] | | | - LABORATORY | | | | + + + + + EGD (03/16/2016 9:49 AM PDT) + + | Specimen | + + | | + + + + -+ | Narrative | Performed At | + + -+ | | [facility] | | GastroenterologyPatient Name: Carlota KoFauzia Date: 03/16/2016 | [facility] | | 9:49 AMMRN: [id number] #: [id number] of : | | | 1Admit Type: AmbulatoryAge: 75Room: [facility] 01Gender: FemaleNote | | | Status: FinalizedAttending MD: Spencer Chase MDProcedure: | | | Upper GI endoscopyIndications: Suspected esophageal | | | reflux, For therapy of esophageal reflux, | | | DiarrheaProviders: Spencer Chase MD, Elham Prather | | | [place]IANA Meadows, Joya Perez, [...] by the physician, the nurse and the oil field technician in the | | | endoscopy [...] Scope In: 10:04:43 AMScope Out: 10:09:27 AM [place] | | | [facility], [facility] [address] [place] [address] | | | [phone] | | | - Follow an antireflux [...] |Scope Out: 10:09:27 AM | | | [facility], [address] [facility], [place], [place] | | | [address] | | + + -+ + +---------+ + + | Performing | Address | City/State/Zipcode | Phone Number | | Organization | | | | + +---------+ + + | [facility] | | | | + +---------+ + + COLONOSCOPY (03/16/2016 9:48 AM PDT) + + | Specimen | + + | | + + + + -+ | Narrative | Performed At | + + -+ | | [facility] | | GastroenterologyPatient Name: Carlota Molina Date: 03/16/2016 | [place] | | 9:48 AMMRN: [id number] #: [id number] of : | | | 1940dmit Type: AmbulatoryAge: 75Room: [facility] 01Gender: FemaleNote | | | Status: FinalizedAttending MD: Spencer Chase, [facility]: | | | ColonoscopyIndications: Clinically significant diarrhea [...] by the physician, the nurse and the oil field technician in the | | | endoscopy [...] Scope In: 10:10:33 AMScope Out: 10:25:06 AM [place] | | | [facility], [facility] [address] [place] [address] | | | [phone] | | | - Discharge patient to [...] |Scope Out: 10:25:06 AM | | | [facility], [address], [place] | | | [address] | | + + -+ + +---------+ [...] 106 | 70 - 150 mg/dL | [facility] [...] [address] | [place] | [phone] | | [facility] | | [address] | | | - LABORATORY | | [...] 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 CWG:[facility]:C2NR GROSS DESCRIPTION: The specimen is | | | received in three parts. A. The specimen is labeled "Stefani | | | Carlota Huerta" and designated [...] cm all into (C1). | | | yt:MANINDER:[facility] PERFORMING LABORATORY: Tissue processing and slide | | | preparation were performed by [employer], [address] [place] [address] | | | [address], [place] [address] (Jewelry Mechanic: Joesph Syed M.D. | | | CLIA#: [id number]). Professional interpretation was performed by | | | [employer], [address] | | | [facility] [address] [place] [address] (Jewelry Mechanic: Von Joshi | | | Ángel Rodriguez; CLIA#: [id number]). Diagnostician: Mikala | | | Grady BEAR [...] Diarrhea - Primary | + + | Weight loss Loss [...] | | +---+---+ + +-------+ +---------+---+---+ | nzilxait-jcrtespouq-axakfqaupg | Given | 03/16/20 | 1 spray [...]
--- OUTSIDE RECORDS SUMMARY | ~2019-10-18 | XMS | Encounter Summary ---
Demographics + + + | Address | [address] [place] [address] | | | [place] [address] | + + + | Home Phone | | + + + | Preferred Language | Unknown | + + + | Marital Status | | + + + | Restorationist Affiliation | 1076 | + + + | Race | Unknown | + + + | Ethnic Group | Unknown | + + + Author + + + | Author | [facility] | | | and [place] | + + + | Organization | [facility] | | | and [place] | + + + | Address | Unknown | + + + | Phone | Unavailable | + + + Support + + + + + | Name | Relationship | Address | Phone | + + + + + | Juan Carlos Ko | ECON | [address] | | | | | [place], [place] | | | | | [address] | | + + + + + | Arie Ko | ECON | Unknown | | + + + + + Care Team Providers + +------+ + | Care Nuclear Physics Teacher Name | Role | Phone | + +------+ + | Bobo Garcia DO | PCP | | + +------+ + Reason for Visit +---------+ + | Reason | Comments | +---------+ + | Post Op | right total hip arthroplasty dos 06/19/15 | +---------+ + Encounter Details +--------+---------+ + + + | Date | Type | Department | Care Team | Description | +--------+---------+ + + + | 07/02/ | Office | [facility] | Lencho Hays, | Postop check | | 2015 | Visit | ORTHOPEDIC SURGERY | MD Dev MARSH | (Primary Dx) | | | | [address] [facility] | [facility] [place] | | | | | [place] | [address] | | | | | [address] | | | | | | [phone] | | | +--------+---------+ + + + [...] Temperature | 36.7 C (98.1 F) | 07/02/2015 9:58 AM | | | | | PDT [...] Weight | 114.3 kg (252 lb) | 07/02/2015 9:58 AM | | | | | PDT | | + + + + + | Height | 177.8 cm (5' 10") | 07/02/2015 9:58 AM | | | | | PDT | | + + + + + | Body Mass Index | 36.16 | 07/02/2015 9:58 AM | | | | | PDT | | + + + + + documented in this encounter Progress Notes Lencho Hays MD - 07/02/2015 1:07 PM PDTPatient returns status post right total hip ar throplasty 2 weeks out She is doing very well She feels she is further along and doing better than with her other side On exam her wound is healing well Tables removed today and Steri-Strips applied We'll see her back in one month with x-raysElectronically signed by Lencho Hays MD at 0 07/02/2015 1:08 PM PDTdocumented in this encounter Plan of Treatment Not on filedocumented as of this encounter Visit Diagnoses + + | Diagnosis | + + | Postop check - Primary Follow-up examination, following unspecified surgery | + + documented in this encounter
--- OUTSIDE RECORDS SUMMARY | ~2019-10-18 | XMS | Encounter Summary ---
Demographics + + + | Address | [address] [place] [address] | | | [place] [address] | + + + | Home Phone | | + + + | Preferred Language | Unknown | + + + | Marital Status | | + + + | Cheondoism Affiliation | 1076 | + + + [...] Carlos Ko | ECON | [address] [place] [address] [address] | | | | | [place], [place] | | | | | [address] | | + + + + + | Arie Ko | ECON | Unknown | | + + + + + Care Team Providers + +------+ + | Care Automotive Brake Specialist Name | Role | Phone | + [...] | +--------+ + + + + | 12/09/ | Telephone | [facility] | Eula Hernandez | Hospital Follow-up | | 2014 | | [facility] | A, PharmD [address] | | | | | [address] [place] | [address] [facility] | | | | | [place] [address] | [place] [address] | | | | | [phone] | | | +--------+ + + + [...]
--- OUTSIDE RECORDS SUMMARY | ~2019-10-18 | XMS | Encounter Summary ---
Demographics + + + | Address | [address] [place] [address] | | | [place] [address] | + + + | Home Phone | | + + + | Preferred Language | Unknown | + + + | Marital Status | | + + + | Congregation Affiliation | 1076 | + + + | Race | Unknown | + + + | Ethnic Group | Unknown | + + + Author + + + | Author | [facility] | | | and [place] | + + + | Organization | [facility] | | | and [place] | + + + | Address | Unknown | + + + | Phone | Unavailable | + + + Support + + + + + | Name | Relationship | Address | Phone | + + + + + | Juan Carlos Ko | ECON | [address] | | | | | [place], [place] | | | | | [address] | | + + + + + | Arie Ko | ECON | Unknown | | + + + + + Care Team Providers + +------+ + | Care Signs Sales Representative Name | Role | Phone | + +------+ + PCP | Unavailable | + +------+ + Encounter Details +--------+ + + + + | Date | Type | Department | Care Team | Description | +--------+ + + + + | 11/05/ | Hospital | [facility] | | | | 1996 | Encounter | MED CTR LABORATORY | | | | | | [address] [place] | | | | | | [place], [place] | | | | | | [address] | | | | | | [phone] | | | +--------+ + + + + Social History + +-------+ +--------+------+ | Tobacco Use | Types | Packs/Day | Years | Date | | | | | Used | | + +-------+ +--------+------+ | Never Assessed | | | | | + +-------+ +--------+------+ + + + | Sex Assigned at [...]
--- OUTSIDE RECORDS SUMMARY | ~2019-10-18 | XMS | Clinical Summary ---
Demographics + + + | Address | [address] [place] [address] | | | [place] [address] | + + + | Home Phone | | + + + | Preferred Language | Unknown | + + + | Marital Status | | + + + | Amish Affiliation | 1076 | + + + | Race | Unknown | + + + | Ethnic Group | Unknown | + + + Author + + + | Author | [facility] | | | and [place] | + + + | Organization | [facility] | | | and [place] | + + + | Address | Unknown | + + + | Phone | Unavailable | + + + Support + + + + + | Name | Relationship | Address | Phone | + + + + + | Juan Carlos Ko | ECON | [address] | | | | | [place], [place] | | | | | [address] | | + + + + + | Arie Ko | ECON | Unknown | | + + + + + Care Team Providers + +------+ + | Care Teletype Operator Name | Role | Phone | + +------+ + | Bobo Garcia DO | PCP | | + +------+ + Allergies + + + + + + | Active Allergy | Reactions | Severity | Noted | Comments | | | | | Date | | + + + + + + | Ibuprofen | Other (See Comments) | | 11/06/20 | Acute kidney | | | | | 14 | injury | + + + + + + Medications + + + +---------+------+------+-------+ | Medication | Sig | Dispensed | Refills | Star | End | Statu | | | | | | t | Date | s | | | | | | Date | | | + + + +---------+------+------+-------+ | Levothyroxine | Take 100 mcg by | | 0 | | | Activ | | Sodium 100 MCG CAPS | mouth every morning | | | | | e | | | (before breakfast). | | | | | | + + + +---------+------+------+-------+ | lisinopril | Take 20 mg by mouth | | 0 | | | Activ | | (PRINIVIL, ZESTRIL) | Daily. | | | | | e | | 20 mg tablet | | | | | | | + + + +---------+------+------+-------+ | DULoxetine | | | 0 | 05/3 | | Activ | | (CYMBALTA) [address] | | | | 1/20 | | e | | capsule | | | | 16 | | | + + + +---------+------+------+-------+ | budesonide | Take 3 capsules by | 90 | 1 | 11/1 | | Activ | | (ENTOCORT EC) 3 mg | mouth every morning. | capsule | | 6/20 | | e | | 24 hr capsule | Take 3 tablets by | | | 17 | | | | | mouth daily | | | | | | + + + +---------+------+------+-------+ | raNITIdine | Take 150 mg by mouth | | 0 | | | Activ | | (RANITIDINE) 150 mg | 2 times daily. | | | | | e | | tablet | | | | | | | + + + +---------+------+------+-------+ | Probiotic Product | Take by mouth. | | 0 | | | Activ | | (PROBIOTIC-10) CAPS | | | | | | e | + + + +---------+------+------+-------+ | cefadroxil | Take 1 capsule by | 2 | 2 | 12/1 | | Activ | | (DURICEF) 500 mg | mouth in the morning | capsule | | 2/20 | | e | | capsule | and 1 capsule by | | | 18 | | | | | mouth 12 hours later | | | | | | | | (day of dental | | | | | | | | appointment). | | | | | | + + + +---------+------+------+-------+ Active Problems + + + | Problem | Noted Date | + + + | Primary osteoarthritis of right knee | 04/21/2016 | + + + | Class II, BMI 35-39.9 | 04/21/2016 | + + + | Diarrhea | 03/15/2016 | + + + | Weight loss | 03/15/2016 | + + + | Fecal incontinence | 03/15/2016 | + + + | Proteinuria | 01/19/2015 | + + + | Osteoarthritis - Left Hip | 12/04/2014 | + + + | Alcohol consumption one day per week | 12/04/2014 | + + + | S/P hysterectomy | 12/04/2014 | + + + | CKD (chronic kidney disease), stage III | 10/20/2014 | + + + | Dyslipidemia | 10/20/2014 | + + + | Obesity | 10/20/2014 | + + + | Hypothyroid | | + + + | Hypertension | | + + + | Diabetes mellitus, type II - ORAL Control | | + + + | Neuropathy | | + + + + + | 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 | + + + +---+ | Adverse effect of anesthesia | | + +---+ + + | Overview: has woken up during procedures | + + + +---+ | PONV (postoperative nausea and vomiting) | | + +---+ | Gilbert's syndrome | | + +---+ Immunizations + + + + | Name | Administration Dates | Next Due | + + + + | INFLUENZA PF 19 Y OR | 09/03/2014 | | | >,TRIVALENT | | | | RECOMBINANT | | | + + + + Family History + + + + + | Medical History | Relation | Name | Comments | + + + + + | Arthritis | Father | Spencer | | | | | [place] | | + + + + + | Cancer | Father | Spencer | Prostate | | | | [place] | | + + + + + | Diabetes | Father | Spencer | | | | | [place] | | + + + + + | Heart disease | Father | Spencer | Congestive HF | | | | [place] | | + + + + + | High blood pressure | Father | Spencer | | | | | [place] | | + + + + + | Hypertension | Father | Spencer | | | | | [place] | | + + + + + | Tuberculosis | Maternal | | | | | Grandmoth | | | | | er | | | + + + + + | Cancer | Mother | Janette | Pancreatic | | | | [place] | | + + + + + | Depression | Mother | Janette | | | | | [place] | | + + + + + | Eczema | Mother | Janette | | | | | [place] | | + + + + + | Hearing loss | Mother | Janette | | | | | [place] | | + + + + + | Heart disease | Mother | Janette | Valve replacement | | | | [place] | | + + + + + | Miscarriages / | Mother | Janette | | | stillbirths | | [place] | | + + + + + | Diabetes | Other | | | + + + + + | Hypertension | Other | | | + + + + + | Prostate cancer | Other | | | + + + + + | Cancer | Paternal | Terri | Stomach/Colon? | | | Aunt | [place] | | + + + + + | Early | Paternal | Terri | stomach cancer | | | Aunt | [place] | | + + + + + | Heart disease | Paternal | Win | | | | Aunt | [place] | | + + + + + | Heart disease | Paternal | Hortencia | | | | Aunt | [place]ien | | + + + + + | Cancer | Paternal | Melecio | ? Throat | | | Grandfath | [place] | | | | er | | | + + + + + | Early | Paternal | Melecio | No - incorrect | | | Grandmoth | [place] | | | | er | | | + + + + + | * | Sister | | healthy | + + + + + | * | Sister | | healthy | + + + + + + + + + + | Relation | Name | Status | Comments | + + + + + | Father | Spencer | | dm | | | [place] | (Age | | | | | 94) | | + + + + + | Maternal Grandmother | | | | + + + + + | Mother | Janette | | pancreatic cancer | | | [place] | (Age | | | | | 92) | | + + + + + | Other | | | | + + + + + | Paternal Aunt | Terri | | | | | [place] | | | + + + + + | Paternal Aunt | Win | | | | | [place] | | | + + + + + | Paternal Aunt | Hortencia | | | | | [place] | | | + + + + + | Paternal Grandfather | Melecio | | | | | [place] | | | + + + + + | Paternal Grandmother | Melecio | | | | | [place] | | | + + + + + | Sister | | Alive | | + + + + + | Sister | | Alive | | + + + + + Social History + [...] | + + + + + | Diabetic Eye Exam | | | | | | 9 | | | + + + + + | Diabetic Foot Exam | | | | | | 9 | | | + + + + + | Hemoglobin A1c | | | | | Screening | 9 | | | + + + + + | Vaccine: | | | | | Dtap/Tdap/Td (1 - | 0 | | | | Tdap) | | | | + + + + + | Vaccine: Zoster (1 | | | | | of 2) | 1 | | | + + + + + | Breast Cancer | | | | | Screening | 6 | | | + + + + + | Vaccine: | | | | | Pneumococcal 65+ (1 | 6 | | | | of 2 - PCV13) | | | | + + + + + | Adult Annual | | | | | Wellness Visit | 5 | | | + + + + + | Vaccine: Influenza | | 09/04/2018, 09/03/2014 | | | (#1) | 9 | | | + + + + + Implants + +------+--------+ +--------+--------+--------+ | Implanted | Type | Area | Manufacture | Device | Shelf | Model | | | | | r | | Expira | / | | | | | | Identi | tion | Serial | | | | | | fier | Date | / Lot | + +------+--------+ +--------+--------+--------+ | Izabel Perez | | | [employer] | | 09/19/ | 12.15. | | CementlessImplanted: Qty: 1 | | | INC - MDTA | | 2019 | 56.MB | | on 12/05/2014 by Naveed, | | | | | | / | | Jordan Villa MD at [facility] | | | | | | /[id number] | | [facility] | | | | | | 1 | | [facility] | | | | | | | + +------+--------+ +--------+--------+--------+ | Imp Stem Std Amis 11/02 | | | [employer] | | 09/19/ | 01.18. | | Sz4 - [id number]: | | | INC - MDTA | | 2018 | 134 / | | Qty: 1 on 12/05/2014 by | | | | | | /[id number] | | Jordan Lucio MD at | | | | | | 7 | | [facility] | | | | | | | | [facility] | | | | | | | + +------+--------+ +--------+--------+--------+ | Liner Dmh 28mmImplanted: Qty: | | | [employer] | | 08/19/ | 01.26. | | 1 on 12/05/2014 by | | | INC - MDTA | | 2018 | [id number] | | Jordan Lucio MD at | | | | | | C / | | [facility] | | | | | | /[id number] | | [facility] | | | | | | 5 | + +------+--------+ +--------+--------+--------+ | Imp Hip Hd Cocr Sz Med 28mm - | | | [employer] | | 09/19/ | 01.25. | | [id number]: Qty: 1 | | | INC - MDTA | | 2018 | 012 / | | on 12/05/2014 by Naveed, | | | | | | /[id number] | | Jordan Villa MD at [facility] | | | | | | 0 | | [facility] | | | | | | | | [facility] | | | | | | | + +------+--------+ +--------+--------+--------+ | Imp Hip Tot Fem Hd Mtl Xl - | | | CAP JEAN - | | | OH3A / | | [id number]: Qty: 1 on | | | CAP | | | / | | 12/05/2014 at [facility] | | | | | | | | [facility] | | | | | | | + +------+--------+ +--------+--------+--------+ | Imp Tj Tot Upch S Adv Stbl - | | | CAP JEAN - | | | OTJ-S | | [id number]: Qty: 1 on | | | CAP | | | / / | | 12/05/2014 at [facility] | | | | | | | | [facility] | | | | | | | + +------+--------+ +--------+--------+--------+ | Imp Hip Fem Hd Ceram 28mm Szs | | Right: | [employer] | | 07/20/ | 01.29. | | - [id number]: Qty: 1 | | Hip | INC - MDTA | | 2019 | 201 / | | on 06/19/2015 by Saúl, | | | | | | /[id number] | | Lencho Cheatham MD at [facility] | | | | | | 9 | | [facility] | | | | | | | + +------+--------+ +--------+--------+--------+ | Imp Hip Acet Shell Cup 54mm - | | Right: | [employer] | | 02/17/ | 12.15. | | [id number]: Qty: 1 | | Hip | INC - MDTA | | 2020 | 54MB / | | on 06/19/2015 by Saúl, | | | | | | | | Lencho Cheatham MD at [facility] | | | | | | /[id number] | | [facility] | | | | | | 7 | + +------+--------+ +--------+--------+--------+ | Imp Hip Lnr Dbl Mob Hx 28x54 | | Right: | [employer] | | 03/19/ | 12.15. | | - [id number]: Qty: 1 | | Hip | INC - MDTA | | 2020 | 2854MH | | on 06/19/2015 by Saúl, | | | | | | C / | | Lencho Cheatham MD at [facility] | | | | | | /[id number] | | [facility] | | | | | | 8 | + +------+--------+ +--------+--------+--------+ | Imp Stem Std Amis Meyer 11/02 | | Right: | [employer] | | 03/19/ | 01.18. | | Sz4 - [id number]: | | Hip | INC - MDTA | | 2020 | 134 / | | Qty: 1 on 06/19/2015 by | | | | | | /[id number] | | Lencho Hays MD at [facility] | | | | | | 0 | | [facility] | | | | | | | | [facility] | | | | | | | + +------+--------+ +--------+--------+--------+ | Salomón Bone Palacos-R 40gm - | | Right: | CALLY - | | 12/20/ | 00-111 | | [id number]: Qty: 1 on | | Knee | [facility] | | 2020 | 2-140- | | 04/22/2016 by Lencho Hays | | | | | | 01 / | | MD [place] at [facility] | | | | | | /[id number] | | [facility] | | | | | | 473 | + +------+--------+ +--------+--------+--------+ | Salomón Bone Palacos-R 40gm - | | Right: | CALLY - | | 12/20/ | 00-111 | | [id number]: Qty: 1 on | | Knee | Z[facility] | | 2020 | 2-140- | | 04/22/2016 by Lencho Hays | | | | | | 01 / | | MD [place] at [facility] | | | | | | /[id number] | | [facility] | | | | | | 473 | + +------+--------+ +--------+--------+--------+ | Imp Knee Ptela Polyeth 35mm - | | Right: | CALLY - | | / | 42-540 | | [id number]: Qty: 1 | | Knee | ZIMM | | 2023 | 0-000- | | on 04/22/2016 by Saúl, | | | | | | 35 / | | Lencho Cheatham MD at [facility] | | | | | | /[id number] | | [facility] | | | | | | 417 | + +------+--------+ +--------+--------+--------+ | Imp Knee Fem Stem Rt Sz9 - | | Right: | CALLY - | | 02/17/ | 42-502 | | [id number]: Qty: 1 on | | Knee | ZIM[facility] | | 2025 | 6-066- | | 04/22/2016 by Lencho Hays | | | | | | 02 / | | MD [place] at [facility] | | | | | | /[id number] | | [facility] | | | | | | 515 | + +------+--------+ +--------+--------+--------+ | Imp Asf Uc 10mm Ve R 4-11ef - | | Right: | CALLY - | | 02/17/ | 42-522 | | [id number]: Qty: 1 | | Knee | ZIMM | | 2020 | 2-005- | | on 04/22/2016 by Saúl, | | | | | | 10 / | | Lencho Cheatham MD at [facility] | | | | | | /[id number] | | [facility] | | | | | | 459 | + +------+--------+ +--------+--------+--------+ | Imp Knee Tib 5deg Rt Szf - | | Right: | CALLY - | | 02/17/ | 42-532 | | [id number]: Qty: 1 on | | Knee | ZIMM | | 2025 | 0-075- | | 04/22/2016 by Lencho Hays | | | | | | 02 / | | MD [place] at [facility] | | | | | | /[id number] | | [facility] | | | | | | 707 | + +------+--------+ +--------+--------+--------+ Results Not on filefrom Last 3 Months Insurance + +--------+ +--------+ +---------+--------+ | Payer | Benefi | Subscriber | Effect | Phone | Address | Type | | | t Plan | ID | dilia | | | | | | / | | Dates | | | | | | Group | | | | | | + +--------+ +--------+ +---------+--------+ | MEDICARE | MEDICA | [id number] | 04/20/20 | [phone] | | Medica | | | RE | | 06-Pre | 5 | | re | | | PART A | | sent | | | | | | AND B | | | | | | + +--------+ +--------+ +---------+--------+ | [employer]EFIT | MAILHA | [id number] | 11/25/18 | [phone] | | Indemn | | PLN | NDLERS | | 85-Pre | 8 | | ity | | | MDCR | | sent | | | | | | SUPPL | | | | | | + +--------+ +--------+ +---------+--------+ + +--------+ +--------+ + + | Guarantor Name | Accoun | Relation to | Date | Phone | Billing Address | | | t Type | Patient | of | | | | | | | | | | + +--------+ +--------+ + + | Carlota Ko | Person | Self [birth year] | [address] | | | al/Fam | | 1940 | [phone] | [address] [place] [address] | | | [place] | | | [address] (Home) | [phone] | + +--------+ +--------+ + + Advance Directives + + + + + | Type | Date Recorded | Patient | Explanation | | | | Oil Rigger | | + + + + + | Power of | | | | | Qualification Engineer | | | | + + + + + | Advance | 06/19/2015 6:07 | | | | Directive | AM | | | + + + + + + + + + + | Code Status | Date | Date | Comments | | | Activated | Inactivated | | + + + + + | Full Code | 04/22/2016 | 04/24/2016 | | | | 12:40 PM | 2:11 PM | | + + + + + + + + +---+ | | | | | + + + +---+ | Full Code | 06/19/2015 | 06/21/2015 | | | | 10:34 AM | 2:16 PM | | + + + +---+ + + + +---+ | | | | | + + + +---+ | Full Code | 12/05/2014 | 12/07/2014 | | | | 2:04 PM | 2:59 PM | | + + + +---+
--- OUTSIDE RECORDS SUMMARY | ~2019-10-18 | XMS | Encounter Summary ---
Demographics + + + | Address | [address] [place] [address] | | | [place] [address] | + + + | Home Phone | | + + + | Preferred Language | Unknown | + + + | Marital Status | | + + + | Worship Affiliation | 1076 | + + + [...] Juan Carlos Ko | ECON | [address] | | | | | [place], [place] | | | | | [address] | | + + + + + | Arie Ko | ECON | Unknown | | + + + + + Care Team Providers + +------+ + | Care News Department Intern Name | Role | Phone | + +------+ + PCP | Unavailable | + +------+ + Encounter Details +--------+ + + + + | Date | Type | Department | Care Team | Description | +--------+ + + + + | 03/02/ | Hospital | [facility] | | | | 1998 | Encounter | MED CTR XRAY [address] | | | | | | [place] | | | | | | [place] [address] | | | | | | [phone] | | | +--------+ + + + [...]
--- OUTSIDE RECORDS SUMMARY | ~2019-10-18 | XMS | Encounter Summary ---
Demographics + + + | Address | [address] [place] [address] | | | [place] [address] | + + + | Home Phone [...] + + | Author | [facility] | | | and [place] | + + + | Organization | [facility] | | | and [place] | + + + | Address | Unknown | + + + | Phone | Unavailable | + + + Support + + + + + | Name | Relationship | Address | Phone | + + + + + | Juan Carlos Ko | ECON | [address] | | | | | [place], [place] | | | | | [address] | | + + + + + | Arie Ko | ECON | Unknown | | + + + + + Care Team Providers + +------+ + | Care Jewelry Designer Name | Role | Phone | + +------+ + PCP | Unavailable | + +------+ + Encounter Details +--------+ + + + + | Date | Type | Department | Care Team | Description | +--------+ + + + + | 11/24/ | Hospital | [facility] | | | | 1998 | Encounter | MED CTR GENERIC OP | | | | | | CONV DEPT [address] | | | | | | [place], | | | | | | [place] [address] | | | | | | [phone] | | | +--------+ + + + [...]
--- OUTSIDE RECORDS SUMMARY | ~2019-10-18 | XMS | Encounter Summary ---
Demographics + + + | Address | [address] [place] [address] | | | [place] [address] | + + + | Home Phone | | + + + | Preferred Language | Unknown | + + + | Marital Status | | + + + | Restorationist Affiliation | 1076 | + + + | Race | Unknown | + + + | Ethnic Group | Unknown | + + + Author + + + | Author | [facility] | | | and [place] | + + + | Organization | [facility] | | | and [place] | + + + | Address | Unknown | + + + | Phone | Unavailable | + + + Support + + + + + | Name | Relationship | Address | Phone | + + + + + | Juan Carlos Ko | ECON | [address] | | | | | [place], [place] | | | | | [address] | | + + + + + | Arie Ko | ECON | Unknown | | + + + + + Care Team Providers + +------+ + | Care Chairman & Ceo Name | Role | Phone | + +------+ + | Bobo Garcia DO | PCP | | + +------+ + Reason for Visit + + + | Reason | Comments | + + + | Appointment | | + + + Encounter Details +--------+ + + + + | Date | Type | Department | Care Team | Description | +--------+ + + + + | 03/19/ | Telephone | [facility] | Lencho Hays, | Appointment | | 2014 | | ORTHOPEDIC SURGERY | [address] [place] [address] | | | | | [address] [place] [address] | [place] | | | | | [place] | [id number] | | | | | [address] | | | | | | [phone] | | | +--------+ + + + [...]
--- OUTSIDE RECORDS SUMMARY | ~2019-10-18 | XMS | Encounter Summary ---
Demographics + + + | Address | [address] | | | [place] [address] | + + + | Home Phone | | + + + | Preferred Language | Unknown | + + + | Marital Status | | + + + | Scientology Affiliation | PRE | + + + | Race | White | + + + | Ethnic Group | Not or | + + + Author + + + | Author | [facility] | + + + | Organization | [facility] | + + + | Address | Unknown | + + + | Phone | Unavailable | + + + Support + + + + + | Name | Relationship | Address | Phone | + + + + + | Juan Carlos Ko | ECON | [address] | | | | | [place] | | | | | [address] | | + + + + + Care Team Providers + +------+ + | Care Finishing Room Operator Name | Role | Phone | + +------+ + PCP | Unavailable | + +------+ + Reason for Visit + + + | Reason | Comments | + + + | Post Op Rehab Time | mckee amirah | + + + Encounter Details +--------+ + + + + | Date | Type | Department | Care Team | Description | +--------+ + + + + | 08/02/ | [facility]phone | [facility] | Catalino [facility]u | Post Op Rehab Time | | 2005 | | [facility] | MD Amirah [address] | ([address]) | | | | [address] | [address] | | | | | [address] | [place], [place] | | | | | [facility] | [address] | | | | | [place], [place] | [phone] | | | | | [address] | | | | | | [phone] | | | +--------+ + + + [...]
--- OUTSIDE RECORDS SUMMARY | ~2019-10-18 | XMS | Encounter Summary ---
Demographics + + + | Address | [address] [place] [address] | | | [place] [address] | + + + | Home Phone | | + + + | Preferred Language | Unknown | + + + | Marital Status | | + + + | Yazdanism Affiliation | 1076 | + + + | Race | Unknown | + + + | Ethnic Group | Unknown | + + + Author + + + | Author | [facility] | | | and [place] | + + + | Organization | [facility] | | | and [place] | + + + | Address | Unknown | + + + | Phone | Unavailable | + + + Support + + + + + | Name | Relationship | Address | Phone | + + + + + | Juan Carlos Ko | ECON | [address] | | | | | [place], [place] | | | | | [address] | | + + + + + | Arie Ko | ECON | Unknown | | + + + + + Care Team Providers + +------+ + | Care Protection Consultant Name | Role | Phone | + +------+ + | Live Sims MD | PCP | | + +------+ + Reason for Visit + + + | Reason | Comments | + + + | Med Administration | | + + + Encounter Details +--------+ + + + + | Date | Type | Department | Care Team | Description | +--------+ + + + + | 08/26/ | Telephone | [facility] | Lencho Hays, | Med Administration | | 2013 | | ORTHOPEDIC SURGERY | [address] [place] [address] | | | | | [address] [place] [address] | [place], [place] | | | | | [place], [place] | [address] | | | | | [address] | | | | | | [phone] | | | +--------+ + + + [...]
--- OUTSIDE RECORDS SUMMARY | ~2019-10-18 | XMS | Encounter Summary ---
Demographics + + + | Address | [address] | | | [place] [address] | + + + | Home Phone | | + + + | Preferred Language | Unknown | + + + | Marital Status | | + + + | Anabaptism Affiliation | PRE | + + + | Race | White | + + + | Ethnic Group | Not or | + + + Author + + + | Author | [facility] | + + + | Organization | [facility] | + + + | Address | Unknown | + + + | Phone | Unavailable | + + + Support + + + + + | Name | Relationship | Address | Phone | + + + + + | Juan Carlos Ko | ECON | [id number] | | | | | [place] | | | | | [address] | | + + + + + Care Team Providers + +------+ + | Care Fish Seiner Name | Role | Phone | + +------+ + | Jose Bobo | PCP | | + +------+ + Reason for Visit + + + | Reason | Comments | + + + | Post Op | | + + + | Incontinence of | x 3 in past 3 months (very loose stools) | | feces | | + + + Encounter Details +--------+---------+ + + + | Date | Type | Department | Care Team | Description | +--------+---------+ + + + | 01/10/ | Office [facility] Malu [facility]ae | Postop Check | | 2006 | Visit | [facility] | MD [address] | (Primary Dx); Fecal | | | | [address] | Incontinence; Stress | | | | [address] | [place], [place] | Incontinence | | | | [place] | [address] | | | | | [place], [place] | [phone] | | | | | [address] | | | | | | [phone] | | | +--------+---------+ + + + [...] + documented in this encounter Progress Notes Catalino Malu Macario - 01/10/2007 3:15 PM PST12 weeks postop from [facility], TVT Bowels: feels as though this has been the main moving target to control since her surgery. was quite constipated 3 weeks ago which is unusual for her & twice this week has lost bowel control; tends to looseness but this was different; stood up without knowing that she neede d to have BM and began leaking stool - this is the first time that this has happened; she is not on anything for her bowels at this time; With urinating will be sitting and reading and be fine but when she stands up will need to go; at this time not confident enough with urinary control to get rid of pantiliner; not sandra estella daily but maybe every 2-3 days with stress inc; once or twice per week will wake up at night and have some moisture; generally in the presence of urge can make it to the BR Bulge is gone; no vag d/c or blding Also has a sense of vaginal looseness and has noted passing gas out her vagina BP 149/75 | Pulse 67 | Wt 111.585 kg (246 lbs) | LMP Postmenopausal-No HRT' For further characterization of the above problems and how much they bother her, as well as review of systems, our detailed physical examination, and recommendations, please see Alayna tena report from today's visit in [facility]. documented in this encounter Plan of Treatment Not on filedocumented as of this encounter Procedures + +--------+ + + + | Procedure Name | Priori | Date/Time | Associated Diagnosis | Comments | | | ty | | | | + +--------+ + + + | ORDERS OTHER | | 01/10/2007 | | Results for this | | | | 12:00 AM | | procedure are in the | | | | PST | | results section. | + +--------+ + + + documented in this encounter Results ORDERS OTHER (01/10/2007 12:00 AM PST) + + + | Narrative | Performed At | + + + | | | + + + + + | Procedure Note | + + | Malu Bae MD - 01/10/2007 12:00 AM PST | | | + + documented in this encounter Visit Diagnoses + + | Diagnosis | + + | Postop check - Primary Follow-up examination, following unspecified surgery | + + | Fecal incontinence Full incontinence of feces | + + | Stress incontinence Female stress incontinence | + + documented in this encounter"
--- OUTSIDE RECORDS SUMMARY | ~2019-10-18 | XMS | Encounter Summary ---
Demographics + + + | Address | [address] | | | [place] [address] | + + + | Home Phone | | + + + | Preferred Language | Unknown | + + + | Marital Status | | + + + | Taoism Affiliation | PRE | + + + [...] | Juan Carlos Ko | ECON | [id number] | | | | | [place] | | | | | [address] | | + + + + + Care Team Providers + +------+ + | Care Oracle Specialist Name | Role | Phone | + +------+ + | Bobo Garcia DO | PCP | | + +------+ + Encounter Details +--------+ + + + + | Date | Type | Department | Care Team | Description | +--------+ + + + + | 01/24/ | DELETED | [facility] Malu Bae | CORRESPONDENCE | | 2006 | TRANSCRIPTI | [facility] | MD [address] | | | | ON | [address] | [address] | | | | | [address] | [place], [place] | | | | | [address] | [address] | | | | | [place], [place] | [phone] | | | | | [address] | | | | | | [phone] | | | +--------+ + + + [...]
--- OUTSIDE RECORDS SUMMARY | ~2019-10-18 | XMS | Clinical Summary ---
Demographics + + + | Address | [address] [place] [address] | | | [place] [address] | + + + | Home Phone | | + + + | Preferred Language | Unknown | + + + | Marital Status | Unknown | + + + | Adventist Affiliation | Unknown | + + + | Race | Unknown | + + + | Ethnic Group | Unknown | + + + Author + + + | Author | [facility] (Historical as of | | | 07-06-19) | + + + | Organization | [facility] (Historical as of | | | 07-06-19) | + + + | Address | Unknown | + + + | Phone | Unavailable | + + + Support + + +---------+ + | Name | Relationship | Address | Phone | + + +---------+ + | Jonatan Padron | ECON | Unknown | | + + +---------+ + | Arie Padron | ECON | Unknown | | + + +---------+ + | Stephenie Goldberg | ECON | Unknown | | + + +---------+ + | Irena Drew | ECON | Unknown | | + + +---------+ + Care Team Providers + +------+ + | Care Specimen Preparation Assistant Name | Role | Phone | + +------+ + | Bobo Garcia DO | PP | | + +------+ + Allergies No Known Allergies Current Medications + + +-------+---------+------+------+-------+ | Prescription | Sig. | Disp. | Refills | Star | End | Statu | | | | | | t | Date | s | | | | | | Date | | | + + +-------+---------+------+------+-------+ | carvedilol (COREG) | Take 3.125 mg by | | | | | Activ | | 3.125 MG tablet | mouth 2 (two) times | | | | | e | | | daily with meals. | | | | | | + + +-------+---------+------+------+-------+ | enalapril | Take 10 mg by mouth | | | | | Activ | | (VASOTEC) 10 MG | daily. | | | | | e | | tablet | | | | | | | + + +-------+---------+------+------+-------+ | levothyroxine | Take 100 mcg by | | | | | Activ | | (SYNTHROID) 100 MCG | mouth every morning | | | | | e | | tablet | before breakfast. | | | | | | + + +-------+---------+------+------+-------+ | metFORMIN | Take 500 mg by mouth | | | | | Activ | | (GLUCOPHAGE) 500 MG | daily with | | | | | e | | tablet | breakfast. | | | | | | + + +-------+---------+------+------+-------+ | niacin 500 MG | Take 500 mg by mouth | | | | | Activ | | tablet | daily with | | | | | e | | | breakfast. | | | | | | + + +-------+---------+------+------+-------+ | Multiple Vitamin | Take 1 tablet by | | | | | Activ | | (MULTIVITAMIN) | mouth daily. | | | | | e | | tablet | | | | | | | + + +-------+---------+------+------+-------+ | | Take 1 tablet by | | | | | Activ | | glucosamine-chondroi | mouth 2 (two) times | | | | | e | | tin 500-400 MG | daily. | | | | | | | tablet | | | | | | | + + +-------+---------+------+------+-------+ | | Take 1 tablet by | | | | | Activ | | HYDROcodone-acetamin | mouth every 6 (six) | | | | | e | | ophen (NORCO) 10-325 | hours as needed for | | | | | | | MG per tablet | Pain. | | | | | | + + +-------+---------+------+------+-------+ Active Problems + + + | Problem | Noted Date | + + + | Proteinuria | 01/19/2015 | + + + | CKD (chronic kidney disease), stage III | 10/20/2014 | + + + | HTN (hypertension) | 10/20/2014 | + + + | Diabetes mellitus (HCC) | 10/20/2014 | + + + | Obesity | 10/20/2014 | + + + | Osteoarthritis | 10/20/2014 | + + + | Dyslipidemia | 10/20/2014 | + + + | Hypothyroidism | 10/20/2014 | + + + Family History + + +------+ + | Medical History | Relation | Name | Comments | + + +------+ + | Congestive Heart | Father | | | | Failure | | | | + + +------+ + | Diabetes type I | Father | | | + + +------+ + | Cancer | Mother | | Pancreatic | + + +------+ + + +------+ + + | Relation | Name | Status | Comments | + +------+ + + | Father | | | | + +------+ + + | Mother | | | | + +------+ + + Social History + +-------+ +--------+------+ | Tobacco Use | Types | Packs/Day | Years | Date | | | | | Used | | + +-------+ +--------+------+ | Never Smoker | | | | | + +-------+ +--------+------+ + + +---------+ + | Alcohol Use | Drinks/We | oz/Week | Comments | | | ek | | | + + +---------+ + | Yes | 2 | 1.0 | | | | Standard | | | | | drinks or | | | | | | | | | | equivalen | | | | | t | | | + + +---------+ + + + + | Sex Assigned at | Date Recorded | | | | + + + | Not on file | | + + + Last Filed Vital Signs + + + + | Vital Sign | Reading | Time Taken | + + + + | Blood Pressure | 132/74 | 01/19/2015 12:00 PM PST | + + + + | Pulse | 84 | 01/19/2015 12:00 PM PST | + + + + | Temperature | 36.6 C (97.9 F) | 01/19/2015 12:00 PM PST | + + + + | Respiratory Rate | - | - | + + + + | Oxygen Saturation | 99% | 01/19/2015 12:00 PM PST | + + + + | Inhaled Oxygen | - | - | | Concentration | | | + + + + | Weight | 107 kg (236 lb) | 01/19/2015 12:00 PM PST | + + + + | Height | 167.6 cm (5' 6") | 10/20/2014 1:25 PM PST | + + + + | Body Mass Index | 38.09 | 01/19/2015 12:00 PM PST | + + + + Plan of Treatment Not on file Results Not on filefrom Last 3 Months Insurance + +--------+ +------+-------+ + | Payer | Benefi | Subscriber | Type | Phone | Address | | | t Plan | ID | | | | | | / | | | | | | | Group | | | | | + +--------+ +------+-------+ + | MEDICARE | MEDICA | [id number] | | | [address] | | | RE | | | | [place] [id number] | | | IP-OP | | | | | + +--------+ +------+-------+ + | MULTIPLAN | MULTIP | [id number] | | | | | | [place] - | | | | | | | MAIL | | | | | | | HANDLE | | | | | | | RS | | | | | | | BENEFI | | | | | | | T | | | | | + +--------+ +------+-------+ + + +--------+ +--------+ + + | Guarantor Name | Accoun | Relation to | Date | Phone | Billing Address | | | t Type | Patient | of | | | | | | | | | | + +--------+ +--------+ + + | LARON PADRON | Person | Self [birth year] Home: | [address] | | | al/Fam | | 1940 | [phone] [place] | | | mindy | | | [phone] | [phone] | + +--------+ +--------+ + +
--- OUTSIDE RECORDS SUMMARY | ~2019-10-18 | XMS | Encounter Summary ---
Demographics + + + | Address | [address] [place] [address] | | | [place] [address] | + + + | Home Phone | | + + + | Preferred Language | Unknown | + + + | Marital Status | | + + + | Sabianism Affiliation | [id number] | + + + | Race | Unknown | + + + | Ethnic Group | Unknown | + + + Author + + + | Author | [facility] | | | and [place] | + + + | Organization | [facility] | | | and [place] | + + + | Address | Unknown | + + + | Phone | Unavailable | + + + Support + + + + + | Name | Relationship | Address | Phone | + + + + + | Juan Carlos Ko | ECON | [address] | | | | | [place], [place] | | | | | [address] | | + + + + + | Arie Ko | ECON | Unknown | | + + + + + Care Team Providers + +------+ + | Care Stamps Or Coins Salesperson Name | Role | Phone | + +------+ + | Live Sims MD | PCP | | + +------+ + Encounter Details +--------+ + + + + | Date | Type | Department | Care Team | Description | +--------+ + + + + | 01/15/ | Orders Only | [facility] | Lencho Hays, | Right hip pain | | 2015 | | ORTHOPEDIC SURGERY | MD [address] | (Primary Dx); | | | | [address] | [place] | Primary | | | | [place] | [address] | osteoarthritis of | | | | [address] | | right hip | | | | [phone] | | | +--------+ + + + [...] this encounter Results FL Major Joint Injection Right (01/28/2015 8:22 AM PDT) + + | Specimen | + + | | + + + + + | Narrative | Performed At | + + + | No Radiologist interpretation, please see Chart Review. | [facility] | | | [facility] | | | [facility] | | | - IMAGING | + + + + + + + + | Performing | Address | City/State/Zipcode | Phone Number | | Organization | | | | + + + + + | [facility] | [address] | [place] | [phone] | | [facility] | | [address] | | | - IMAGING | | | | + + + + + documented in this encounter Visit Diagnoses + + | Diagnosis | + + | Right hip pain - Primary Pain in joint, pelvic region and thigh | + + | Primary osteoarthritis of right hip Primary localized osteoarthrosis, pelvic region | | and thigh | + + documented in this encounter"
--- OUTSIDE RECORDS SUMMARY | ~2019-10-18 | XMS | Encounter Summary ---
Demographics + + + | Address | [address] | | | [place] [address] | + + + | Home Phone [...] | Juan Carlos Ko | ECON | [id number] | | | | | [place] | | | | | [address] | | + + + + + Care Team Providers + +------+ + | Care Long Wall Shear Operator Name | Role | Phone | + +------+ + | Jose Bobo | PCP | | + +------+ + Reason for Visit + + + | Reason | Comments | + + + | History and physical | | | examination | | + + + | Pre-op evaluation | | + + + Encounter Details +--------+---------+ + + + | Date | Type | Department | Care Team | Description | +--------+---------+ + + + | 10/04/ | Office | [facility] | Malu Bae | Incomplete | | 2005 | Visit | [facility] | MD [address] | Uterovaginal | | | | [address] | [address] | Prolapse; Urinary | | | | [facility] [address] | [place], [place] | Incontinence, | | | | [facility] | [address] | Stress; Female | | | | [facility] [place] | [phone] | Stress Incontinence; | | | | [address] | | Intrinsic | | | | [phone] | | (Urethral) Sphincter | | | | | | Deficiency (ISD) | +--------+---------+ + + + Social History [...] + + + | Blood Pressure | 150/85 | 10/04/2006 10:43 AM | | | | | PST | | + + + + + | Pulse | 61 | 10/04/2006 10:43 AM | | | [...] + + + + | Weight | 108 kg (238 lb) | 10/04/2006 10:43 AM | | | | | PST | | + + + + + | Height | 180.3 cm (5' 11") | 10/04/2006 10:43 AM | | | | | PST | | + + + + + | Body Mass Index | 33.19 | 10/04/2006 10:43 AM | | | | | PST | | + + + + + documented in this encounter Progress Notes Malu Bae - 10/03/2006 2:05 PM PSTFormatting of this note might be different f rom the original. Pre-Procedure History and Physical Date of Admission: 10/05/06 HISTORY: 66 yo woman who has noted uterine prolapse since January. She notes that her uterus descends out of the vagina. She has some discomfort with this but she does not report day to day symptoms of prolapse that limit her activity. She does not think that her bulge has wor sened since her first visit in April. She has daily stress and urge incontinence for which s he uses one pad per day and is not too bothered. She has felt as though her urinary leakage has improved lately and she can go several hours between voids. Urodynamic testing revealed no DO to a large bladder capacity of 560cc but lg stress urinary inc with UPPs and LPPs both in the ISD range. She has no defecatory complaints. She has not been using her pessary as h er bulge has not been bothersome. Most recent HgA1c reported as normal but never checks her sugars at home. CURRENT PROBLEM LIST: There is no problem list on file for this patient. Past Medical History: HYPERTENSION DM W/O COMPLICATION TYPE II UNSPECIFIED ESSENTIAL HYPERTENSION UNSPECIFIED DISORDER OF THYROID Past Surgical History: HX BREAST BIOPSY 1997 HX TUBAL LIGATION 1973 HX KNEE ARTHROSCOPY 2000 MEDICATIONS: Current outpatient prescriptions: METFORMIN 500 MG TAB 1 pill at bedtime Disp: Rfl: ENALAPRIL MALEATE 5 MG TAB take 1 tablet (5mg) by oral route once daily Disp: Rfl: LEVOTHYROXINE 100 MCG TAB take 1 tablet (100mcg) by oral route once daily Disp: Rfl: No Known Allergies. FAMILY HISTORY: Family History: Cancer Father Diabetes Father Heart Mother Cancer Paternal Grandfather REVIEW OF SYSTEMS: negative PHYSICAL EXAM: VITALS: BP 150/85 | Pulse 61 | Ht 5' 11" (1.80m) | Wt 238 lbs (108.0kg) | LMP Postmenopausa l-No HRT HEENT: Normal NECK: Normal CHEST/LUNGS: Normal HEART: Normal ABDOMEN: Normal BACK: Normal EXTREMITIES: Normal NEUROLOGICAL: Normal G.U.: See Notes: ant vag wall at hymen supine and 3-4 cm outside the hymen upright, cervix at -3 to -4 and posterior wall supported distally. PROVISIONAL DIAGNOSIS: incomplete uterovaginal prolapse, stress urinary incontinence with I SD PLANNED COURSE OF ACTION: initial plan TVH BSO uterosacral ligament suspension, TVT however on exam in urodyn chair today concern was for greater bulge that may require WAYNE BSO sacroc olpopexy therefore pt consented for both and she understands potential need to change the pl an based upon worsening bulge with young age and heavy lifting activities PARQ: A PARQ session was held, additional questions with discussion were completed. documented in this encounter Plan of Treatment + + +--------+ + + | Name | Type | Priori | Associated Diagnoses | Order Schedule | | | | ty | | | + + +--------+ + + | ME COMPLEX | Procedures | Routin | Female Stress | Ordered: 10/04/2006 | | CYSTOMETROGRAM | | e | Incontinence | | | | | | Intrinsic (Urethral) | | | | | | Sphincter | | | | | | Deficiency (ISD) | | + + +--------+ + + | ME URETHRA PRESSURE | Procedures | Routin | Female Stress | Ordered: 10/04/2006 | | PROFILE | | e | Incontinence | | | | | | Intrinsic (Urethral) | | | | | | Sphincter | | | | | | Deficiency (ISD) | | + + +--------+ + + | ME INTRAABDOMINAL | Procedures | Routin | Female Stress | Ordered: 10/04/2006 | | PRESSURE TEST | | e | Incontinence | | | | | | Intrinsic (Urethral) | | | | | | Sphincter | | | | | | Deficiency (ISD) | | + + +--------+ + + | ME URINE VOIDING | Procedures | Routin | Female Stress | Ordered: 10/04/2006 | | PRESSURE STUDY | | e | Incontinence | | | | | | Intrinsic (Urethral) | | | | | | Sphincter | | | | | | Deficiency (ISD) | | + + +--------+ + + | ME | Procedures | Routin | Female Stress | Ordered: 10/04/2006 | | ELECTRO-UROFLOWMETRY | | e | Incontinence | | | , FIRST | | | Intrinsic (Urethral) | | | | | | Sphincter | | | | | | Deficiency (ISD) | | + + +--------+ + + documented as of this encounter Visit Diagnoses + + | Diagnosis | + + | Incomplete uterovaginal prolapse Uterovaginal prolapse, incomplete | + + | Urinary incontinence, stress Female stress incontinence | + + | Female stress incontinence | + + | Intrinsic (urethral) sphincter deficiency (ISD) | + + documented in this encounter
--- OUTSIDE RECORDS SUMMARY | ~2019-10-18 | XMS | Encounter Summary ---
Demographics + + + | Address | [address] | | | [place] [address] | + + + | Home Phone | | + + + | Preferred Language | Unknown | + + + | Marital Status | | + + + | Latter Day Affiliation | PRE | + + + | Race | White | + + + | Ethnic Group | Not or | + + + Author + + + | Author | [facility] | + + + | Organization | [facility] | + + + | Address | Unknown | + + + | Phone | Unavailable | + + + Support + + + + + | Name | Relationship | Address | Phone | + + + + + | Juan Carlos Ko | ECON | [id number] | | | | | [place] | | | | | [address] | | + + + + + Care Team Providers + +------+ + | Care Building Custodial Supervisor Name | Role | Phone | + +------+ + | Bobo Garcia DO | PCP | | + +------+ + Encounter Details +--------+ + + + + | Date | Type | Department | Care Team | Description | +--------+ + + + + | 04/21/ | Ancillary | Registration [id number] | | | | 2005 | [address] | [address] | | | | | [address] | [address] Mailcode: [id number] | | | | | | [place], [place] | | | | | | [address] | | | | | | [phone] | | | +--------+ + + + [...]
--- OUTSIDE RECORDS SUMMARY | ~2019-10-18 | XMS | Encounter Summary ---
Demographics + + + | Address | [address] [place] [address] | | | [place] [address] | + + + | Home Phone [...] Carlos Ko | ECON | [address] | | | | | [place], [place] | | | | | [address] | | + + + + + | Arie Ko | ECON | Unknown | | + + + + + Care Team Providers + +------+ + | Care Camera Storage Clerk Name | Role | Phone | + [...] Description | +--------+---------+ + + + | 12/18/ | Office | [facility] | Lencho Hays, | Postop check | | 2015 | Visit | ORTHOPEDIC SURGERY | [address] [facility] | (Primary Dx) | | | | [address] [facility] | [place] | | | | | [place] | [id number] | | | | | [address] | | | | | | [phone] | | | +--------+---------+ + + + [...] + + + + | Temperature | 36.1 C (96.9 F) | 12/18/2014 10:22 AM | | | | | PST [...] Weight | 107 kg (236 lb) | 12/18/2014 10:22 AM | | | | | PST | | + + + + + | Height | 177.8 cm (5' 10") | 12/18/2014 10:22 AM | | | | | PST | | + + + + + | Body Mass Index | 33.86 | 12/18/2014 10:22 AM | | | | | PST | | + + + + + documented in this encounter Progress Notes Lencho Hays MD - 12/18/2014 10:41 AM PSTPatient returns follow up left Kenny she is doing very well Wound healing well Hillary out today Activities discussed She is on lovenox Will return one month with xray 10 :41 AM PSTdocumented in this encounter Plan of Treatment Not on filedocumented as of this encounter Visit Diagnoses + + | Diagnosis | + + | Postop check - Primary Follow-up examination, following unspecified surgery | + + documented in this encounter
--- OUTSIDE RECORDS SUMMARY | ~2019-10-18 | XMS | Encounter Summary ---
Demographics + + + | Address | [address] | | | [place] [address] | + + + | Home Phone | | + + + | Preferred Language | Unknown | + + + | Marital Status | | + + + | Roman Catholic Affiliation | PRE | + + + | Race | White | + + + | Ethnic Group | Not or | + + + Author + + + | Author | [facility] | + + + | Organization | [facility] | + + + | Address | Unknown | + + + | Phone | Unavailable | + + + Support + + + + + | Name | Relationship | Address | Phone | + + + + + | Juan Carlos Padron | ECON | [id number] | | | | | [place] | | | | | [address] | | + + + + + Care Team Providers + +------+ + | Care Retail Cosmetics Sales Beauty Advisor Name | Role | Phone | + +------+ + | Bobo Garcia DO | PCP | | + +------+ + Encounter Details +--------+ + + + + | Date | Type | Department | Care Team | Description | +--------+ + + + + | 10/06/ | Documentati | Anesthesiology | Unknown . | | | 2005 | on | [address] | | | | | | [place], | | | | | | [place] [address] | | | +--------+ + + + [...] | + +--------+ + + + | ANESTHESIA/SEDATION | | 10/06/2006 | | Results for this | | | | 10:04 AM | | procedure are in the | | | | PST | | results section. | + +--------+ + + + documented in this encounter Results ANESTHESIA/SEDATION (10/06/2006 10:04 AM PST) + + + | Narrative | Performed At | + + + | Ordered by an unspecified provider. | | + + + + + | Transcriptions | + + | 10/06/2006 10:04 AM [facility] Anesthesia PostOp Report | | | | Patient: HELEN PADRON [facility] Rec: [id number] Sex F Bdate: 1940 | | Date/Time Data | | Entered Into [facility] | | Anesth PostOp | | Surgery Date [id number] 10/06/06 10:04 | | Anesthesiologist FADIA LEDESMA 10/06/06 10:04 | | Resident Anesthesiolog MARY JANE ARCINIEGA 10/06/06 10:04 | | | + + documented in this encounter Visit Diagnoses Not on filedocumented in this encounter"
--- OUTSIDE RECORDS SUMMARY | ~2019-10-18 | XMS | Encounter Summary ---
Demographics + + + | Address | [address] [place] [address] | | | [place] [address] | + + + | Home Phone | | + + + | Preferred Language | Unknown | + + + | Marital Status | | + + + | Pentecostal Affiliation | 1076 | + + + [...] Juan Carlos Ko | ECON | [address] | | | | | [place], [place] | | | | | [address] | | + + + + + | Arie Ko | ECON | Unknown | | + + + + + Care Team Providers + +------+ + | Care Product Support Manager Name | Role | Phone | + +------+ + | Bobo Garcia DO | PCP | | + +------+ + Encounter Details +--------+ + + + + | Date | Type | Department | Care Team | Description | +--------+ + + + + | 01/28/ | Hospital | [facility] | Lencho Hays, | Right hip pain; | | 2015 | Encounter | MED CTR XRAY [address] | [address] [facility] | Primary | | | | [place] | [place], [place] | osteoarthritis of | | | | [place] [address] | [address] | right hip | | | | [phone] | | | | | | | [facility] | | +--------+ + + + + [...] +---------+ + + | Blood Pressure | 150/70 | 01/28/2015 8:00 AM | | | | | PDT | | + +---------+ + + | Pulse | 64 | 01/28/2015 8:00 AM | | | | | [...] + | FL ASPIRATION | Routin | 01/28/2015 | Right hip pain | Results for this | | INJECTION MAJOR | e | 8:22 AM | Primary | procedure are in the | | JOINT RIGHT | | PDT | osteoarthritis of | results section. | | | | | right hip | | + +--------+ + + + documented in this encounter Results FL Major Joint Injection Right (01/28/2015 8:22 AM PDT) + + | Specimen | + + | | + + + + + | Narrative | Performed At | + + + | No Radiologist interpretation, please see Chart Review. | [facility] | | | [facility] | | | [facility] | | | - IMAGING | + + + + + + + + | Performing | Address | City/State/Zipcode | Phone Number | | Organization | | | | + + + + + | [facility] | [address] | [place] | [phone] | | [facility] | | [address] | | | - IMAGING | | | | + + + + + documented in this encounter Visit Diagnoses + + | Diagnosis | + + | Right hip pain Pain in joint, pelvic region and thigh [...] iohexol (OMNIPAQUE 300) 300 | Given | 01/29/20 | 2 mLs | | | | mg/mL injection 2 mL 2 mL, | | 15 8:23 | | | | | Intra-articular, ONCE PRN, Other, | | AM PDT | | | | | Starting 01/28/15 at 0815, | | | | | | | For 1 dose, Radiology | | | | | | + +--------+ +-------+------+------+ +---+---+ | | | +---+---+ + +-------+ +-------+---+---+ | triamcinolone acetonide | Given | 01/29/20 | 40 mg | | | | (KENALOG-40) 40 mg/mL injection | | 15 8:45 | | | | | 40 mg 40 mg, Intra-articular, | | AM PDT | | | | | ONCE, 01/28/15 at 0845, For 1 | | | | | | | dose, Shake well. Not for IV | | | | | | | use., | | | | | | + +-------+ +-------+---+---+ +---+---+ | | | +---+---+ documented in this encounter"
--- OUTSIDE RECORDS SUMMARY | ~2019-10-18 | XMS | Encounter Summary ---
Demographics + + + | Address | [address] [place] [address] | | | [place] [address] | + + + | Home Phone | | + + + | Preferred Language | Unknown | + + + | Marital Status | | + + + | Gnosticist Affiliation | 1076 | + + + | Race | Unknown | + + + | Ethnic Group | Unknown | + + + Author + + + | Author | [facility] | | | and [place] | + + + | Organization | [facility] | | | and [place] | + + + | Address | Unknown | + + + | Phone | Unavailable | + + + Support + + + + + | Name | Relationship | Address | Phone | + + + + + | Juan Carlos Ko | ECON | [address] | | | | | [place], [place] | | | | | [address] | | + + + + + | Arie Ko | ECON | Unknown | | + + + + + Care Team Providers + +------+ + | Care Appraiser Oil And Water Name | Role | Phone | + +------+ + | Bobo Garcia DO | PCP | | + +------+ + Encounter Details +--------+ + + + + | Date | Type | Department | Care Team | Description | +--------+ + + + + | 03/16/ | Orders Only | [facility] | Spencer Chase MD | Diarrhea; | | 2015 | | GASTROENTEROLOGY | [address], [place] | Loss of weight; | | | | [address] [place] | [address] [place], [place] | Incontinence, feces | | | | [address] [place], [place] | [address] | | | | | [address] | | | | | | [phone] | | | +--------+ + + + [...] + | Diarrhea | + + | Loss of weight | + + | Incontinence, feces Full incontinence of feces | + + documented in this encounter"
--- OUTSIDE RECORDS SUMMARY | ~2019-10-18 | XMS | Encounter Summary ---
Demographics + + + | Address | [address] | | | [place] [address] | + + + | Home Phone | | + + + | Preferred Language | Unknown | + + + | Marital Status | | + + + | Jainism Affiliation | PRE | + + + [...] Juan Carlos Ko | ECON | [address] | | | | | [place] | | | | | [address] | | + + + + + Care Team Providers + +------+ + | Care Carbon Furnace Operator Name | Role | Phone | + +------+ + | Bobo Garcia DO | PCP | | + +------+ + Encounter Details +--------+ + + + + | Date | Type | Department | Care Team | Description | +--------+ + + + + | 10/05/ | Procedure - | | Record, Operation | Operative Report | | 2005 | | | | | | | Transcribed | | | | +--------+ + + [...] | + +--------+ + + + | OPERATION RECORD | | 10/05/2006 | | Results for this | | | | | | procedure are in the | | | | | | results section. | + +--------+ + + + documented in this encounter Results OPERATION RECORD (10/05/2006) + + | Transcriptions | + + | Interface, Mine Analyst In - 10/17/2006 2:34 AM PST | | [id number] | | [id number] VITO CERVANTES [id number] | | | | Date: 10/05/2006 | | | | Attending Surgeon: Amirah Bae M.D. | | | | Corn Cutter Operator(s): Mago Patel M.D. | | Brigid Leavitt M.D. 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 | | | | Procedures Performed: | | Total abdominal hysterectomy, bilateral salpingo-oophorectomy, | | sacrocolpopexy with Gynemesh, tension-free vaginal tape, and cystoscopy. | | | | Anesthesia: | | Epidural plus general by ET tube. | | | | Estimated Blood Loss: | | 1100 cc. | | | | Fluids: | | 4700 cc, also including 1 L of Hespan. | | | | Complications: | | Bleeding with passage of the right-sided TVT trocar. | | | | Specimens: | | Uterus was bilateral ovaries and fallopian tubes. | | | | Findings: | | Normal-appearing uterus and fallopian tubes. | | | | Cystoscopic Findings: | | Normal bladder mucosa, no the trauma to the bladder, no suture placement | | within the bladder, and bilateral efflux of urine from ureteral orifices. | | | | Procedure: | | The patient was prepped and draped in the usual sterile fashion after | | satisfactory epidural plus general anesthesia had been obtained with the | | patient positioned in Yellowfin stirrups. Examination under anesthesia was | | consistent with office examination with large anterior vaginal wall defects | | that proceeded outside of the hymenal ring coupled with a cervical prolapse | | in the supine sleep position to the level of the hymenal ring with | | additional descensus with traction of the cervix. Decision was made at | | this time based upon the patient's age and physical activity levels, but I | | was concerned for longevity of repair for a vaginal procedure. Therefore, | | the decision was made to proceed to an abdominal reconstruction as had | | previously been discussed with the patient in her preoperative session the | | day prior. Correct patient was identified in the operating room along with | | a surgical site and surgical procedure to be performed. Therefore, | | attention was turned to the abdominal field where a transverse low | | Pfannenstiel incision was made through the skin, and the incision was | | carried down to the fascia with the use of Bovie cautery. The fascia was | | then incised, and the incision was extended transversely. The plane | | between the anterior abdominal musculature and the fascia was developed. | | The midline was identified and split, and the peritoneal cavity was entered | | in a safe fashion. A Elvia self-retaining retractor was placed, and the | | abdominal contents were packed away with the use of moist laps. Abdominal | | examination at this time revealed no intraabdominal adhesive disease with a | | normal-sized uterus and bilateral ovaries and fallopian tubes. | | Interestingly, she was noted to have a rectum that proceeded quite high up | | her posterior vaginal wall, which was consistent with her lack of | | significant defect on vaginal examination, but also would have made a | | posterior colpotomy with vaginal hysterectomy somewhat difficult. She was | | noted to have a robust uterosacral ligament on the left side, but not so | | much on the patient's right side. First portion of procedure performed was | | abdominal hysterectomy. Bilateral round ligaments were clamped, resected, | | and suture ligated with 0 Vicryl. The anterior leaf of the broad ligament | | was then taken down bilaterally to meet in the midline in order to create | | the bladder flap later. On the patient's left side, then, the peritoneum | | parallel and lateral to the infundibulopelvic ligament was taken down, and | | the ureter was identified on the medial leaf of the peritoneum. The | | peritoneal window was made inferior to the infundibulopelvic ligament which | | was then doubly clamped and resected. This was free tied followed by | | suture ligated with 0 Vicryl, and the left uterine artery skeletonized. | | Identical procedure was performed on the patient's right side with a | | transection of the peritoneum lateral to the right infundibulopelvic | | ligament and identification of the ureter on this side. The ligament was | | then doubly clamped and resected followed by free tied and suture ligated | | with 0 Vicryl. The right uterine artery was skeletonized. Bilateral | | uterine arteries were then clamped with Cristóbal clamps, resected, and suture | | ligated with 0 Vicryl, and sequential bites were taken off the uterosacral | | cardinal ligament complex with straight Cristóbal clamps moving along the | | lateral aspect of the cervix bilaterally with clamping, resection, and | | suture ligature with 0 Vicryl. During the course of taking down the | | lateral tissues, the bladder flap was also created using Metzenbaum | | scissors to elevate the bladder off the cervix and anterior vagina. A | | large EEA sizer was placed in order to facilitate this dissection. When | | the corners of the vagina had nearly been reached, the cervix was amputated | | leaving literally a 1-cm length of cervix remaining. The endocervical | | canal had already been completely cored out during the resection of the | | cervix, and therefore, a true entry into the vaginal canal was never made, | | and the vaginal cuff was closed first with a deep layer of interrupted 0 | | Vicryl sutures which closed the anterior and posterior lips of the 1-cm | | remaining cervix together followed by an imbricating layer of the vaginal | | cuff again with 0 Vicryl from the first layer. Attention was turned to the | | posterior vaginal wall. Again, with a large EEA sizer within the patient's | | vagina, the rectum was dissected off the posterior vaginal wall. Minimal | | dissection was required in this area because, again, there was no | | significant defect in her support at this side and also because the rectum | | moved quite high up the posterior vaginal wall. Therefore, there was | | minimal need for dissection as this would risk a trauma to the rectum. | | There were some bleeders that were encountered in this area during the | | course of dissection that were readily controlled. Next, working | | anteriorly, again, with a large EEA sizer within the patient's vagina, the | | bladder was taken off the anterior aspect of the vagina using Metzenbaum | | scissors and careful dissection. Next, interrupted 2-0 Prolene sutures | | were placed in pairs along the anterior and posterior vaginal rosen. On | | the posterior vaginal wall, a total of three pairs for six sutures were | | placed with the first level of sutures being at the level of the | | retroflexion off the back wall of the vaginal and the final pair being just | | off the vaginal cuff. A piece of Gynemesh was cut to size, and when the | | Prolene sutures were brought through the mesh and tied down, this | | approximated the mesh to the posterior vaginal wall. Identical procedure | | was performed on the anterior vaginal wall, and because this was the area | | of the patient's largest defect, a total of four pairs for eight sutures | | were placed with the first pair of sutures being next to the level of the | | bladder reflection off the anterior vaginal wall and the final pair being | | just off the vaginal cuff. Again a piece of Mersilene mesh was cut to | | size, brought through the Prolene, and tied down to place the mesh against | | the anterior vaginal wall. The both meshes were placed as wide as possible | | to reapproximate the width of the vaginal. The anterior and posterior | | leaves of the Mersilene were then sewn together superior to the apex of the | | vagina being careful to keep our vaginal wound away from any mesh sites. | | Next, attention was turned to the sacral promontory where a [employer] | | retractor was used to distract the patient's sigmoid colon and rectum | | laterally. The peritoneum overlying the anterior longitudinal ligament was | | then entered, and a combination of sharp, blunt, and hydrodissection was | | employed to dissect down to the anterior longitudinal ligament. After this | | had been identified, two interrupted stitches of 0 Tycron were placed. The | | previously place Gynemesh on the vagina was then brought up to the sutures | | on the anterior longitudinal ligament, and appropriate tension was | | determined to support the vaginal without any tension at all and also | | allowing for approximately 105 to 15% contraction of the Prolene mesh. The | | Tycron sutures were brought through the mesh at the appropriately | | determined point and tied down. Extra mesh was excised. A peritoneal | | incision had been made from the area of dissection on the sacral promontory | | down to the area of dissection on the vagina working in a plane between the | | right pelvic side wall and the sigmoid colon and rectum to take down the | | peritoneum. Now, the mesh was placed into this groove and | | reperitonealized. Hemostasis was noted to be excellent throughout. All | | instruments were removed from the patient's abdomen, and the fascia was | | closed with 2 running stitches of 0 Maxon. Subcutaneous tissue was | | irrigated, and skin was closed with the use of skin himanshu. | | | | Attention now turned to the vaginal portion of the procedure. The anterior | | vaginal wall over the area of the urethra and heading to the inferior | | surface of the pubic bone was injected with 0.5% lidocaine with | | epinephrine. It was noted immediately upon injection that the patient was | | bleeding from the injection sites despite the use of epinephrine. A Anand | | catheter within the patient's bladder identified the location of the | | urethra, and two Allis clamps were placed approximately 2.5 cm apart with | | the midportion between the Allis's also representing the midportion of the | | patient's urethra. A scalpel was then used to make a 2-cm incision between | | the two Allis's, and Metzenbaum scissors were used to dissect the overlying | | anterior vaginal wall mucosa off the urethra above heading to the inferior | | surface of the pubic bone bilaterally. Next, a rigid cathter guide was | | introduced into the patient's Anand, and the external urethra was deviated | | to the patient's right which moved the internal urethra to the patient's | | left. A TVT trocar coupled to the introducer was then placed into the | | right retropubic channel, and the trocar was rotated through the right | | retropubic space with careful attention paid to stay immediately beneath | | and behind the bone as it moved through this site and was brought up | | through the anterior abdominal wall. This trocar passed quite readily with | | no abnormal feel or pressure at all, with a normal feel to the retropubic | | space. However, as soon as the introducer was uncoupled from the trocar | | and the trocar brought up through the abdominal wall wound, there was | | immediately a rapid blood loss through the vaginal portion of the | | right-sided TVT channel. Pressure against the pubic bone stopped this | | bleeding, and it was not noted to be bleeding that would track up through | | the retropubic space up to the abdominal wall wound when pressure was held | | vaginally. Pressure was held for a steady 5 minutes and released; however, | | bleeding persisted. Therefore, a visualization was made into this vaginal | | wound. A cautery was applied in several spaces, but it was difficult to | | identify the bleeder as it seemed to be coming from a location higher up | | than was readily visible through the small channel. Pressure was again | | applied, which was also noted to readily stop the bleeding. Therefore, we | | called for a Anand catheter and inserted the Anand catheter in through the | | tract that the TVT trocar had passed, and the balloon was blown up on the | | catheter. This was also noted to provide hemostasis and stop the bleeding. | | Therefore, a decision was made to go ahead and drive the trocar to the left | | side in anticipation of pressure controlling the bleeding on the right. I | | should restate that prior to this, and while pressure was still being held, | | cystoscopy had been performed after passing the trocar which had noted no | | trocar placement within the bladder and appropriate appearance from the | | bladder side. Therefore, the rigid catheter guide was reintroduced into | | the Anand catheter, and the external urethra was deviated to the patient's | | left which moved the internal urethra to the patient's right. This was | | able to still be effectively accomplish even with the Anand bulb blown up | | on the right-sided channel. The TVT trocar was then placed into the | | left-sided anterior vaginal wall and rotated through the left retropubic | | space, again, up to the anterior abdominal wall where it was punctured. | | Again, safe entry was presumed based upon an easy feel of passage of the | | trocar without encountering any resistance. A 70-degree cystoscopy was | | again performed, and again, there was noted to be no trocar placement with | | the bladder. Positioning appeared correct. There was no suture placement | | from prior sacrocolpopexy nor trauma to the bladder, and she had bilateral | | efflux of urine from ureteral orifices. Therefore, TVT trocar was | | uncoupled from the introducer. When the left trocar was brought through | | the abdominal wall wound, there was not noted to be any bleeding. | | Therefore, the mesh was tagged and cut. Attention was again turned back to | | the right side where the Anand bulb was deflated, but again after deflating | | the Anand bulb, there was again noted to be a generous gush of blood | | through this site. Additional attempt was made to visualize the right | | channel, and at this time, there was a presumption that the bleeder was | | able to be identified on the vaginal mucosa, and therefore, a | | [id number] stitch of 3-0 Dexon was placed through this site. Bleeding | | stopped after this point, and the site was watched while the TVT mesh was | | brought to fit underneath of the urethra without tensioning. The mesh was | | trimmed to the level of the anterior abdominal wall, and those wounds were | | closed with skin himanshu. Again, observation revealed no further bleeding | | through the right-sided channel with the mesh sitting underneath of the | | urethra without tension. Therefore, the vaginal mucosa was closed with a | | running stitch of 3-0 Dexon, but two vaginal packs were placed into the | | patient's vagina to ensure that the bleeding would not become an issue for | | this patient postoperatively. Intraoperative hematocrit was noted to be | | 31, and plan was to repeat this in two hours. Final sponge, instrument, | | and needle count was noted to be correct, and the patient was moved to [facility] | | in stable condition having tolerated the procedure well. | | | | | | | | | | Amirah Bae M.D. | | Belt Puncher, | | Urogynecology Reconstructive Pelvic Surgery | | | | RE / HS | | [id number] / [id number] / [id number] / [id number] | | | | | | | | | | | | Electronically signed by Amirah Bae 10-16-2006 07:45:48 AM | + + documented in this encounter Visit Diagnoses Not on filedocumented in this encounter"
--- OUTSIDE RECORDS SUMMARY | ~2019-10-18 | XMS | Encounter Summary ---
Demographics + + + | Address | [address] [place] [address] | | | [place] [address] | + + + | Home Phone [...] Carlos Ko | ECON | [address] [place] [address] [address] | | | | | [place], [place] | | | | | [address] | | + + + + + | Arie Ko | ECON | Unknown | | + + + + + Care Team Providers + +------+ + | Care Box Truck Driver Name | Role | Phone | + [...] | | | | | | | RI TOTAL | | | | | | [...] + + | 04/20/ | Hospital | [facility] | Lencho Hays, | CKD (chronic kidney | | 2016 | Encounter | MED CTR [facility] XRAY | MD Dev MARSH | disease), stage 3 | | | | [address] [place] | [place], [place] | (moderate); | | | | [place], [place] | [address] | Hyperlipidemia, | | | | [address] | | unspecified | | | | [phone] | | hyperlipidemia type; | | | [...] | | 0 | | | | NB-Aqbugskrrbreg-Cus | 6 hours as needed. | | [...] + +--------+ + + + | XR CHEST PA AND | Routin | 04/20/2016 | CKD (chronic | Results for this | | LATERAL | e | 12:34 PM | kidney disease), | procedure are [...] + documented in this encounter Results XR Chest PA and Lateral (04/20/2016 12:34 [...] tortuosity of the thoracic aorta. The cardiomediastinal [facility] | [facility] | | and pulmonary vasculature are otherwise [...] SCOLIOSIS AND SPONDYLOSIS. Dictated and Signed by: Veena Rowland | | Electronically signed: 04/20/2016 3:22 PM [...] + + | Performing | Address | City[facility] | Phone Number | | Organization | | | | + + + + + | [facility] | [address] | [place] | [phone] | | [facility] | | [address] | | | - IMAGING | | [...]
--- OUTSIDE RECORDS SUMMARY | ~2019-10-18 | XMS | Encounter Summary ---
Demographics + + + | Address | [address] | | | [place] [address] | + + + | Home Phone | | + + + | Preferred Language | Unknown | + + + | Marital Status | | + + + | Presybeterian Affiliation | PRE | + + + | Race | White | + + + | Ethnic Group | Not or | + + + Author + + + | Author | [facility] | + + + | Organization | [facility] | + + + | Address | Unknown | + + + | Phone | Unavailable | + + + Support + + + + + | Name | Relationship | Address | Phone | + + + + + | Juan Carlos Ko | ECON | [id number] | | | | | [place] | | | | | [address] | | + + + + + Care Team Providers + +------+ + | Care Director Presales Name | Role | Phone | + +------+ + | Bobo Garcia DO | PCP | | + +------+ + Reason for Visit + + + | Reason | Comments | + + + | Follow-up encounter | Dr. Bae | + + + Encounter Details +--------+ + + + + | Date | Type | Department | Care Team | Description | +--------+ + + + + | 12/08/ | [facility] Malu Bae | Follow-up encounter | | 2006 | | [facility] | MD Amirah [address] | (Dr. Bae) | | | | [address] | [address] | | | | | [address] | [place], [place] | | | | | [facility] | [address] | | | | | [place], [place] | [phone] | | | | | [address] | | | | | | [phone] | | | +--------+ + + + [...]
--- OUTSIDE RECORDS SUMMARY | ~2019-10-18 | XMS | Encounter Summary ---
Demographics + + + | Address | [address] [place] [address] | | | [place] [address] | + + + | Home Phone | | + + + | Preferred Language | Unknown | + + + | Marital Status | | + + + | Hoahaoism Affiliation | 1076 | + + + | Race | Unknown | + + + | Ethnic Group | Unknown | + + + Author + + + | Author | [facility] | | | and [place] | + + + | Organization | [facility] | | | and [place] | + + + | Address | Unknown | + + + | Phone | Unavailable | + + + Support + + + + + | Name | Relationship | Address | Phone | + + + + + | Juan Carlos Ko | ECON | [address] | | | | | [place], [place] | | | | | [address] | | + + + + + | Arie Ko | ECON | Unknown | | + + + + + Care Team Providers + +------+ + | Care Authorization Representative Name | Role | Phone | + +------+ + | Live Sims MD | PCP | | + +------+ + Encounter Details +--------+ + + + + | Date | Type | Department | Care Team | Description | +--------+ + + + + | 05/22/ | Hospital | [facility] | Lencho Hays, | Hip pain, left | | 2014 | Encounter | [facility] | [address] | | | | | [address] [place] | [place], [place] | | | | | [place], [place] | [address] | | | | | [address] | | | | | | [phone] | | | +--------+ + + + [...] + + + | XR HIP LEFT 2 + VW | Routin | 05/22/2014 | Hip pain, left | Results for this | | | e | 3:35 PM | | procedure are in the | | | | PDT | | results section. | + +--------+ + + + documented in this encounter Results XR Hip Left 2 [...] | present in the left hip with ngud-bs-izkk articulation. No collapse | | | to [...] in the left hip with | | tpnz-mi-hidz articulation. No collapseto suggest avascular necrosis. Mineralization | | elsewhere is normal. 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 No collapse | |to suggest avascular [...] + | MISCELLANEOUS LAB | | | [phone] | + +---------+ + + | MISCELANIOUS LAB | | | [phone] | + +---------+ + + documented in this encounter Visit Diagnoses + + | Diagnosis | + + | Hip pain, left Pain in joint, pelvic region and thigh | + + documented in this encounter"
--- OUTSIDE RECORDS SUMMARY | ~2019-10-18 | XMS | Encounter Summary ---
Demographics + + + | Address | [address] | | | [place] [address] | + + + | Home Phone | | + + + | Preferred Language | Unknown | + + + | Marital Status | | + + + | Oriental Orthodox Affiliation | PRE | + + + | Race | White | + + + | Ethnic Group | Not or | + + + Author + + + | Author | [facility] | + + + | Organization | [facility] | + + + | Address | Unknown | + + + | Phone | Unavailable | + + + Support + + + + + | Name | Relationship | Address | Phone | + + + + + | Juan Carlos Ko | ECON | [id number] | | | | | [place] | | | | | [address] | | + + + + + Care Team Providers + +------+ + | Care Front Load Trash Truck Driver Name | Role | Phone | + +------+ + PCP | Unavailable | + +------+ + Reason for Visit + + + | Reason | Comments | + + + | Prolapse of uterus | Second opion on surgery | + + + | Mixed incontinence | | + + + Encounter Details +--------+---------+ + + + | Date | Type | Department | Care Team | Description | +--------+---------+ + + + | 05/01/ | Office | [facility] | Malu Bae | Cystocele (Primary | | 2005 | Visit | [facility] | MD Amirah [address] | Dx); Uterine | | | | Gynecology [address] | [address] | Prolapse; Mixed | | | | [address] | [place], [place] | Incontinence Urge | | | | Mailcode: [id number] | [phone] | and Stress | | | | [facility] | [phone] | | | | | [address] [place], [place] | | | | | | [address] | | | | | | [phone] | | | +--------+---------+ + + + [...] + + + | Blood Pressure | 120/70 | 05/01/2006 2:20 PM | | | | | PDT | | + + + + + | Pulse | 64 | 05/01/2006 2:20 PM | | | | | PDT [...] + + + + | Weight | 116.3 kg (256 lb 4.8 | 05/01/2006 2:20 PM | | | | oz) | PDT | | + + + + + | Height | - | - | | + + + + + | Body Mass Index | - | - | | + + + + + documented in this encounter Patient Instructions Patient Instructions 05/01/2006 2:30 PM PDT call in Jul if anticipate surgery in Sep. El ectronically signed by Malu Bae at 05/03/2006 3:30 PM PDT documented in this encounter Progress Notes Malu Bae - 05/03/2006 3:30 PM PDT Addended by: AMIRAH BAE MD on: 3:30:51 PM Modules accepted: Orders ernon Munoz - 05/02/2006 11:01 AM PDT Addended by: VERNON MUNOZ MD on: 05/02/2006 11:01 :29 AM Modules accepted: Level of Service ernon Munoz - 05/01/2006 5:12 PM PDT Addended by: VERNON MUNOZ MD on: 05/01/2006 5:12 :33 PM Modules accepted: SmartSet ernon Munoz - 05/01/2006 5:11 PM PDTSee File Maker Report in [facility]. lyssa Munoz sereneabilio - 05/01/2006 5:07 PM PDTPatient has noted uterine prolapse since January. She notes grant t her uterus descends out of the vagina. She has some discomfort with this but she does not report day to day symptoms of prolapse that limit her activity. She has daily stress and u rge incontinence for which she uses one pad per day and is not too bothered. She has not mcrae d any urodynamic testing. She has no defecatory complaints. She is going to [facility] in [place] and wants to be ready for this vacation. She has been recommended to have a TVH ant & post repair but is interested in a second opinion. She is a diabetic on no meds. She rep orts having sugars checked periodically and thinks that her fasting sugars are 160. She has not been recommended any non-surgical therapy for this problem. For further characterization of the above problems and how much they bother her, as well as review of systems, our detailed physical examination, and recommendations, please see Amandam mallika report from today's visit in Chart Review or [facility]. Pt seen and examined with Dr Marquez and agree with her note above following my edits. Margie Mtz - 10/2006 3:30 PM PDT Post Voiding Residual: Amount Voided 200Ml Post Void 20Ml See File Maker Report in [facility]. documented in this encounte r Plan of Treatment + + +--------+ + + | Name | Type | Priori | Associated Diagnoses | Order Schedule | | | | ty | | | + + +--------+ + + | NM | Procedures | Routin | Cystocele | Ordered: 05/01/2006 | | INSERT,NON-INDWELLIN | | e | | | | G BLADDER CATHETER | | | | | + + +--------+ + + | NM FIT/INSERT | Procedures | Routin | Cystocele Uterine | Ordered: 05/03/2006 | | INTRAVAG SUPPORT | | e | Prolapse Mixed | | | DEVICE | | | Incontinence Urge | | | | | | and Stress | | + + +--------+ + + documented as of this encounter Procedures + +--------+ + + + | Procedure Name | Priori | Date/Time | Associated Diagnosis | Comments | | | ty | | | | + +--------+ + + + | EMELY REDDY ONLY | Routin | 05/01/2006 | Cystocele | Results for this | | | e | 3:00 PM | | procedure are in the | | | | PDT | | results section. | + +--------+ + + + documented in this encounter Results EMELY REDDY ONLY (05/01/2006 3:00 PM PDT) + +--------+ + + + | Component | Value | Ref Range | Performed | Pathologist | | | | | At | Signature | + +--------+ + + + | COLOR(UR) | Yellow | | [facility] | | | | | | OF CARE | | | | | | TESTS | | + +--------+ + + + | APPEARANCE | Clear | | [facility] | | | | | | OF CARE | | | | | | TESTS | | + +--------+ + + + | LEUKOCYTE | Small | | [facility] | | | ESTERASE | | | OF CARE | | | | | | TESTS | | + +--------+ + + + | NITRITES | Neg | | [facility] | | | | | | OF CARE | | | | | | TESTS | | + +--------+ + + + | UROBILINOGE | Neg | 0.2 - 1.0 | [facility] | | | N | | [facility] | OF CARE | | | | | | TESTS | | + +--------+ + + + | PROTEIN(LAB | Neg | mg/dL | [facility] | | | ) | | | OF CARE | | | | | | TESTS | | + +--------+ + + + | PH(UR) | 5 | 5.0 - 8.5 | [facility] | | | | | | OF CARE | | | | | | TESTS | | + +--------+ + + + | BLOOD | Neg | | [facility] | | | | | | OF CARE | | | | | | TESTS | | + +--------+ + + + | SPECIFIC | 1.015 | 1.004 - 1.030 | [facility] | | | GRAVITY | | | OF CARE | | | | | | TESTS | | + +--------+ + + + | KETONES | Neg | mg/dL | [facility] | | | | | | OF CARE | | | | | | TESTS | | + +--------+ + + + | BILIRUBIN | Neg | | [facility] | | | | | | OF CARE | | | | | | TESTS | | + +--------+ + + + | GLUCOSE(UR) | Neg | mg/dL | [facility] | | | | | | OF CARE | | | | | | TESTS | | + +--------+ + + + + + | Specimen | + + | Urine - Voided | + + + + + + + | Performing | Address | City/State/Zipcode | Phone Number | | Organization | | | | + + + + + | [facility] | [address] | [place], [place] | | | [facility] | [address] | [address] | | | TESTS | | | | + + + + + | [facility] | [address] | [place], [place] | | | TESTS | [address] | [address] | | + + + + + documented in this encounter Visit Diagnoses + + | Diagnosis | + + | Cystocele - Primary Cystocele, midline | + + | Uterine prolapse Uterine prolapse without mention of vaginal wall prolapse | + + | Mixed incontinence urge and stress Mixed incontinence urge and stress (male)(female) | + + documented in this encounter"
--- OUTSIDE RECORDS SUMMARY | ~2019-10-18 | XMS | Encounter Summary ---
Demographics + + + | Address | [address] [place] [address] | | | [place] [address] | + + + | Home Phone | | + + + | Preferred Language | Unknown | + + + | Marital Status | | + + + | Mosque Affiliation | 1076 | + + + [...] Juan Carlos Ko | ECON | [address] | | | | | [place], [place] | | | | | [address] | | + + + + + | Arie Ko | ECON | Unknown | | + + + + + Care Team Providers + +------+ + | Care Home Theater Specialist Name | Role | Phone | + +------+ + | Live Sims MD | PCP | | + +------+ + Encounter Details +--------+ + + + + | Date | Type | Department | Care Team | Description | +--------+ + + + + | 09/25/ | Hospital | [facility] | Lencho Hays, | | | 2013 | Encounter | [facility] | [address] [facility] | | | | | [address] [place] | [place], [place] | | | | | [place], [place] | [address] | | | | | [address] | | | | | | [phone] | | | +--------+ + + + [...]
--- OUTSIDE RECORDS SUMMARY | ~2019-10-18 | XMS | Encounter Summary ---
Demographics + + + | Address | [address] [place] [address] | | | [place] [address] | + + + | Home Phone | | + + + | Preferred Language | Unknown | + + + | Marital Status | | + + + | Christian Affiliation | 1076 | + + + | Race | Unknown | + + + | Ethnic Group | Unknown | + + + Author + + + | Author | [facility] | | | and [place] | + + + | Organization | [facility] | | | and [place] | + + + | Address | Unknown | + + + | Phone | Unavailable | + + + Support + + + + + | Name | Relationship | Address | Phone | + + + + + | Juan Carlos Ko | ECON | [address] [place] [address] [address]T | | | | | [place], [place] | | | | | [address] | | + + + + + | Arie Ko | ECON | Unknown | | + + + + + Care Team Providers + +------+ + | Care Finding Fastener Name | Role | Phone | + +------+ + | Live Sims MD | PCP | | + +------+ + Reason for Visit + + + | Reason | Comments | + + + | Appointment | consult | + + + Encounter Details +--------+ + + + + | Date | Type | Department | Care Team | Description | +--------+ + + + + | 10/28/ | Telephone | [facility] | Lexa Reeves, | Appointment | | 2013 | | PULMONARY [address] | MD [address] | (consult) | | | | [place], | [place] | | | | | [place] [address] | [id number] | | | | | [phone] | | | +--------+ + + + [...]
--- OUTSIDE RECORDS SUMMARY | ~2019-10-18 | XMS | Encounter Summary ---
Demographics + + + | Address | [address] [place] [address] | | | [place] [address] | + + + | Home Phone [...] | Author | [facility] | | | and [place] | + + + | Organization | [facility] | | | and [place] | + + + | Address | Unknown | + + + | Phone | Unavailable | + + + Support + + + + + | Name | Relationship | Address | Phone | + + + + + | Juan Carlos Ko | ECON | [address] | | | | | [place], [place] | | | | | [address] | | + + + + + | Arie Ko | ECON | Unknown | | + + + + + Care Team Providers + +------+ + | Care Apprentice Instrument Technician Name | Role | Phone | + +------+ + PCP | Unavailable | + +------+ + Encounter Details +--------+ + + + + | Date | Type | Department | Care Team | Description | +--------+ + + + + | 01/05/ | Hospital | [facility] | | | | 1994 | Encounter | MED CTR [facility] OP | | | | | | [address] | | | | | | [place], [place] | | | | | | [address] | | | | | | [phone] | | | +--------+ + + + [...]
--- OUTSIDE RECORDS SUMMARY | ~2019-10-18 | XMS | Encounter Summary ---
Demographics + + + | Address | [address] [place] [address] | | | [place] [address] | + + + | Home Phone | | + + + | Preferred Language | Unknown | + + + | Marital Status | | + + + | Temple Affiliation | 1076 | + + + [...] Juan Carlos Ko | ECON | [address] | | | | | [place], [place] | | | | | [address] | | + + + + + | Arie Ko | ECON | Unknown | | + + + + + Care Team Providers + +------+ + | Care Marine Services Technician Name | Role | Phone | + +------+ + | Bobo Garcia DO | PCP | | + +------+ + Reason for Visit +--------+ + | Reason | Comments | +--------+ + | Other | | +--------+ + Encounter Details +--------+ + + + + | Date | Type | Department | Care Team | Description | +--------+ + + + + | 07/06/ | Telephone | [facility] | Lencho Hays, | Other | | 2014 | | ORTHOPEDIC SURGERY | [address] [facility] | | | | | [address] [facility] | [place] | | | | | [place] | [address] | | | | | [address] | | | | | | [phone] | | | +--------+ + + + [...]
--- OUTSIDE RECORDS SUMMARY | ~2019-10-18 | XMS | Encounter Summary ---
Demographics + + + | Address | [address] [place] [address] | | | [place] [address] | + + + | Home Phone | | + + + | Preferred Language | Unknown | + + + | Marital Status | | + + + | Muslim Affiliation | 1076 | + + + [...] Carlos Ko | ECON | [address] | | | | | [place], [place] | | | | | [address] | | + + + + + | Arie Ko | ECON | Unknown | | + + + + + Care Team Providers + +------+ + | Care Real Estate Internship Name | Role | Phone | + +------+ + | Bobo Garcia DO | PCP | | + +------+ + Encounter Details +--------+ + + + + | Date | Type | Department | Care Team | Description | +--------+ + + + + | 04/22/ | Hospital | [facility] | Lencho Hays, | Right knee pain | | 2015 | Encounter | [facility] | MD [address] [facility] | | | | | [address] [place] | [place], [place] | | | | | [place], [place] | [address] | | | | | [address] | | | | | | [phone] | | | +--------+ + + + [...] + + + | XR KNEE RIGHT 3 VW | Routin | 04/22/2015 | Right knee pain | Results for this | | | e | 4:02 PM | | procedure are in the | | | | PDT | | results section. | + +--------+ + + + documented in this encounter Results XR Knee Right 3 [...] [address] | [place] | [phone] | | [facility] | | [address] | | | - IMAGING | | | | + + + + + documented in this encounter Visit Diagnoses + + | Diagnosis | + + | Right knee pain Pain in joint, lower leg | + + documented in this encounter"
--- OUTSIDE RECORDS SUMMARY | ~2019-10-18 | XMS | Encounter Summary ---
Demographics + + + | Address | [address] [place] [address] | | | [place] [address] | + + + | Home Phone [...] Juan Carlos Ko | ECON | [address] | | | | | [place], [place] | | | | | [address] | | + + + + + | Arie Ko | ECON | Unknown | | + + + + + Care Team Providers + +------+ + | Care Transition Social Worker Name | Role | Phone | + +------+ + | Bobo Garcia DO | PCP | | + +------+ + Reason for Visit + + + | Reason | Comments | + + + | Procedure | | + + + Encounter Details +--------+ + + + + | Date | Type | Department | Care Team | Description | +--------+ + + + + | 04/01/ | Telephone | [facility] | Lencho Hays, | Procedure | | 2015 | | ORTHOPEDIC SURGERY | [address] [facility] | | | | | [address] [facility] | [place] | | | | | [place] | [address] | | | | | [address] | | | | | | [phone] | | | +--------+ + + + [...]
--- OUTSIDE RECORDS SUMMARY | ~2019-10-18 | XMS | Encounter Summary ---
Demographics + + + | Address | [address] [place] [address] | | | [place] [address] | + + + | Home Phone [...] Carlos Ko | ECON | [address] [place] [address] [address] | | | | | [place], [place] | | | | | [phone] | | + + + + + | Arie Ko | ECON | Unknown | | + + + + + Care Team Providers + +------+ + | Care Share Holder Name | Role | Phone | + [...] | | | | | | | AL TOTAL HIP | | | | | [...] + + + + | 06/19/ | Anesthesia | CIELO BANKS | Lexa Dawson | | | 2014 | Event | [facility] | MD [place] [address] | | | | | [address] | [address] [place] | | | | | [place] | [address] | | | | | [address] | | | | | | [phone] | | | +--------+ + + + + Anesthesia Record + + + + + | Procedure Name | Responsible | Anesthesia Start | Anesthesia Stop Time | | | Anesthesiologist | Time | | + + + + + | Right Total Hip | Lexa Dawson, | 06/19/15744 | 06/19/15 09 | | Arthroplasty, | MD | | | | Anterior Approach | | | | | (Right Hip) | | | | + + + + + +----+---+ + + | Da | T | Event | Comment | | te | i | | | | | m | | | | | e | | | +----+---+ + + | 07 | 0 | | | | /3 | 7 | | | | 1/ | 1 | | | | 20 | 5 | | | | 15 | | | | +----+---+ + + | | 0 | An Checkout | Pre-use anesthesia machine/equipment checkout. | | | 7 | | | | | 1 | | | | | 6 | | | +----+---+ + + | | 0 | An Start | | | | 7 | Data | | | | 3 | | | | | 1 | | | +----+---+ + + | | 0 | Beta | {:[id number]"The patient took a beta-tj the day prior to | | | 7 | Tj | surgery.","The patient took a beta-tj today.","The patient's | | | 3 | Declined | systolic blood pressure is below 120mmHg.","The patient's heart | | | 1 | | rate is below 60.","The patient is having a cardiac procedure | | | | | today.","The patient is not on a beta-tj at home."} | +----+---+ + + | | 0 | Antibiotic | | | | 7 | Given | | | | 3 | | | | | 1 | | | +----+---+ + + | | 0 | an giuseppe now | | | | 7 | | | | | 3 | | | | | 1 | | | +----+---+ + + | | 0 | Block Start | Versed 2 mg IV Dilaudid 1 mg IV | | | 7 | | | | | 4 | | | | | 1 | | | +----+---+ + + | | 0 | Spinal Dose | | | | 7 | | | | | 4 | | | | | 2 | | | +----+---+ + + | | 0 | an giuseppe now | | | | 7 | | | | | 4 | | | | | 4 | | | +----+---+ + + | | 0 | AN Block | | | | 7 | End | | | | 4 | | | | | 5 | | | +----+---+ + + | | 0 | An Start | Reassessment prior to anesthesia induction/procedure. | | | 7 | | | | | 4 | | | | | 5 | | | +----+---+ + + | | 0 | Preoxygenat | | | | 7 | ed | | | | 5 | | | | | 0 | | | +----+---+ + + | | 0 | An | | | | 7 | Induction | | | | 5 | | | | | 5 | | | +----+---+ + + | | 0 | An | Easy mask airway. DL with mac3, could see tip of epiglottis even | | | 7 | Intubation | with selleck could not see opening. Changed to [place] video | | | 5 | | scope and with manipulation, could see better and needed stylette | | | 8 | | to hook into glottic opening. | +----+---+ + + | | 0 | AN Bite | | | | 8 | Block | | | | 0 | | | | | 1 | | | +----+---+ + + | | 0 | [place] | | | | 8 | 43-degrees | | | | 0 | | | | | 6 | | | +----+---+ + + | | 0 | an giuseppe now | Start | | | 8 | | | | | 2 | | | | | 0 | | | +----+---+ + + | | 0 | [place] off | | | | 9 | | | | | 1 | | | | | 7 | | | +----+---+ + + | | 0 | Breathing | | | | 9 | Spontaneous | | | | 1 | ly | | | | 7 | | | +----+---+ + + | | 0 | Extubated | | | | 9 | Awake | | | | 3 | | | | | 2 | | | +----+---+ + + | | 0 | An Stop | Patient handed off to recovery nurse. | | | 3 | | | | | 5 | | | +----+---+ + + +------+ | Meds | +------+ + + + | Name | Total | + + + | midazolam | 2 mg | + + + | morphine (Intrathecal) | 0.35 mg | + + + | bupivacaine 0.75% (Intrathecal) | 1 mL | + + + | lidocaine 2% (PF) | 60 mg | + + + | propofol | 150 mg | + + + | ondansetron | 4 mg | + + + | ePHEDrine | 25 mg | + + + | ceFAZolin in dextrose (ANCEF) | 1.5 g | | IVPB 2 g | | + + + | tranexamic acid (CYKLOKAPRON) | 2,000 mg | | 2,000 mg in sodium chloride 0.9% | | | 100 mL IVPB | | + + + | HYDROmorphone | 1 mg | + + + | vecuronium | 5 mg | + + + | glycopyrrolate | 0.5 mg | + + + | neostigmine | 1 mg | + + + | lactated ringers (LR) infusion | 1,700 mL | + + + + + | Name | + + | N2O Flow Rate (L/Min) | + + | O2 Flow Rate (L/Min) | + + | Insp O2 | + + | Exp SEV | + + | Exp LAZ | + + | Air Flow Rate (L/Min) | + + + + | No blood administrations on file. | + + +--------+ + + + | Type | Details | Placement | Removal | +--------+ + + + | [READ | 06/19/15; 07; 06/21/15; 1056 | 06/19/15 07 by | 06/21/15 1056 by | | ONLY] | | Kat Iglesias RN | [facility] E | | | | | [facility]ont | | Periph | | | | | eral | | | | | IV - | | | | | Single | | | | | Lumen | | | | | | | | | +--------+ + + + | Read | 06/19/15; 715; Right:; hip; | 06/19/15715 by | 06/21/15 105 by | | only - | healing within expectations; | Gabriel Colon RN | Mary Grcae [facility]atham | | | 06/21/15; 1056 | | ILIANA [place] | | Incisi | | | | | on | | | | +--------+ + + + | Urethr | 06/19/15; 729; indicated due to | 06/19/15729 by | 06/19/15 992 by | | al | specific surgical procedure; | Alisha Hobbs RN | [facility] | | Cathet | indwelling double lumen catheter; | | | | er | other (see comments); not known; | | | | | removed in past; 06/19/15; 2358 | | | +--------+ + + + | Epidur | 06/19/15; 0741; other (see | 06/19/15740 by | 06/19/152358 by | | al/Spi | comments); not known; 06/19/15; | Lexa Dawson, | [facility] | | nal | 2358 | MD | | +--------+ + + + | Airway | Placement Date: 06/19/15; | 06/19/15757 by | 06/19/15 09 by | | | Placement Time: 757; Mask | Lexa Dawson, | Lexa Dawson, | | | Ventilation: EZ; Airway Grade: | MD | MD | | | III; With: CP; Successful | | | | | Technique: video scope (Attempted | | | | | with mac3 switched to [place] | | | | | due to poor view); Laryngoscope | | | | | Blade Size: 3; Attempts: 3; | | | | | Airway Type: endotracheal, | | | | | cuffed, disposable; Size: 6.5; | | | | | Airway Tube Secured At: 0.22 m | | | | | (8.66"); Tube Reference Point: | | | | | teeth; Trauma: none; Other | | | | | Equipment: tooth guard, stylette; | | | | | Placement Check: verified by | | | | | capnography, verified by | | | | | auscultation; Placed By: | | | | | Anesthesiologist; Removal Date: | | | | | 06/19/15; Removal Time: 931 | | | +--------+ + + + [...] + | ANESTHESIA BLOCK | Routin | 06/19/2015 | | Results for this | | | e | 8:31 AM | | procedure are in the | | | | PDT | | results section. | + +--------+ + + + documented in this encounter Results ANESTHESIA BLOCK (06/19/2015 8:31 AM PDT) + + + | Narrative | Performed At | + + + | Lexa Dawson MD 06/19/2015 8:31 Procedure Note Spinal | | | Procedure: Spinal L3-4, Approach: Posterior Technique | | | used to guide the needle to the proximity of the nerve, appropriate | | | space, or fascial plane: Single-Shot . Indication: Post-Op Pain | | | Management. Block requested by surgeon or patient. Pre-procedure | | | Events: Patient Identified, Pre-op Evaluation Completed, Airway | | | Assessed, Risks and Benefits Discussed, Procedure Consent Obtained | | | and Timeout Performed. Patient Positioning: Sitting Prep: ChloraPrep | | | used. Skin Local Anesthetic: Lidocaine 1% Needle: 25 G | | | Katt (3.5 in). Ease: Attempts: 1 Note: Positive | | | CSF Return.Negative Blood Aspirated, Paresthesia and Test Dose. | | | Risks and benefits of intrathecal narcotics discussed with patient | | | and . They agree to proceed answered all questions. | | | Patient was brought to the operating room and monitors were | | | applied. The patient was sedated and placed in the sitting | | | position. The L3-4 area was identified and the site marked. A | | | time out was taken. The area prepped with chlorhexidine for 30 | | | seconds. The area was then draped in the usual sterile fashion. | | | Utilizing a 25 ga needle, 3 cc of 1% lidocaine was used to | | | anesthetize the skin and sub-Q area. Using a 20 ga introducer, a | | | 25 ga Katt needle was used and after one positioning, the | | | intrathecal space was entered. No heme or paresthesias were noted. | | | 1 cc of 0.75% marcaine with glucose and 0.35 mg of Astramorph was | | | injected easily. The patient tolerated the procedure well, no | | | complication was noted. Portex 31722R-41 Lot [id number] 07/2016 F | | | Performed by: Performing Provider: LEXA DAWSON | | | Electronically Signed by: Lexa Dawson MD [facility] date/time: | | | 06/19/2015 8:30 | | + + + documented in this encounter Visit Diagnoses Not on filedocumented in this encounter Administered Medications + +--------+ +------+------+------+ | Medication Order | MAR | Action | Dose | Rate | Site | | | Action | Date | | | | + +--------+ +------+------+------+ | bupivacaine 0.75%-dextrose | Given | 06/19/20 | 1 mL | | | | 8.25% (MARCAINE SPINAL) injection | | 15 7:42 | | | | | INTRATHECAL, PRN, Starting Fri | | AM PDT | | | | | 06/19/15 at 0742, Anesthesia | | | | | | | Intra-op | | | | | | + +--------+ +------+------+------+ +---+---+ | | | +---+---+ + +-------+ +-------+---+---+ | ceFAZolin in dextrose (ANCEF) | Given | 06/19/20 | 1.5 g | | | | IVPB 2 g 2 g, Intravenous, | | 15 7:42 | | | | | Administer over 30 Minutes, Prior | | AM PDT | | | | | to Incision, Starting Fri | | | | | | | 06/19/15 at 0614, For 1 dose, | | | | | | | administer within 1 hour of | | | | | | | incision, Pre-op | | | | | | + +-------+ +-------+---+---+ +---+---+ | | | +---+---+ + +-------+ +---------+---+---+ | ePHEDrine 50 mg/mL injection | Given | 06/19/20 | 12.5 mg | | | | PRN, Starting Fri /31/15 at | | 15 8:17 | | | | | 0805, Anesthesia Intra-op | | AM PDT | | | | + +-------+ +---------+---+---+ +-------+ +---------+---+---+ | Given | 06/19/20 | 12.5 mg | | | | | 15 8:05 | | | | | | AM PDT | | | | +-------+ +---------+---+---+ +---+---+ | | | +---+---+ + +-------+ +--------+---+---+ | glycopyrrolate (YANELI) | Given | 06/19/20 | 0.1 mg | | | | injection Intravenous, PRN, | | 15 9:12 | | | | | Secretions, Starting Mon06/19/15 | | AM PDT | | | | | at 0816, Anesthesia Intra-op | | | | | | + +-------+ +--------+---+---+ +-------+ +--------+---+---+ | Given | 06/19/20 | 0.2 mg | | | | | 15 8:16 | | | | | | AM PDT | | | | +-------+ +--------+---+---+ | Given | 06/19/20 | 0.2 mg | | | | | 15 8:05 | | | | | | AM PDT | | | | +-------+ +--------+---+---+ +---+---+ | | | +---+---+ + +-------+ +------+---+---+ | HYDROmorphone (PF) (DILAUDID) 2 | Given | 06/19/20 | 1 mg | | | | mg/mL injection Intravenous, | | 15 7:41 | | | | | PRN, Pain, Starting 06/19/15 | | AM PDT | | | | | at 0741, Anesthesia Intra-op | | | | | | + +-------+ +------+---+---+ +---+---+ | | | +---+---+ + +---------+ +---+---+---+ | lactated ringers (LR) infusion | New Bag | 06/19/20 | | | | | at 10-100 mL/hr, Intravenous, | | 15 8:53 | | | | | CONTINUOUS, Starting Mon06/19/15 | | AM PDT | | | | | at 0630, TKO., Pre-op | | | | | | + +---------+ +---+---+---+ +---------+ +--------+-------+---+ | New Bag | 06/19/20 | 1,000 | 100 | | | | 15 7:02 | mLs | mL/hr | | | | AM PDT | | | | +---------+ +--------+-------+---+ +---+---+ | | | +---+---+ + +-------+ +-------+---+---+ | lidocaine (PF) 2% injection | Given | 06/19/20 | 60 mg | | | | PRN, Starting Mon06/19/15 at | | 15 7:55 | | | | | 0755, Anesthesia Intra-op | | AM PDT | | | | + +-------+ +-------+---+---+ +---+---+ | | | +---+---+ + +-------+ +------+---+---+ | midazolam (VERSED) 1 mg/mL | Given | 06/19/20 | 2 mg | | | | injection Intravenous, PRN, | | 15 7:51 | | | | | Anxiety, Starting Mon06/19/15 at | | AM PDT | | | | | 0751, Anesthesia Intra-op | | | | | | + +-------+ +------+---+---+ +---+---+ | | | +---+---+ + +-------+ +---------+---+---+ | morphine (PF) (DURAMORPH) 0.5 | Given | 06/19/20 | 0.35 mg | | | | mg/mL injection INTRATHECAL, | | 15 7:42 | | | | | PRN, Pain, Starting Mon06/19/15 | | AM PDT | | | | | at 0742, Anesthesia Intra-op | | | | | | + +-------+ +---------+---+---+ +---+---+ | | | +---+---+ + +-------+ +------+---+---+ | neostigmine (PROSTIGMIN) 1 | Given | 06/19/20 | 1 mg | | | | mg/mL injection Intravenous, | | 15 9:12 | | | | | PRN, Starting 06/19/15 at | | AM PDT | | | | | 0912, Anesthesia Intra-op | | | | | | + +-------+ +------+---+---+ +---+---+ | | | +---+---+ + +-------+ +------+---+---+ | ondansetron (ZOFRAN) injection | Given | 06/19/20 | 4 mg | | | | PRN, Nausea, Vomiting, Starting | | 15 7:55 | | | | | 06/19/15 at 0755, Anesthesia | | AM PDT | | | | | Intra-op | | | | | | + +-------+ +------+---+---+ +---+---+ | | | +---+---+ + +-------+ +--------+---+---+ | propofol (DIPRIVAN) injection | Given | 06/19/20 | 150 mg | | | | PRN, Starting Mon06/19/15 at | | 15 7:55 | | | | | 0755, Anesthesia Intra-op | | AM PDT | | | | + +-------+ +--------+---+---+ +---+---+ | | | +---+---+ + +---------+ + +---+---+ | tranexamic acid (CYKLOKAPRON) | New Bag | 06/19/20 | 2,000 mg | | | | 2,000 mg in sodium chloride 0.9% | | 15 8:09 | | | | | 100 mL IVPB 2,000 mg, | | AM PDT | | | | | Intravenous, Administer over 30 | | | | | | | Minutes, ONCE, Mon06/19/15 at | | | | | | | 0630, For 1 dose, To be given in | | | | | | | the operating room prior to skin | | | | | | | incision, Pre-op | | | | | | + +---------+ + +---+---+ +---+---+ | | | +---+---+ + +-------+ +------+---+---+ | vecuronium (NORCURON) injection | Given | 06/19/20 | 5 mg | | | | Intravenous, PRN, Ventilator | | 15 7:54 | | | | | Dyssynchrony, Starting Fri | | AM PDT | | | | | 06/19/15 at 0754, Anesthesia | | | | | | | Intra-op | | | | | | + +-------+ +------+---+---+ +---+---+ | | | +---+---+ documented in this encounter
--- OUTSIDE RECORDS SUMMARY | ~2019-10-18 | XMS | Encounter Summary ---
Demographics + + + | Address | [address] [facility] [address] | | | [place] [address] | + + + | Home Phone | | + + + | Preferred Language | Unknown | + + + | Marital Status | | + + + | Congregational Affiliation | PRE | + + + | Race | White | + + + | Ethnic Group | Not or | + + + Author + + + | Author | [facility] | + + + | Organization | [facility] | + + + | Address | Unknown | + + + | Phone | Unavailable | + + + Support + + + + + | Name | Relationship | Address | Phone | + + + + + | Juan Carlos Ko | ECON | [address] | | | | | [place] | | | | | [address] | | + + + + + Care Team Providers + +------+ + | Care Gas Leak Tester Name | Role | Phone | + +------+ + | Bobo Garcia DO | PCP | | + +------+ + Encounter Details +--------+ + + + + | Date | Type | Department | Care Team | Description | +--------+ + + + + | 10/05/ | Hospital | Registration [address] | Malu Bae | | | 2005 | Activity | [address] | MD Amirah [address] | | | | | Reggie Mailcode: [id number] | [address] | | | | | [place], [place] | [place], [place] | | | | | [address] | [address] | | | | | [phone] | [phone] | | | | | | | [...] + | CBC ONLY | Routin | 10/06/2006 | | Results for this | | | e | 12:55 PM | | procedure are in the | | | | PST | | results section. | + +--------+ + + + | HEMATOCRIT | Routin | 10/06/2006 | | Results for this | | | e | 11:25 AM | | procedure are in the | | | | PST | | results section. | + +--------+ + + + | BASIC METABOLIC SET | Routin | 10/06/2006 | | Results for this | | (NA, K, CL, TCO2, | e | 9:15 AM | | procedure are in the | | BUN, CR, GLU, CA) | | PST | | results section. | + +--------+ + + + | PHOSPHORUS, PLASMA | Routin | 10/06/2006 | | Results for this | | | e | 9:15 AM | | procedure are in the | | | | PST | | results section. | + +--------+ + + + | MAGNESIUM, PLASMA | Routin | 10/06/2006 | | Results for this | | | e | 9:15 AM | | procedure are in the | | | | PST | | results section. | + +--------+ + + + | CBC ONLY | Routin | 10/05/2006 | | Results for this | | | e | 6:20 PM | | procedure are in the | | | | PST | | results section. | + +--------+ + + + | SURGICAL PATHOLOGY | Routin | 10/05/2006 | | Results for this | | | e | | | procedure are in the | | | | | | results section. | + +--------+ + + + documented in this encounter Results CBC ONLY WITH PLATELET (10/06/2006 12:55 PM PST) + + + + + + | Component | Value | Ref Range | Performed | Pathologist | | | | | At | Signature | + + + + + + | WHITE CELL | 10.3 | 4.4 - 11.0 K/cu | [facility] | | | COUNT | | mm | DEPARTMENT | | | | | | OF | | | | | | PATHOLOGY | | + + + + + + | RED CELL | 2.85 (L) | 4.00 - 5.20 | [facility] | | | COUNT | | M/cu mm | DEPARTMENT | | | | | | OF | | | | | | PATHOLOGY | | + + + + + + | HEMOGLOBIN | 8.5 (L) | 12.0 - 16.0 | [facility] | | | | | g/dL | DEPARTMENT | | | | | | OF | | | | | | PATHOLOGY | | + + + + + + | HEMATOCRIT | 24.9 (L) | 36.0 - 46.0 % | [facility] | | | | | | DEPARTMENT | | | | | | OF | | | | | | PATHOLOGY | | + + + + + + | MCV | 87.4 | 80.0 - 96.0 fL | [facility] | | | | | | DEPARTMENT | | | | | | OF | | | | | | PATHOLOGY | | + + + + + + | MCHC | 34.0 | 33.4 - 35.5 | [facility] | | | | | g/dL | DEPARTMENT | | | | | | OF | | | | | | PATHOLOGY | | + + + + + + | RDW | 14.1 | 11.5 - 15.0 % | [facility] | | | | | | DEPARTMENT | | | | | | OF | | | | | | PATHOLOGY | | + + + + + + | PLATELET | 168 | 150 - 400 K/cu | [facility] | | | COUNT | | mm | DEPARTMENT | | | | | | OF | | | | | | PATHOLOGY | | + + + + + + + + | Specimen | + + | | + + + + + + + | Performing | Address | City/State/Zipcode | Phone Number | | Organization | | | | + + + + + | [facility]MENT [facility] | [address] | [place] [address] | | | PATHOLOGY | [address] | | | + + + + + | [facility] DEPARTMENT OF | [address] | [place] [address] | | | PATHOLOGY | [address] | | | + + + + + HEMATOCRIT (10/06/2006 11:25 AM PST) + + + + + + | Component | Value | Ref Range | Performed | Pathologist | | | | | At | Signature | + + + + + + | HEMATOCRIT | 26.1 (L) | 36.0 - 46.0 % | [facility] | | | | | | DEPARTMENT | | | | | | OF | | | | | | PATHOLOGY | | + + + + + + + + | Specimen | + + | | + + + + + + + | Performing | Address | City/State/Zipcode | Phone Number | | Organization | | | | + + + + + | [facility] DEPARTMENT | [address] [facility] | [place] [address] | | | PATHOLOGY | [address] | | | + + + + + | [facility] DEPARTMENT OF | [facility] [facility] | [place] [address] | | | PATHOLOGY | [address] | | | + + + + + PHOSPHORUS, PLASMA (10/06/2006 9:15 AM PST) + +-------+ + + + | Component | Value | Ref Range | Performed | Pathologist | | | | | At | Signature | + +-------+ + + + | PHOSPHORUS, | 3.0 | 2.4 - 4.7 mg/dL | [facility] | | | PLASMA [...] | + + + + + | [facility] DEPARTMENT OF | [address] | [place] [address] | | | PATHOLOGY | [address] | | | + + + + + | [facility] | [address] | [place] [address] | | | PATHOLOGY | [address] | | | + + + + + BASIC METABOLIC SET (10/06/2006 9:15 AM PST) + +---------+ + + + | Component | Value | Ref Range | Performed | Pathologist | | | | | At | Signature | + +---------+ + + + | GLUCOSE, | 130 (H) | 65 - 110 mg/dL | [facility] | | | PLASMA | | | DEPARTMENT | | | (LAB) | | | OF | | | | | | PATHOLOGY | | + +---------+ + + + | BUN, PLASMA | 8 | 6 - 20 mg/dL | [facility] | | | (LAB) | | | DEPARTMENT | | | | | | OF | | | | | | PATHOLOGY | | + +---------+ + + + | CREATININE | 1.0 | 0.6 - 1.1 mg/dL | [facility] [...] +---------+ + + + | POTASSIUM, | 3.8 | 3.5 - 5.1 | [facility] | | | PLASMA | | mmol/L | DEPARTMENT | | | (LAB) | | | OF | | | | | | PATHOLOGY | | + +---------+ + + + | CHLORIDE, | 98 | 98 - 107 mmol/L | [facility] [...] +---------+ + + + | CALCIUM, | 7.8 (L) | 8.5 - 10.5 | [facility] | [...] | + + + + + | [facility] | [address] [facility] | [place] [address] | | | PATHOLOGY | [address] | | | + + + + + | [facility] DEPARTMENT OF | [address] [facility] | [place] [address] | | | PATHOLOGY | [address] | | | + + + + + MAGNESIUM, PLASMA (10/06/2006 9:15 AM PST) + +---------+ + + + | Component | Value | Ref Range | Performed | Pathologist | | | | | At | Signature | + +---------+ + + + | MAGNESIUM,P | 1.7 (L) | 1.8 - 2.5 mg/dL | [facility] | | | LASMA | | | DEPARTMENT | | | | | | OF | | | | | | PATHOLOGY | | + +---------+ + + + + + | Specimen | + + | | + + + + + + + | Performing | Address | City/State/Zipcode | Phone Number | | Organization | | | | + + + + + | [facility] DEPARTMENT OF | [address] [facility] | [place] [address] | | | PATHOLOGY | [address] | | | + + + + + | [facility] | [address] [facility] | [place] [address] | | | PATHOLOGY | [address] | | | + + + + + CBC ONLY WITH PLATELET (10/05/2006 6:20 PM PST) + + + + + + | Component | Value | Ref Range | Performed | Pathologist | | | | | At | Signature | + + + + + + | WHITE CELL | 9.5 | 4.4 - 11.0 K/cu | [facility] | | | COUNT | | mm | DEPARTMENT | | | | | | OF | | | | | | PATHOLOGY | | + + + + + + | RED CELL | 3.22 (L) | 4.00 - 5.20 | [facility] | | | COUNT | | M/cu mm | DEPARTMENT | | | | | | OF | | | | | | PATHOLOGY | | + + + + + + | HEMOGLOBIN | 9.8 (L) | 12.0 - 16.0 | [facility] | | | | | g/dL | DEPARTMENT | | | | | | OF | | | | | | PATHOLOGY | | + + + + + + | HEMATOCRIT | 27.9 (L) | 36.0 - 46.0 % | [facility] | | | | | | DEPARTMENT | | | | | | OF | | | | | | PATHOLOGY | | + + + + + + | MCV | 86.7 | 80.0 - 96.0 fL | [facility] | | | | | | DEPARTMENT | | | | | | OF | | | | | | PATHOLOGY | | + + + + + + | MCHC | 35.0 | 33.4 - 35.5 | [facility] | | | | | g/dL | DEPARTMENT | | | | | | OF | | | | | | PATHOLOGY | | + + + + + + | RDW | 13.8 | 11.5 - 15.0 % | [facility] | | | | | | DEPARTMENT | | | | | | OF | | | | | | PATHOLOGY | | + + + + + + | PLATELET | 154 | 150 - 400 K/cu | [facility] | | | COUNT | | mm | DEPARTMENT | | | | | | OF | | | | | | PATHOLOGY | | + + + + + + + + | Specimen | + + | | + + + + + + + | Performing | Address | City/State/Zipcode | Phone Number | | Organization | | | | + + + + + | [facility] DEPARTMENT OF | [address] | [place] [address] | | | PATHOLOGY | [address] | | | + + + + + | [facility] DEPARTMENT OF | [address] | [place] [address] | | | PATHOLOGY | [address] | | | + + + + + SURGICAL PATHOLOGY (10/05/2006) + + + + + + | Component | Value | Ref Range | Performed | Pathologist | | | | | At | Signature | + + + + + + | SURGICAL | SOURCE OF SPECIMEN:A | | [facility] | | | PATHOLOGY | Uterus, right and left | | DEPARTMENT | | | | ovaries and fallopian | | OF | | | | tubes Final Pathologic | | PATHOLOGY | | | | Diagnosis:Uterus, | | | | | | ovaries, and fallopian | | | | | | tubes, supracervical | | | | | | hysterectomy | | | | | | andbilateral | | | | | | salpingo-oophorectomy: | | | | | | - Uterus with no | | | | | | diagnostic abnormality | | | | | | - Atrophic | | | | | | endometrium with no | | | | | | diagnostic abnormality | | | | | | - Ovaries and | | | | | | fallopian tubes with no | | | | | | diagnostic abnormality | | | | | | Case reviewed | | | | | | by:Susanne Bella, | | | | | | M.D./Davon Redman, | | | | | | | | | | | | M.D./HematopathologistT: | | | | | | 10/09/06:mabel I have | | | | | | reviewed all diagnostic | | | | | | slides and have edited | | | | | | the gross | | | | | | and/ormicroscopic | | | | | | portion of this report | | | | | | as part of my pathologic | | | | | | assessment andfinal | | | | | | diagnosis. Clinical | | | | | | History:The patient is a | | | | | | 66-year-old female with | | | | | | vaginal prolapse. Gross | | | | | | Description:One | | | | | | specimen is received | | | | | | fresh in a container | | | | | | with the patient's | | | | | | initialsNR labeled | | | | | | "uterus and right and | | | | | | left ovaries and | | | | | | fallopian | | | | | | tubes."Received is a | | | | | | 74.0-gram uterus with | | | | | | attached bilateral | | | | | | adnexa. The | | | | | | uterusmeasures 6.4 (SI) | | | | | | x 4.7 (ML) x 3.0 (AP) cm | | | | | | and has a smooth, | | | | | | brian-pinkserosa with | | | | | | cautery along the lower | | | | | | uterine segment and no | | | | | | gross cervixidentified. | | | | | | The uterus is opened | | | | | | to reveal a 2.8 x 2.7-cm | | | | | | endometrialcavity with | | | | | | a 2.0 x 1.5-cm area of | | | | | | viscid translucent white | | | | | | to pinkpolypoid tissues | | | | | | along the anterior | | | | | | endometrial cavity. | | | | | | Sectioning revealsan | | | | | | endometrium, 0.1 cm | | | | | | thick, and a pale | | | | | | brian-pink myometrium, 1.5 | | | | | | cm thick,with no | | | | | | obvious mass lesions | | | | | | identified. The right | | | | | | fallopian tube | | | | | | measures5.6 cm in length | | | | | | x an average 0.5 cm in | | | | | | diameter and has a | | | | | | smooth,brian-white cut | | | | | | surface. The right | | | | | | ovary is 2.0 x 0.5 x 0.3 | | | | | | cm and has asmooth, brian | | | | | | cut surface. The left | | | | | | fallopian tube measures | | | | | | 5.5 cm in lengthx an | | | | | | average 0.5 cm thick and | | | | | | has a smooth, brian cut | | | | | | surface. The | | | | | | attachedovary is 2.3 x | | | | | | 1.2 x 0.3 cm and on | | | | | | bisection has a smooth | | | | | | to slightlygranular, | | | | | | brian-red cut surface. | | | | | | Network Diagnostic Support Specialist | | | | | | sections are submitted. | | | | | | Cassette Index:A1, full | | | | | | thickness anterior | | | | | | endomyometriumA2, | | | | | | additional anterior | | | | | | endometriumA3, full | | | | | | thickness posterior | | | | | | endomyometriumA4, right | | | | | | fallopian tube and | | | | | | ovaryA5, left fallopian | | | | | | tube and | | | | | | ovaryKK:VBK:labRendering | | | | | | Diagnostician: Abhi | | | | | | Юлия | | | | | | M.EzPathologistElectroni | | | | | | jonny Signed 10/09/2006 | | | | + + + + + + + + | Specimen | + + | | + + + + + + + | Performing | Address | City/State/Zipcode | Phone Number | | Organization | | | | + + + + + | [facility] | [address] [facility] [facility] | [place] [address] | | | PATHOLOGY | [address] | | | + + + + + | [facility] | [address] [place] [address] | [place] [address] | | | PATHOLOGY | [address] | | | + + + + + documented in this encounter Visit Diagnoses Not on filedocumented in this encounter
--- OUTSIDE RECORDS SUMMARY | ~2019-10-18 | XMS | Encounter Summary ---
Demographics + + + | Address | [address] [place] [address] | | | [place] [address] | + + + | Home Phone [...] Juan Carlos Ko | ECON | [address] | | | | [place], [place] | | | | | [address] | | + + + + + | Arie Ko | ECON | Unknown | | + + + + + Care Team Providers + +------+ + | Care On Site Soil Evaluator Name | Role | Phone | + +------+ + | Live Sims MD | PCP | | + +------+ + Reason for Visit + + + | Reason | Comments | + + + | Pre-op Exam | left total hip arthroplasty DOS 10/03/14 | + + + Encounter Details +--------+---------+ + + + | Date | Type | Department | Care Team | Description | +--------+---------+ + + + | 09/25/ | Office | [facility] | Lencho Hays, | Osteoarthritis of | | 2013 | Visit | ORTHOPEDIC SURGERY | [address] [place] [address] | hip (Primary Dx); | | | | [address] [place] [address] | [place] | Pre-op exam; | | | | [place] | [id number] | Diabetes (HCC) | | | | [address] | | | | | | [phone] | | | +--------+---------+ + + + [...] + + + | Blood Pressure | 138/60 | 09/25/2014 8:51 AM | | | | | PST | | + + + + + | Pulse | 60 | 09/25/2014 8:51 AM | | | | | PST | | + + + + + | Temperature | 36.5 C (97.7 F) | 09/25/2014 8:51 AM | | | | | PST | | + + + + + | Respiratory Rate | 16 | 09/25/2014 8:51 AM | | | | | PST | | + + + + + | Oxygen Saturation | - | - | | + + + + + | Inhaled Oxygen | - | - | | | Concentration | | | | + + + + + | Weight | 110.2 kg (243 lb) | 09/25/2014 8:51 AM | | | | | PST | | + + + + + | Height | 177.8 cm (5' 10") | 09/25/2014 8:51 AM | | | | | PST | | + + + + + | Body Mass Index | 34.87 | 09/25/2014 8:51 AM | | | | | PST | | + + + + + documented in this encounter Progress Notes Lencho Hays MD - 09/25/2014 11:02 AM PSTPatient is here for preop left total hip arthr oplasty She is accompanied by her today We spent 45 minutes today discussing what to expect with this surgery and hospital stay The specific risks of the surgery and reasonable expectations for the recovery process were discussed at length Her medications are reviewed All questions are answered Labs pending History and physical pending documented in this encounter Plan of Treatment Not on filedocumented as of this encounter Results ECG 12 lead (12/12/2014 [...] Joesph Cardona MD - 12/12/2014 8:12 AM [facility] Adult ECG Report Name: Carlota Huerta | | Stefani Age: 74 y.o. Gender: rojpfk43/6[birth year] at 11:09 Narrative Interpretation: Sinus | | bradycardia. PACs. Normal axis. Normal intervals. Prominent/peaked T waves: Consider | | hyperkalemia. | | Gender: female | | | |09/25/14 at 11:09 | | Narrative Interpretation: Sinus bradycardia. PACs. Normal axis. Normal intervals. Prom inent/peaked T waves: Consider hyperkalemia. | + + Comprehensive Metabolic Panel (09/25/2014 10:31 AM PST) + + + + + [...] + + + + | K | 4.7 | 3.5 - 5.1 | [facility] | | | | | mmol/L | [facility] | | | | | | MEDICAL | | | | | | CENTER - | | | | | | LABORATORY | | + + + + + + | Cl | 98 | 98 - 109 mmol/L | [facility] | | | | | | [facility] | | | | | | MEDICAL | | | | | | CENTER - | | | | | | LABORATORY | | + + + + + + | CO2 | 25 | 24 - 31 mmol/L | [facility] [...] + + + + | Glucose | 116 (H) | 70 - 109 mg/dL | [facility] | | | | | | [facility] | | | | | | MEDICAL | | | | | | CENTER - | | | | | | LABORATORY | | + + + + + + | BUN | 20 (H) | 7 - 18 mg/dL | [facility] | | | | | | [facility] | | | | | | MEDICAL | | | | | | CENTER - | | | | | | LABORATORY | | + + + + + + | Creatinine | 1.48 (H) | 0.60 - 1.30 | [facility] | | | | | mg/dL | [facility] | | | | | | MEDICAL | | | | | | CENTER - | | | | | | LABORATORY | | + + + + + + | eGFR if not | 35 (L)Comment: | >=60 | [facility] | | | | GLOMERULAR FILTRATION | mL/min/1.73m2 | [facility] | | | [facility] | RATE,ESTIMATED | | MEDICAL | | | | mL/min/1.75w8Cglx than | | CENTER - | | [...] + + + + | Calcium | 9.2 | 8.3 - 10.5 | [facility] | | | | | mg/dL | [facility] | | | | | | MEDICAL | | | | | | CENTER - | | | | | | LABORATORY | | + + + + + + | Albumin | 4.0 | 3.2 - 5.0 g/dL | [facility] | | | | | | [facility] | | | | | | MEDICAL | | | | | | CENTER - | | | | | | LABORATORY | | + + + + + + | Bilirubin | 1.0 | 0.1 - 1.5 mg/dL | [facility] | | | Total | | | [facility] | | | | | | MEDICAL | | | | | | CENTER - | | | | | | LABORATORY | | + + + + + + | Total | 7.0 | 6.0 - 7.8 g/dL | [facility] | | | Protein | | | [facility] | | | | | | MEDICAL | | | | | | CENTER - | | | | | | LABORATORY | | + + + + + + | AST | 22 | 10 - 42 U/L | [facility] | | | | | | [facility] | | | | | | MEDICAL | | | | | | CENTER - | | | | | | LABORATORY | | + + + + + + | ALT | 22 | 6 - 45 U/L | [facility] | | | | | | [facility] | | | | | | MEDICAL | | | | | | CENTER - | | | | | | LABORATORY | | + + + + + + | Alkaline | 98 | 40 - 110 U/L | [facility] | | | Phosphatase | | | [facility] | | | | | | MEDICAL | | | | | | CENTER - | | | | | | LABORATORY | | + + + + + + | Globulin | 3.0 | g/dL | [facility] | | | | | | [facility] | | | | | | MEDICAL | | | | | | CENTER - | | | | | | LABORATORY | | + + + + + + | Albumin/Deana | 1.3 | | [facility] | | | bulin Ratio | | | [facility] | | | | | | MEDICAL | | | | | | CENTER - | | | | | | LABORATORY | | + + + + + + | BUN/Creatin | 13.5 | | [facility] | | | ine [...] + + | Performing | Address | City/[facility]/Zipcode | Phone Number | | Organization | | | | + + + + + | [facility] | [address] | [place], [place] | [phone] | | [facility] | | [address] | | | - LABORATORY | | | | + + + + + | [facility] | [address] | [place], [place] | | | [facility] | | [address] | | | - LABORATORY | | | | + + + + + Basic Metabolic Panel (09/25/2014 10:31 AM PST) + + + + + [...] + + + + | K | 4.7 | 3.5 - 5.1 | [facility] | | | | | mmol/L | [facility] | | | | | | MEDICAL | | | | | | CENTER - | | | | | | LABORATORY | | + + + + + + | Cl | 98 | 98 - 109 mmol/L | [facility] | | | | | | [facility] | | | | | | MEDICAL | | | | | | CENTER - | | | | | | LABORATORY | | + + + + + + | CO2 | 25 | 24 - 31 mmol/L | [facility] [...] + + + + | Glucose | 116 (H) | 70 - 109 mg/dL | [facility] | | | | | | [facility] | | | | | | MEDICAL | | | | | | CENTER - | | | | | | LABORATORY | | + + + + + + | BUN | 20 (H) | 7 - 18 mg/dL | [facility] | | | | | | [facility] | | | | | | MEDICAL | | | | | | CENTER - | | | | | | LABORATORY | | + + + + + + | Creatinine | 1.48 (H) | 0.60 - 1.30 | [facility] | | | | | mg/dL | [facility] | | | | | | MEDICAL | | | | | | CENTER - | | | | | | LABORATORY | | + + + + + + | eGFR if not | 35 (L)Comment: | >=60 | [facility] | | | | GLOMERULAR FILTRATION | mL/min/1.73m2 | [facility] | | | [facility] | RATE,ESTIMATED | | MEDICAL | | | | mL/min/1.18x2Rqdc than | | CENTER - | | [...] + + + + | Calcium | 9.2 | 8.3 - 10.5 | [facility] | | | | | mg/dL | [facility] | | | | | | MEDICAL | | | | | | CENTER - | | | | | | LABORATORY | | + + + + + + | BUN/Creatin | 13.5 | | [facility] | | | ine [...] + | [facility] | [address] | [place] | [phone] | | [facility] | | [address] | | | - LABORATORY | | | | + + + + + | [facility] | [address] | [place], [place] | | | [facility] | | [address] | | | - LABORATORY | | | | + + + + + XR Hip Left 1 Vw (09/25/2014 8:43 [...] of the left hip with a spherical industrial electrical engineer. Severe | | | degenerative changes in the left hip. No interval acute osseous | | | abnormality. The soft tissues are unremarkable. Dictated and | | | Signed by: Spencer Drake MD Electronically signed: 09/25/2014 | | | 10:00 AM | | + + + + + | Procedure Note | + + | Darion Palomo Results In - 09/25/2014 10:03 AM PST EXAM: XR HIP LEFT 1 VW dated 09/25/2014 | | 8:35 AMHISTORY:left hip osteoarthritisCOMPARISON: May 22, 2014.FINDINGS/IMPRESSION - | | Frontal view of the left hip with a spherical industrial electrical engineer. Severe degenerative changes | | in the left hip. No interval acute osseousabnormality. The soft tissues are | | unremarkable.Dictated and Signed by: Spencer Drake MD Electronically signed: | | 09/25/2014 10:00 AM | |FINDINGS/IMPRESSION - Frontal view of the left hip with a spherical industrial electrical engineer. | |Severe degenerative changes in the left [...] + | [facility] LAB | | | [phone] | + +---------+ + + | [facility] | | | [phone] | + +---------+ + + documented in this encounter Visit Diagnoses + + | Diagnosis | + + | Osteoarthritis of hip - Primary Osteoarthrosis, unspecified whether generalized or | | localized, pelvic region and thigh | + + | Pre-op exam Preoperative examination, unspecified | + + | Diabetes (HCC) | + + documented in this encounter
[~2019-10-18 12:41] MED LIST: CARVEDILOL3.125 MG PO; HYDROCODON-ACE1 EAC8 PO; IBUPROFEN400 MG PO; LEVOTHYROXINE100 MCG PO; METFORMIN HCL500 MG PO; NIACIN500 M1 PO; VASOTEC10 MG PO
== END 2019-10-18 16:26 | disposition home or self-care (01) ==
LOC: ED 12:41
DX: R20.2 Paresthesia of skin (principal); I10 Essential (primary) hypertension; E11.9 Type 2 diabetes mellitus without complications; Z79.899 Other long term (current) drug therapy; Z79.84 Long term (current) use of oral hypoglycemic drugs
CPT/HCPCS: 70450; 80053; 84484; 85025; 85651; 99284-25

== ENCOUNTER 2019-12-20 10:50 | Day surgery (SDC) | payer MEDICARE, OTHER ==
[~2019-12-20 10:50] MED LIST changes: -LEVOTHYROXINE100 MCG PO; +LIPITOR10 MG PO; +TIROSINT125 MCG PO; +TROSPIUM CHLORI20 MG PO; +VITAMIN B122500 MC1 PO; +ZESTRIL40 MG PO
[2019-12-20] MEDS ORDERED: ASPIR 8181 MG PO (11:16)
--- NOTE | 2019-12-20 13:09 | NUR ---
12/20/19 1309 Sheets,Ariadna 1258 PT ARRIVED TO PACU ON 2L VIA MASK, PT WAKES EASILY TO VERBAL STIMULI. PT DENIES PAIN AND NAUSEA. VSS. 1259 PT ROLLED TO BACK. PT REPORTS SHE IS "WAKING UP"
--- NOTE | 2019-12-24 16:48 | PATH ---
[facility] [address] [facility] [facility] [place] [place] [address] Signed SPECIMEN(S): A BONE MARROW - CORE SPECIMEN(S): B BONE MARROW - ASPIRATION SPECIMEN(S): C COMPREHENSIVE FLOW CYTOMETRY ONLY, BM EDTA ASP CLINICAL HISTORY: 79-year-old woman with IgG-[place] paraprotein. D47.2 (monoclonal gammopathy). DIAGNOSIS SUMMARY: A. Peripheral blood - Mild normocytic anemia. B. Bone marrow, aspirate smears, clot section cell block, and core biopsy: - Normocellular marrow (20-30%) with progressive trilineage hematopoiesis. - No morphologic or immunophenotypic evidence of plasma cell dyscrasia or a lymphoproliferative disease. - Stainable iron present. - Please see Diagnostic Comment. DIAGNOSTIC COMMENT: Review of included clinical notes reveals history of chronic neuropathy with IgG kappa paraprotein. The bone marrow examination demonstrates no morphologic or immunophenotypic evidence of plasma cell dyscrasia or a lymphoproliferative disease. Correlation with additional clinical, radiologic, and laboratory data is recommended. GP:smn:C2NR PERIPHERAL BLOOD: HEMOGRAM ([facility]; 12/20/2019): WBC 4.6 K/uL, RBC 4.03 M/uL, HGB 11.6 g/dL, HCT 35.0%, MCV 87.0 fL, MCH 29 pg, MCHC 33 g/dL, RDW 13.8%, PLT 184 K/uL. DIFFERENTIAL (100 cells): Neutrophils 57%, lymphocytes 28%, monocytes 8%, eosinophils 7%. The blood smear is consistent with the CBC. Hemoglobin is mildly decreased with normal MCV; red blood cells are predominantly round, normocytic, normochromic. Occasional ovalocytes and rare echinocytes are noted. Schistocytes are not significantly increased. WBC count is normal with predominance of mature neutrophils and bands demonstrating normal cytoplasmic granularity. No blasts or otherwise immature cells detected. Lymphocytes are small with condensed chromatin pattern and scant to moderate amount of cytoplasm. Platelets are normal in count and appearance. PATIENT NAME: HELEN PADRON PATHOLOGY DATE OF : 42 REPORT #: [id number] PHYSICIAN: GRZEGORZ PATHOLOGY PCP: SHEREEN MCKENZIE MD REPORT IS CONFIDENTIAL AND NOT TO BE RELEASED WITHOUT AUTHORIZATION [facility] [address] [place], [place] [address] Signed BONE MARROW: BONE MARROW DIFFERENTIAL (300 cells): Promyelocytes 1%, myelocytes 6%, metamyelocytes 10%, bands 10%, neutrophils 23%, normoblasts 25%, lymphocytes 15%, plasma cells 2%, monocytes 1%, eosinophils 6%, basophils 1%. ASPIRATE SMEARS: The aspirate smears contain small bone marrow particles with excessive smearing artifact. Myelopoiesis is progressive with maturation toward segmented neutrophils and bands. Blasts are not increased. The erythroid precursors are unremarkable. No dysmorphic features are noted. Small lymphocytes and unremarkable plasma cells are seen. Focally increased eosinophils are detected. Megakaryocytes are large with unremarkable nuclear features. BONE MARROW BIOPSY: The biopsy is fragmented and demonstrates normocellular marrow for the patient's age (overall estimated cellularity is approximately 20-30%) with small erythroid colonies, maturing granulocytes, and evenly distributed megakaryocytes. No abnormal lymphoid or plasma cell infiltrates detected. Negative for fibrosis, granulomas, or non-hematopoietic neoplasms. CLOT SECTION: Clot section contains small bone marrow fragments with similar morphologic alterations. SPECIAL STAINS: - Iron stain (performed on aspirate smear and clot section): Stainable iron present; no ring sideroblasts detected. IMMUNOHISTOCHEMICAL STAINS (performed on bone marrow core biopsy): - CD3: Positive in interstitial T-cells, highlights small lymphoid nodule. - CD20: Positive in rare B-cells. - CD138: Positive in plasma cells (2-3%). IN SITU HYBRIDIZATION: - [place]: Positive in a subset of plasma cells. - Lambda: Positive in a subset of plasma cells (polytypic staining pattern). GP:smn FLOW CYTOMETRY: Bone marrow, flow cytometry: - No increase in blasts. - No monoclonal B-cell, plasma cell, or aberrant T-cell populations identified. - Please see Comment. COMMENT: The flow cytometry study demonstrates no immunophenotypic evidence of myeloid neoplasia, lymphoproliferative disease, or plasma cell dyscrasia. Correlation PATIENT NAME: HELNE PADRON PATHOLOGY DATE OF : 42 REPORT #: [id number] PHYSICIAN: GRZEGORZ NAQIV PCP: SHEREEN MCKENZIE MD REPORT IS CONFIDENTIAL AND NOT TO BE RELEASED WITHOUT AUTHORIZATION [address] [address] Signed with clinical and morphologic findings is required for complete interpretation of the flow cytometry results and to evaluate for disorders not fully characterized by flow cytometric analysis including myelodysplastic syndromes, myeloproliferative neoplasms, and others. GP:smn FLOW CYTOMETRY ANALYSIS: FLOW DIFFERENTIAL (% Total CD45 vs. SSC gating): Myeloid 67%; Lymphoid 17%; Monocyte 2%; Dim CD45/Blast 0.8%; Plasma Cells 0.5%. Cell Count: 6.1 x 10*3/uL. POPULATION ANALYSIS: BLASTS: Analysis of the dim CD45 gate demonstrates 0.8% myeloblasts by CD34/CD117. 1.6% of total events are hematogones. LYMPHOID CELLS: The lymphocyte gate comprises 17% of total events and includes 64% T-cells with a CD4:CD8 ratio of 0.9:1 and normal mcrae T-cell antigen expression. 18% of lymphocytes are B-cells with a kappa:lambda ratio of 1.3:1. The remainders in the lymphoid gate are NK cells. MYELOID CELLS: The myeloid population comprises 67% of the total events. No aberrant immunophenotypic expression is detected. MONOCYTES: The monocyte population comprises 2% of the total events. Monocytes are not increased. No aberrant immunophenotypic expression is detected. PLASMA CELLS: There is a noted clinical concern for myeloma. For this reason, select additional antibodies are run to further characterize the plasma cells. 0.5% polytypic plasma cells are detected (n=232) expressing CD45 DIM-NEG, CD19 DIM (partial), CD38 BR, CD138 MOD and CD56 (minor subset) while negative for CD20. ANTIBODIES USED: KAPPA, LAMBDA, CD20, CD10, CD19, CD23, CD38, FMC7, CD16, CD56, CD8, CD5, CD2, CD4, CD7, CD3,CD14, CD33, CD13, HLADR, CD34, CD117, CD15, cKAPPA, cLAMBDA, CD138, CD45: TOTAL ANTIBODIES USED: 27. DKW FINAL DIAGNOSIS PERFORMED BY: Colt Bustamante MD. MPH, Pathologist Dec 23 2019 1:11PM GROSS DESCRIPTION: A. The specimen, received in formalin, labeled "Stefani, bone core," consists of a 0.6 cm, brian bone core. Submitted in (A1) following decalcification in [facility] for 1.5 hours. B. The specimen, received in formalin, labeled "Stefani, clot," consists of a 1.7 x 1.4 x 0.2 cm aggregate of blood clot. Entirely submitted in (B1). PATIENT NAME: HELEN PADRON PATHOLOGY DATE OF : 42 REPORT #: [id number] PHYSICIAN: GRZEGORZ PATHOLOGY PCP: SHEREEN MCKENZIE MD REPORT IS CONFIDENTIAL AND NOT TO BE RELEASED WITHOUT AUTHORIZATION [facility] [address] [place], [place] [address] Signed tn:TARA:dk ADDITIONAL NOTES: This test was developed and its performance characteristics determined by [facility]. It has not been cleared or approved by the US Food and Drug Administration. The FDA does not require this test to go through premarket FDA review. This test is used for clinical purposes. It should not be regarded as investigational or for research. This laboratory is certified under the Clinical Laboratory Improvement Amendments (CLIA) as qualified to perform high complexity clinical laboratory testing. Immunohistochemical and/or in situ hybridization studies were performed on this case with the appropriate positive controls that react as expected. This test was developed and its performance characteristics determined by [facility]. It has not been cleared or approved by the U.S. Food and Drug Administration. The FDA has determined that such clearance or approval is not necessary. This test is used for clinical purposes. It should not be regarded as investigational or for research. [facility] is certified under the Clinical Laboratory Improvement Amendments of 1988 (CLIA) as qualified to perform high complexity clinical laboratory testing. In this case, certain antibodies were performed by both immunohistochemistry and flow cytometry analysis because flow cytometry analysis did not fully explain all the light microscopic findings. Immunohistochemistry aided in the analysis. Both methods are deemed medically necessary in this case. PERFORMING LABORATORY: The professional interpretation was performed by [facility], [address] [place] [id number] ([employer] Transfer Operator: Jaime Ward D.O.; CLIA#: [id number]). Professional interpretation was performed by [facility], [facility], [address] [place] [id number] ([employer] Transfer Operator: Tone Martinez M.D.; CLIA#: [id number]). IMAGES: [id number]: [id number]: [id number] PATIENT NAME: HELEN PADRON PATHOLOGY DATE OF : 42 REPORT #: [id number] PHYSICIAN: GRZEGORZ NAQVI PCP: SHEREEN MCKENZIE MD REPORT IS CONFIDENTIAL AND NOT TO BE RELEASED WITHOUT AUTHORIZATION [facility] [address] [place] [id number] Signed Diagnostician: Colt Bustamante MD. MPH Pathologist Electronically Signed 12/24/2019 Copies: ~ PATIENT NAME: HELEN PADRON PATHOLOGY DATE OF : 42 REPORT #: [id number] PHYSICIAN: GRZEGORZ PATHOLOGY PCP: SHEREEN MCKENZIE MD REPORT IS CONFIDENTIAL AND NOT TO BE RELEASED WITHOUT AUTHORIZATION
== END 2019-12-20 13:30 | disposition home or self-care (01) ==
LOC: OPS 10:50 → DS 13:00 → OPS 13:00
PROVIDERS: Specialist
PROC: 079T3ZX Drainage of Bone Marrow, Percutaneous Approach, Diagnostic (ICD-10-PCS; 2019-12-20)
PROC: 07DR3ZX Extraction of Iliac Bone Marrow, Percutaneous Approach, Diagnostic (ICD-10-PCS; principal; 2019-12-20 13:00)
DX: C90.00 Multiple myeloma not having achieved remission (principal); D64.9 Anemia, unspecified; I10 Essential (primary) hypertension; E03.9 Hypothyroidism, unspecified; E78.5 Hyperlipidemia, unspecified; Z79.899 Other long term (current) drug therapy
CPT/HCPCS: 80053; 82232; 82784; 83516; 83615; 83883; 85025; 99152; 99153; J2250; J3010; J7121